=== PATIENT | female | born 1995 | race Caucasian/White ===

== ENCOUNTER 2017-08-18 10:56 | Emergency (ER) | payer OTHER ==
[~2017-08-18] VITALS: Ht 149.9 cm; Wt 63.5 kg
== END 2017-08-18 11:29 | disposition home or self-care (01) ==
LOC: ED 10:56
DX: S61.411A Laceration without foreign body of right hand, initial encounter (principal); W01.198A Fall on same level from slipping, tripping and stumbling with subsequent striking against other object, initial encounter

== ENCOUNTER 2018-11-05 17:45 | Emergency (ER) | payer OTHER ==
[~2018-11-05] VITALS: Ht 149.9 cm; Wt 63.5 kg
--- OUTSIDE RECORDS SUMMARY | ~2018-11-05 | XMS | Encounter Summary ---
Demographics + + + | Address | [address] | | | [place] [address] | + + + | Home Phone | | + + + | Preferred Language | Unknown | + + + | Marital Status | Single | + + + | Islam Affiliation | NON | + + + | Race | White | + + + | Ethnic Group | Not or | + + + Author + + + | Author | [facility] | + + + | Organization | [facility] | + + + | Address | Unknown | + + + | Phone | Unavailable | + + + Support + + + + + | Name | Relationship | Address | Phone | + + + + + | Dante Duenas | GISSELLE | [address] | | | | | [place] [address] | | + + + + + | Helena Barakatjoseph | ECON | [address] | | | | | [place] [address] | | + + + + + Care Team Providers + +------+ + | Care Equipment Processor Name | Role | Phone | + +------+ + | Larry Lorenzo | PCP | | + +------+ + Reason for Visit + + + | Reason | Comments | + + + | | | + + + Encounter Details +--------+ + + + + | Date | Type | Department | Care Team | Description | +--------+ + + + + | 09/12/ | | [facility] | Jeannie Argueta, | | | 2017 | | [facility] | [address] | | | | | [address] , [address] | [address] | | | | | [place], [place] | [place], [place] | | | | | [address] | [address] | | | | | [phone] | [phone] | | | | | | | | +--------+ + + + + Social History + +-------+ +--------+------+ | Tobacco Use | Types | Packs/Day | Years | Date | | | | | Used | | + +-------+ +--------+------+ | Never Smoker | | | | | + +-------+ +--------+------+ + +---+---+---+ | Smokeless Tobacco: | | | | | Never Used | | | | + +---+---+---+ + + +---------+ + | Alcohol Use | Drinks/Week | oz/Week | Comments | + + +---------+ + | No | 0 Standard drinks | 0.0 | not while | | | or equivalent | | | + + +---------+ + + + + | Sex Assigned at | Date Recorded | | | | + + + | Not on file | | + + + + + + + | Job Start Date | Occupation | Industry | + + + + | Not on file | Not on file | Not on file | + + + + + + + + | Travel History | Travel Start | Travel End | + + + + + + | No recent travel history available. | + + documented as of this encounter Last Filed Vital Signs + + + + + | Vital Sign | Reading | Time Taken | Comments | + + + + + | Blood Pressure | 100/62 | 09/12/2016 10:25 AM | | | | | PDT | | + + + + + | Pulse | - | - | | + + + + + | Temperature | - | - | | + + + + + | Respiratory Rate | - | - | | + + + + + | Oxygen Saturation | - | - | | + + + + + | Inhaled Oxygen | - | - | | | Concentration | | | | + + + + + | Weight | 68.9 kg (152 lb) | 09/12/2016 10:25 AM | | | | | PDT | | + + + + + | Height | - | - | | + + + + + | Body Mass Index | 29.93 | 04/23/2016 2:08 PM | | | | | PDT | | + + + + + documented in this encounter Patient Instructions Patient Instructions Hellen Littlejohn MA - 09/12/2016 10:30 AM PDTPrenatal Visit - Week 32 Please read chapters 9 and 27 in your book. Planning for the of your baby is important. Getting ready at home for your baby will assure that when you get home from the hospital, everything is ready for you and your baby to make the transition to your new life together. Some things to consider: ? Pediatric care ? Tdap ? Flu shots ? Vaccinations ? A place to sleep ? A place to change diapers ? A support system for you ? Nutrition Family Planning Did you talk to your mate about contraception? If not, do so soon. We would like you to h ave a solid plan in place even before your baby gets here. Why?.....because it s good for your baby, it s good for you, and it s good for your relationship with your mate. Also , we want you to be able to decide when you get , again. We now classify control methods into Tier 1 and Tier 2. Tier 2 methods are the ones that a lot of people make mistakes with ..they re good if used perfectly; but not kate van is capable of that ALL the time (condoms get left in drawer - with the diaphragms); pi lls are forgotten or lost; and rings and patches require changing). Plus, many of the dual hormone methods (containing BOTH an estrogen and a progestin) may not be the best choice for mothers. The Tier 1 methods are the three I s : ? Injectables ? Implants ? IUDs Are you leery of hormones ? Many women decline or delay good contraception because th ey don t want hormones. Some of them delay/decline right up to another . When the risks of the hormones used in modern contraceptives are weighed against the risks of pre gnancy, there is no comparison ..the potential risks of are much higher. And all of these methods are safe to use when you are . Let s talk about this at your next visit. Maternal Age Not that 35 years is all that old .however, recent studies indicate that the unborn ba bivinod of older mothers may be at a higher risk of stillbirth as delivery approaches. T his risk increases as the mother s age increases, and is independent of other risk factors a mother may have (like diabetes or high blood pressure). We re not sure why this is it probably has something to do with the placenta; possi bacilio with the aging of blood vessels, or some of the other phenomena associated with the agin g process. In any event, there is no clear explanation. Also, there is no clear standard o f care regarding how best to manage older mothers as the day of delivery approaches. Our practice has reached a consensus on what we recommend: ? Count to Ten. Keep a mental note of your baby s movements throughout the day. If you re concerned about less movement, eat or drink something and lie down on your left side in a quiet place. Start counting your baby s movements. If it takes more than 2 hours to c ount 10 distinct movements, call us. ? For women between the ages of 35-39, we advise testing in the 39th week of your , and induction of your labor if you go more than one week beyond your due ulices e. ? For women over the age of 40, we suggest getting an ultrasound between weeks 34 and 36, b eginning weekly testing in the 36th week of , and induction of labor in the last week of your (39-40 weeks). ? We can talk about this at your next visit. testing involves assessment of your baby s heart rate (20-45 minutes on the fet al heart rate monitor) and a brief ultrasound to measure the fluid around the baby (a good g auge of the health of the placenta). Weeks 30 to 32 of Your : Care Instructions Your Care Instructions You have made it to the final months of your . By now, your baby is really startin g to look like a baby, with hair and plump skin. As you enter the final weeks of , the reality of having a baby may start to set in . This is the time to settle on a name, get your household in order, set up a safe nursery, and find quality early childhood if needed. Doing these things in advance will allow you to focus on caring for and enjoying your new baby. You may also want to have a tour of your hospital 's labor and delivery unit to get a better idea of what to expect while you are in the [facility]. During these last months, it is very important to take good care of yourself and pay attent ion to what your body needs. If your doctor says it is okay for you to work, don't push your self too hard. Use the tips provided in this care sheet to ease heartburn and care for varic ose veins. If you haven't already had the Tdap shot during this , talk to your doctor about g etting it. It will help protect your against pertussis infection. Follow-up care is a mclaughlin part of your treatment and safety. Be sure to make and go to all ap pointments, and call your doctor if you are having problems. It's also a good idea to know y our test results and keep a list of the medicines you take. How can you care for yourself at home? Pay attention to your baby's movements You should feel your baby move several times every day. Your baby now turns less, and kicks and jabs more. Your baby sleeps 20 to 45 minutes at a time and is more active at certain times of day. If your doctor wants you to count your baby's kicks: Empty your bladder, and lie on your side or relax in a comfortable chair. Write down your start time. Pay attention only to your baby's movements. Count any movement except hiccups. After you have counted 10 movements, write down your stop time. Write down how many minutes it took for your baby to move 10 times. If an hour goes by and you have not recorded 10 movements, have something to eat or drin k and then count for another hour. If you do not record 10 movements in either hour, call yo doctor. Ease heartburn Eat small, frequent meals. Do not eat chocolate, peppermint, or very spicy foods. Avoid drinks with caffeine, such as coffee, tea, and sodas. Avoid bending over or lying down after meals. Talk a short walk after you eat. If heartburn is a problem at night, do not eat for 2 hours before bedtime. Take antacids like Mylanta, Maalox, Rolaids, or Tums. Do not take antacids that have sod ium bicarbonate. Care for varicose veins Varicose veins are blood vessels that stretch out with the extra blood during . Your legs may ache or throb. Most varicose veins will go away after the . Avoid standing for long periods of time. Sit with your legs crossed at the ankles, not t he knees. Sit with your feet propped up. Avoid tight clothing or stockings. Wear support hose. Exercise regularly. Try walking for at least 30 minutes a day. Where can you learn more? To learn more about "Weeks 30 to 32 of Your : Care Instructions", log into your My Chart account at [email or web address]. You can enter X471 in the "Health Library" [facility] box. Not on [employer]? Review the MyChart section of your After Visit Summary for directions on timbo aquino to sign up. Current as of: November 20, 2015 Content Version: [id number] [email or web address]. Care instructions adapted under license by [facility] [employer]. If you have questions about a medical condition or this instr uction, always ask your healthcare professional. [email or web address] disclaims any nino anty or liability for your use of this information. documented in this encounter Progress Notes Jeannie Argueta CNM - 09/12/2016 10:30 AM PDTFeeling well, no concerns. Discussed Tdap recommendations, recommended family members also get vaccine if not current. She is undecided about vaccine and will think about it She may travel to [place] by plane in a couple weeks, grandfather is ill. She isn't sure that she will go. Discussed ambulation and stretching every 1-2 hours to avoid DVT risk. S/S DVT reviewed F/u 2 wks Kathleen Saleem MA - 09/12/2016 10:30 AM PDTPt would like to discuss traveling on a plane. Pt declined the Tdap. No other questions or concerns. Hellen Littlejohn MA documented in this encounter Plan of Treatment Not on filedocumented as of this encounter Procedures + +--------+ + + + | Procedure Name | Priori | Date/Time | Associated Diagnosis | Comments | | | ty | | | | + +--------+ + + + | UA, DIP 4 | Routin | 09/12/2016 | 30 weeks gestation | Results for this | | | e | 10:16 AM | of | procedure are in the | | | | PDT | | results section. | + +--------+ + + + documented in this encounter Results UA, DIP 4 (09/12/2016 10:16 AM PDT) + + + + + + | Component | Value | Ref Range | Performed | Pathologist | | | | | At | Signature | + + + + + + | GLUCOSE | Negative | Negative | [facility] | | | [facility]INE) | | [facility] | | + + + + + + | PROTEIN, | Negative | Negative, Trace | [facility] | | | URINE | | | [facility] | | + + + + + + | NITRITES | Negative | Negative | [facility] | | | | | | [facility] | | + + + + + + | LEUKOCYTE | Positive (A) | Negative | [facility] | | | ESTERASE | | | [facility] | | | [facility] | | + + + + + + + + | Specimen | + + | Urine | + + + + + + + | Performing | Address | City/State/Zipcode | Phone Number | | Organization | | | | + + + + + | [facility] | [address], | [place] [address] | | | [facility] | [address] | | | + + + + + documented in this encounter Visit Diagnoses + + | Diagnosis | + + | screening for streptococcus B - Primary screening for | | Streptococcus B | + + | 30 weeks gestation of state, incidental | + + documented in this encounter
--- OUTSIDE RECORDS SUMMARY | ~2018-11-05 | XMS | Encounter Summary ---
Demographics + + + | Address | [address] | | | [place] [address] | + + + | Home Phone | | + + + | Preferred Language | Unknown | + + + | Marital Status | Single | + + + | Protestant Affiliation | NON | + + + | Race | White | + + + | Ethnic Group | Not or | + + + Author + + + | Author | [facility] | + + + | Organization | [facility] | + + + | Address | Unknown | + + + | Phone | Unavailable | + + + Support + + + + + | Name | Relationship | Address | Phone | + + + + + | Dante Duenas | GISSELLE | [address] | | | | | [place] [address] | | + + + + + | Helena Barakatjoseph | ECON | [address] | | | | | [place] [address] | | + + + + + Care Team Providers + +------+ + | Care Electromechanical Assembly Technician Name | Role | Phone | + +------+ + | Larry Lorenzo | PCP | | + +------+ + Reason for Visit + + + | Reason | Comments | + + + | Appointment | | + + + Encounter Details +--------+ + + + + | Date | Type | Department | Care Team | Description | +--------+ + + + + | 06/18/ | Telephone | [facility] | Jeannie Argueta, | Appointment | | 2015 | | [facility] [address] | CN[address] | | | | | [address] , [address] | [address] | | | | | [place], [place] | [place] | | | | | [address] | [address] | | | | | [phone] | [phone] | | | | | | | [...] + + documented as of this encounter Plan of Treatment Not on filedocumented as of this encounter Visit Diagnoses Not on filedocumented in this encounter"
--- OUTSIDE RECORDS SUMMARY | ~2018-11-05 | XMS | Encounter Summary ---
Demographics + + + | Address | [address] | | | [place] [address] | + + + | Home Phone | | + + + | Preferred Language | Unknown | + + + | Marital Status | Single | + + + | Adventist Affiliation | NON | + + + | Race | White | + + + | Ethnic Group | Not or | + + + Author + + + | Author | [facility] | + + + | Organization | [facility] | + + + | Address | Unknown | + + + | Phone | Unavailable | + + + Support + + + + + | Name | Relationship | Address | Phone | + + + + + | Dante Duenas | GISSELLE | [address] | | | | | [place] [address] | | + + + + + | Helena Hawleywil | ECON | [address] | | | | | [place] [address] | | + + + + + Care Team Providers + +------+ + | Care Asbestos Shingle Inspector Name | Role | Phone | + +------+ + | Larry Lorenzo | PCP | | + +------+ + Reason for Visit +--------+ + | Reason | Comments | +--------+ + | Fever | | +--------+ + Encounter Details +--------+ + + + + | Date | Type | Department | Care Team | Description | +--------+ + + + + | 12/11/ | Telephone | [facility] | Jeannie Argueta, | Fever | | 2017 | | [facility] [place] [address] | [address] | | | | | [address] , [address] | [address] | | | | | [place], [place] | [place], [place] | | | | | [address] | [address] | | | | | [phone] | [phone] | | | | | | | [...] Comments | + + +---------+ + | Yes | 0 Standard drinks | 0.0 | occ | | | or equivalent | | [...]
--- OUTSIDE RECORDS SUMMARY | ~2018-11-05 | XMS | Encounter Summary ---
Demographics + + + | Address | [address] | | | [place] [address] | + + + | Home Phone | | + + + | Preferred Language | Unknown | + + + | Marital Status | Single | + + + | Worship Affiliation | NON | + + + | Race | White | + + + | Ethnic Group | Not or | + + + Author + + + | Author | [facility] | + + + | Organization | [facility] | + + + | Address | Unknown | + + + | Phone | Unavailable | + + + Support + + + + + | Name | Relationship | Address | Phone | + + + + + | Dante Duenas | GISSELLE | [address] | | | | | [place] [address] | | + + + + + | Helena Hawleywil | ECON | [address]K | | | | | [place] [address] | | + + + + + Care Team Providers + +------+ + | Care Enterprise Application Developer Name | Role | Phone | + +------+ + | Larry Lorenzo | PCP | | + +------+ + Reason for Visit + + + | Reason | Comments | + + + | Intrauterine Device | Check up | + + + Encounter Details +--------+---------+ + + + | Date | Type | Department | Care Team | Description | +--------+---------+ + + + | 03/13/ | Office | [facility] | Harpreet Sanabria MD | Leukorrhea (Primary | | 2017 | Visit | [facility] [address] | Dx); Dysuria; IUD | | | | [address] | [address], [place] | check up; Pelvic | | | | [place], [place] | [address] | pain | | | | [address] | [phone] | | | | | [phone] | | | +--------+---------+ + + + Social History + +-------+ [...] + + + | Blood Pressure | 98/68 | 03/13/2017 8:24 AM | | | | | PDT | | + + + + + | Pulse | 74 | 03/13/2017 8:24 AM | | | | | PDT | | + + + + + | Temperature | 36.9 C (98.4 F) | 03/13/2017 8:24 AM | | | | | PDT | | + + + + + | Respiratory Rate | - | - | | + + + + + | Oxygen Saturation | 97% | 03/13/2017 8:24 AM | | | | | PDT | | + + + + + | Inhaled Oxygen | - | - | | | Concentration | | | | + + + + + | Weight | 68.5 kg (151 lb) | 03/13/2017 8:24 AM | | | | | PDT | | + + + + + | Height | - | - | | + + + + + | Body Mass Index | 29.74 | 11/25/2016 5:07 AM | | | | | PDT | | + + + + + documented in this encounter Patient Instructions Patient Instructions Harpreet Sanabria MD - 03/13/2017 8:30 AM PDTYour exam today was normal. There were no signs of a vaginal infection. I suspect that her body is just adjusting to the IUD and this should improve over time. If your pelvic cramping persists beyond next week, please call our office and an ultrasound will be ordered for you. If you developed another fever or any change in her vaginal discharge, please call.Catalina hutchison signed by Harpreet Sanabria MD at 03/13/2017 9:00 AM PDT documented in this encounter Progress Notes Harpreet Sanabria MD - 03/13/2017 8:30 AM PDTI was present for the entire exam & agree with A kalyn Gilliam's assessment and plan. Harpreet Sanabria MD acobyDottie [email or web address] - 03/13/2017 8:30 AM PDT Jennifer Reilly is a 21 y.o. female here today. Chief Complaint Patient presents with Intrauterine Device Check up S:Jennifer Reilly is a 21 y.o. female with ParaGard IUD inserted on 02/21/17, w ithout complications. After insertion had pelvic cramping x 3 days and resolved. Pelvic cram ping returned 1 week ago. Patient states that the cramping is on and off, not constant. She is not currently having any pelvic cramping. Has not tried any over the counter medications to help with the cramping. Has not tried to feel IUD strings. She has also noticed cloudy ur ine, vaginal discharge with odor and vulvar pruritis. The pruritis is intermittent and does not last all day. She uses dove sensitive skin soap to wash vulva. She has stopped shaving v ulva to help with irritation. LMP- 02/27/17, heavier this time used more tampons than normal, 8 tampons a day. Menses laste d x 4-5 days. Did not need to change tampons every hour. Current Medications: No current outpatient prescriptions on file. No current facility-administered medications for this visit. Allergies/Adverse Drug Reactions: No Known Allergies Review of Systems Constitutional: Negative for chills, fever and malaise/fatigue. Gastrointestinal: Negative for blood in stool, constipation, diarrhea, melena, nausea and v omiting. Genitourinary: Negative for dysuria, flank pain, frequency, hematuria and urgency. Gynecological: Negative for dyspareunia, genital sores. O: Vital Signs: BP 98/68 | Pulse 74 | Temp (Src) 36.9 C (98.4 F) (Tympanic) | Wt 68.5 kg (151 lb) | SpO 2 97% | LMP 02/27/2017 | ? No | BMI 29.74 kg/(m^2) General: Pelvic exam: Vulva: Erythema noted over labia majora and mons pubis without edema. No visib le genital sores, lesions or scaling. Cervix: No cervical motion tenderness, no cervical le sions or polyps visible. 3 cm IUD strings visible in os. Vaginal discharge: Creamy and odorl ess. Uterus: normal size, shape, consistency, no mass or tenderness. Adnexa: normal in size without mass. Slight tenderness over left adnexa. No tenderness over right adnexa. Urine dipstick negative for all components except leukocytes and blood. Wet mount SILVER slide: Negative yeast Wet mount Saline slide: Negative wbc, Negative clue cells, Negative budding yeast, Negati ve trichomonads. Normal epithelial cells visible. A: Jennifer Reilly is a 21 y.o. Female with pelvic cramping after IUD insertion. Normal exam without s/s of infection or IUD complication. P: Discussed with patient no signs of a vaginal infection or urinary infection. WBC noted in u rine possibly from vaginal discharge, will send urine for micro. Reviewed with patient intermittent pelvic cramping can be normal after IUD insertion. Advis ed to try Aleve 500 mg BID or Ibuprofen 200 mg TID for pelvic cramping. Advised if pelvic cramping worsens return to clinic for evaluation and possibly US for IUD placement check. Also advised if vaginal discharge changes, develops fever or worsening symp toms return to clinic. See Orders. Dottie Gilliam, Student nurse practitioner Edwardo Chowdhury MA - 03/13/2017 8:30 AM PDTPt here for IUD check. Paragard IUD was inserted on 02/21/17. She is having some intense cramping in her lower left a bdomen, accompanied by some lower back pain. She is also having some weird smelling urine. S he thought it may have been caused from not drinking enough water, but she has increased her water intake and the smell hasn't changed. Edwardo Carranza CMA documented in this e ncounter Plan of Treatment Not on filedocumented as of this encounter Procedures + +--------+ + + + | Procedure Name | Priori | Date/Time | Associated Diagnosis | Comments | | | ty | | | | + +--------+ + + + | UA DIPSTICK 10 DIP | Routin | 03/13/2017 | Dysuria | Results for this | | (MANUAL), POC | e | 8:39 AM | | procedure are in the | | | | PDT | | results section. | + +--------+ + + + documented in this encounter Results UA DIPSTICK 10 DIP (MANUAL), POC (03/13/2017 8:39 AM PDT) + + + + + + | Component | Value | Ref Range | Performed | Pathologist | | | | | At | Signature | + + + + + + | COLOR (UA | Light yellow | | [facility] | | | DIP), POC | | | [facility] | | | | [facility] | | + + + + + + | APPEARANCE | Cloudy | | [facility] | | | (UA DIP), | | | [facility] | | | POC | | | [facility] | | | [facility] | | + + + + + + | LEUKOCYTES | 3+ | Negative | [facility] | | | (UA DIP), | | | [facility] | | | POC | | | [facility] | | | [facility] | | + + + + + + | NITRITES | Negative | Negative | [facility] | | | (UA DIP), | | | [facility] | | | POC | | | [facility] | | | | [facility] | | + + + + + + | UROBILINOGE | 0.2 | 0.2 LUZ | [facility] | | | N (UA DIP), | | UNITS | [facility] | | | POC | | | [facility] | | | [facility] | | + + + + + + | PROTEIN (UA | Negative | Negative to | [facility] | | | DIP), POC | | Trace | [facility] | | | | | [facility] | | | | | [facility] | | + + + + + + | PH (UA | 5.5 | 5 - 8 | [facility] | | | DIP), POC | | | [facility] | | | | | | [facility] | | | | [facility] | | + + + + + + | BLOOD (UA | Trace-lysed | Negative | [facility] | | | DIP), POC | | | [facility] | | | | | [facility] | | + + + + + + | SPECIFIC | 1.005 | 1.005 - 1.03 | [facility] | | | GRAVITY (UA | | | [facility] | | | DIP), POC | | | [facility] | | | | [facility] | | + + + + + + | KETONES (UA | Negative | Negative | [facility] | | | DIP), POC | | | [facility] | | | | | | [facility] | | | | | [facility] | | + + + + + + | BILIRUBIN | Negative | Negative | [facility] | | | (UA DIP), | | | [facility] | | | POC | | | [facility] | | | | | [facility] | | + + + + + + | GLUCOSE (UA | Negative | Negative to | [facility] | | | DIP), POC | | Trace mg/dL | [facility] | | | | | [facility] | | | | | [facility] | | + + + + + + + + | Specimen | + + | Urine | + + + + + + + | Performing | Address | City/State/Zipcode | Phone Number | | Organization | | | | + + + + + | [facility] | [address], | [place] [address] | | | [facility] | [address] | | | + + + + + URINE, MICROSCOPIC EXAM (03/13/2017 8:30 AM PDT) + + + + + + | Component | Value | Ref Range | Performed | Pathologist | | | | | At | Signature | + + + + + + | RED CELLS | 0-3 | Neg, 0-3 | [facility] | | | | | | A [facility] | | | | | | [facility] | | + + + + + + | WHITE CELLS | Packed (A) | Neg, 0-2, 3-5 | [facility] | | | | | | A [facility] | | | | | | CENTER | | + + + + + + | BACTERIA | 4+ (A) | Negative, Trace | [facility] | | | | | /hpf | A [facility] | | | | | | CENTER | | + + + + + + | SQUAMOUS | Few | None /hpf /hpf | [facility] | | | EPITHELIAL | | | A [facility]ICAL | | | | | | CENTER | | + + + + + + + + | Specimen | + + | Urine | + + + + + + + | Performing | Address | City/State/Zipcode | Phone Number | | Organization | | | | + + + + + | [facility] | [place] | [place] [address] | [phone] | | [facility] | Street | | | + + + + + documented in this encounter Visit Diagnoses + + | Diagnosis | + + | Leukorrhea - Primary Leukorrhea, not specified as infective | + + | Dysuria | + + | IUD check up Surveillance of previously prescribed intrauterine contraceptive device | + + | Pelvic pain Unspecified symptom associated with female genital organs | + + documented in this encounter"
--- OUTSIDE RECORDS SUMMARY | ~2018-11-05 | XMS | Encounter Summary ---
Demographics + + + | Address | [address] | | | [place] [address] | + + + | Home Phone | | + + + | Preferred Language | Unknown | + + + | Marital Status | Single | + + + | Yazdanism Affiliation | NON | + + + [...] | | | | | [place] [address] | | + + + + + | [place] Hawleywil | ECON | [address] | | | | | [place] [address] | | + + + + + Care Team Providers + +------+ + | Care Marketing Project Lead Name | Role | Phone | + +------+ + | Larry Lorenzo | PCP | | + +------+ + Reason for Visit + + + | Reason | Comments | + + + | Breathing problem | | + + + Encounter Details +--------+ + + + + | Date | Type | Department | Care Team | Description | +--------+ + + + + | 05/20/ | Telephone | [facility] | Jeannie Argueta, | Breathing problem | | 2015 | | [facility] [address] | [facility] [address] | | | | | [address] | | | | | [place], [place] | [place], [place] | | | | | [address] | [address] | | | | | [phone] | [phone] | | | | | | | [...]
--- OUTSIDE RECORDS SUMMARY | ~2018-11-05 | XMS | Clinical Summary ---
Demographics + + + | Address | [address] | | | [place], [place] [address] | + + + | Home Phone | | + + + | Preferred Language | Unknown | + + + | Marital Status | Single | + + + | Gnosticism Affiliation | NON | + + + | Race | White | + + + | Ethnic Group | Not or | + + + Author + + + | Author | [facility] | + + + | Organization | [facility] | + + + | Address | Unknown | + + + | Phone | Unavailable | + + + Support + + + + + | Name | Relationship | Address | Phone | + + + + + | Dante Duenas | ECON | [address] | | | | | [place] [address] | | + + + + + | [place] Garrett Melba | ECON | [place] | | | | | [place] [address] | | + + + + + Care Team Providers + +------+ + | Care Histology Manager Name | Role | Phone | + +------+ + | Larry Lorenzo | PP | | + +------+ + Source Comments KELLY is fully live on both [facility] and [facility] InPatient.[facility] Allergies No Known Allergies Medications + + + +---------+------+------+-------+ | Medication | Sig | Dispensed | Refills | Star | End | Statu | | | | | | t | Date | s | | | | | | Date | | | + + + +---------+------+------+-------+ | | Take 1 tablet by | 3 | 3 | 08/22 | | Activ | | levonorgestrel-ethin | mouth once daily. | Package | | 07/12 | | e | | yl estradiol 0.1-20 | | | | 19 | | | | mg-mcg oral tablet | | | | | | | + + + +---------+------+------+-------+ Active Problems + + + | Problem | Noted Date | + + + | Family history of breast cancer in sister | 11/22/2016 | + + + + + | Overview: Diagnosed at 40, no genetic testing yet. | | Half sister, same mother. | + + + + + | Increased thirst | 10/08/2016 | + + + + + | Overview: 10/08/16: Pt reported at last visit she feels very | | thirsty. Often wakes up at night to drink water and is drinking | | over a gallon a day. Urine osmolality and CMP done which are | | negative. Pt instructed to try ice to satisfy thirst and to not | | drink more than 1 gallon per day. mp | + + + + + | Strep throat | 06/12/2016 | + + + + + | Overview: 06/12/16: Strep throat treated with Ampicillin 10 | | days. (concomittent UTI), then received IM Penicillin in office. | | AB06/18/16: Pt seen by Dr Caicedo at ENT today. He feels her | | condition is a more severe case of laryngitis. He will treat her | | with Azithromycin and f/u in a week or so. If not improved, will | | consider a Prednisone taper. mp | + + + + + | Normal first confirmed, antepartum | 04/23/2016 | + + + + + | Overview: Formatting of this note might be different from the | | original.FOB: Dating Criteria: [ ] LMP or U/S @ [ ] Weeks | | :[X] Labs: drawn 04/23/16[X] Rh: Lab Results | | Component Value Date ABO A 04/23/2016 RH Positive 04/23/2016 [ | | ] Antibody screen:[X] GC: 05/31/16[ ] HgbA1C: NA No results found | | for: A1C[X] Pap: Last pap 02/2016 ASCUS. Done at [facility] | | [facility].[X] Urine Cx: 05/31/16[ ] Birthing | | classesFIRST[X] Genetic Screening: [X] CF-negative [X] | | SIS-negative [ ] NIPT [ ] AFP 1st SIS drawn 05/10; 2nd drawn | | [id number][ ] Ultrasound 18-20 weeks:[ ] Follow up U/S: | | Indication:[ ] Gender: [X] 1hr gtt at 24-28wks: abnormal 1 HOUR | | GLUCOSE - 1GT 60 - 140 mg/dL 151 (H) [X] 3hr gtt: NORMAL1 HOUR | | GLUCOSE-3GT 60 - 180 mg/dL 148 2 HOUR GLUCOSE-3GT 60 - 153 mg/dL | | 135 3 HOUR GLUCOSE-3GT 60 - 140 mg/dL 145 (H) [X] CBC:WBC COUNT | | 3.5 - 10.8 K/cu mm 9.3 RED CELL COUNT 4.00 - 5.20 M/cu mm 4.24 | | HEMOGLOBIN 12.0 - 16.0 g/dL 12.0 HEMATOCRIT 36.0 - 46.0 % 35.2 | | (L) MCV 80.0 - 96.0 fL 83.1 MCH 28.0 - 34.7 pg 28.4 MCHC 33.0 - | | 35.5 g/dL 34.2 RDW 11.5 - 15.0 % 13.5 PLATELET COUNT 150 - 400 | | K/cu mm 314 MPV 9.7 - 12.3 fL 7.5 (L) [ ] Repeat | | surgical booking?THIRD[ ] Follow-up U/S: Growth or KALEY | | Indication:[X] Flu Shot (Feb-May): declined[X] Tdap (27-36 wks): | | declined [N/A] Rhogam (28 wks)[x ] GBS at 35wks: Positive[ ] MOD: | | [x ] :[x ] ppBCM:POP | |[ ] Ultrasound 18-20 weeks: | |[ ] Follow up U/S: Indication: | |[ ] Gender: | |[X] 1hr gtt at 24-28wks: abnormal | |1 HOUR GLUCOSE - 1GT 60 - 140 mg/dL 151 (H) | | | |[X] 3hr gtt: NORMAL | |1 HOUR GLUCOSE-3GT 60 - 180 mg/dL 148 | | | |2 HOUR GLUCOSE-3GT 60 - 153 mg/dL 135 | | | |3 HOUR GLUCOSE-3GT 60 - 140 mg/dL 145 (H) | | | |[X] CBC: | |WBC COUNT 3.5 - 10.8 K/cu mm 9.3 | |RED CELL COUNT 4.00 - 5.20 M/cu mm 4.24 | |HEMOGLOBIN 12.0 - 16.0 g/dL 12.0 | |HEMATOCRIT 36.0 - 46.0 % 35.2 (L) | |MCV 80.0 - 96.0 fL 83.1 | |MCH 28.0 - 34.7 pg 28.4 | |MCHC 33.0 - 35.5 g/dL 34.2 | |RDW 11.5 - 15.0 % 13.5 | |PLATELET COUNT 150 - 400 K/cu mm 314 | |MPV 9.7 - 12.3 fL 7.5 (L) | | | |[ ] Repeat surgical booking? | | | |THIRD | |[ ] Follow-up U/S: Growth or KALEY Indication: | |[X] Flu Shot (Feb-May): declined | |[X] Tdap (27-36 wks): declined | |[N/A] Rhogam (28 wks) | |[x ] GBS at 35wks: Positive | |[ ] MOD: | | | | | |[x ] : | |[x ] ppBCM:POP | + + +--------+ + | Asthma | 04/23/2016 | +--------+ + + + | Overview: 04/23/16: pt states this is exercise induced. She | | uses an inhaler as needed. sjk | + + Encounters +--------+--------+ + + + | Date | Type | Specialty | Care Team | Description | +--------+--------+ + + + | 09/10/ | Refill | | Elizabeth Mayfield, | Refill Request | | 2019 | | | MD | | +--------+--------+ + + + from Last 3 Months Immunizations + + + + | Name | Administration Dates | Next Due | + + + + | Intrauterine copper | 02/21/2017 | | | contraceptive | | | + + + + | Penicillin G | 06/12/2016 | | | Benzathine | | | + + + + Family History + + +------+ + | Medical History | Relation | Name | Comments | + + +------+ + | Breast Cancer | Maternal | | | | | Aunt | | | + + +------+ + | Diabetes | Maternal | | three cousins | | | Cousin | | | + + +------+ + | Diabetes | Maternal | | | | | Grandfath | | | | | er | | | + + +------+ + | Bleeding disorder | Maternal | | excessive clotting | | | Grandmoth | | | | | er | | | + + +------+ + | Diabetes | Maternal | | | | | Uncle | | | + + +------+ + | Diabetes | Maternal | | | | | Uncle | | | + + +------+ + | Seizure Disorder | Mother | | as child | + + +------+ + | Breast Cancer | Sister | | Half sister, same mother. Dx at 40. | + + +------+ + + +------+--------+ + | Relation | Name | Status | Comments | + +------+--------+ + | Maternal Aunt | | | | + +------+--------+ + | Maternal Cousin | | | | + +------+--------+ + | Maternal Grandfather | | | | + +------+--------+ + | Maternal Grandmother | | | | + +------+--------+ + | Maternal Uncle | | | | + +------+--------+ + | Maternal Uncle | | | | + +------+--------+ + | Mother | | | | + +------+--------+ + | Sister | | | | + +------+--------+ + Social History + +-------+ +--------+------+ | [...] recent travel history available. | + + Last Filed Vital Signs + + + + + | Vital Sign | Reading | Time Taken | Comments | + + + + + | Blood Pressure | 108/74 | 06/30/2017 10:53 AM | | | | | PST | | + + + + + | Pulse | 74 | 03/13/2017 8:24 AM | | | | | PDT | | + + + + + | Temperature | 36.9 C (98.4 F) | 03/13/2017 8:24 AM | | | | | PDT | | + + + + + | Respiratory Rate | 16 | 12/11/2016 8:51 PM | | | | | PDT | | + + + + + | Oxygen Saturation | 97% | 03/13/2017 8:24 AM | | | | | PDT | | + + + + + | Inhaled Oxygen | - | - | | | Concentration | | | | + + + + + | Weight | 64.9 kg (143 lb) | 06/30/2017 10:53 AM | | | | | PST | | + + + + + | Height | 151.8 cm (4' 11.75") | 11/25/2016 5:07 AM | | | | | PDT | | + + + + + | Body Mass Index | 28.16 | 11/25/2016 5:07 AM | | | | | PDT | | + + + + + Plan of Treatment + + + + + | Health Maintenance | Due Date | Last Done | Comments | + + + + + | Preconception/contra | | 06/30/2017, 03/13/2017, | | | ception counseling | 9 | 02/21/2017, Additional history | | | (one mclaughlin question) | | exists | | + + + + + | Influenza (Flu) | | | | | vaccination (Season | 9 | | | | Ended) | | | | + + + + + | Cervical cancer | | 02/21/2017, 02/21/2017 | | | screening (pap | 0 | | | | smear) | | | | + + + + + Results Not on filefrom Last 3 Months Insurance + +--------+ +--------+ + +--------+ | Payer | Benefi | Subscriber | Effect | Phone | Address | Type | | | t Plan | ID | toni | | | | | | / | | Dates | | | | | | Group | | | | | | + +--------+ +--------+ + +--------+ | [employer]ICA[employer] | [employer]VER [employer] | xxxxxxxx | | | | Medica | | | [place] | | 017-Pr | | | id | | | [place] | | esent | | | | + +--------+ +--------+ + +--------+ | [employer] | BCBS | xxxxxxxxxxx | 07/24/19 | [phone] | [address] | PPO | | | [place] | x | 16-Pre | 0 | [address] | | | | [place] | | sent | | [place] | | | | | | | | [address] | | + +--------+ +--------+ + +--------+ | [employer] MEDICAID | [employer] | xxxxxxxx | | | | Medica | | | [place] | | 016-Pr | | | id | | | [place] | | esent | | | | + +--------+ +--------+ + +--------+ + +--------+ +--------+ + + | Guarantor Name | Accoun | Relation to | Date | Phone | Billing Address | | | t Type | Patient | of | | | | | | | | | | + +--------+ +--------+ + + | Jennifer Reilly | Person | Self | [birth year] | [address] | | [place] | al/Fam | | 1994 | [phone] | [place] [address] | | | radha | | | 8 (Home) | | + +--------+ +--------+ + + | Jennifer Reilly | Person | Self | [birth year] | | [address] | | [place] | al/Fam | | 1994 | [phone] | [place] [address] | | | radha | | | 8 (Home) | | + +--------+ +--------+ + + Advance Directives + + + + + | Code Status | Date | Date | Comments | | | Activated | Inactivated | | + + + + + | Full Code | 11/27/2016 | 11/28/2016 | | | | 5:47 AM | 5:07 PM | | + + + + + + + + +---+ | | | | | + + + +---+ | Full Code | 11/25/2016 | 11/27/2016 | | | | 5:05 AM | 5:47 AM | | + + + +---+ + + + +---+ | | | | | + + + +---+ | Full Code | 11/25/2016 | 11/25/2016 | | | | 3:46 AM | 5:05 AM | | + + + +---+ + + + +---+ | | | | | + + + +---+ | Full Code | 11/10/2016 | 11/11/2016 | | | | 8:22 PM | 3:23 AM | | + + + +---+ + + + +---+ | | | | | + + + +---+ | Full Code | 10/11/2016 | 10/12/2016 | | | | 4:25 PM | 1:53 AM | | + + + +---+
--- OUTSIDE RECORDS SUMMARY | ~2018-11-05 | XMS | Encounter Summary ---
Demographics + + + | Address | [address] | | | [place] [address] | + + + | Home Phone | | + + + | Preferred Language | Unknown | + + + | Marital Status | Single | + + + | Mormonism Affiliation | NON | + + + | Race | White | + + + | Ethnic Group | Not or | + + + Author + + + | Author | [facility] | + + + | Organization | [facility] | + + + | Address | Unknown | + + + | Phone | Unavailable | + + + Support + + + + + | Name | Relationship | Address | Phone | + + + + + | Dante Duenas | GISSELLE | [address] | | | | | [place] [address] | | + + + + + | Hel[place] Reilly | ECON | [address] | | | | | [place] [address] | | + + + + + Care Team Providers + +------+ + | Care Sheep Boner Name | Role | Phone | + +------+ + | Larry Lorenzo | PCP | | + +------+ + Encounter Details +--------+------+ + + + | Date | Type | Department | Care Team | Description | +--------+------+ + + + | 10/08/ | Lab | Laboratory at | | 34 weeks gestation | | 2016 | | [facility] | | of | | | [facility] [address] | | | | | | [address] | | | | | | [place] | | | | | | [address] | | | | | | [phone] | | | +--------+------+ + + + Social History + +-------+ [...] | + +--------+ + + + | REECE PURVIS/ | Urgent | 10/08/2016 | 34 weeks gestation | Results for this | | REFLEX | | 3:09 PM | of | procedure are in the | | | | PDT | | results section. | + +--------+ + + + documented in this encounter Results REECE PURVIS (10/08/2016 3:09 PM PDT) + + + + + + | Component | Value | Ref Range | Performed | Pathologist | | | | | At | Signature | + + + + + + | COLOR(UR) | Yellow | Colorless, | [facility] | | | | | Straw, Yellow | [facility] | | + + + + + + | APPEARANCE | Clear | Clear | [facility] | | | | | | [facility] | | + + + + + + | PH (URINE) | 6.5 | 5.0 - 8.5 | [facility] | | | | | [...] + + + + + | KETONES | Negative | Negative | [facility] | | | | | | [facility] | | + + + + + + | SPECIFIC | <=1.005 | 1.005 - 1.030 | [facility] | | | GRAVITY | | | [facility] | | | [...] + + + + + | BLOOD | Negative | Negative | [facility] | [...] + + + + | LEUKOCYTE | Negative | Negative | [facility] | | | ESTERASE | | | [facility] | | | | | [facility] | | | [facility] | | + + + + + + | UROBILINOGE | Negative | Negative mg/dL | [facility] | | | [facility] | | | [facility] | | | [facility] | [facility] | | + + + + + + | SOURCE | Clean Catch | | [facility] | | | (URINALYSIS | | | [facility] | | | ) | | | [facility] | | | [...] [facility] | [address], | [place] [address] | | | [facility] | [address] | | | + + + + + documented in this encounter Visit Diagnoses + + | Diagnosis | + + | 34 weeks gestation of state, incidental | + + documented in this encounter"
--- OUTSIDE RECORDS SUMMARY | ~2018-11-05 | XMS | Encounter Summary ---
Demographics + + + | Address | [address] | | | [place] [address] | + + + | Home Phone | | + + + | Preferred Language | Unknown | + + + | Marital Status | Single | + + + | Mu-Ism Affiliation | NON | + + + | Race | White | + + + | Ethnic Group | Not or | + + + Author + + + | Author | [facility] | + + + | Organization | [facility] | + + + | Address | Unknown | + + + | Phone | Unavailable | + + + Support + + + + + | Name | Relationship | Address | Phone | + + + + + | Dante Duenas | GISSELLE | [address] | | | | | [place] [address] | | + + + + + | Helena Barakatjoseph | ECON | [address] | | | | | [place] [address] | | + + + + + Care Team Providers + +------+ + | Care Safety And Security Officer Name | Role | Phone | + +------+ + | Larry Lorenzo | PCP | | + +------+ + Reason for Visit + + + | Reason | Comments | + + + | care | | + + + Encounter Details +--------+ + + + + | Date | Type | Department | Care Team | Description | +--------+ + + + + | 10/31/ | | [facility] | Jeannie Argueta, | care | | 2017 | | [facility] [address] | [address] | | | | | [address] , [address] | | | | | [place], [place] | [place] | | | | | [address] | [address] | | | | | [phone] | [phone] | | | | | | | [...] + + + | Blood Pressure | 130/86 | 10/31/2016 11:50 AM | | | | | PDT [...] + + + + | Weight | 77.6 kg (171 lb) | 10/31/2016 11:50 AM | | | | | PDT | | + + + + + | Height | - | - | | + + + + + | Body Mass Index | 33.68 | 04/23/2016 2:08 PM | | | | | PDT | | + + + + + documented in this encounter Patient Instructions Patient Instructions Mayte Yap MA - 10/31/2016 11:45 AM PDTContinue to monitor for a ny contractions, fluid leakage, bleeding or decreased movement. If you have bleeding o r decreased movement, are in labor or think your water has broken, please go to [facility] ([facility] and Delivery). Please call if you have any concerns. After hours call [facility] pressions if you think you are in labor to let them know you are coming in. [phone]. Please read chapters 11 and 32 in your book. Week 37 of Your : Care Instructions Your Care Instructions You are near the end of your and you're probably pretty uncomfortable. It may b e harder to walk around. Lying down probably isn't comfortable either. You may have trouble getting to sleep or staying asleep. Most women deliver their babies between 37 and 42 weeks. This is a good time to think about packing a bag for the hospital with items you'll need. Then you'll be ready when labor star ts. Follow-up care is a mclaughlin part of your treatment and safety. Be sure to make and go to all ap pointments, and call your doctor if you are having problems. It's also a good idea to know y our test results and keep a list of the medicines you take. How can you care for yourself at home? Learn about is best for your baby and good for you. Breast milk has antibodies to help your baby fight infections. Mothers who breastfeed often lose weight faster, because making milk goodson calories. Learning the best ways to hold your baby will make easier. Let your partner bathe and diaper the baby to keep your partner from feeling left out. S nuggle together when you breastfeed. You may want to learn how to use a breast pump and store your milk. If you choose to bottle feed, make the feeding feel like so you can johnson w ith your baby. Always hold your baby and the bottle. Do not prop bottles or let your baby fa ll asleep with a bottle. Learn about crying It is common for babies to cry for 1 to 3 hours a day. Some cry more, some cry less. Babies don't cry to make you upset or because you are a bad parent. Crying is how your baby communicates. Your baby may be hungry; have gas; need a diaper c hange; or feel cold, warm, tired, lonely, or tense. Sometimes babies cry for unknown reasons . If you respond to your baby's needs, he or she will learn to trust you. Try to stay calm when your baby cries. Your baby may get more upset if he or she senses that you are upset. Know how to care for your Your baby's umbilical cord stump will drop off on its own, usually between 1 and 2 weeks . To care for your baby's umbilical cord area: Clean the area at the bottom of the cord 2 or 3 times a day. Pay special attention to the area where the cord attaches to the skin. Keep the diaper folded below the cord. Use a damp washcloth or cotton ball to sponge bathe your baby until the stump has come o ff. Your baby's first dark stool is called meconium. After the meconium is passed, your baby will develop his or her own bowel pattern. Some babies, especially breastfed babies, have several bowel movements a day. Others hav e one or two a day, or one every 2 to 3 days. Breastfed babies often have loose, yellow stools. Formula-fed babies have more formed st ools. If your baby's stools look like little pellets, he or she is constipated. After 2 days o f constipation, call your baby's doctor. If your baby will be circumcised, you can care for him at home. Gently rinse his penis with warm water after every diaper change. Do not try to remove t he film that forms on the penis. This film will go away on its own. Pat dry. Put petroleum ointment, such as Vaseline, on the area of the diaper that will touch your baby's penis. This will keep the diaper from sticking to your baby. Ask the doctor about giving your baby acetaminophen (Tylenol) for pain. Where can you learn more? To learn more about "Week 37 of Your : Care Instructions", log into your [employer] a ccount at [email or web address]. You can enter N257 in the "[employer] Library" search box . Not on Sport[employer]ets? Review the [employer] section of your After Visit Summary for directions on timbo aquino to sign up. Current as of: November 20, 2015 Content Version: 11.2 6493-8106 [employer]. Care instructions adapted under license by [facility] [employer]. If you have questions about a medical condition or this instr uction, always ask your healthcare professional. [employer] disclaims any nino anty or liability for your use of this information. documented in this encounter Progress Notes Jeannie Argueta CNM - 10/31/2016 11:45 AM PDTS: Feeling well. Good movement. She p assed her mucus plug last week. No regular uc, vb or lof O: See flow sheet A/P Reviewed + GBS and tx in labor F/u 1 wk Fausto Mistry MA - 10/31/2016 11:45 AM [place] is having random contractions.-GelacioCMAElectronical ly signed by Mayte Yap MA at 10/31/2016 12:11 PM PDTdocumented in this encounter Plan of Treatment Not on filedocumented as of this encounter Visit Diagnoses + + | Diagnosis | + + | 37 weeks gestation of - Primary state, incidental | + + documented in this encounter
--- OUTSIDE RECORDS SUMMARY | ~2018-11-05 | XMS | Encounter Summary ---
Demographics + + + | Address | [address] | | | [place] [address] | + + + | Home Phone | | + + + | Preferred Language | Unknown | + + + | Marital Status | Single | + + + | Mandaen Affiliation | NON | + + + | Race | White | + + + | Ethnic Group | Not or | + + + Author + + + | Author | [facility] | + + + | Organization | [facility] | + + + | Address | Unknown | + + + | Phone | Unavailable | + + + Support + + + + + | Name | Relationship | Address | Phone | + + + + + | Dante Duenas | GISSELLE | [address] | | | | | [place] [address] | | + + + + + | Helena Reilly | ECON | [address] | | | | | [place] [address] | | + + + + + Care Team Providers + +------+ + | Care Vp Talent Management Name | Role | Phone | + +------+ + | Larry Lorenzo | PCP | | + +------+ + Reason for Visit + + + | Reason | Comments | + + + | Lab Results | | + + + Encounter Details +--------+ + + + + | Date | Type | Department | Care Team | Description | +--------+ + + + + | 09/30/ | Telephone | [place] | Jeannie Argueta, | Lab Results | | 2016 | | [facility] [place] [address] | [address] | | | | | [address] , [address] | [address] | | | | | [place], [place] | [place], [place] | | | | | [address] | [address] | | | | | [phone] | [phone] | | | | | | | [...]
--- OUTSIDE RECORDS SUMMARY | ~2018-11-05 | XMS | Encounter Summary ---
Demographics + + + | Address | [address] | | | [place] [address] | + + + | Home Phone | | + + + | Preferred Language | Unknown | + + + | Marital Status | Single | + + + | Religion Affiliation | NON | + + + | Race | White | + + + | Ethnic Group | Not or | + + + Author + + + | Author | [facility] | + + + | Organization | [facility] | + + + | Address | Unknown | + + + | Phone | Unavailable | + + + Support + + + + + | Name | Relationship | Address | Phone | + + + + + | Dante Duenas | ECON | [address] | | | | | [place] [address] | | + + + + + | Helena Reilly | ECON | [address] | | | | | [place] [address] | | + + + + + Care Team Providers + +------+ + | Care Bar Attendant Name | Role | Phone | + +------+ + PCP | Unavailable | + +------+ + Encounter Details +--------+ + + + + | Date | Type | Department | Care Team | Description | +--------+ + + + + | 12/31/ | Results | [facility] | Kush Poole | | | 2011 | Only | Department | [place] [address] | | | | | | [place] | | | | | | [address] | | | | | | [phone] | | | | | | | | +--------+ + + + + Social History + +-------+ +--------+------+ | Tobacco Use | Types | Packs/Day | Years | Date | | | | | Used | | + +-------+ +--------+------+ | Never Assessed | | | | | + +-------+ +--------+------+ + + + | Sex Assigned at [...] | + +--------+ + + + | MARIELA PURVISICK ONLY | Routin | 01/01/2012 | | Results for this | | | e | 10:16 AM | | procedure are in the | | | | PDT | | results section. | + +--------+ + + + | HCG QUAL, URINE | Routin | 01/01/2012 | | Results for this | | | e | 10:16 AM | | procedure are in the | | | | PDT | | results section. | + +--------+ + + + | CBC W/DIFF, REFLEX | Routin | 01/01/2012 | | Results for this | | | e | 9:45 AM | | procedure are in the | | | | PDT | | results section. | + +--------+ + + + | COMPLETE METABOLIC | Routin | 01/01/2012 | | Results for this | | SET | e | 9:45 AM | | procedure are in the | | (NA,K,CL,CO2,BUN,CRE | | PDT | | results section. | | AT,GLUC,CA,AST,ALT,B | | | | | | BALAJI TOTAL,ALK | | | | | | PHOS,ALB,PROT TOTAL) | | | | | + +--------+ + + + documented in this encounter Results REECE PURVIS ONLY (01/01/2012 10:16 AM PDT) + + + + + + | Component | Value | Ref Range | Performed | Pathologist | | | | | At | Signature | + + + + + + | COLOR(UR) | Colorless | YELLOW | [facility] | | | | | | A MEDICAL | | | | | | CENTER | | + + + + + + | APPEARANCE | Clear | CLEAR | [facility] | | | | | | A MEDICAL | | | | | | CENTER | | + + + + + + | SPECIFIC | 1.004 | 1.005 - 1.030 | [facility] | | | GRAVITY | | | A MEDICAL | | | | | | CENTER | | + + + + + + | PH(UR) | 6.5 | 5.0 - 8.0 | [facility] | | | | | | A MEDICAL | | | | | | CENTER | | + + + + + + | PROTEIN, UA | NEG | NEGATIVE | [facility] | | | | | | A [facility]ICAL | | | | | | CENTER | | + + + + + + | GLUCOSE, UA | NEG | NEGATIVE | [facility] | | | | | | A [facility]ICAL | | | | | | CENTER | | + + + + + + | KETONES, UA | NEG | NEGATIVE | [facility] | | | | | | A MEDICAL | | | | | | CENTER | | + + + + + + | BILIRUBIN | NEG | NEGATIVE | [facility] | | | | | | A [facility] | | | | | | CENTER | | + + + + + + | BLOOD | NEG | NEGATIVE | [facility] | | | | | | A [facility]ICAL | | | | | | CENTER | | + + + + + + | NITRITES | POS | NEGATIVE | [facility] | | | | | | A [facility] | | | | | | CENTER | | + + + + + + | LEUKOCYTE | POS | NEGATIVE | [facility] | | | ESTERASE | | | A MEDICAL | | | | | | CENTER | | + + + + + + | UROBILINOGE | NEG | NEGATIVE MG/DL | [facility] | | | N | | | A MEDICAL | | | | | | CENTER | | + + + + + + | WHITE CELLS | 5-10 | 0 - 2 HPF | [facility] | | | | | | A MEDICAL | | | | | | CENTER | | + + + + + + | RED CELLS | NEG | 0 - 3 HPF | [facility] | | | | | | A [facility]ICAL | | | | | | CENTER | | + + + + + + | EPITHELIAL | FEW | RARE-MOD LPF | [facility] | | | CELLS | | | A MEDICAL | | | | | | CENTER | | + + + + + + | BACTERIA | 4+ | NEG HPF | [facility] | | | | | | A MEDICAL | | | | | | CENTER | | + + + + + + | OTHER | NEG | | [facility] | | | | | | A MEDICAL | | | | | | CENTER | | + + + + + + | SOURCE | CLEAN CATCH | | [facility] | | | | | | A MEDICAL | | | | | | CENTER | | + + + + + + + + | Specimen | + + | | + + + + + + + | Performing | Address | City/State/Zipcode | Phone Number | | Organization | | | | + + + + + | [facility] | And | [place] [address] | [phone] | | [facility] | Streets | | | + + + + + | [facility] | And | [place] [address] | | | [facility] | Streets | | | + + + + + HCG QUAL, URINE (01/01/2012 10:16 AM PDT) + + + + + + | Component | Value | Ref Range | Performed | Pathologist | | | | | At | Signature | + + + + + + | HCG QUAL | NEGATIVE | NEGATIVE | [facility] | | | URINE | | | A MEDICAL | | | | | | CENTER | | + + + + + + + + | Specimen | + + | | + + + + + + + | Performing | Address | City/State/Zipcode | Phone Number | | Organization | | | | + + + + + | [facility] | [address] [place] | [place] [address] | [phone] | | [facility] | [address] | | | + + + + + | [facility] | And | [place] [address] | | | [facility] | Streets | | | + + + + + TIFFANY TYLER (01/01/2012 9:45 AM PDT) + + + + + + | Component | Value | Ref Range | Performed | Pathologist | | | | | At | Signature | + + + + + + | WHITE BLOOD | 9.1 | 4.5 - 13.5 X10 | [facility] | | | CELL COUNT | | 3/ul | A MEDICAL | | | | | | CENTER | | + + + + + + | HEMOGLOBIN | 13.6 | 11.7 - 15.3 | [facility] | | | | | g/dL | A MEDICAL | | | | | | CENTER | | + + + + + + | RED BLOOD | 4.82 | 4.1 - 5.1 X10 | [facility] | | | CELL COUNT | | 6/uL | A MEDICAL | | | | | | CENTER | | + + + + + + | HEMATOCRIT | 40.4 | 34.0 - 44.0 % | [facility] | | | | | | A MEDICAL | | | | | | CENTER | | + + + + + + | MCV | 83.8 | 82 - 100 fl | [facility] | | | | | | A MEDICAL | | | | | | CENTER | | + + + + + + | MCH | 28.2 | 28.0 - 32.0 pg | [facility] | | | | | | A MEDICAL | | | | | | CENTER | | + + + + + + | MCHC | 33.7 | 32 - 36 g/dL | [facility] | | | | | | A MEDICAL | | | | | | CENTER | | + + + + + + | RDW | 12.5 | 12 - 15 fL | [facility] | | | | | | A MEDICAL | | | | | | CENTER | | + + + + + + | PLATELET | 302 | 150 - 450 X10 3 | [facility] | | | COUNT | | | A MEDICAL | | | | | | CENTER | | + + + + + + | MPV | 6.7 (L) | 9.0 - 12.0 fL | [facility] | | | | | | A MEDICAL | | | | | | CENTER | | + + + + + + | NEUTROPHIL | 76.1 | 40 - 80 % | [facility] | | | % | | | A MEDICAL | | | | | | CENTER | | + + + + + + | LYMPHOCYTE | 16.4 (L) | 20 - 50 % | [facility] | | | % | | | A MEDICAL | | | | | | CENTER | | + + + + + + | EOS % | 1.2 | 0 - 5 % | [facility] | | | | | | A MEDICAL | | | | | | CENTER | | + + + + + + | BASO % | 0.7 | 0 - 1 % | [facility] | | | | | | A MEDICAL | | | | | | CENTER | | + + + + + + | MONOCYTE % | 5.6 | 2 - 10 % | [facility] | | | | | | A MEDICAL | | | | | | CENTER | | + + + + + + | BANDS % | [place] | 0 - 7 % | [facility] | | | | | | A MEDICAL | | | | | | CENTER | | + + + + + + + + | Specimen | + + | | + + + + + + + | Performing | Address | City/State/Zipcode | Phone Number | | Organization | | | | + + + + + | [facility] | And | [place] [address] | [phone] | | [facility] | Stre[address] | | | + + + + + | [facility] | And | [place] [address] | | | [facility] | Streets | | | + + + + + COMPLETE METABOLIC SET (NA,K,CL,CO2,BUN,CREAT,GLUC,CA,AST,ALT,BILI TOTAL,ALK PHOS,ALB,PROT TOTAL) (01/01/2012 9:45 AM PDT) + +-------+ + + + | Component | Value | Ref Range | Performed | Pathologist | | | | | At | Signature | + +-------+ + + + | SODIUM, | 141 | 138 - 145 MEQ/L | [facility] | | | PLASMA | | | A MEDICAL | | | (LAB) | | | CENTER | | + +-------+ + + + | POTASSIUM, | 3.9 | 3.4 - 4.7 MEQ/L | [facility] | | | PLASMA | | | A MEDICAL | | | (LAB) | | | CENTER | | + +-------+ + + + | CO2 | 27 | 23 - 30 MEQ/L | [facility] | | | | | | A MEDICAL | | | | | | CENTER | | + +-------+ + + + | CHLORIDE, | 107 | 97 - 107 MEQ/L | [facility] | | | PLASMA | | | A MEDICAL | | | (LAB) | | | CENTER | | + +-------+ + + + | ANION GAP | 10.9 | 8 - 16 MEQ/L | [facility] | | | | | | A MEDICAL | | | | | | CENTER | | + +-------+ + + + | GLUCOSE, | 98 | 70 - 105 MG/DL | [facility] | | | PLASMA | | | A MEDICAL | | | (LAB) | | | CENTER | | + +-------+ + + + | BUN, PLASMA | 5 | 5 - 18 MG/DL | [facility] | | | (LAB) | | | A MEDICAL | | | | | | CENTER | | + +-------+ + + + | CREATININE | 0.54 | 0.5 - 1.0 MG/DL | [facility] | | | PLASMA | | | A MEDICAL | | | (LAB) | | | CENTER | | + +-------+ + + + | BUN/CREATIN | 9 | 6 - 20 RATIO | [facility] | | | INE RATIO | | | A MEDICAL | | | | | | CENTER | | + +-------+ + + + | CALCIUM, | 9.0 | 9.0 - 11.5 | [facility] | | | PLASMA | | MG/DL | A MEDICAL | | | (LAB) | | | CENTER | | + +-------+ + + + | AST(SGOT) | 48 | 7 - 58 U/L | [facility] | | | | | | A MEDICAL | | | | | | CENTER | | + +-------+ + + + | ALT (SGPT) | 29 | 7 - 51 U/L | [facility] | | | | | | A MEDICAL | | | | | | CENTER | | + +-------+ + + + | ALK PHOS | 97 | 60 - 350 U/L | [facility] | | | | | | A MEDICAL | | | | | | CENTER | | + +-------+ + + + | TOTAL | 7.8 | 6.7 - 8.5 G/DL | [facility] | | | PROTEIN, | | | A MEDICAL | | | PLASMA | | | CENTER | | | (LAB) | | | | | + +-------+ + + + | ALBUMIN, | 4.0 | 3.5 - 5.0 G/DL | [facility] | | | PLASMA | | | A MEDICAL | | | (LAB) | | | CENTER | | + +-------+ + + + | BILIRUBIN | 0.7 | 0.2 - 1.6 MG/DL | [facility] | | | TOTAL | | | A MEDICAL | | | | | | CENTER | | + +-------+ + + + | LIPASE | 27 | 5 - 57 U/L | [facility] | | | (LAB) | | | A MEDICAL | | | | | | CENTER | | + +-------+ + + + | ESTIMATED | TOWN [place]AL | | [facility] | | | GFR | | | A MEDICAL | | | | | | CENTER | | + +-------+ + + + | FASTING? | UNK | HR | [facility] | | | | | | A MEDICAL | | | | | | CENTER | | + +-------+ + + + + + | Specimen | + + | | + + + + + + + | Performing | Address | City/State/Zipcode | Phone Number | | Organization | | | | + + + + + | [facility] | [address] [place] | [place] [address] | [phone] | | [facility] | [address] | | | + + + + + | [facility] | [address] [place] | [place] [address] | | | [facility]ICAL [facility]ENTER | Streets | | | + + + + + documented in this encounter Visit Diagnoses Not on filedocumented in this encounter"
--- OUTSIDE RECORDS SUMMARY | ~2018-11-05 | XMS | Encounter Summary ---
Demographics + + + | Address | [address] | | | [place] [address] | + + + | Home Phone | | + + + | Preferred Language | Unknown | + + + | Marital Status | Single | + + + | Temple Affiliation | NON | + + + | Race | White | + + + | Ethnic Group | Not or | + + + Author + + + | Author | [facility] | + + + | Organization | [facility] | + + + | Address | Unknown | + + + | Phone | Unavailable | + + + Support + + + + + | Name | Relationship | Address | Phone | + + + + + | Dante Duenas | GISSELLE | [address] | | | | | [place] [address] | | + + + + + | Helena Barakatjoseph | ECON | [address] | | | | | [place] [address] | | + + + + + Care Team Providers + +------+ + | Care Mechanical Commissioning Engineer Name | Role | Phone | + +------+ + | Larry Lorenzo | PCP | | + +------+ + Reason for Visit + + + | Reason | Comments | + + + | Insertion of IUD | | + + + Encounter Details +--------+---------+ + + + | Date | Type | Department | Care Team | Description | +--------+---------+ + + + | 01/08/ | Office | [facility] | Jeannie Argueta, | | | 2016 | Visit | [facility] [address] | [address] | examination or test, | | | | [address] , [address] | | | | | [place], [place] | [place], [place] | unconfirmed (Primary | | | | [id number] | [id number] | Dx) | | | | [phone] | [phone] | | | | | | | | +--------+---------+ + + + [...] + + + | Blood Pressure | 112/74 | 01/08/2017 11:04 AM | | | | | PDT [...] + + + + | Weight | 67.1 kg (148 lb) | 01/08/2017 11:04 AM | | | | | PDT | | + + + + + | Height | - | - | | + + + + + | Body Mass Index | 29.15 | 11/25/2016 5:07 AM | | | | | PDT | | + + + + + documented in this encounter Progress Notes Jeannie Argueta CNM - 01/08/2017 11:15 AM PDT S: Jennifer Reilly is a 21 y.o. female here today for IUD insertion. She states that she had intercourse 1 1/2 weeks ago and used a condom but it came off and semen did enter va ginally. She is not . She has had a few cramps like she might start a period so on. Chief Complaint Patient presents with Insertion of IUD Current Medications: Current Outpatient Prescriptions Medication Sig docusate sodium 100 mg oral capsule Take 1 capsule by mouth two times daily. ibuprofen 800 mg oral tablet Take 1 tablet by mouth every eight hours as needed for mod erate pain. vitamins, with calcium, iron-folic acid 27 mg iron- 1 mg oral tablet Take 1 ta blet by mouth once daily. No current facility-administered medications for this visit. Allergies/Adverse Drug Reactions: No Known Allergies O: Gen: Happy Psych: Normal mood and affect Vital Signs: BP 112/74 | Wt 67.1 kg (148 lb) | ? Unknown | BMI 29.15 kg/(m^2) A: Contraception management P: We discussed IUD insert and it has been more than 5 days to be able to use the paraguard for emergency contraception. Since she is not , there is a high chance that sh e could have ovulated. We discussed risk of insertion today which could include disruption o f causing miscarriage or abnormalities with developing fetus with IUD. Due to this , plan was made to not place IUD today and have her return in 2 1/2 -3 weeks for insertion. We discussed abstinence until then or use of condom although recommended a different size/br and that may fit better. See Orders. Mayte Mistry M A - 01/08/2017 11:15 AM Agu[place] has had some cramping the past day and a half. She was sexual ly active about 2 weeks ago and did not use protection.-RENETTA Brizuela documented in this encounter Plan of Treatment Not on filedocumented as of this encounter Procedures + +--------+ + + + | Procedure Name | Priori | Date/Time | Associated Diagnosis | Comments | | | ty | | | | + +--------+ + + + | HCG URINE (MANUAL), | Routin | 01/08/2017 | | Results for this | | POC | e | | examination or test, | procedure are in the | | | | | | results section. | | | | | unconfirmed | | + +--------+ + + + documented in this encounter Results HCG URINE (MANUAL), POC (01/08/2017) + + + + + + | Component | Value | Ref Range | Performed | Pathologist | | | | | At | Signature | + + + + + + | HCG URINE, | Negative | Negative | [facility] | | | POC | | | OF CARE | | | | | | TESTING | | + + + + + + | QC: ENTER | Pass | | [facility] | | | "PASS" OR | | | OF CARE | | | "FAIL", | | | TESTING | | | URINE HCG | | | | | + + + + + + + + | Specimen | + + | | + + + +---------+ + + | Performing | Address | City/State/Zipcode | Phone Number | | Organization | | | | + +---------+ + + | [facility] | | | | | TESTING | | | | + +---------+ + + documented in this encounter Visit Diagnoses + + | Diagnosis | + + | examination or test, unconfirmed - Primary | + + documented in this encounter
--- OUTSIDE RECORDS SUMMARY | ~2018-11-05 | XMS | Encounter Summary ---
Demographics + + + | Address | [address] | | | [place] [address] | + + + | Home Phone | | + + + | Preferred Language | Unknown | + + + | Marital Status | Single | + + + | Latter-Day Affiliation | NON | + + + | Race | White | + + + | Ethnic Group | Not or | + + + Author + + + | Author | [facility] | + + + | Organization | [facility] | + + + | Address | Unknown | + + + | Phone | Unavailable | + + + Support + + + + + | Name | Relationship | Address | Phone | + + + + + | Dante Duenas | GISSELLE | [address] | | | | | [place] [address] | | + + + + + | Helena Barakatjoseph | ECON | [address] | | | | | [place] [address] | | + + + + + Care Team Providers + +------+ + | Care Fluoroscope Operator Name | Role | Phone | + +------+ + | Larry Lorenzo | PCP | | + +------+ + Reason for Visit + + + | Reason | Comments | + + + | Onset Of | Pt. states that she has been feeling intermittent cramping for | | Contractions | entire , but this past week she states she has been | | | feeling intermittent cramping every day. She denies vag bleeding | | | or LOF, and states she has felt baby move today. She denies | | | recent intercourse, will collect fFN and do SVE per Avni Argueta's | | | order. | + + + Encounter Details +--------+ + + + + | Date | Type | Department | Care Team | Description | +--------+ + + + + | 10/08/ | Hospital | Maternity Services | Jeannie Argueta, | | | 2016 | Encounter | at [facility] | CNM [address] | | | | | [address] | [address] | | | | | [place], [place] | [place], [place] | | | | | [address] | [address] | | | | | [phone] | [phone] | | | | | | | [...] + + + | Blood Pressure | 127/71 | 10/08/2016 5:00 PM | | | | | PDT | | + + + + + | Pulse | 80 | 10/08/2016 5:00 PM | | | | | PDT | | + + + + + | Temperature | 36.8 C (98.3 F) | 10/08/2016 5:00 PM | | | | | PDT | | + + + + + | Respiratory Rate | 16 | 10/08/2016 5:00 PM | | | | | PDT | | + + + + + | Oxygen Saturation | 97% | 10/08/2016 5:00 PM | | | | | PDT | | + + + + + | Inhaled Oxygen | - | - | | | Concentration | | | | + + + + + | Weight | - | - | | + + + + + | Height | - | - | | + + + + + | Body Mass Index | - | - | | + + + + + documented in this encounter Discharge Instructions Instructions Maria Isabel Harrington RN - 10/08/2016Return to [facility] or call your O B provider: If your bag of water breaks -- this may feel like a gush of fluid or intermittent or contin uous leaking from the vagina. For any vaginal bleeding - a small amount of bloody mucous-like show is normal in early lab or or after an exam. When contractions are regular, uncomfortable and 5 minutes or less apart for approximately one hour. Notify your OB provider of Decreased movement of your baby. You should feel about 10 movements in a 10 hour period. Persistent headache Blurred or spotted vision, double vision or problem focusing. Sudden increase in weight or swelling of hands and face. Elevated temperature above 100.5 degrees F, oral temperature. documented in this encounter Progress Notes Jeannie Argueta CNM - 10/08/2016 5:21 PM PDT Labor and Delivery Triage Assessment /Plan Patient Information Estimated Date of Delivery: 11/17/16 Gestational Age: 34w2d No current facility-administered medications for this encounter. Current Outpatient Prescriptions Medication Sig vitamins, with calcium, iron-folic acid 27 mg iron- 1 mg oral tablet Take 1 ta blet by mouth once daily. Allergies: Review of patient's allergies indicates no known allergies. Suspected SROM: No (10/08/161516) Contractions: Yes (10/08/161516) Onset Date: 10/01/16 (10/08/161516) Vaginal Bleeding: not present (10/08/161516) Vaginal Discharge: yes (10/08/161516) Color: white (10/08/161516) Consistency: mucousy (10/08/161516) Odor: absent (10/08/161516) Amount: scant (10/08/161516) Movement: active (10/08/161516) Pain: Yes (10/08/161516) Pain Location: Pt. states not currently feeling painful, but when she does have cramping sh e rates pain as 3/10 (10/08/161516) Maternal Trauma: No (10/08/161516) Dilation (cm): 0 (10/11/161919) Effacement (%): 0 (10/11/161919) Membranes: Intact (10/11/161638) HPI: @ 34 2/7 weeks gestation who presented for evaluation after c/o contractions that come and go up to several per hour over the last 2 weeks. Denied vb or lof. O: Gen: NAD Abd: Gravid, soft, not tender FHT: 150bpm, moderate variability, + accels, - decels [place]: Q 2-7 SVE: 0/0%/high per RN exam, no change on repeat exam FFN: Negative Lab Results Component Value Date URINECOLOR Yellow 10/08/2016 URAPPEARANCE Clear 10/08/2016 URINELE Negative 10/08/2016 URINENITRITE Negative 10/08/2016 URINEUROBILI Negative 10/08/2016 URINEPROTEIN Negative 10/08/2016 URINEPH 6.5 10/08/2016 URINEBLOOD Negative 10/08/2016 URSPECGRAV <=1.005 10/08/2016 URINEKETONES Negative 10/08/2016 URINEBILI Negative 10/08/2016 URINEGLUCOSE Negative 10/08/2016 Assessment R/O PTL FHR Cat 1 Plan Pt was PO hydrated. FFN negative. Cervix remained closed. Pt discharged home with PTL preca utions and when to return for evaluation. F/U in clinic as planned in 2 weeks. Jeannie Argueta CNM documented in this encounter Plan of Treatment Not on filedocumented as of this encounter Procedures + +--------+ + + + | Procedure Name | Priori | Date/Time | Associated Diagnosis | Comments | | | ty | | | | + +--------+ + + + | FIBRONECTIN | Routin | 10/08/2016 | | Results for this | | | e | 3:30 PM | | procedure are in the | | | | PDT | | results section. | + +--------+ + + + documented in this encounter Results FIBRONECTIN (10/08/2016 3:30 PM PDT) + + + + + + | Component | Value | Ref Range | Performed | Pathologist | | | | | At | Signature | + + + + + + | | Negative | Negative | [facility] | | | FIBRONECTIN | | | A MEDICAL | | | | | | CENTER | | + + + + + + + + | Specimen | + + | Swab | + + + + + | Narrative | Performed At | + + + | Reference Values: Negative: No Delivery in <7 - 14 | [facility] | | Days(Predictive Values:99.5%-99.2%) Positive: Delivery Time in <7 - [facility] | | 14 Days(Predictive Values:12.7%-16.7%) | | + + + + + + + + | Performing | Address | City/State/Zipcode | Phone Number | | Organization | | | | + + + + + | [facility] | | [place] [address] | [phone] | | [facility] | [facility] | | | + + + + + documented in this encounter Visit Diagnoses Not on filedocumented in this encounter"
--- OUTSIDE RECORDS SUMMARY | ~2018-11-05 | XMS | Encounter Summary ---
Demographics + + + | Address | [address] | | | [place] [address] | + + + | Home Phone | | + + + | Preferred Language | Unknown | + + + | Marital Status | Single | + + + | Jew Affiliation | NON | + + + | Race | White | + + + | Ethnic Group | Not or | + + + Author + + + | Author | [facility] | + + + | Organization | [facility] | + + + | Address | Unknown | + + + | Phone | Unavailable | + + + Support + + + + + | Name | Relationship | Address | Phone | + + + + + | Dante Duenas | GISSELLE | [address] | | | | | [place] [address] | | + + + + + | Helena Hawleywil | ECON | [address] | | | | | [place] [address] | | + + + + + Care Team Providers + +------+ + | Care Pipe Caulker Name | Role | Phone | + +------+ + | Larry Lorenzo | PCP | | + +------+ + Reason for Visit + + + | Reason | Comments | + + + | Intrauterine Device | | + + + Encounter Details +--------+ + + + + | Date | Type | Department | Care Team | Description | +--------+ + + + + | 03/11/ | Telephone | [facility] | Jeannie Argueta, | Intrauterine Device | | 2016 | | [facility] | CNM [address] | | | | [address] , [address] | [address] | | | | | [place], [place] | [place], [place] | | | | | [address] | [address] | | | | | [phone] | [phone] | | | | | | | [...]
--- OUTSIDE RECORDS SUMMARY | ~2018-11-05 | XMS | Encounter Summary ---
Demographics + + + | Address | [address] | | | [place] [address] | + + + | Home Phone | | + + + | Preferred Language | Unknown | + + + | Marital Status | Single | + + + | Quaker Affiliation | NON | + + + | Race | White | + + + | Ethnic Group | Not or | + + + Author + + + | Author | [facility] | + + + | Organization | [facility] | + + + | Address | Unknown | + + + | Phone | Unavailable | + + + Support + + + + + | Name | Relationship | Address | Phone | + + + + + | Dante Duenas | GISSELLE | [address] | | | | | [place] [address] | | + + + + + | Helena Hawleywil | ECON | [address] | | | | | [place] [address] | | + + + + + Care Team Providers + +------+ + | Care Multimedia Journalist Name | Role | Phone | + +------+ + | Larry Lorenzo | PCP | | + +------+ + Reason for Visit + + + | Reason | Comments | + + + | Nausea and vomiting | Diarrhea since 08/12/16 evening and then N/V since last night. | + + + Encounter Details +--------+ + + + + | Date | Type | Department | Care Team | Description | +--------+ + + + + | 08/15/ | Hospital | Maternity Services | Jeannie Argueta, | | | 2017 | Encounter | at [facility] | CNM [address] | | | | | [address] | [address] | | | | | [place], [place] | [place] | | | | | [address] | [address] | | | | | [phone] | [phone] | | | | | | | | | | | | Katarina Soria, | | | | | | MDS [address] [facility] | | | | | | [facility] | | | | | | [place], [place] | | | | | | [address] | | | | | | [phone] | | | | | | | [...] + + + | Blood Pressure | 117/63 | 08/15/2016 11:25 AM | | | | | PST | | + + + + + | Pulse | 80 | 08/15/2016 11:25 AM | | | | | PST | | + + + + + | Temperature | 36.8 C (98.2 F) | 08/15/2016 11:25 AM | | | | | PST | | + + + + + | Respiratory Rate | 18 | 08/15/2016 11:25 AM | | | | | PST | | + + + + + | Oxygen Saturation | 99% | 08/15/2016 11:25 AM | | | | | PST [...] + documented in this encounter Discharge Instructions AttachmentsThe following attachments cannot be sent through Care Everywhere.NAUSEA AND VOMI TING (CYPRIOT)documented in this encounter Progress Notes Benny Thompson RN - 08/15/2016 3:14 PM [id number]: FHR reactive, SVE closed, FFN negative; latonya murphy complained diarrhea noted/reported on 08/13/16 has continued; now complained of N/V; latonya murphy able to take sips/chips/jello while here and no N/V. UA results negative for ketones. Patient stable for discharge. Katarina Lynn MD,S - 08/15/2016 2:30 PM PSTOB Triage S/Notified by RNs about pt sent by triage nurses for diarrhea. When here for evaluation an d NST, noted to have several contractions O/ BP 117/63 | Pulse 80 | Temp (Src) 36.8 C (98.2 F) (Oral) | RR 18 | SpO2 99% FHT - 140, moderate sanya, rare mild variable decels [place] - irregular cxn patter SVE - closed FFN negative A/P/ Feels better with IVF, so ok for d/c Reactive NST for GA Not in labor D/c home RTC as scheduled. Katarina Soria MD,S documented in this encounter Plan of Treatment Not on filedocumented as of this encounter Procedures + +--------+ + + + | Procedure Name | Priori | Date/Time | Associated Diagnosis | Comments | | | ty | | | | + +--------+ + + + | FIBRONECTIN | Routin | 08/15/2016 | | Results for this | | | e | 1:30 PM | | procedure are in the | | | | PST | | results section. | + +--------+ + + + | REECE PURVIS ONLY | Routin | 08/15/2016 | | Results for this | | | e | 11:20 AM | | procedure are in the | | | | PST | | results section. | + +--------+ + + + documented in this encounter Results FIBRONECTIN (08/15/2016 1:30 PM PST) + + + + + + | [...] | Specimen | + + | Swab - Vagina | + + + + + | Narrative | Performed At | + + + | Reference Values: Negative: No Delivery in <7 - 14 | [facility] | | Days(Predictive Values:99.5%-99.2%) Positive: Delivery Time in <7 - | MEDICAL [facility]ENTER | | 14 Days(Predictive Values:12.7%-16.7%) | | + + + + + + + + | Performing | Address | City/State/Zipcode | Phone Number | | Organization | | | | + + + + + | [facility] | And | [place] [address] | [phone] | | [facility]ENTER | Streets | | | + + + + + REECE PURVIS ONLY (08/15/2016 11:20 AM PST) + + + + + + | Component | Value | Ref Range | Performed | Pathologist | | | | | At | Signature | + + + + + + | COLOR(UR) | Yellow | Colorless, | [facility] | | | | | Straw, Yellow | A MEDICAL | | | | | | CENTER | | + + + + + + | APPEARANCE | Clear | Clear | [facility] | | | | | | A MEDICAL | | | | | | CENTER | | + + + + + + | PH (URINE) | 6.0 | 5.0 - 8.5 | [facility] | | | | | | A MEDICAL | | | | | | CENTER | | + + + + + + | PROTEIN, | Negative | Negative, Trace | [facility] | | | URINE | | | A MEDICAL | | | | | | CENTER | | + + + + + + | GLUCOSE | Negative | Negative | [facility] | | | (URINE) | | | A MEDICAL | | | | | | CENTER | | + + + + + + | KETONES | Negative | Negative | [facility] | | | | | | A MEDICAL | | | | | | CENTER | | + + + + + + | BILIRUBIN | Negative | Negative | [facility] | | | | | | A MEDICAL | | | | | | CENTER | | + + + + + + | BLOOD | Negative | Negative | [facility] | | | | | | A MEDICAL | | | | | | CENTER | | + + + + + + | NITRITES | Negative | Negative | [facility] | | | | | | A MEDICAL | | | | | | CENTER | | + + + + + + | LEUKOCYTE | Negative | Negative | [facility] | | | ESTERASE | | | A MEDICAL | | | | | | CENTER | | + + + + + + | UROBILINOGE | Negative | Negative, 1.0 | [facility] | | | N | | mg/dL | A MEDICAL | | | | | | CENTER | | + + + + + + | SOURCE | Not Specified | | [facility] | | | (URINALYSIS | | | A MEDICAL | | | ) | | | CENTER | | + + + + + + | SPECIFIC | 1.007 | 1.005 - 1.030 | [facility] | [...] | [facility] | And | [place] [address] | [phone] | | [facility] | [facility] | | | + + + + + documented in this encounter Visit Diagnoses Not on filedocumented in this encounter"
--- OUTSIDE RECORDS SUMMARY | ~2018-11-05 | XMS | Encounter Summary ---
Demographics + + + | Address | [address] | | | [place] [address] | + + + | Home Phone | | + + + | Preferred Language | Unknown | + + + | Marital Status | Single | + + + | Evangelical Affiliation | NON | + + + | Race | White | + + + | Ethnic Group | Not or | + + + Author + + + | Author | [facility] | + + + | Organization | [facility] | + + + | Address | Unknown | + + + | Phone | Unavailable | + + + Support + + + + + | Name | Relationship | Address | Phone | + + + + + | Dante Duenas | GISSELLE | [address] | | | | | [place] [address] | | + + + + + | Helena Barakatjoseph | ECON | [address] | | | | | [place] [address] | | + + + + + Care Team Providers + +------+ + | Care Butadiene Converter Helper Name | Role | Phone | + [...] | +--------+ + + + + | 11/07/ | | [place] | Jeannie Argueta, | care | | 2017 | | [facility] [address] | CNM [address] | | | | [address] , [address] | [address] | | | | | [place], [place] | [place] | | | | | [address] | [address] | | | | | [phone] | [phone] | | | | | | | [...] + + + | Blood Pressure | 124/76 | 11/07/2016 11:26 AM | | | | | PDT [...] + + + + | Weight | 77.1 kg (170 lb) | 11/07/2016 11:26 AM | | | | | PDT | | + + + + + | Height | - | - | | + + + + + | Body Mass Index | 33.48 | 04/23/2016 2:08 PM | | | | | PDT | | + + + + + documented in this encounter Patient Instructions Patient Instructions Mayte Yap MA - 11/07/2016 11:30 AM PDTPrenatal Visit - Week 38 Please read chapter 12 in your book. Continue to monitor for any contractions, fluid leakage, bleeding or decreased moveme nt. If you have bleeding or decreased movement, are in labor or think your water has broken, please go to [facility] (Labor and Delivery). Please call if you have any concerns. After hours call [facility] if you think you are in labor to let them know you are c obinnaing in. [phone]. Normal human lasts about 40 weeks (from the beginning of the last menstrual perio d), give or take about 10 days. Babies born before this 20-day period can show signs of mackenzie ng too early. Babies born after this period may show signs of being too late. If you're reading this, you probably don't need to worry about going into labor too soon. However, about 5% of mothers will go beyond their due date by a week or more. There is reason to be concerned about being overdue as you approach 10 days beyond your exp ected due date. The placenta is the body's one disposable organ .use once and throw it aw ay (or plant a tree on top of it!). The placenta was not designed to last 75 years like our other organs. It begins to age rapidly after about 40 weeks. It fills up with mineral dep osits and scar tissue pieces of it may actually and cease functioning. Obviously, your baby depends on a healthy placenta for nutrition, oxygen, and the eliminati on of some waste products. In a sense, it functions as your baby's lungs. An unhealthy reagan centa can deprive your baby of what it needs to thrive. If you go over your due date by one week, we will offer to induce your labor. If you elect not to be induced, we will want you to come in for testing every 3 or 4 days while we wait for labor. If you don't go into labor prior to the end of the 41st week, we will stro ngly advise induction of labor. Make sure you re ready for coming home after the baby is born ? Practice installing your car seat in the car! ? Make a list of things people can do to help you when they ask. Put it on the fridge - i t s good to give them specific jobs grocery shopping, cooking meals, walking the dog, doing a load of your laundry. Almost anything is fair game and people love to have an assig marisol task. ? Make a list of foods you like, brands, sizes be specific so shoppers can get the righ t thing. ? Have you gone to get a breast pump? call if you need a prescription and we can fax it to a medical supplier. ? If you already have a child, their life is going to change dramatically. Make a list of activities your child likes to do, favorite toys and foods to help any family or friends who may be pitching in. ? Take a look at a couple of websites that can be helpful in figuring out which emotional u ps and downs are normal after your baby arrives: o [employer].babyScrewpulpuesconnection.com o www..net ? Have a supply of maxi pads, Tucks witch debora pads for hemorrhoids or healing stitc hes, buy some over the counter stool softener to have on hand for constipation, buy some tri ast pads in case you have leaking. ? Make sure you have plenty of soft pillows, or a special support pillow. Our Services As we said in an earlier message, we want you to breastfeed your baby ..and we're here to help you succeed. We have Consultants available in labor and delivery to help. Just Call to make an appointment. Week 38 of Your : Care Instructions Your Care Instructions Believe it or not, your baby is almost here. You may have ideas about your baby's personali ty because of how much he or she moves. Or you may have noticed how he or she responds to so unds, warmth, cold, and light. You may even know what kind of music your baby likes. By now, you have a better idea of what to expect during delivery. You may have talked about your preferences with your doctor. But even if you want a vaginal , it is a good idea to learn about births. means that your baby is born through a cut (incision) in your lower belly. It is sometimes the best choice for the health of the ba by and the mother. This care sheet can help you understand births. It also gives you information abou t what to expect after your baby is born. And it helps you understand more about depression. Follow-up care is a mclaughlin part of your treatment and safety. Be sure to make and go to all ap pointments, and call your doctor if you are having problems. It's also a good idea to know y our test results and keep a list of the medicines you take. How can you care for yourself at home? Learn about Most C-sections are unplanned. They are done because of problems that occur during labor . These problems might include: Labor that slows or stops. High blood pressure or other problems for the mother. Signs of distress in the baby. These signs may include a very fast or slow heart rate. Although most mothers and babies do well after , it is major surgery. It has mo re risks than a vaginal delivery. In some cases, a planned may be safer than a vaginal delivery. This may be the case if: The mother has a health problem, such as a heart condition. The baby isn't in a head-down position for delivery. This is called a breech position. The uterus has scars from past surgeries. This could increase the chance of a tear in th e uterus. There is a problem with the placenta. The mother has an infection, such as genital herpes, that could be spread to the baby. The mother is having twins or more. The baby weighs 9 to 10 pounds or more. Because of the risks of , planned C-sections generally should be done only for medical reasons. And a planned should be done at 39 weeks or later unless there is a medical reason to do it sooner. Know what to expect after delivery, and plan for the first few weeks at home You, your baby, and your partner or middle school football coach will get identification bands. Only people wit h matching bands can merchandise pickup/receiving associate the baby from the nursery. You will learn how to feed, diaper, and bathe your baby. And you will learn how to care for the umbilical cord stump. If your baby will be circumcised, you will also learn how to c are for that. Ask people to wait to visit you until you are at home. And ask them to wash their hands before they touch your baby. Make sure you have another adult in your home for at least 2 or 3 days after the . During the first 2 weeks, limit when friends and family can visit. Do not allow visitors who have colds or infections. Make sure all visitors are up to ulices e with their vaccinations. Never let anyone smoke around your baby. Try to nap when the baby naps. Be aware of depression "Baby blues" are common for the first 1 to 2 weeks after . You may cry or feel sad or irritable for no reason. For some women, these feelings last longer and are more intense. This is called postpart um depression. If your symptoms last for more than a few weeks or you feel very depressed, ask your doc tor for help. depression can be treated. Support groups and counseling can help. Sometimes medicine can also help. Where can you learn more? To learn more about "Week 38 of Your : Care Instructions", log into your Intelen a ccount at http://www.[facility]/Splick.it. You can enter B044 in the "[employer] Group Library" search box . Not on RiskIQhart? Review the RiskIQhart section of your After Visit Summary for directions on ho w to sign up. Current as of: November 20, 2015 Content Version: 11.2 3490-5894 threadsy. Care instructions adapted under license by [facility]. If you have questions about a medical condition or this instr uction, always ask your healthcare professional. threadsy disclaims any nino anty or liability for your use of this information. documented in this encounter Progress Notes Jeannie Argueta CNM - 11/07/2016 11:30 AM PDTS: Feeling well. Good movement. Irreg ular uc. No vb or lof O: See flow sheet A/P: F/u 1 week. S/s labor and when to come to LD reviewed. Mayte Mistry MA - 11/07/2016 11:30 AM PDTShjoseph is hav ing continued contractions. She denies leaking or bleeding.RENETTA Teixeira documented in this encounter Plan of Treatment Not on filedocumented as of this encounter Visit Diagnoses + + | Diagnosis | + + | , unspecified gestational age - Primary | + + documented in this encounter
--- OUTSIDE RECORDS SUMMARY | ~2018-11-05 | XMS | Encounter Summary ---
Demographics + + + | Address | [address] | | | [place] [address] | + + + | Home Phone | | + + + | Preferred Language | Unknown | + + + | Marital Status | Single | + + + | Yazidism Affiliation | NON | + + + | Race | White | + + + | Ethnic Group | Not or | + + + Author + + + | Author | [facility] | + + + | Organization | [facility] | + + + | Address | Unknown | + + + | Phone | Unavailable | + + + Support + + + + + | Name | Relationship | Address | Phone | + + + + + | Dante Duenas | GISSELLE | [address] | | | | | [place] [address] | | + + + + + | Helena Barakatjoseph | ECON | [address] | | | | | [place] [address] | | + + + + + Care Team Providers + +------+ + | Care Musician Instrumental Name | Role | Phone | + +------+ + | Larry Lorenzo | PCP | | + +------+ + Reason for Visit + + + | Reason | Comments | + + + | Insertion of IUD | | + + + Consultation (Routine) +--------+--------+ + + + + | Status | Reason | Specialty | Diagnoses / | Referred By | Referred To | | | | | Procedures | Contact | Contact | +--------+--------+ + + + + | Closed | | Obstetrics & | Diagnoses | Takagi, | [facility] Medical Doctor | | | | Gynecology | Puerperal | KATHIE Juarez | [address] | | | | | psychosis | [address] | | | | | | Encounter | Street | [address] | | | | for | [place], [place] | [place], [place] | | | | | screening | [address] | [address] | | | | | for | Phone: | Phone: | | | | | malignant | [phone] | [phone] | | | | | neoplasm of | Fax: | Fax: | | | | | vagina | [phone] | [phone] | | | | | Encounter | | | | | | | for | | | | | | | insertion of | | | | | | | | | | | | | | intrauterine | | | | | | | | | | | | | | contraceptiv | | | | | | | e device | | | +--------+--------+ + + + + Encounter Details +--------+---------+ + + + | Date | Type | Department | Care Team | Description | +--------+---------+ + + + | 02/21/ | Office | [facility] | Jeannie Argueta, | Encounter for IUD | | 2017 | Visit | [facility] | CNM [address] | insertion (Primary | | | | [address] | Dx); Possible | | | | [place], [place] | [place], [place] | ; Pap | | | | [phone] | [phone] | smear, low-risk; | | | | [phone] | [phone] | Screening for STD | | | | | | (sexually | | | | | | transmitted | | | | | | disease); | | | | | | depression; Anxiety | +--------+---------+ + + + Social History [...] + + + | Blood Pressure | 128/76 | 02/21/2017 8:10 AM | | | | | PDT | | + + + + + | Pulse | 112 | 02/21/2017 8:10 AM | | | | | PDT | | + + + + + | Temperature | 38 C (100.4 F) | 02/21/2017 8:10 AM | | | | | PDT | | + + + + + | Respiratory Rate | - | - | | + + + + + | Oxygen Saturation | 99% | 02/21/2017 8:10 AM | | | | | PDT | | + + + + + | Inhaled Oxygen | - | - | | | Concentration | | | | + + + + + | Weight | 68 kg (150 lb) | 02/21/2017 8:10 AM | | | | | PDT | | + + + + + | Height | - | - | | + + + + + | Body Mass Index | 29.54 | 11/25/2016 5:07 AM | | | | | PDT | | + + + + + documented in this encounter Patient Instructions Patient Instructions Jeannie Argueta CNM - 02/21/2017 9:01 AM PDTIt was nice to see you today. We discussed treatment options for depression and anxiety. I have prescribed you zoloft. Ta ke 1 tablet daily. As we discussed it can take 4-6 weeks for this medication to be fully eff ective. Most people notice a difference/improvement in 2 weeks. It is very important that if you develop any worsening symptoms such as thoughts of self harm, you be seen right away casey as going to the ER. You can also call [facility] crisis line anytime at I recommend you start counseling. Please call to make an appointment with the provider in [place]. I will plan to follow up with you in 2 weeks. Please call me sooner if you have any worseni ng symptoms. You had an IUD placed today. You may have irregular bleeding until your next visit. If y ou are using the IUD for control, please use back up contraception (condoms or abstine nce) for two weeks.The risks of the IUD include infection, perforation, and expulsion. If yo u have a fever, a foul discharge or severe pain, please call the clinic to be seen. Otherwis e, please follow-up in one month for an IUD check. You have symptoms of a viral illness today. Be sure to drink plenty of fluids, get rest. Yo u can take ibuprofen 600mg every 6 hours for fever. If you develop worsening symptoms such a s nausea, vomiting, worsening fever, trouble breathing or any other concerns, please be seen urgently such as going to your local clinic or to the ER. Intrauterine Device (IUD) Insertion: Care Instructions Your Care Instructions The intrauterine device (IUD) is a very effective method of control. It is a small, p lastic, T-shaped device that contains copper or hormones. The doctor inserts the IUD into yo ur uterus. A plastic string tied to the end of the IUD hangs down through the cervix into th e vagina. There are two types of IUDs. The copper IUD is effective for up to 10 years. The hormonal I UD is effective for either 3 years or 5 years, depending on which IUD is used. The hormonal IUD also reduces menstrual bleeding and cramping. Both types of IUD damage or kill the man's sperm. This means that the woman's egg does not join with the sperm. IUDs also change the l ining of the uterus so that the egg does not lodge there. The IUD is most likely to work well for women who have been before. Some women who have never been have more trouble keeping the IUD in the uterus. They also may hav e more pain and cramping after insertion. Follow-up care is a mclaughlin part of your treatment and safety. Be sure to make and go to all ap pointments, and call your doctor if you are having problems. It's also a good idea to know y our test results and keep a list of the medicines you take. How can you care for yourself at home? You may experience some mild cramping and light bleeding (spotting) for 1 or 2 days. Use a hot water bottle or a heating pad set on low on your belly for pain. Take an blfp-jpt-zrrlywv pain medicine, such as acetaminophen (Tylenol), ibuprofen (Advi l, Motrin), and naproxen (Aleve) if needed. Read and follow all instructions on the label. Do not take two or more pain medicines at the same time unless the doctor told you to. M any pain medicines have acetaminophen, which is Tylenol. Too much acetaminophen (Tylenol) ca n be harmful. Check the string of your IUD after every period. To do this, insert a finger into your v agina and feel for the cervix, which is at the top of the vagina and feels harder than the r est of your vagina. You should be able to feel the thin, plastic string coming out of the op ening of your cervix. If you cannot feel the string, use another form of control and m praful an appointment with your doctor to have the string checked. If the IUD comes out, save it and call your doctor. Be sure to use another form of control while the IUD is out. Use latex condoms to protect against sexually transmitted infections (STIs), such as ricardo orrhea and chlamydia. An IUD does not protect you from STIs. Having one sex partner (who andrade s not have STIs and does not have sex with anyone else) is a good way to avoid STIs. When should you call for help? Call 911 anytime you think you may need emergency care. For example, call if: You passed out (lost consciousness). You have sudden, severe pain in your belly or pelvis. Call your doctor now or seek immediate medical care if: You have new belly or pelvic pain. You have severe vaginal bleeding. This means that you are soaking through your usual pad s or tampons each hour for 2 or more hours. You are dizzy or lightheaded, or you feel like you may faint. You have a fever and pelvic pain or vaginal discharge. You have pelvic pain that is getting worse. Watch closely for changes in your health, and be sure to contact your doctor if: You cannot feel the string, or the IUD comes out. You feel sick to your stomach, or you vomit. You think you may be . Where can you learn more? To learn more about "Intrauterine Device (IUD) Insertion: Care Instructions", log into your luma-id account at [email or web address]. You can enter U681 in the "[employer] Library" search box. Not on luma-id? Review the luma-id section of your After Visit Summary for directions on ho w to sign up. Current as of: November 20, 2015 Content Version: .[id number] [employer]. Care instructions adapted under license by [facility] [employer]. If you have questions about a medical condition or this instr uction, always ask your healthcare professional. [employer] disclaims any nino anty or liability for your use of this information. Depression After Childbirth: Care Instructions Your Care Instructions Many women get the "baby blues" during the first few days after childbirth. You may lose sl eep, feel irritable, and cry easily. You may feel happy one minute and sad the next. Hormone changes are one cause of these emotional changes. Also, the demands of a new baby, along wi th visits from relatives or other family needs, add to a mother's stress. The "baby blues" o ften peak around the fourth day. Then they ease up in less than 2 weeks. If your moodiness or anxiety lasts for more than 2 weeks, or if you feel like life is not w orth living, you may have depression. This is different for each mother. Some mot hers with serious depression may worry intensely about their 's well-being. Others may feel distant from their child. Some mothers might even feel that they might harm their baby . A mother may have signs of paranoia, wondering if someone is watching her. Depression is not a sign of weakness. It is a medical condition that requires treatment. Me dicine and counseling often work well to reduce depression. Talk to your doctor about taking antidepressant medicine while . Follow-up care is a mclaughlin part of your treatment and safety. Be sure to make and go to all ap pointments, and call your doctor if you are having problems. It's also a good idea to know y our test results and keep a list of the medicines you take. How do you know if you are depressed? With all the changes in your life, you may not know if you are depressed. sometim es causes changes in how you feel that are similar to the symptoms of depression. Symptoms of depression include: Feeling sad or hopeless and losing interest in daily activities. These are the most comm on symptoms of depression. Sleeping too much or not enough. Feeling tired. You may feel as if you have no energy. Eating too much or too little. Writing or talking about , such as writing suicide notes or talking about guns, kni ves, or pills. Keep the numbers for these national suicide hotlines: 8-539-681-TALK (-2 85-8795) and 6-173-WPHDYEV ( ). If you or someone you know talks about suicide or feeling hopeless, get help right away. How can you care for yourself at home? Be safe with medicines. Take your medicines exactly as prescribed. Call your doctor if y ou think you are having a problem with your medicine. Eat a healthy diet so that you can keep up your energy. Get regular daily exercise, such as walks, to help improve your mood. Get as much sunlight as possible. Keep your shades and curtains open. Get outside as muc h as you can. Avoid using alcohol or other substances to feel better. Get as much rest and sleep as possible. Avoid doing too much. Being too tired can increa se depression. Play stimulating music throughout your day and soothing music at night. Schedule outings and visits with friends and family. Ask them to call you regularly, so that you do not feel alone. Ask for help with preparing food and other daily tasks. Family and friends are often hap py to help a mother with a . Be honest with yourself and those who care about you. Tell them about your struggle. Join a support group of new mothers. No one can better understand the challenges of tomer ng for a than other new mothers. If you feel like life is not worth living or are feeling hopeless, get help right away. Keep the numbers for these national suicide hotlines: 0-890-948-TALK ( ) and 4- 858-SUICIDE ( ). When should you call for help? Call 911 anytime you think you may need emergency care. For example, call if: You feel you cannot stop from hurting yourself, your baby, or someone else. Call your doctor now or seek immediate medical care if: You are having trouble caring for yourself or your baby. You hear voices. Watch closely for changes in your health, and be sure to contact your doctor if: You have problems with your depression medicine. You do not get better as expected. Where can you learn more? To learn more about "Depression After Childbirth: Care Instructions", log into your luma-id account at [email or web address]. You can enter [id number] in the "[employer] Library" search b ox. Not on luma-id? Review the luma-id section of your After Visit Summary for directions on ho w to sign up. Current as of: January 16, 2016 Content Version: 11.2 [id number] [employer]. Care instructions adapted under license by [facility] [employer]. If you have questions about a medical condition or this instr uction, always ask your healthcare professional. [employer] disclaims any nino anty or liability for your use of this information. Recovering From Depression: Care Instructions Your Care Instructions Taking good care of yourself is important as you recover from depression. In time, your sym ptoms will fade as your treatment takes hold. Do not give up. Instead, focus your energy on getting better. Your mood will improve. It just takes some time. Focus on things that can help you feel bet ter, such as being with friends and family, eating well, and getting enough rest. But take t hings slowly. Do not do too much too soon. You will begin to feel better gradually. Follow-up care is a mclaughlin part of your treatment and safety. Be sure to make and go to all ap pointments, and call your doctor if you are having problems. It's also a good idea to know y our test results and keep a list of the medicines you take. How can you care for yourself at home? Be realistic If you have a large task to do, break it up into smaller steps you can handle, and just do what you can. You may want to put off important decisions until your depression has lifted. If you hav e plans that will have a major impact on your life, such as marriage, divorce, or a job martin ge, try to wait a bit. Talk it over with friends and loved ones who can help you look at the overall picture first. Reaching out to people for help is important. Do not isolate yourself. Let your family a nd friends help you. Find someone you can trust and confide in, and talk to that person. Be patient, and be kind to yourself. Remember that depression is not your fault and is n ot something you can overcome with willpower alone. Treatment is necessary for depression, j ust like for any other illness. Feeling better takes time, and your mood will improve little by little. Stay active Stay busy and get outside. Take a walk, or try some other light exercise. Talk with your doctor about an exercise program. Exercise can help with mild depression. Go to a movie or concert. Take part in a rastafari activity or other social gathering. Go t o a ball game. Ask a friend to have dinner with you. Take care of yourself Eat a balanced diet with plenty of fresh fruits and vegetables, whole grains, and lean p rotein. If you have lost your appetite, eat small snacks rather than large meals. Avoid drinking alcohol or using illegal drugs. Do not take medicines that have not been prescribed for you. They may interfere with medicines you may be taking for depression, or t hey may make your depression worse. Take your medicines exactly as they are prescribed. You may start to feel better within 1 to 3 weeks of taking antidepressant medicine. But it can take as many as 6 to 8 weeks to s ee more improvement. If you have questions or concerns about your medicines, or if you do no t notice any improvement by 3 weeks, talk to your doctor. If you have any side effects from your medicine, tell your doctor. Antidepressants can m praful you feel tired, dizzy, or nervous. Some people have dry mouth, constipation, headaches, sexual problems, or diarrhea. Many of these side effects are mild and will go away on their own after you have been taking the medicine for a few weeks. Some may last longer. Talk to y our doctor if side effects are bothering you too much. You might be able to try a different medicine. Get enough sleep. If you have problems sleeping: Go to bed at the same time every night, and get up at the same time every morning. Keep your bedroom dark and quiet. Do not exercise after 5:00 p.m. Avoid drinks with caffeine after 5:00 p.m. Avoid sleeping pills unless they are prescribed by the doctor treating your depression. Sleeping pills may make you groggy during the day, and they may interact with other medicine you are taking. If you have any other illnesses, such as diabetes, heart disease, or high blood pressure , make sure to continue with your treatment. Tell your doctor about all of the medicines you take, including those with or without a prescription. Keep the numbers for these national suicide hotlines: 7-485-266-TALK ( ) an d 3-879-HIYZVBB ( ). If you or someone you know talks about suicide or feeling hopeless, get help right away. When should you call for help? Call 911 anytime you think you may need emergency care. For example, call if: You feel like hurting yourself or someone else. Someone you know has depression and is about to attempt or is attempting suicide. Call your doctor now or seek immediate medical care if: You hear voices. Someone you know has depression and: Starts to give away his or her possessions. Uses illegal drugs or drinks alcohol heavily. Talks or writes about , including writing suicide notes or talking about guns, kniv es, or pills. Starts to spend a lot of time alone. Acts very aggressively or suddenly appears calm. Watch closely for changes in your health, and be sure to contact your doctor if: You do not get better as expected. Where can you learn more? To learn more about "Recovering From Depression: Care Instructions", log into your luma-id account at [email or web address]. You can enter [id number] in the "[employer] Library" search aileen x. Not on luma-id? Review the luma-id section of your After Visit Summary for directions on timbo aquino to sign up. Current as of: January 16, 2016 Content Version: 11.2 [id number] [employer]. Care instructions adapted under license by [facility]. If you have questions about a medical condition or this instr uction, always ask your healthcare professional. [employer] disclaims any nino anty or liability for your use of this information. Depression Treatment: Care Instructions Your Care Instructions Depression is a condition that affects the way you feel, think, and act. It causes symptoms such as low energy, loss of interest in daily activities, and sadness or grouchiness that g oes on for a long time. Depression is very common and affects men and women of all ages. Depression is a medical illness caused by changes in the natural chemicals in your brain. I t is not a character flaw, and it does not mean that you are a bad or weak person. It does n ot mean that you are going crazy. It is important to know that depression can be treated. Medicines, counseling, and self-car e can all help. Many people do not get help because they are embarrassed or think that they will get over the depression on their own. But some people do not get better without treatme nt. Follow-up care is a mclaughlin part of your treatment and safety. Be sure to make and go to all ap pointments, and call your doctor if you are having problems. It's also a good idea to know y our test results and keep a list of the medicines you take. How can you care for yourself at home? Learn about antidepressant medicines Antidepressant medicines can improve or end the symptoms of depression. You may need to amilcar e the medicine for at least 6 months, and often longer. Keep taking your medicine even if yo u feel better. If you stop taking it too soon, your symptoms may come back or get worse. You may start to feel better within 1 to 3 weeks of taking antidepressant medicine. But it can take as many as 6 to 8 weeks to see more improvement. Talk to your doctor if you have pr oblems with your medicine or if you do not notice any improvement after 3 weeks. Antidepressants can make you feel tired, dizzy, or nervous. Some people have dry mouth, con stipation, headaches, sexual problems, an upset stomach, or diarrhea. Many of these side eff ects are mild and go away on their own after you take the medicine for a few weeks. Some may last longer. Talk to your doctor if side effects bother you too much. You might be able to try a different medicine. If you are or , talk to your doctor about wh at medicines you can take. Learn about counseling In many cases, counseling can work as well as medicines to treat mild to moderate depressio n. Counseling is done by licensed mental health providers, such as psychologists, social wor kers, and some types of nurses. It can be done in one-on-one sessions or in a group setting. Many people find group sessions helpful. Cognitive-behavioral therapy is a type of counseling. In this treatment therapy, you learn how to see and change unhelpful thinking styles that may be adding to your depression. Couns eling and medicines often work well when used together. To manage depression Be physically active. Getting 30 minutes of exercise each day is good for your body and your mind. Begin slowly if it is hard for you to get started. If you already exercise, keep it up. Plan something pleasant for yourself every day. Include activities that you have enjoyed in the past. Get enough sleep. Talk to your doctor if you have problems sleeping. Eat a balanced diet. If you do not feel hungry, eat small snacks rather than large meals . Do not drink alcohol, use illegal drugs, or take medicines that your doctor has not pres cribed for you. They may interfere with your treatment. Spend time with family and friends. It may help to speak openly about your depression wi th people you trust. Take your medicines exactly as prescribed. Call your doctor if you think you are having a problem with your medicine. Do not make major life decisions while you are depressed. Depression may change the way you think. You will be able to make better decisions after you feel better. Think positively. Challenge negative thoughts with statements such as "I am hopeful"; "T hings will get better"; and "I can ask for the help I need." Write down these statements and read them often, even if you don't believe them yet. Be patient with yourself. It took time for your depression to develop, and it will take time for your symptoms to improve. Do not take on too much or be too hard on yourself. Learn all you can about depression from written and online materials. Check out behavioral health classes to learn more about dealing with depression. Keep the numbers for these national suicide hotlines: 2-321-565-TALK ( ) an d 0-905-IONBTSL ( ). If you or someone you know talks about suicide or feeling hopeless, get help right away. When should you call for help? Call 911 anytime you think you may need emergency care. For example, call if: You feel you cannot stop from hurting yourself or someone else. Call your doctor now or seek immediate medical care if: You hear voices. You feel much more depressed. Watch closely for changes in your health, and be sure to contact your doctor if: You are having problems with your depression medicine. You are not getting better as expected. Where can you learn more? To learn more about "Depression Treatment: Care Instructions", log into your luma-id accoun t at [email or web address]. You can enter G693 in the "[employer] Library" search box. Not on luma-id? Review the luma-id section of your After Visit Summary for directions on timbo w to sign up. Current as of: January 16, 2016 Content Version: 11.2 [id number] [employer]. Care instructions adapted under license by [facility]. If you have questions about a medical condition or this instr uction, always ask your healthcare professional. [employer] disclaims any nino anty or liability for your use of this information. documented in this encounter Progress Notes Jeannie Argueta CNM - 02/21/2017 8:15 AM PDT S: Jennifer Reilly is a 21 y.o. female here today who presents for IUD insertion. She and her are sick today. They both have fevers and she has nasal congestion and a ho rse voice. She thinks the horse voice is from a concert she went to. She thinks they got a v irus from her daughter that goes to daycare. She has no n/v or diarrhea. She has taken tylen ol for fever and body aches. She reports no uterine concerns, no abnormal discharge. She wou ld like a paraguard IUD today. She is currently using condoms for control. Patient's l ast menstrual period was 01/27/2017 (approximate). She reports feeling depression since child . She also has feelings of anxiety and feel s like she has OCD because she feels stressed if the house isn't clean and objects aren't pu t away. She has noticed that she cries easily, is more irritable. She has no trouble getting up and going to work and caring for her baby. She has denies thoughts of self harm or harmi ng others but states she has felt that maybe things would be better without her but does not feel like hurting herself or suicide. She enjoys the baby and loves taking care of her. She feels her partner is not as helpful as he could be such as she doesn't clean or cook, he al so doesn't get up at night to feed baby. She is not . She has a family history where both her mom and sister have depression. She is worried because they both became very flat affect when on medication. She has talked about starting counseling and she thinks earl ruiz is a new counselor in [place] that she was going to call. She does not know many people in her town and her family live out of state. Her only support is her boyfriend and his mom. Lluvia ruiz has talked to her boyfriend about getting back into horse back riding which she loved abou t 1 day a week. 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 Chief Complaint Patient presents with Insertion of IUD Current Medications: Current Outpatient Prescriptions Medication Sig copper 380 square mm intrauterine intrauterine device 1 each by intrauterine route once for 1 dose. sertraline (ZOLOFT) 25 mg oral tablet Take 1 tablet by mouth once daily. No current facility-administered medications for this visit. Allergies/Adverse Drug Reactions: No Known Allergies O: Physical Exam Constitutional: She appears well-developed and well-nourished. Genitourinary: Vagina normal and uterus normal. Genitourinary Comments: Pap smear obtained Abdominal: There is no tenderness. Psychiatric: She has a normal mood and affect. Her behavior is normal. Judgment and thought content normal. Well dressed and groomed, good eye contact and open conversation. Good insight into current symptoms and ways to help improve. Laughs and smiles appropriately. No suicidal or homicida l ideation. Vital Signs: BP 128/76 | Pulse 112 | Temp 38 C (100.4 F) | Wt 68 kg (150 lb) | SpO2 99% | LMP 2016 | ? No | BMI 29.54 kg/(m^2) IUD INSERTION PROCEDURE Jennifer Reilly is a 21 y.o. female T1 P0 SAB0 TAB0 L0 Mult0 Ect0 presents for Paragard IUD insertion. Indication for IUD insertion is contraception. Patient's last men strual period was 01/27/2017 (approximate).. The patient is currently using Condoms for con traception. She is in a monogamous sexual relationship. Urine test today was negative. A complete discussion of the risks and benefits of IUD use and the details of the insertion procedure was held with the patient. All questions were answered. A consent form was signed. At 0815 (time), prior to the beginning of the procedure, the team paused to verify the dot ent s identity, the procedure to be performed (in accordance with the consent,) and the co rrect side/site. The patient was positioned appropriately. All relevant images and results w ere properly labeled and displayed. We addressed antibiotic prophylaxis and fluids for irrig ation as applicable to this patient. Any safety precautions were addressed. Preprocedure medications: Patient was not premedicated. IUD Lot # [id number] The patient was placed in low lithotomy. A bimanual exam was performed and the uterus note d to be Anteverted. A speculum was placed and the cervix swabbed with Betadine. A Tenaculu m was placed on the posterior cervical lip. No cervical dilation was needed. The uterus was sounded to 8.5 cms. The Paragard IUD was placed to the uterine fundus without difficulty. The strings were cut to 3 cms. The Tenaculum was removed and hemostasis was ensured. The speculum was removed. The patient tolerated the procedure well. TVUS done after insertion c onfirming proper high uterine placement of IUD. PLAN: The patient was asked to contact [facility] for any fever/chills/severe pelvic or abdominal pain or heavy bleeding. She was instructed in how to palpate her IUD strings. We discussed management options for depression/anxiety and she has chosen to start low doze zoloft and counseling. Instructed on use. Precautions given for worsening symptoms and when to be seen urgently. CFL crisis line given. Plan to follow up in 2 weeks. FOLLOW-UP: She was asked to follow up 2 weeks for depression and anxiety. Will need IUD check in 1-2 m o. Edwardo Chowdhury MA - 02/21/2017 8:15 AM MARINATona would like to get the Paragard IUD today. She states she had a 102 degree temp this morning. She feels achy and cold today. Edwardo Carranza CMA documented in this e ncounter Plan of Treatment Not on filedocumented as of this encounter Procedures + +--------+ + + + | Procedure Name | Priori | Date/Time | Associated Diagnosis | Comments | | | ty | | | | + +--------+ + + + | UT INSERT | Routin | 02/21/2017 | Encounter for IUD | | | INTRAUTERINE DEVICE | e | 9:06 AM | insertion | | | | | PDT | | | + +--------+ + + + | PAP ONLY | Routin | 02/21/2017 | Pap smear, | Results for this | | | e | 9:05 AM | low-risk | procedure are in the | | | | PDT | | results section. | + +--------+ + + + | CHLAM/GC APTIMA, | Routin | 02/21/2017 | Screening for STD | Results for this | | RNA, TMA | e | 9:05 AM | (sexually | procedure are in the | | | | PDT | transmitted disease) | results section. | + +--------+ + + + | HCG URINE (MANUAL), | Routin | 02/21/2017 | Possible | Results for this | | POC | e | 8:30 AM | | procedure are in the | | | | PDT | | results section. | + +--------+ + + + documented in this encounter Results CHLAM/GC APTIMA, RNA, TMA (02/21/2017 9:05 AM PDT) + + + + + + | Component | Value | Ref Range | Performed | Pathologist | | | | | At | Signature | + + + + + + | CHLAMYDIA | NOT DETECTED | NOT DETECTED | [facility] | | | [facility] | | | [facility] | | | | | | - [place] | | + + + + + + | GONOCOCCUS | NOT DETECTED | NOT DETECTED | [facility] | | | [facility] | | | [facility] | | | | | | - [place] | | + + + + + + | COMMENTS | SEE NOTEComment: This | | [facility] | | | | test was performed using | | DIAGNOSTICS | | | | the APTIMA COMBO2 | | - [place] | | | | Assay([employer] | | | | | | The analytical | | | | | | performance | | | | | | characteristics of this | | | | | | assay, when used to test | | | | | | SurePath specimens | | | | | | havebeen determined by | | | | | | [facility]. | | | | + + + + + + + + | Specimen | + + | Swab - Vagina | + + + + + + + | Performing | Address | City/State/Zipcode | Phone Number | | Organization | | | | + + + + + | [facility] | [address] | [place] [address] | | | - [place] | [address] | | | + + + + + PAP ONLY (02/21/2017 9:05 AM PDT) + + + + + + | Component | Value | Ref Range | Performed | Pathologist | | | | | At | Signature | + + + + + + | SOURCE | SEE NOTEComment: | | [facility] | | | | Information not provided | | [facility] | | | | | | - [place] | | + + + + + + | CLINICAL | SEE NOTEComment: Normal | | [facility] | | | INFORMATION | exam | | [facility] | | | | | | - [place] | | + + + + + + | LMP | SEE NOTEComment: 01/27/17 | | [facility] | | | | | | [facility] | | | | | | - [place] | | + + + + + + | PREVIOUS | SEE NOTEComment: UNKNOWN | | [facility] | | | PAP | | | [facility] | | | | | | - [place] | | + + + + + + | PREVIOUS | SEE NOTEComment: N/A | | [facility] | | | BIOPSY | | | [facility] | | | | | | - [place] | | + + + + + + | ADEQUACY | SEE NOTEComment: | | [facility] | | | | Satisfactory for | | DIAGNOSTICS | | | | evaluation.Endocervical/ | | - [place] | | | | transformation zone | | | | | | componentpresent. | | | | + + + + + + | INTERPRETAT | SEE NOTEComment: | | [facility] | | | ION-RESULT | Negative for | | DIAGNOSTICS | | | | intraepithelial lesion | | - [place] | | | | or malignancy. | | | | + + + + + + | COMMENT | SEE NOTEComment: This | | [facility] | | | | Pap test has been | | DIAGNOSTICS | | | | evaluated with | | - [place] | | | | computerassisted | | | | | | technology. | | | | + + + + + + | CYTOTECHNOL | SEE NOTEComment: [facility], | | [facility] | | | OGIST | CT(ASCP) | | [facility]NO[facility] | | | | | | - [place] | | + + + + + + + + | Specimen | + + | Tissue | + + + + + + + | Performing | Address | City/State/Zipcode | Phone Number | | Organization | | | | + + + + + | [facility] | [address] | [place] [address] | | | - [place] | [address] | | | + + + + + HCG URINE (MANUAL), POC (02/21/2017 8:30 AM PDT) + + + + + + | Component | Value | Ref Range | Performed | Pathologist | | | | | At | Signature | + + + + + + | HCG URINE, | Negative | Negative | [facility] | | | [facility] | | [facility] | | | | | | [facility] | | | | | | [facility] | | + + + + + + | QC: ENTER | PASS | | [facility] | | | "PASS" OR | | | [facility] | | | "FAIL", | | | [facility] | | | URINE HCG | | | CENTER | | + + + + + + + + | Specimen | + + | | + + + + + + + | Performing | Address | City/State/Zipcode | Phone Number | | Organization | | | | + + + + + | [facility] | [address] [place] [address], | [place] [address] | | | [facility] | [address] | | | + + + + + documented in this encounter Visit Diagnoses + + | Diagnosis | + + | Encounter for IUD insertion - Primary Encounter for insertion of intrauterine | | contraceptive device | + + | Possible examination or test, unconfirmed | + + | Pap smear, low-risk Screening for malignant neoplasm of the cervix | + + | Screening for STD (sexually transmitted disease) Screening examination for venereal | | disease | + + | depression Mental disorders of mother, complicating , childbirth, | | or the puerperium, unspecified as to episode of care | + + | Anxiety Anxiety state, unspecified | + + documented in this encounter Administered Medications + +--------+ + +------+-------+ | Medication Order | MAR | Action | Dose | Rate | Site | | | Action | Date | | | | + +--------+ + +------+-------+ | Intrauterine copper | Given | 02/21/2017 | 1 Device | | Other | | contraceptive Intrauterine | | 09:11 | | | | | | | PDT | | | | + +--------+ + +------+-------+ +---+---+ | | | +---+---+ documented in this encounter
--- OUTSIDE RECORDS SUMMARY | ~2018-11-05 | XMS | Encounter Summary ---
Demographics + + + | Address | [address] | | | [place] [address] | + + + | Home Phone | | + + + | Preferred Language | Unknown | + + + | Marital Status | Single | + + + | Latter Day Affiliation | NON | + + + | Race | White | + + + | Ethnic Group | Not or | + + + Author + + + | Author | [facility] | + + + | Organization | [facility] | + + + | Address | Unknown | + + + | Phone | Unavailable | + + + Support + + + + + | Name | Relationship | Address | Phone | + + + + + | Dante Duenas | ECON | [address] | | | | | [place] [address] | | + + + + + | Helena Reilly | ECON | [address] | | | | | [place] [address] | | + + + + + Care Team Providers + +------+ + | Care Softball Umpire Name | Role | Phone | + +------+ + PCP | Unavailable | + +------+ + Encounter Details +--------+ + + + + | Date | Type | Department | Care Team | Description | +--------+ + + + + | 04/14/ | Results | [facility] | Merrick Bradley, | | | 2012 | Only | Department | [address] | | | | | | [place] | | | | | | [address] | | | | | | [phone] | | | | | | | [...] | + +--------+ + + + | NEEDLE GUIDE [id number] | Routin | 04/14/2013 | | Results for this | | | e | 2:20 PM | | procedure are in the | | | | PDT | | results section. | + +--------+ + + + | SHOULDER INJECTION | Routin | 04/14/2013 | | Results for this | | [id number] | e | 2:20 PM | | procedure are in the | | | | PDT | | results section. | + +--------+ + + + | UPPER EXT JNT WITH | Routin | 04/14/2013 | | Results for this | | CON [id number] | e | 2:08 PM | | procedure are in the | | | | PDT | | results section. | + +--------+ + + + documented in this encounter Results NEEDLE GUIDE [id number] (04/14/2013 2:20 PM PDT) + + | Specimen | + + | | + + + + + | Narrative | Performed At | + + + | EXAM: RIGHT SHOULDER INJECTION HISTORY: Pain COMPARISON: None | [facility] | | FINDINGS: P A R Q was performed and the patient agrees to proceed. | DEPARTMENT OF | | Fluoroscopic examination of the right shoulder was performed and the | RADIOLOGY | | right humeral head was localized. The patient's skin was marked for | | | injection. The skin was cleaned and prepped in the usual manner. | | | Lidocaine was administered. A 22 gauge needle was passed into the | | | joint space with fluoroscopic guidance. Test injection with | | | iodinated contrast demonstrates contrast to flow into the joint | | | space. The patient was given diluted gadolinium. The fluoroscopic | | | time was 1 minute. The patient tolerated the procedure well with | | | no immediate complication. IMPRESSION: Right shoulder injection was | | | completed. | | + + + + + | Procedure Note | + + | Interface, Radiology Results - 01/23/2015 6:24 PM PDT EXAM: RIGHT SHOULDER INJECTION | | HISTORY: Pain | | COMPARISON: None | | FINDINGS: P A R Q was performed and the patient agrees to proceed. | | Fluoroscopic examination of the right shoulder was performed and the | | right humeral head was localized. The patient's skin was marked for | | injection. The skin was cleaned and prepped in the usual manner. | | Lidocaine was administered. A 22 gauge needle was passed into the | | joint space with fluoroscopic guidance. Test injection with | | iodinated contrast demonstrates contrast to flow into the joint | | space. The patient was given diluted gadolinium. | | The fluoroscopic time was 1 minute. The patient tolerated the | | procedure well with no immediate complication. | | IMPRESSION: Right shoulder injection was completed. | + + + +---------+ + + | Performing | Address | City/State/Zipcode | Phone Number | | Organization | | | | + +---------+ + + | [facility] DEPARTMENT OF | | | | | RADIOLOGY | | | | + +---------+ + + SHOULDER INJECTION [id number] (04/14/2013 2:20 PM PDT) + + | Specimen | + + | | + + + + + | Narrative | Performed At | + + + | EXAM: RIGHT SHOULDER INJECTION HISTORY: Pain COMPARISON: None | [facility] | | FINDINGS: P A R Q was performed and the patient agrees to proceed. | DEPARTMENT OF | | Fluoroscopic examination of the right shoulder was performed and the | RADIOLOGY | | right humeral head was localized. The patient's skin was marked for | | | injection. The skin was cleaned and prepped in the usual manner. | | | Lidocaine was administered. A 22 gauge needle was passed into the | | | joint space with fluoroscopic guidance. Test injection with | | | iodinated contrast demonstrates contrast to flow into the joint | | | space. The patient was given diluted gadolinium. The fluoroscopic | | | time was 1 minute. The patient tolerated the procedure well with | | | no immediate complication. IMPRESSION: Right shoulder injection was | | | completed. | | + + + + + | Procedure Note | + + | Interface, Radiology Results - 01/23/2015 6:24 PM PDT EXAM: RIGHT SHOULDER INJECTION | | HISTORY: Pain | | COMPARISON: None | | FINDINGS: P A R Q was performed and the patient agrees to proceed. | | Fluoroscopic examination of the right shoulder was performed and the | | right humeral head was localized. The patient's skin was marked for | | injection. The skin was cleaned and prepped in the usual manner. | | Lidocaine was administered. A 22 gauge needle was passed into the | | joint space with fluoroscopic guidance. Test injection with | | iodinated contrast demonstrates contrast to flow into the joint | | space. The patient was given diluted gadolinium. | | The fluoroscopic time was 1 minute. The patient tolerated the | | procedure well with no immediate complication. | | IMPRESSION: Right shoulder injection was completed. | + + + +---------+ + + | Performing | Address | City/State/Zipcode | Phone Number | | Organization | | | | + +---------+ + + | [facility] DEPARTMENT OF | | | | | RADIOLOGY | | | | + +---------+ + + UPPER EXT JNT WITH CON [id number] (04/14/2013 2:08 PM PDT) + + | Specimen | + + | | + + + + + | Narrative | Performed At | + + + | EXAM: RIGHT SHOULDER MRI WITH CONTRAST INJECTION HISTORY: Pain | [facility] | | COMPARISON: 04/24/2012 FINDINGS: The following sequences were | DEPARTMENT OF | | obtained following the interarticular injection of gadolinium. | RADIOLOGY | | 1. Axial T1 fat sat, proton fat sat. 2. Oblique coronal proton | | | fat sat, T1 fat sat, T1. 3. Oblique sagittal proton fat sat, T1 | | | fat sat, T1-2. Extravasation of contrast into the subscapularis | | | muscle and tendon is noted. The long head of the biceps tendon is | | | normal in appearance and lies in the bicipital groove. No tear of | | | the supraspinatus or infraspinatus tendon is noted. No area of | | | bone bruise or fracture is seen. The acromioclavicular joint is | | | normal in appearance. There are small linear collections of contrast | | | present at the base of the superior and inferior labrum (series 7 | | | image 9) most likely a normal finding. The collection at the base | | | of the superior labrum most likely represents a prominence sublabral | | | foramen. The linear increased signal intensity at the inferior labrum | | | most likely represents cartilage interposition. A labral tear is | | | doubtful. IMPRESSION: No evidence of a rotator cuff tear or labral | | | tear is noted. | | + + + + + | Procedure Note | + + | Interface, Radiology Results - 01/23/2015 6:24 PM PDT EXAM: RIGHT SHOULDER MRI WITH | | CONTRAST INJECTIONHISTORY: PainCOMPARISON: 04/24/2012FINDINGS: The following sequences | | were obtained following theinterarticular injection of gadolinium.1. Axial T1 fat sat, | | proton fat sat.2. Oblique coronal proton fat sat, T1 fat sat, T1.3. Oblique sagittal | | proton fat sat, T1 fat sat, T1-2.Extravasation of contrast into the subscapularis muscle | | and tendon isnoted. The long head of the biceps tendon is normal in appearanceand lies | | in the bicipital groove. No tear of the supraspinatus orinfraspinatus tendon is noted. | | No area of bone bruise or fracture isseen. The acromioclavicular joint is normal in | | appearance.There are small linear collections of contrast present at the base ofthe | | superior and inferior labrum (series 7 image 9) most likely anormal finding. The | | collection at the base of the superior labrummost likely represents a prominence | | sublabral foramen. The linearincreased signal intensity at the inferior labrum most | | likelyrepresents cartilage interposition. A labral tear is doubtful.IMPRESSION: No | | evidence of a rotator cuff tear or labral tearis noted. | |the superior and inferior labrum (series 7 image 9) most likely a | |normal finding. The collection at the base of the superior labrum | |most likely represents a prominence sublabral foramen. The linear | |increased signal intensity at the inferior labrum most likely | |represents cartilage interposition. A labral tear is doubtful. | |IMPRESSION: No evidence of a rotator cuff tear or labral tear | |is noted. | + + + +---------+ + + | Performing | Address | City/State/Zipcode | Phone Number | | Organization | | | | + +---------+ + + | [facility] DEPARTMENT OF | | | | | RADIOLOGY | | | | + +---------+ + + documented in this encounter Visit Diagnoses Not on filedocumented in this encounter"
--- OUTSIDE RECORDS SUMMARY | ~2018-11-05 | XMS | Encounter Summary ---
Demographics + + + | Address | [address] | | | [place] [address] | + + + | Home Phone | | + + + | Preferred Language | Unknown | + + + | Marital Status | Single | + + + | Samaritan Affiliation | NON | + + + | Race | White | + + + | Ethnic Group | Not or | + + + Author + + + | Author | [facility] | + + + | Organization | [facility] | + + + | Address | Unknown | + + + | Phone | Unavailable | + + + Support + + + + + | Name | Relationship | Address | Phone | + + + + + | Dante Duenas | GISSELLE | [address] | | | | | [place] [address] | | + + + + + | Helena Hawleywil | ECON | [place] | | | | | [place] [address] | | + + + + + Care Team Providers + +------+ + | Care Lambskin Trimmer Name | Role | Phone | + +------+ + | Larry Lorenzo | PCP | | + +------+ + Encounter Details +--------+ + + + + | Date | Type | Department | Care Team | Description | +--------+ + + + + | 12/11/ | Telephone | [facility] | Jeannie Argueta, | | | 2015 | | [facility] [address] | CNM [address] | | | | [address] , [address] | [address] | | | | | [place], [place] | [place], [place] | | | | | [address] | [address] | | | | | [phone] | [phone] | | | | | | | [...]
--- OUTSIDE RECORDS SUMMARY | ~2018-11-05 | XMS | Encounter Summary ---
Demographics + + + | Address | [address] | | | [place] [address] | + + + | Home Phone | | + + + | Preferred Language | Unknown | + + + | Marital Status | Single | + + + | Baptism Affiliation | NON | + + + [...] | | | | | [place] [address] | | + + + + + | Helena Reilly | ECON | [place] | | | | | [place] [address] | | + + + + + Care Team Providers + +------+ + | Care International Marketing Coordinator Name | Role | Phone | + +------+ + | Larry Lorenzo | PCP | | + +------+ + Reason for Visit + + + | Reason | Comments | + + + | control | | + + + Encounter Details +--------+--------+ + + + | Date | Type | Department | Care Team | Description | +--------+--------+ + + + | 08/21/ | Refill | [facility] | [facility], | control | | 2018 | | [facility] [address] | [address] | | | [address] | [address] [place], [place] | | | | | [place], [place] | [address] | | | | | [address] | [phone] | | | | | [phone] | | | +--------+--------+ + + + Social History + +-------+ [...]
--- OUTSIDE RECORDS SUMMARY | ~2018-11-05 | XMS | Encounter Summary ---
Demographics + + + | Address | [address] | | | [place] [address] | + + + | Home Phone | | + + + | Preferred Language | Unknown | + + + | Marital Status | Single | + + + | Voodoo Affiliation | NON | + + + | Race | White | + + + | Ethnic Group | Not or | + + + Author + + + | Author | [facility] | + + + | Organization | [facility] | + + + | Address | Unknown | + + + | Phone | Unavailable | + + + Support + + + + + | Name | Relationship | Address | Phone | + + + + + | Dante Duenas | GISSELLE | [address] | | | | | [place] [address] | | + + + + + | Helena Barakatjoseph | ECON | [address] | | | | | [place] [address] | | + + + + + Care Team Providers + +------+ + | Care Paint Mixer Name | Role | Phone | + [...] | +--------+ + + + + | 05/31/ | | [facility] | Jeannie Argueta, | | | 2016 | | [facility] [address] | CNM [address] | | | | | [address] , [address] | [address] | | | | | [place], [place] | [place], [place] | | | | | [address] | [address] | | | | | [phone] | [phone] | | | | | | | [...] + + + | Blood Pressure | 114/70 | 05/31/2016 10:42 AM | | | | | PST | | + + + + + | Pulse | 78 | 05/31/2016 10:42 AM | | | | | PST | | + + + + + | Temperature | 37 C (98.6 F) | 05/31/2016 10:42 AM | | | | | PST | | + + + + + | Respiratory Rate | - | - | | + + + + + | Oxygen Saturation | 98% | 05/31/2016 10:42 AM | | | | | PST | | + + + + + | Inhaled Oxygen | - | - | | | Concentration | | | | + + + + + | Weight | 63 kg (139 lb) | 05/31/2016 10:42 AM | | | | | PST | | + + + + + | Height | - | - | | + + + + + | Body Mass Index | 27.37 | 04/23/2016 2:08 PM | | | | | PDT | | + + + + + documented in this encounter Patient Instructions Patient Instructions Edwardo Peterson MA - 05/31/2016 10:45 AM PST You had a throat swab today to evaluate for strep throat. I will have the rapid result back later today. If you start to develop fever, trouble breathing or other worsening symptoms, please be see urgently. Visit - Week 16 Congratulations, you are now in your second trimester. Usually this means you are feeling a little better. . . a little less fatigued and a little less nauseated. Please read chapter s 5 and 21 in your book. Genetic Screening and Ultrasound Some of you may have already completed some testing for genetic screening. Are yo u doing the Sequential Screening for genetic problems? If so, your second test should be do ne between 16 and 18 weeks gestation. Although, some women elect to skip this. Also, coming up is your mid- ultrasound. If you didn t schedule that at your vi sit today, call the clinic and get that done. We want to do this scan just AFTER the mid-po int of .just after 20 weeks. Doing this scan after 20 weeks means your baby is big enough for us to see more of the baby s anatomy. Although ultrasound cannot see ev erything and thus cannot machine pecan picker all problems, it can provide us with reasonable assurance t hat your baby is growing normally. What is a ultrasound? ultrasound is a test that lets your doctor see an image of your baby. Your doctor natalie rns information about your baby from this picture. You may find out, for example, if you are having a boy or a girl. But the main reason you have this test is to get information about your baby's health. (You may hear your baby called a fetus. This is a common medical term for a baby that's lashay wing in the mother's uterus.) What kind of information can you learn from this test? The findings of an ultrasound fall into two categories, normal and abnormal. Normal The fetus is the right size for its age. The placenta is the expected size and does not cover the cervix. There is enough amniotic fluid in the uterus. No defects can be seen. Abnormal The fetus is small or large for its age. The placenta covers the cervix. There is too much or too little amniotic fluid in the uterus. The fetus may have a defect. What does an abnormal result mean? Abnormal seems to imply that something is wrong with your baby. But what it means is that t he test has shown something the doctor wants to take a closer look at. And that's what happens next. Your doctor will talk to you about what further test or tests you may need. What are some possible results? Some of the things your doctor may see on an abnormal ultrasound include: Echogenic bowel. The bowel looks very bright on the screen. This could mean there is blo od in the bowel. Or it could mean that something is blocking the small bowel. Increased nuchal translucency. The ultrasound measures the thickness at the back of the baby's neck. An increase in thickness is sometimes an early sign of Down syndrome. Increased or decreased amniotic fluid. The doctor will look for a reason for the level o f amniotic fluid and will watch the closely as it progresses. Large ventricles. Ventricles in the brain look larger than they should. Your doctor may take a closer look at the brain. Renal pyelectasis/hydronephrosis. The ultrasound measures an area of the baby's renal pe lvis. If the area is larger than expected, there is a chance of urinary tract or kidney prob lems. Short long bones. The ultrasound measures certain arm and leg bones. A long bone (humeru s or femur) that is shorter than average could be a sign of Down syndrome. What do you do now? Take a deep breath, and let it out. Keep in mind that an abnormal finding on an ultrasound, after it's coupled with more information, may: grout machine operator to be nothing. grout machine operator to be something mild that won't affect the baby. grout machine operator to be something more serious. But if this happens, early diagnosis helps you an d your doctor plan treatment options sooner rather than later. Nutrition Today s Nutritional Jeane is this: Eat enough; but don t over-eat. Are you really eat ing for TWO? Well, yes and no. But one of you is pretty small. Early in , no inc rease in calories is really needed. In the last months of , a woman only needs an additional 300 calories (that s about 2 glasses of milk OR three slices of bread). Howev er, a focus just on calories misses a major point about nutrition ..(unless you re getti ng too many - which can lead to excess weight gain for both you and your baby). Think qual ity, not quantity. Certainly, if you think you re not getting enough calories, call us. Last visit s Nutritional Jeane was this: Keep it simple, eat the equivalent of three heal thy meals and three healthy snacks. What is healthy? Generally, healthy is more easily fou nd on the margins of the supermarket, not in the rows. Healthy is the produce department, d airy cases, and meat department. Healthy is fresh fruits, fresh vegetables, whole grains, u nsweetened dairy products, cheeses, eggs, meats and fish. Think twice if food comes in a aileen x or package, especially if the food was processed or changed in some way (like turning corn into oil-fried corn chips). Read the ingredients did they add fat, sugar, or salt? H ealthy is also whole that means brown rice instead of white rice; whole grain breads an d cereals instead of white bread. How much weight should I gain? This is one of the toughest questions we address duri ng . The common advice to gain 25-35 pounds is at most a broad guideline. E ach woman is special and unique, and many women gain more or less than this and have healthy pregnancies and babies. The more difficult answer is that weight gain is less important th an the quality of your nutrition. But it is likely that you will gain weight. So, using we ight gain as a guide in must take into account some individual variation. We use the Body Mass Index (BMI), a calculation based on your height and weight, to begin this conv ersation. Last 1 Encounter BMI Readings: Date BMI 05/20/2016 26.82 kg/m2 BMI Recommended Weight Gain (lbs) <18.5 28-40 18-24.9 25-35 25-29.9 15-25 30-34.9 11-20 >35 0-9 Where does the weight go? Baby 8 lbs Placenta 2-3 lbs Amniotic Fluid 2-3 lbs Breast Tissue 2-3 lbs Blood Supply 4 lbs Fat stores for delivery & breast feeding 5-9 lbs Uterus increase 2-5 lbs TOTAL 25-35 lbs Again ..keep it simple ..the equivalent of three, healthy meals and three healthy snack s. Fresh, whole foods. Fruits and vegetables. 71g of a high-quality protein every day (eg gs, dairy, meats, fish, chicken, beans/grains). and stay away from empty calories . What are empty calories ? .foods, th at is, junk foods, that provide calories but no other nutrition. The classic examples are c hips, sodas, cakes, cookies, ice cream. With that said, variety is the spice of life, and a good diet can include the occasional treat. Another important nutrient (although it s really not a nutrient, per se) is fiber. Gener ally speaking, most of us don t get enough of it. Fiber is the fibrous part of fruits and vegetables that human beings cannot digest. So, why would we need a food component that we don t digest? ? Fiber helps rid our bodies of the toxins and waste-products produced in the liver. ? Fiber is the bulk of our poop ? Fiber helps rid our bodies of high levels of cholesterol ? Fiber helps us moderate our blood sugars ? Fiber helps nourish the good bacteria that live in our gut Most modern diets do not provide our bodies with enough fiber. In fact, the modern grocery store can actually sabotage our efforts to eat a healthy diet. As consumers we are pushed toward too much fat, too much sugar, too much salt, too much processed food, and not nearly enough fiber. Thus, the modern diet sets us up for weight gain, diabetes, high blood pressu re, and .constipation. Human beings are omnivores ..we can eat a little of everyt marie. Our primitive ancestors ate a diet that included large amounts of fiber. Meats, dair y products, eggs, and fish were luxurious, infrequent additions to what was probably a diet of mostly plants (fruits and vegetables) and thus, a lot more fiber. For some women, compounds the potential for constipation. The muscles in the wal ls of the intestines (which move food along the digestive tract) relax during - slo wing down the movement of food through the body. As the passage of food slows down , the last few feet of bowel (the colon) have more time to pull water out of the fiber that makes it that far and instead of soft poop, the stool becomes hard. If there s not m ore fiber coming down the pike, the hard stool sits in the colon and gets harder and you ve got a problem. Here are suggestions for avoiding constipation: ? Get plenty of fiber ? Drink plenty of water (avoid a lot of fluids that are sweet) ? Get plenty of exercise Unfortunately, all intestines are not created equal. Some women s digestive systems are just slower than others. can compound problems with constipation. If you are one of those women, talk to us. We have more tricks in the bag for dealing with constipation, including: ? Prunes. All that you ve heard is true. Start with prunes. ? Bulk additives, like psyllium, a grain product that holds water ? Senna, a grain product that also helps stimulate the gut (a laxative) ? Docusate, a medicine that helps the stool retain moisture Numerous other laxative products (talk to us before you try any laxative products). Exercise Did we mention exercise? It s something we all need to do ..every day ..even pregnan t women. About 30 minutes of moderate exertion most days of the week. That could be a bris k walk, a workout program designed for women, or the moderate exercise that you v e always done. does change your body in some ways that may impact your exercise regimen: ? Sometimes, if you overdo it, you ll be more fatigued and recover more slowly ? The cartilage and ligaments that pad and hold your joints together soften during pregnanc y. Thus, you might be more susceptible to injury if you start an unfamiliar activity or pus h your body too hard Dehydration can make the uterus contract ..so, keep drinking those fluids during exercise . Weeks 14 to 18 of Your : Care Instructions Your Care Instructions During this time, you may start to "show," so that you look to people around you. You may also notice some changes in your skin, such as itchy spots on your palms or acne on your face. Your baby is now able to pass urine, and your baby's first stool (meconium) is starting to collect in his or her intestines. Hair is also beginning to grow on your baby's head. At your next visit, between weeks 18 and 20, your doctor may do an ultrasound test. The jaylyn t allows your doctor to check for certain problems. Your doctor can also tell the sex of you r baby. This is a good time to think about whether you want to know whether your baby is a b oy or a girl. Talk to your doctor about getting a flu shot to help keep you healthy during your . As your moves along, it is common to worry or feel anxious. Your body is changing a lot. And you are thinking about giving , the health of your baby, and becoming a par ent. You can learn to cope with any anxiety and stress you feel. Follow-up care is a mclaughlin part of your treatment and safety. Be sure to make and go to all ap pointments, and call your doctor if you are having problems. It's also a good idea to know y our test results and keep a list of the medicines you take. How can you care for yourself at home? Reduce stress Ask for help with cooking and housekeeping. Figure out who or what causes your stress. Avoid these people or situations as much as p ossible. Relax every day. Taking 10- to 15-minute breaks can make a big difference. Take a walk, listen to music, or take a warm bath. Learn relaxation techniques at or yoga class. Or buy a relaxation tape. List your fears about having a baby and becoming a parent. Share the list with someone y ou trust. Decide which worries are really small, and try to let them go. Exercise If you did not exercise much before , start slowly. Walking is best. Pace yours elf, and do a little more every day. Brisk walking, easy jogging, low-impact aerobics, water aerobics, and yoga are good sr dagmar. Some sports, such as scuba diving, horseback riding, downhill skiing, gymnastics, and w ater skiing, are not a good idea. Try to do at least 2 hours a week of moderate exercise, such as a fast walk. One way t o do this is to be active 30 minutes a day, at least 5 days a week. It's fine to be active i n blocks of 10 minutes or more throughout your day and week. Wear loose clothing. And wear shoes and a bra that provide good support. Warm up and cool down to start and finish your exercise. If you want to use weights, be sure to use light weights. They reduce stress on your lupis nts. Stay at the best weight for you Experts recommend that you gain about 1 pound a month during the first 3 months of your . Experts recommend that you gain about 1 pound a week during your last 6 months of pregna ncy, for a total weight gain of 25 to 35 pounds. If you are underweight, you will need to gain more weight (about 28 to 40 pounds). If you are overweight, you may not need to gain as much weight (about 15 to 25 pounds). If you are gaining weight too fast, use common sense. Exercise every day, and limit swee ts, fast foods, and fats. Choose lean meats, fruits, and vegetables. If you are having twins or more, your doctor may refer you to a dietitian. Where can you learn more? To learn more about "Weeks 14 to 18 of Your : Care Instructions", log into your My Chart account at [email or web address]. You can enter I453 in the [employer]" s earch box. Not on MyChart? Review the MyChart section of your After Visit Summary for directions on ho w to sign up. [id number] [employer]. Care instructions adapted under license by [facility] [employer]. This care instruction is for use with your licensed healthcar e professional. If you have questions about a medical condition or this instruction, always ask your healthcare professional. [employer] disclaims any warranty or liabili ty for your use of this information. Content Version: [id number]; Current as of: November 20, 2015 documented in this encounter Progress Notes Jeannie Argueta CNM - 05/31/2016 10:45 AM PSTS: Jennifer reports that she noticed some whi te patches on her tonsils. She does have a sore throat. 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 She was treated for URI in the last couple of w eeks. She is feeling much better from this but still has a mild cough. The sore throat and w em patches is a new symptom. No fever, SOB or wheezing. No lesions on hands or feet. O: Gen: NAD ENT: Throat is mildly erythematous and there is 2 small white spots on her right tonsil. Benavides bmandibular lymph nodes bilaterally are inflamed. There are no vesicular lesions. Cardio: RRR, no murmur Lungs: CTA bilaterally Abd: Gravid, soft, not tender A: Pharyngitis S=D P: Rapid strep culture. Instructed to monitor for vesicular lesions. Precautions given on when to call and be evaluated for worsening symptoms. 2nd SIS today Anatomy scan in 4 wks ROBIN in 4w Maico Ram MA - 05/31/2016 10:45 AM PSTPt states she works in childcare and hand, foot and felisha th has been going on. She has a sore throat and white pockets on her tonsils. Temp: 98.6. O2 : 98%. Pulse: 78. Edwardo [place] CMA documented in this e ncounter Plan of Treatment Not on filedocumented as of this encounter Procedures + +--------+ + + + | Procedure Name | Priori | Date/Time | Associated Diagnosis | Comments | | | ty | | | | + +--------+ + + + | CULTURE, STREP A | Routin | 05/31/2016 | Sore throat | Results for this | | | e | 11:33 AM | | procedure are in the | | | | PST | | results section. | + +--------+ + + + | RAPID STREP | Routin | 05/31/2016 | Sore throat | Results for this | | | e | 11:33 AM | | procedure are in the | | | | PST | | results section. | + +--------+ + + + | UA, DIP 4 | Routin | 05/31/2016 | with 15 | Results for this | | | e | 10:33 AM | completed weeks | procedure are in the | | | | PST | gestation | results section. | + +--------+ + + + documented in this encounter Results CULTURE, STREP A (05/31/2016 11:33 AM PST) + + + + + + | Component | Value | Ref Range | Performed | Pathologist | | | | | At | Signature | + + + + + + | CULTURE | 1+ Streptococcus group A | | [facility] | | | RESULT | (A) | | A MEDICAL | | | STREP A | | | CENTER | | + + + + + + + + | Specimen | + + | Swab | + + + + + + + | Performing | Address | City/State/Zipcode | Phone Number | | Organization | | | | + + + + + | [facility] | And | [place] [address] | [phone] | | [facility] | Streets | | | + + + + + RAPID STREP (05/31/2016 11:33 AM PST) + + + + + + | Component | Value | Ref Range | Performed | Pathologist | | | | | At | Signature | + + + + + + | STREP GROUP | Negative | Negative | [facility] | [facility] | | | | | [facility] | | | | [facility] | | + + + + + + + + | Specimen | + + | Swab | + + + + + + + | Performing | Address | City/State/Zipcode | Phone Number | | Organization | | | | + + + + + | [facility] | [address], | [place] [address] | | | [facility] | [address] | | | + + + + + BONI PURVIS 4 (05/31/2016 10:33 AM PST) + + + + + [...] [address], | [place] [address] | | | [facility] | [address] | | | + + + + + documented in this encounter Visit Diagnoses + + | Diagnosis | + + | with 15 completed weeks gestation - Primary | + + | Sore throat Acute pharyngitis | + + documented in this encounter
--- OUTSIDE RECORDS SUMMARY | ~2018-11-05 | XMS | Encounter Summary ---
Demographics + + + | Address | [address] | | | [place] [address] | + + + | Home Phone [...] Author + + + | Author | [facility] | + + + | Organization | [facility] | + + + | Address | Unknown | + + + | Phone | Unavailable | + + + Support + + + + + | Name | Relationship | Address | Phone | + + + + + | Dante Duenas | GISSELLE | [address] | | | | | [place] [address] | | + + + + + | Helena Hawleywil | ECON | [address] | | | | | [place] [address] | | + + + + + Care Team Providers + +------+ + | Care Jelly Maker Name | Role | Phone | + [...] + + | 05/20/ | Telephone | Maui Alger | Jeannie Argueta, | Breathing problem | | 2015 | | [facility] [address] | CNM [address] | | | | | [address] , [address] | | | | | Center, [place] | [place], [place] | | | | | [address] | [address] | | | | | [phone] | [phone] | | | | | | | [...]
--- OUTSIDE RECORDS SUMMARY | ~2018-11-05 | XMS | Encounter Summary ---
Demographics + + + | Address | [address] | | | [place] [address] | + + + | Home Phone [...] Author + + + | Author | [facility] | + + + | Organization | [facility] | + + + | Address | Unknown | + + + | Phone | Unavailable | + + + Support + + + + + | Name | Relationship | Address | Phone | + + + + + | Dante Duenas | GISSELLE | [address] | | | | | [place] [address] | | + + + + + | Helena Hawleywil | ECON | [address] | | | | | [place] [address] | | + + + + + Care Team Providers + +------+ + | Care Africana Studies Professor Name | Role | Phone | + [...] [address] | | | | | [place], [place] | [place], [place] | | | | | [address] | [address] | | | | | [phone] | [phone] | | | | | | | [...]
--- OUTSIDE RECORDS SUMMARY | ~2018-11-05 | XMS | Encounter Summary ---
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 Name | Role | Phone | [...] | +--------+ + + + + | 11/14/ | | [facility] | Jeannie Argueta, | | | 2017 | | [facility] [address] | [address] [address] | | | | [address] | | | | | [place], [place] | [place], [place] | | | | | [address] | [phone] | | | | | [phone] | [phone] | | | | | | | [...] + + + | Blood Pressure | 132/80 | 11/14/2016 12:00 PM | | | | | PDT [...] + + + + | Weight | 78 kg (172 lb) | 11/14/2016 12:00 PM | | | | | PDT | | + + + + + | Height | - | - | | + + + + + | Body Mass Index | 33.87 | 11/10/2016 8:44 PM | | | | | PDT | | + + + + + documented in this encounter Patient Instructions Patient Instructions Sawyer Alex MA - 11/14/2016 11:45 AM PDTPlease read chapter 16 in your book. While you wait Continue to monitor for any contractions, fluid leakage, bleeding or decreased moveme nt. If you have bleeding or decreased movement, are in labor or think your water has broken, please go to [facility] ([facility] Delivery). Please call if you have any concerns. After hours call [facility] if you think you are in labor to let them know you are kenneth ayala in. [phone]. Don t sit by the phone and wait for labor to start, it s like watching a tea kett le and waiting for it to boil! The baby always comes out! ? Get out and keep taking those walks it gets a bit harder to walk far but keep your mu scles moving. ? Food your favorite topic it s always tempting at this point to throw caution to t he wind and start eating all those things you ve been trying to avoid during . B ut try and stick to the healthy stuff, you and your baby will feel better ? Check that bag you ve packed do you want to add some flip flops, a robe, a cozy joão nket, a set of your favorite toiletries. Make sure your partner also has a bag lightwei ght and warmer layers, some snacks for him (you probably won t have much of an appetite), some battery operated tea lights (nice for relaxation in labor), be creative ? Take some naps uninterrupted ones with no baby to wake you up. ? Get your partner to take you out on a date it might be a while before you get a chance to have a nice dinner out, go to a movie, or go to [employer] to browse the book [employer] es. Last minute checks ? Car seat installed? FMLA/Disability papers done? Maxi pads stashed? Music play list prepa red? Breast pump and accessories available (practice putting things together)? . You re ready! Now relax and have a chat with your baby about how great life would be if s/he came out! Week 39 of Your : Care Instructions Your Care Instructions During these final weeks, you may feel anxious to see your new baby. [place] babies often l ook different from what you see in pictures or movies. Right after , their heads may kilg[place] ve a strange shape. Their eyes may be puffy. And their genitals may be swollen. They may als o have very dry skin, or red banks on the eyelids, nose, or neck. Still, most parents think their babies are beautiful. Follow-up care is a mclaughlin part of your treatment and safety. Be sure to make and go to all ap pointments, and call your doctor if you are having problems. It's also a good idea to know y our test results and keep a list of the medicines you take. How can you care for yourself at home? Prepare to breastfeed If you are , continue to eat healthy foods. Avoid alcohol, cigarettes, and drugs. This includes prescription and qvuq-ppn-yrtmjlr me dicines. You can help prevent sore nipples if you feed your baby in the correct position. Nurses will help you learn to do this. Your will need to be fed about every 1 to 3 hours. Choose the right control after your baby is born Women who are can still get . Use control if you don't want to get . Intrauterine devices (IUDs) work for women who want to wait at least 2 years before gett ing again. They are safe to use while you are . Depo-Provera can be used while you are . It is a shot you get every 3 month s. control pills work well. But you need a different kind of pill while you are breas tfeeding. And when you start taking these pills, you need to make sure to use another type o f control until you start your second pack. Diaphragms, cervical caps, tubal implants, and condoms with spermicide work less well af ter . If you have a diaphragm or cervical cap, you will need to have it refitted. Tubal ligation (tying your tubes) and vasectomy are both permanent. These are good optio ns if you are sure you are done having children. Where can you learn more? To learn more about "Week 39 of Your : Care Instructions", log into your [employer] a ccount at [email or web address]. You can enter A811 in the "[employer] Library" search box . Not on [employer]? Review the [employer] section of your After Visit Summary for directions on ho w to sign up. Current as of: November 20, 2015 Content Version: 11.2 3136-0227 Elli. Care instructions adapted under license by [employer]. If you have questions about a medical condition or this instr uction, always ask your healthcare professional. [employer] disclaims any nino anty or liability for your use of this information. documented in this encounter Progress Notes Jeannie Argueta CNM - 11/14/2016 11:45 AM PDTS: She is feeling well. Irregular uc, no vb or lof. Good movement. She would like membrane sweeping if able today. O: See flow sheet A/P: S/S labor and when to go to LD reviewed She has decided on IUD for bc F/u 1 week document ed in this encounter Plan of Treatment Not on filedocumented as of this encounter Visit Diagnoses + + | Diagnosis | + + | , unspecified gestational age - Primary | + + documented in this encounter
--- OUTSIDE RECORDS SUMMARY | ~2018-11-05 | XMS | Encounter Summary ---
Demographics + + + | Address | [address] | | | [place] [address] | + + + | Home Phone | | + + + | Preferred Language | Unknown | + + + | Marital Status | Single | + + + | Methodist Affiliation | NON | + + + | Race | White | + + + | Ethnic Group | Not or | + + + Author + + + | Author | [facility] | + + + | Organization | [facility] | + + + | Address | Unknown | + + + | Phone | Unavailable | + + + Support + + + + + | Name | Relationship | Address | Phone | + + + + + | Dante Duenas | GISSELLE | [address] | | | | | [place] [address] | | + + + + + | Helena Hawleywil | ECON | [address] | | | | | [place] [address] | | + + + + + Care Team Providers + +------+ + | Care Russian Language Professor Name | Role | Phone | [...] + + + + | 12/11/ | Emergency | Emergency | Dante Jerome, | | | 2016 | | Department at [facility] | [facility] | | | | | Hospital [address] [facility] [address] | [address] | [address] | | | | | [place], [place] | [place] [address] | | | | | [address] | [phone] | | | | | [phone] | | | +--------+ + + + [...] + + + | Blood Pressure | 131/84 | 12/11/2016 8:51 PM | | | | | PDT | | + + + + + | Pulse | 103 | 12/11/2016 8:51 PM | | | | | PDT | | + + + + + | Temperature | 37.2 C (99 F) | 12/11/2016 8:51 PM | | | | | PDT | | + + + + + | Respiratory Rate | 16 | 12/11/2016 8:51 PM | | | | | PDT | | + + + + + | Oxygen Saturation | 98% | 12/11/2016 8:51 PM | | | [...] documented in this encounter Discharge Instructions Instructions Dante Jerome MD - 12/11/2016Pump and dump breast milk, change to formula feeding until antibiotics are completed. Call the [facility] office tomorrow morning first thing and arranged appointment for desmond patel. Drink lots of fluids and stay well hydrated. Return to the emergency department immediately for any new or worsened symptoms. Learning About Fever What is a fever? A fever is a high body temperature. It's one way your body fights being sick. A fever shows that the body is responding to infection or other illnesses, both minor and severe. A fever is a symptom, not an illness by itself. A fever can be a sign that you are ill, but most fevers are not caused by a serious problem. You may have a fever with a minor illness, such as a cold. But sometimes a very serious inf ection may cause little or no fever. It is important to look at other symptoms, other condit ions you have, and how you feel in general. In children, notice how they act and see what sy mptoms they complain of. What is a normal body temperature? A normal body temperature is about 98.6F. Some people have a normal temperature that is a little higher or a little lower than this. Your temperature may be a little lower in the morning than it is later in the day. It may g o up during hot weather or when you exercise, wear heavy clothes, or take a hot bath. Your temperature may also be different depending on how you take it. A temperature taken in the mouth (oral) or under the arm may be a little lower than your core temperature (rectal) . What is a fever temperature? A core temperature of 100.4F or above is considered a fever. What can cause a fever? A fever may be caused by: Infections. This is the most common cause of a fever. Examples of infections that can ca use a fever include the flu, a kidney infection, or pneumonia. Some medicines. Severe trauma or injury, such as a heart attack, stroke, heatstroke, or goodson. Other medical conditions, such as arthritis and some cancers. How can you treat a fever at home? Ask your doctor if you can take an avsl-kxx-dqvtnyy pain medicine, such as acetaminophen (Tylenol), ibuprofen (Advil, Motrin), or naproxen (Aleve). Be safe with medicines. Read and follow all instructions on the label. To prevent dehydration, drink plenty of fluids. Choose water and other caffeine-free joey ar liquids until you feel better. If you have kidney, heart, or liver disease and have to li randolph fluids, talk with your doctor before you increase the amount of fluids you drink. Follow-up care is a mclaughlin part of your treatment and safety. Be sure to make and go to all ap pointments, and call your doctor if you are having problems. It's also a good idea to know y our test results and keep a list of the medicines you take. Where can you learn more? To learn more about "Learning About Fever", log into your [employer] account at [email or web address]. You can enter [id number] in the "[facility] Library" search box. Not on [employer]? Review the Engagorhart section of your After Visit Summary for directions on timbo w to sign up. Current as of: November 17, 2015 Content Version: 11.2 6706-2987 [employer], [employer]. Care instructions adapted under license by [facility] & [facility]. If you have questions about a medical condition or this instr uction, always ask your healthcare professional. The [employer] disclaims any nino anty or liability for your use of this information. Nausea and Vomiting: Care Instructions Your Care Instructions When you are nauseated, you may feel weak and sweaty and notice a lot of saliva in your felisha th. Nausea often leads to vomiting. Most of the time you do not need to worry about nausea a nd vomiting, but they can be signs of other illnesses. Two common causes of nausea and vomiting are stomach flu and food poisoning. Nausea and vom iting from viral stomach flu will usually start to improve within 24 hours. Nausea and vomit ing from food poisoning may last from 12 to 48 hours. The doctor has checked you carefully, but problems can develop later. If you notice any pro blems or new symptoms, get medical treatment right away. Follow-up care is a mclaughlin part of your treatment and safety. Be sure to make and go to all ap pointments, and call your doctor if you are having problems. It's also a good idea to know y our test results and keep a list of the medicines you take. How can you care for yourself at home? To prevent dehydration, drink plenty of fluids, enough so that your urine is light yello w or clear like water. Choose water and other caffeine-free clear liquids until you feel bet ter. If you have kidney, heart, or liver disease and have to limit fluids, talk with your do ctor before you increase the amount of fluids you drink. Rest in bed until you feel better. When you are able to eat, try clear soups, mild foods, and liquids until all symptoms ar e gone for 12 to 48 hours. Other good choices include dry toast, crackers, cooked cereal, an d gelatin dessert, such as Jell-O. When should you call for help? Call 911 anytime you think you may need emergency care. For example, call if: You passed out (lost consciousness). Call your doctor now or seek immediate medical care if: You have symptoms of dehydration, such as: Dry eyes and a dry mouth. Passing only a little dark urine. Feeling thirstier than usual. You have new or worsening belly pain. You have a new or higher fever. You vomit blood or what looks like coffee grounds. Watch closely for changes in your health, and be sure to contact your doctor if: You have ongoing nausea and vomiting. Your vomiting is getting worse. Your vomiting lasts longer than 2 days. You are not getting better as expected. Where can you learn more? To learn more about "Nausea and Vomiting: Care Instructions", log into your [employer] account at [email or web address]. You can enter [id number] in the "[facility] Library" search box. Not on [employer]? Review the [employer] section of your After Visit Summary for directions on ho w to sign up. Current as of: November 17, 2015 Content Version: 11.20050477-2907 [employer]. Care instructions adapted under license by [facility] [employer] [place]. If you have questions about a medical condition or this instr uction, always ask your healthcare professional. The [employer] disclaims any nino anty or liability for your use of this information. documented in this encounter Medications at Time of Discharge + + + +---------+ + + | Medication | Sig | Dispensed | Refills | Start | End Date | | | | | | Date | | + + + +---------+ + + | doxycycline | Take 1 capsule by | 14 | 0 | 12/12/19 | | | hyclate 100 mg oral | mouth every twelve | capsule | | 17 | 7 | | capsuleIndications: | hours for 7 days. | | | | | | possible PID | (Pharmacist to | | | | | | | substitute salt form | | | | | | | as needed) | | | | | | | Indications: | | | | | | | possible PID | | | | | + + + +---------+ + + | ondansetron ODT 4 | Dissolve 1 tablet in | 20 | 0 | 12/12/19 | | | mg oral | mouth every eight | tablet | | 17 | 7 | | tablet,disintegratin | hours as needed for | | | | | | g | nausea/vomiting for | | | | | | | up to 10 days. | | | | | + + + +---------+ + + documented as of this encounter Plan of Treatment Not on filedocumented as of this encounter Procedures + +--------+ + + + | Procedure Name | Priori | Date/Time | Associated Diagnosis | Comments | | | ty | | | | + +--------+ + + + | CHLAM/GC APTIMA, | Routin | 12/11/2016 | | Results for this | | RNA, TMA | e | 8:46 PM | | procedure are in the | | | | PDT | | results section. | + +--------+ + + + | CBC W/DIFF, REFLEX | Urgent | 12/11/2016 | | Results for this | | | | 7:32 PM | | procedure are in the | | | | PDT | | results section. | + +--------+ + + + | CBC AND AUTO DIFF | Urgent | 12/11/2016 | | Results for this | | | | 7:32 PM | | procedure are in the | | | | PDT | | results section. | + +--------+ + + + | COMPLETE METABOLIC | Urgent | 12/11/2016 | | Results for this | | SET | | 7:32 PM | | procedure are in the | | (NA,K,CL,CO2,BUN,CRE | | PDT | | results section. | | AT,GLUC,CA,AST,ALT,B | | | | | | [place] TOTAL,ALK | | | | | | PHOS,ALB,PROT TOTAL) | | | | | + +--------+ + + + | REECE PURVIS W/ | Urgent | 12/11/2016 | | Results for this | | REFLEX | | 7:17 PM | | procedure are in the | | | | PDT | | results section. | + +--------+ + + + | URINE, MICROSCOPIC | Urgent | 12/11/2016 | | Results for this | | EXAM | | 7:17 PM | | procedure are in the | | | | PDT | | results section. | + +--------+ + + + documented in this encounter Results CHLAM/GC APTIMA, RNA, TMA (12/11/2016 8:46 PM PDT) + + + + + [...] | - [place] | | | | Assay([employer] | | | | | | [...] + + | [facility] | [address] | [place] [address] | | | - [place] | [address] | | | + + + + + CBC AND AUTO DIFF (12/11/2016 7:32 PM PDT) + + + + + + | Component | Value | Ref Range | Performed | Pathologist | | | | | At | Signature | + + + + + + | WBC COUNT | 7.9 | 3.5 - 10.8 K/cu | [facility] | | | | | mm | A MEDICAL | | | | | | CENTER | | + + + + + + | RED CELL | 3.97 (L) | 4.00 - 5.20 | [facility] | | | COUNT | | M/cu mm | A MEDICAL | | | | | | CENTER | | + + + + + + | HEMOGLOBIN | 10.4 (L) | 12.0 - 16.0 | [facility] | | | | | g/dL | A MEDICAL | | | | | | CENTER | | + + + + + + | HEMATOCRIT | 32.2 (L) | 36.0 - 46.0 % | [facility] | | | | | | A MEDICAL | | | | | | CENTER | | + + + + + + | MCV | 81.0 | 80.0 - 96.0 fL | [facility] | | | | | | A MEDICAL | | | | | | CENTER | | + + + + + + | MCH | 26.3 (L) | 28.0 - 34.7 pg | [facility] | | | | | | A MEDICAL | | | | | | CENTER | | + + + + + + | MCHC | 32.4 (L) | 33.0 - 35.5 | [facility] | | | | | g/dL | A MEDICAL | | | | | | CENTER | | + + + + + + | RDW | 15.1 (H) | 11.5 - 15.0 % | [facility] | | | | | | A MEDICAL | | | | | | CENTER | | + + + + + + | PLATELET | 400 | 150 - 400 K/cu | [facility] | | | COUNT | | mm | A MEDICAL | | | | | | CENTER | | + + + + + + | MPV | 7.3 (L) | 7.5 - 11.2 fL | [facility] | | | | | | A MEDICAL | | | | | | CENTER | | + + + + + + | NEUTROPHIL | 66.3 | 50.0 - 70.0 % | [facility] | | | % | | | A MEDICAL | | | | | | CENTER | | + + + + + + | LYMPHOCYTE | 23.8 | 18.0 - 42.0 % | [facility] | | | % | | | A MEDICAL | | | | | | CENTER | | + + + + + + | MONOCYTE % | 5.1 | 3.5 - 9.0 % | [facility] | | | | | | A MEDICAL | | | | | | CENTER | | + + + + + + | EOS % | 4.4 (H) | 1.0 - 3.0 % | [facility] | | | | | | A MEDICAL | | | | | | CENTER | | + + + + + + | BASO % | 0.4 | 0.0 - 2.0 % | [facility] | | | | | | A MEDICAL | | | | | | CENTER | | + + + + + + | NEUTROPHIL | 5.30 | 1.80 - 7.70 | [facility] | | | # | | K/cu mm | A MEDICAL | | | | | | CENTER | | + + + + + + | LYMPHOCYTE | 1.90 | 1.00 - 4.80 | [facility] | | | # | | K/cu mm | A MEDICAL | | | | | | CENTER | | + + + + + + | MONOCYTE # | 0.40 | 0.10 - 0.90 | [facility] | | | | | K/cu mm | A MEDICAL | | | | | | CENTER | | + + + + + + | EOS # | 0.40 | 0.00 - 0.50 | [facility] | | | | | K/cu mm | A MEDICAL | | | | | | CENTER | | + + + + + + | BASO # | 0.00 | 0.00 - 0.10 | [facility] | | | | | K/cu mm | A MEDICAL | | | | | | CENTER | | + + + + + + + + | Specimen | + + | Blood | + + + + + + + | Performing | Address | City/State/Zipcode | Phone Number | | Organization | | | | + + + + + | [facility] | And | [place] [address] | [phone] | | MEDICAL CENTER | Stre[address] | | | + + + + + COMPLETE METABOLIC SET (NA,K,CL,CO2,BUN,CREAT,GLUC,CA,AST,ALT,BILI TOTAL,ALK PHOS,ALB,PROT TOTAL) (12/11/2016 7:32 PM PDT) + + + + + + | Component | Value | Ref Range | Performed | Pathologist | | | | | At | Signature | + + + + + + | GLUCOSE, | 100 | 70 - 105 mg/dL | [facility] | | | PLASMA | | | A MEDICAL | | | (LAB) | | | CENTER | | + + + + + + | BUN, PLASMA | 7 | 6 - 26 mg/dL | [facility] | | | (LAB) | | | A MEDICAL | | | | | | CENTER | | + + + + + + | CREATININE, | 0.5 (L) | 0.6 - 1.1 mg/dL | [facility] | | | PLASMA | | | A MEDICAL | | | | | | CENTER | | + + + + + + | SODIUM, | 138 | 137 - 146 | [facility] | | | PLASMA | | mmol/L | A MEDICAL | | | (LAB) | | | CENTER | | + + + + + + | POTASSIUM, | 3.9 | 3.4 - 5.3 | [facility] | | | PLASMA | | mmol/L | A MEDICAL | | | (LAB) | | | CENTER | | + + + + + + | CHLORIDE, | 99 | 96 - 106 mmol/L | [facility] | | | PLASMA | | | A MEDICAL | | | (LAB) | | | CENTER | | + + + + + + | TOTAL CO2, | 25 | 18 - 30 mmol/L | [facility] | | | PLASMA | | | A MEDICAL | | | (LAB) | | | CENTER | | + + + + + + | CALCIUM, | 8.7 | 8.5 - 10.8 | [facility] | | | PLASMA | | mg/dL | A MEDICAL | | | (LAB) | | | CENTER | | + + + + + + | BILIRUBIN | <0.2 (L) | 0.2 - 1.2 mg/dL | [facility] | | | TOTAL | | | A MEDICAL | | | | | | CENTER | | + + + + + + | TOTAL | 7.2 | 5.8 - 8.5 g/dL | [facility] | | | PROTEIN, | | | A MEDICAL | | | PLASMA | | | CENTER | | | (LAB) | | | | | + + + + + + | ALBUMIN, | 3.7 | 3.5 - 5.0 g/dL | [facility] | | | PLASMA | | | A MEDICAL | | | (LAB) | | | CENTER | | + + + + + + | ALK PHOS | 139 | 32 - 180 U/L | [facility] | | | | | | A MEDICAL | | | | | | CENTER | | + + + + + + | AST(SGOT) | 17 | 10 - 41 U/L | [facility] | | | | | | A MEDICAL | | | | | | CENTER | | + + + + + + | ALT (SGPT) | 23 | 7 - 51 U/L | [facility] | | | | | | A MEDICAL | | | | | | CENTER | | + + + + + + | EGFR | >60 | >60 mL/min | [facility] | | | - | | | A MEDICAL | | | [facility] | | | CENTER | | + + + + + + | EGFR NON | >60 | >60 mL/min | [facility] | | | -JENNY | | | A MEDICAL | | | RICAN | | | CENTER | | + + + + + + | ANION GAP | 14 | 12 - 20 mmol/L | [facility] | | | | | | A MEDICAL | | | | | | CENTER | | + + + + + + | BUN/CREATIN | 14 | 6 - 20 | [facility] | | | INE RATIO | | | A MEDICAL | | | | | | CENTER | | + + + + + + + + | Specimen | + + | Blood | + + + + + | Narrative | Performed At | + + + | GFR is estimated using the MDRD equation recommended by the | [facility] | | National Kidney Disease Education Program. Estimated GFR | [facility] | | Interpretive Information: <60 mL/min/1.73 sq | | | m Chronic Kidney Disease <15 mL/min/1.73 | | | sq m Kidney Failure Estimated GFR greater | | | that 60 mL/min/1.73 sq m is of limited clinical value. The MDRD | | | equation is not valid in the following situations: - Patients under | | | 18 years of age - Severe malnutrition or obesity - Vegetarian diet | | | - Rapidly changing kidney function | | + + + + + + + + | Performing | Address | City/State/Zipcode | Phone Number | | Organization | | | | + + + + + | [facility] | And | [place] [address] | [phone] | | MEDICAL CENTER | Stre[address] | | | + + + + + URINE, MICROSCOPIC EXAM (12/11/2016 7:17 PM PDT) + + + + + + | Component | Value | Ref Range | Performed | Pathologist | | | | | At | Signature | + + + + + + | RED CELLS | Neg | Neg, 0-3 | [facility] | | | | | | A MEDICAL | | | | | | CENTER | | + + + + + + | WHITE CELLS | Neg | Neg, 0-2, 3-5 | [facility] | | | | | | A MEDICAL | | | | | | CENTER | | + + + + + + | BACTERIA | Negative | Negative, Trace | [facility] [...] + + + + + + | AMORPHOUS | Few (A) | None /hpf | [facility] | | | [facility] | | | A MEDICAL | | [...] | [facility] | And | [place] [address] | [phone] | | MEDICAL CENTER | Streets | | | + + + + + UA, REECE W/ REFLEX (12/11/2016 7:17 PM PDT) + + + + + + | Component | Value | Ref Range | Performed | Pathologist | | | | | At | Signature | + + + + + + | COLOR(UR) | Yellow | Colorless, | [facility] | | | | | Straw, Yellow, | A MEDICAL | | | | | Light Yellow, | CENTER | | | | | Dark Yellow, | | | | | | Light Red | | | + + + + + + | APPEARANCE | Clear | Clear | [facility] | | | | | | A MEDICAL | | | | | | CENTER | | + + + + + + | PH (URINE) | 6.5 | 5.0 - 8.5 | [facility] | [...] + + + + | SPECIFIC | <1.005 (L) | 1.005 - 1.030 | [facility] | [...] + + + + | BLOOD | Trace (A) | Negative | [facility] | | | [...] + + + | SOURCE | Clean catch | | [facility] | | | (URINALYSIS [...] | + + + + + | [facility] | And | [place] [address] | [phone] | | [facility] | Streets | | | + + + + + documented in this encounter Visit Diagnoses + + | Diagnosis | + + | Acute febrile illness - Primary Fever, unspecified | + + | Vaginal discharge Leukorrhea, not specified as infective | + + | Nausea Nausea alone | + + documented in this encounter Administered Medications + +--------+ +--------+------+---------+ | Medication Order | MAR | Action | Dose | Rate | Site | | | Action | Date | | | | + +--------+ +--------+------+---------+ | cefTRIAXone (ROCEPHIN) | Given | 12/12/19 | 250 mg | | Right | | injection 250 mg 250 mg, | | 17 8:27 | | | Deltoid | | intramuscular, ONCE, 1 dose, Wed | | PM PDT | | | | | 12/11/16 at 2045 | | | | | | + +--------+ +--------+------+---------+ +---+---+ | | | +---+---+ + +-------+ +--------+---+---+ | doxycycline hyclate | Given | 12/12/19 | 100 mg | | | | (VIBRA-TABS) tablet 100 mg 100 | | 17 8:28 | | | | | mg, oral, ONCE, 1 dose, Wed | | PM PDT | | | | | 12/11/16 at 2014 | | | | | | + +-------+ +--------+---+---+ +---+---+ | | | +---+---+ + +-------+ +------+---+---+ | lidocaine PF (XYLOCAINE MPF) | Given | 12/12/19 | 1 mg | | | | injection 1 dose, Starting Fri | | 17 8:34 | | | | | 12/11/16 at 2024, Until Wed | | PM PDT | | | | | 12/11/16 at 2033 | | | | | | + +-------+ +------+---+---+ + +---+ | | | + +---+ | lidocaine PF (XYLOCAINE MPF) | | | injection infiltration, ONCE, 1 | | | dose, Fri12/11/16 at 2115 | | + +---+ | | | + +---+ + +-------+ +------+---+---+ | ondansetron ODT (ZOFRAN ODT) | Given | 12/12/19 | 4 mg | | | | tablet 4 mg 4 mg, oral, ONCE, 1 | | 17 7:15 | | | | | dose, Fri12/11/16 at 1945 | | PM PDT | | | | + +-------+ +------+---+---+ +---+---+ | | | +---+---+ documented in this encounter
--- OUTSIDE RECORDS SUMMARY | ~2018-11-05 | XMS | Encounter Summary ---
Demographics + + + | Address | [address] | | | [place] [address] | + + + | Home Phone [...] Author + + + | Author | [facility] | + + + | Organization | [facility] | + + + | Address | Unknown | + + + | Phone | Unavailable | + + + Support + + + + + | Name | Relationship | Address | Phone | + + + + + | Dante Duenas | ECON | [address] | | | | | [place] [address] | | + + + + + | Helena Reilly | ECON | [address] | | | | | [place] [address] | | + + + + + Care Team Providers + +------+ + | Care Transaction Manager Name | Role | Phone | + +------+ + PCP | Unavailable | + +------+ + Encounter Details +--------+ + + + + | Date | Type | Department | Care Team | Description | +--------+ + + + + | 05/05/ | Results | [facility] | Miguel Angel Garay | | | 2013 | Only | Department | G, DO [address] | | | | | [address] [place] | | | | | | [address] | | | | | | [phone] | | | | | | | [...] | + +--------+ + + + | CT HEAD AND SPINE | Routin | 10/25/2013 | | Results for this | | CERVICAL WO CONTRAST | e | 3:00 PM | | procedure are in the | | | | PDT | | results section. | + +--------+ + + + documented in this encounter Results CT/HEAD AND C-SPINE WITHOUT (10/25/2013 3:00 PM PDT) + + | Specimen | + + | | + + + + + | Narrative | Performed At | + + + | EXAM: CT HEAD AND CERVICAL SPINE WITHOUT CONTRAST CLINICAL HISTORY: | [facility] | | Fall off horse 1 week ago COMPARISON: None available TECHNIQUE: | DEPARTMENT OF | | Multiple contiguous axial 1.25 mm images were obtained through the | RADIOLOGY | | brain and cervical spine without the administration of IV | | | contrast. Coronal and sagittal multiplanar reformations through the | | | brain and cervical spine were obtained. FINDINGS: BRAIN: There | | | is no pneumocephalus, skull fracture, significant scalp hematoma, | | | acute intraparenchymal hemorrhage or extraaxial fluid | | | collection/hematoma. The ventricles and cortical sulci are normal. | | | No mass, edema, midline shift, regional sulcal effacement or acute | | | infarct is present. The included paranasal sinuses and mastoid air | | | cells are aerated. CERVICAL SPINE: Prominent nasopharyngeal | | | lymphoid tissue is present, a normal finding in a patient of this | | | age. There is reversal of the normal cervical lordosis with | | | preservation of the vertebral body heights and disc space | | | heights. No prevertebral soft tissue thickening or acute fracture | | | is visualized. The C1-C2, craniocervical and cervicothoracic | | | relationships are normal. Bilateral cervical lymph nodes are | | | present. No pneumothorax is visualized within the lung apices. | | | IMPRESSION: 1. No acute intracranial hemorrhage, acute infarct, | | | pneumocephalus or calvarial fracture. 2. Normal alignment without | | | evidence of acute fracture. | | + + + + + | Procedure Note | + + | Interface, Radiology Results - 03/16/2015 11:02 AM PDT EXAM: CT HEAD AND CERVICAL | | SPINE WITHOUT CONTRASTCLINICAL HISTORY: Fall off horse 1 week agoCOMPARISON: None | | availableTECHNIQUE: Multiple contiguous axial 1.25 mm images were obtainedthrough the | | brain and cervical spine without the administration of IVcontrast. Coronal and sagittal | | multiplanar reformations through thebrain and cervical spine were | | obtained.FINDINGS:BRAIN: There is no pneumocephalus, skull fracture, significant | | scalphematoma, acute intraparenchymal hemorrhage or extraaxial fluidcollection/hematoma. | | The ventricles and cortical sulci are normal.No mass, edema, midline shift, regional | | sulcal effacement or acuteinfarct is present. The included paranasal sinuses and | | mastoid aircells are aerated.CERVICAL SPINE: Prominent nasopharyngeal lymphoid tissue | | is present,a normal finding in a patient of this age. There is reversal of thenormal | | cervical lordosis with preservation of the vertebral bodyheights and disc space heights. | | No prevertebral soft tissuethickening or acute fracture is visualized. The | | C1-C2,craniocervical and cervicothoracic relationships are normal.Bilateral cervical | | lymph nodes are present. No pneumothorax isvisualized within the lung | | apices.IMPRESSION:1. No acute intracranial hemorrhage, acute infarct, pneumocephalusor | | calvarial fracture.2. Normal alignment without evidence of acute fracture. | |heights and disc space heights. No prevertebral soft tissue | |thickening or acute fracture is visualized. The C1-C2, | |craniocervical and cervicothoracic relationships are normal. | |Bilateral cervical lymph nodes are present. No pneumothorax is | |visualized within the lung apices. | |IMPRESSION: | |1. No acute intracranial hemorrhage, acute infarct, pneumocephalus | |or calvarial fracture. | |2. Normal alignment without evidence of acute fracture. | + + + +---------+ + + [...]
--- OUTSIDE RECORDS SUMMARY | ~2018-11-05 | XMS | Encounter Summary ---
Demographics + + + | Address | [address] | | | [place] [address] | + + + | Home Phone | | + + + | Preferred Language | Unknown | + + + | Marital Status | Single | + + + | Sikhism Affiliation | NON | + + + [...] | | | | | [place] [address] | | + + + + + | Helena Reilly | ECON | [address] | | | | | [place] [address] | | + + + + + Care Team Providers + +------+ + | Care Director Decision Support Name | Role | Phone | + +------+ + | Larry Lorenzo | PCP | | + +------+ + Encounter Details +--------+------+ + + + | Date | Type | Department | Care Team | Description | +--------+------+ + + + | 10/24/ | Lab | Laboratory at | | | | 2016 | | [facility] | | | | | | Center [address] | | | | [address] [place], | | | | | | [place] [address] | | | +--------+------+ + + + [...]
--- OUTSIDE RECORDS SUMMARY | ~2018-11-05 | XMS | Encounter Summary ---
Demographics + + + | Address | [address] | | | [place] [address] | + + + | Home Phone | | + + + | Preferred Language | Unknown | + + + | Marital Status | Single | + + + | Pentecostal Affiliation | NON | + + + | Race | White | + + + | Ethnic Group | Not or | + + + Author + + + | Author | [facility] | + + + | Organization | [facility] | + + + | Address | Unknown | + + + | Phone | Unavailable | + + + Support + + + + + | Name | Relationship | Address | Phone | + + + + + | Dante Duenas | GISSELLE | [address] | | | | | [place] [address] | | + + + + + | Helena Reilly | ECON | [place] | | | | | [place] [address] | | + + + + + Care Team Providers + +------+ + | Care Acetaldehyde Converter Operator Name | Role | Phone | + +------+ + | Larry Lorenzo | PCP | | + +------+ + Reason for Visit AUTH/CERT +--------+--------+ + + + + | Status | Reason | Specialty | Diagnoses / | Referred By | Referred To | | | | | Procedures | Contact | Contact | +--------+--------+ + + + + | | | | | | | +--------+--------+ + + + + Encounter Details +--------+ + + + + | Date | Type | Department | Care Team | Description | +--------+ + + + + | 11/26/ | Anesthesia | Maternity Services | Stewart Samson, | | | 2017 | Event | at [facility] | [address] | | | | | [address] | [place], [place] | | | | | [place], [place] | [address] | | | | | [address] | [phone] | | | | | [phone] | | | +--------+ + + + + Anesthesia Record + + + + + | Procedure Name | Responsible | Anesthesia Start | Anesthesia Stop Time | | | Anesthesiologist | Time | | + + + + + | LABOR EPIDURAL | Stewart Samson MD | 11/26/16 1150 | 11/26/16 1231 | + + + + + +----+---+ +---------+ | Da | T | Event | Comment | | te | i | | | | | m | | | | | e | | | +----+---+ +---------+ | 06 | 1 | An Start | | | /0 | 1 | | | | 6/ | 5 | | | | 20 | 0 | | | | 17 | | | | +----+---+ +---------+ | | 1 | Epidural | | | | 1 | Start | | | | 5 | | | | | 5 | | | +----+---+ +---------+ | | 1 | Anesthesia | | | | 2 | End | | | | 3 | | | | | 1 | | | +----+---+ +---------+ | 06 | 0 | Baby | | | /0 | 4 | Delivered | | | 7/ | 2 | | | | 20 | 7 | | | | 17 | | | | +----+---+ +---------+ +------+ | Meds | +------+ + +---------+ | Name | Total | + +---------+ | lidocaine inj 1.5% | 4 mL | + +---------+ | fentaNYL inj | 100 mcg | + +---------+ | bupivacaine 0.125%-fentaNYL 3 | 1.73 mL | | mcg/mL EPIDURAL infusion | | + +---------+ + + | No agents on file. | + + + + | No blood administrations on file. | + + +--------+ + + + | Type | Details | Placement | Removal | +--------+ + + + | Periph | 11/25/16; 0540; Yovanny GARCIA; Left; | 11/25/16 0540 by | 11/27/16 0910 by | | eraspencer | Medial; Forearm; 18 g; None; | Yovanny Gonzáles RN | Fernanda Enriquez RN | | IV | Positive; 11/27/16; 0910; Site | | | | | problems, Infiltrated | | | +--------+ + + + | Periph | 11/26/16; 1200; Left; Wrist; 18 | 11/26/16 1200 by | 11/28/16 0730 by | | eral | g; Positive; 11/28/16; 0730; Per | Fernanda Enriquez RN | Mara Ortiz RN | | IV | order | | | +--------+ + + + | Epidur | 11/26/16; 1215; DO Juan; | 11/26/16 1215 by | 11/27/16814 by | | al | Lumbar; 11/27/16; 814; Per | Stewart Samson MD | Fernanda Enriquez RN | | | protocol (no longer needed) | | | +--------+ + + + documented in this encounter Social History + +-------+ +--------+------+ | Tobacco [...] | + +--------+ + + + | ANE EPIDURAL | Routin | 11/26/2016 | | | | | e | 3:05 PM | | | | | | PDT | | | + +--------+ + + + +---+--------+ | | | | | Proced | | | ure | | | Note - | | | | | | Mitche | | | ll, | | | Stewart | | | L, MD | | | - | | | 11/26/ | | | 2017 | | | 3:05 | | | PM PDT | | | | | | PROCED | | | URE | | | NAMEEp | | | idural | | | or | | | Caudal | | | Inform | | | ationE | | | pidura | | | l . | | | for | | | labor | | | analge | | | nils | | | Locati | | | on | | | perfor | | | med: | | | Floor/ | | | Unit/I | | | CU | | | The | | | patien | | | t was | | | identi | | | fied, | | | the | | | site | | | marked | | | ,, | | | full | | | PARQ | | | done | | | Adult | | | or | | | Pediat | | | diann: | | | AdultP | | | rocedu | | | rePati | | | ent | | | positi | | | on: | | | Sittin | | | g, | | | Epidur | | | al | | | approa | | | ch: | | | Midlin | | | e, | | | Monito | | | rs: | | | NIBP | | | and | | | SpO2, | | | Steril | | | e prep | | | | | | (Chlor | | | aPrep) | | | drape | | | and | | | techni | | | que | | | Needle | | | Tuohy | | | with | | | a 17g | | | | | | Needle | | | | | | insert | | | ion | | | depth | | | 6 cm | | | Cathet | | | er | | | depth | | | 11 cm | | | Depth | | | at | | | loss | | | of | | | resist | | | ance 6 | | | cm | | | on the | | | 3rd | | | attemp | | | t | | | Parast | | | hesia: | | | No. | | | Negati | | | ve for | | | | | | blood. | | | | | | Verteb | | | ral | | | Inters | | | pace: | | | L3-4 | | | | | | CSF: | | | Aspira | | | tion | | | negati | | | ve for | | | CSF, | | | HEBER: | | | saline | | | | | | Assess | | | mentte | | | st | | | dose | | | given, | | | | | | Negati | | | ve | | | test | | | dose | | | reacti | | | onSee | | | MAR | | | for | | | Drug | | | and | | | Dose | | | | | | Compli | | | cation | | | s: | | | None, | | | Narrat | | | iveAtt | | | ending | | | | | | physic | | | ally | | | presen | | | t | | | MITCHE | | | LL, | | | STEWART | | | L | +---+--------+ documented in this encounter Visit Diagnoses Not on filedocumented in this encounter Administered Medications + +---------+ +---------+---------+------+ | Medication Order | MAR | Action | Dose | Rate | Site | | | Action | Date | | | | + +---------+ +---------+---------+------+ | bupivacaine 0.125%-fentaNYL 3 | New Bag | 11/27/19 | 8 mL/hr | 8 mL/hr | | | mcg/mL EPIDURAL infusion 8 | | 17 12:18 | | | | | mL/hr, epidural, CONTINUOUS, | | PM PDT | | | | | Starting Fri11/26/16 at 1215, | | | | | | | Until Fri11/27/16 at 0547 | | | | | | + +---------+ +---------+---------+------+ +---+---+ | | | +---+---+ + +-------+ +---------+---+---+ | fentaNYL (SUBLIMAZE) injection | Given | 11/27/19 | 100 mcg | | | | INTRAPROCEDURE PRN, Starting Fri | | 12:16 | | | | | 11/26/16 at 1216, Until Fri11/26/16 | | PM PDT | | | | | at 1507 | | | | | | + +-------+ +---------+---+---+ +---+---+ | | | +---+---+ + +-------+ +------+---+---+ | Lidocaine HCl (Local Anesth.) | Given | 11/27/19 | 4 mL | | | | 15 mg/mL (1.5 %) paul Sparks, | | 17 12:11 | | | | | Intra Procedure | | PM PDT | | | | + +-------+ +------+---+---+ +---+---+ | | | +---+---+ documented in this encounter"
--- OUTSIDE RECORDS SUMMARY | ~2018-11-05 | XMS | Encounter Summary ---
Demographics + + + | Address | [address] | | | [place] [address] | + + + | Home Phone | | + + + | Preferred Language | Unknown | + + + | Marital Status | Single | + + + | Jainism Affiliation | NON | + + + [...] | | | | | [place] [address] | | + + + + + | Helena Hawleywil | ECON | [place] | | | | | [place] [address] | | + + + + + Care Team Providers + +------+ + | Care Slab Miller Operator Name | Role | Phone | + +------+ + | Larry Lorenzo | PCP | | + +------+ + Reason for Visit + + + | Reason | Comments | + + + | Abdominal Cramping | | + + + Encounter Details +--------+ + + + + | Date | Type | Department | Care Team | Description | +--------+ + + + + | 08/13/ | Telephone | [facility] | Jeannie Argueta, | Abdominal Cramping | | 2016 | | [facility] | [address] | | | | | [address] , [address] | | | | | [place], [place] | [place], [place] | | | | | [address] | [address] | | | | | [phone] | [phone] | | | | | | | [...]
--- OUTSIDE RECORDS SUMMARY | ~2018-11-05 | XMS | Encounter Summary ---
Demographics + + + | Address | [address] | | | [place] [address] | + + + | Home Phone | | + + + | Preferred Language | Unknown | + + + | Marital Status | Single | + + + | Episcopal Affiliation | NON | + + + | Race | White | + + + | Ethnic Group | Not or | + + + Author + + + | Author | [facility] | + + + | Organization | [facility] | + + + | Address | Unknown | + + + | Phone | Unavailable | + + + Support + + + + + | Name | Relationship | Address | Phone | + + + + + | Dante Duenas | GISSELLE | [address] | | | | | [place] [address] | | + + + + + | Helena Barakatjoseph | ECON | [place] | | | | | [place] [address] | | + + + + + Care Team Providers + +------+ + | Care Candy Cooker Helper Name | Role | Phone | [...] & | Diagnoses | Takagi, | [facility] | | | | Gynecology | Puerperal | KATHIE Juarez | [address] | | | | | psychosis | [address] | | | | | | Encounter | Street | [address] | | | | | for | [place], [place] | [place], [place] | | | | | screening | [address] | [address] | | | | | for | Phone: | Phone: | | | | | malignant | [phone] | [phone] | | | | | neoplasm of | Fax: | Fax: | | | | | vagina | [phone] | [phone] | | | | | Encounter | [...] + + | 02/21/ | Office | [facility] | Jeannie Argueta, | Encounter for IUD | | 2017 | Visit | [facility] | [address] | insertion (Primary | | | | [address] | [address] | Dx); Possible | | | | [place], [place] | [place], [place] | ; Pap | | | | [address] | [address] | smear, low-risk; | | | | [phone] | [phone] | Screening for STD | | | [...] to the ER. You can also call [facility] crisis line anytime at I [...] on your belly for pain. Take an ummd-nlh-aeglcuo pain medicine, such as acetaminophen (Tylenol), ibuprofen [...] (IUD) Insertion: Care Instructions", log into your [employer] account at [email or web address]. You can enter U681 in the "[employer] Library" search box. Not on [employer]? Review the [employer] section of your After Visit Summary for directions on ho w to sign up. Current as of: November 20, 2015 Content Version: .20056436-0068 [employer]. Care instructions adapted under license by [facility] [employer]. If you have questions about a medical condition or this instr uction, always ask your healthcare professional. [employer] disclaims any nino anty or liability for [...] the numbers for these national suicide hotlines: 3-257-655-TALK (-2 69-4162) and 2-370-HRNLRPB ( ). If you or someone you [...] the numbers for these national suicide hotlines: 0-650-832-TALK ( ) and 1- 671-SUICIDE ( ). When should you call for [...] After Childbirth: Care Instructions", log into your [employer] account at [email or web address]. You can enter [id number] in the "[employer] Library" search b ox. Not on [employer]? Review the [employer] section of your After Visit Summary for directions on ho w to sign up. Current as of: January 16, 2016 Content Version: 11.2 3928-2665 [employer]. Care instructions adapted under license by [facility] [employer]. If you have questions about a medical condition or this instr uction, always ask your healthcare professional. [employer] disclaims any nino anty or liability for [...] movie or concert. Take part in a nondenominational activity or other social gathering. Go t [...] the numbers for these national suicide hotlines: 5-675-845-TALK ( ) an d 9-385-UWUQLXS ( ). If you or someone you [...] From Depression: Care Instructions", log into your [employer] account at [email or web address]/[employer]. You can enter N529 in the "[employer] Library" search aileen x. Not on [employer]? Review the [employer] section of your After Visit Summary for directions on timbo aquino to sign up. Current as of: January 16, 2016 Content Version: 11.2 8242-3828 [employer]. Care instructions adapted under license by [facility]. If you have questions about a medical condition or this instr uction, always ask your healthcare professional. [employer] disclaims any nino anty or liability for [...] the numbers for these national suicide hotlines: 9-808-234-TALK ( ) an d 9-169-OLGASEX ( ). If you or someone you [...] "Depression Treatment: Care Instructions", log into your Proc[employer]Safe accoun t at [email or web address]. You can enter G693 in the "[employer] Library" search box. Not on [employer]? Review the [employer] section of your After Visit Summary for directions on timbo w to sign up. Current as of: January 16, 2016 Content Version: 11.2 7683-4356 [employer]. Care instructions adapted under license by [facility] [employer]. If you have questions about a medical condition or this instr uction, always ask your healthcare professional. [employer] disclaims any nino anty or liability for [...] about starting counseling and she thinks earl ruzi is a new counselor in [place] that she was going to call. She does not know many people in her town and her family live out of state. Her only support is her boyfriend and his mom. Lluvia ruiz has talked to her boyfriend about getting back into horse back riding which she loved abou t 1 day a week. 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 Chief Complaint Patient presents with Insertion of [...] Patient was not premedicated. IUD Lot # [id number] The patient was placed in low lithotomy. [...] PLAN: The patient was asked to contact [facility] for any fever/chills/severe pelvic or abdominal pain [...] | + +--------+ + + + | MO INSERT | Routin | 02/21/2017 | Encounter [...] | - [place] | | | | Assay([employer] | | | | | | [...] + + | [facility] | [address] | [place] [address] | | | - [place] | [address] [...] [facility] | [address] | [place] [address] | | | - [place] | [address] | | | + + [...] + | [facility] | [address] [place] [address], | [place] [address] | | | [facility] | [address] | | | + [...]
--- OUTSIDE RECORDS SUMMARY | ~2018-11-05 | XMS | Encounter Summary ---
Demographics + + + | Address | [address] | | | [place] [address] | + + + | Home Phone [...] + + | Author | [facility] | + + + | Organization | [facility] | + + + | Address | Unknown | + + + | Phone | Unavailable | + + + Support + + + + + | Name | Relationship | Address | Phone | + + + + + | Dante Duenas | GISSELLE | [address] | | | | | [place] [address] | | + + + + + | Helena Hawleywil | ECON | [place] | | | | | [place] [address] | | + + + + + Care Team Providers + +------+ + | Care Therapy Technician Name | Role | Phone | + +------+ + | Larry Lorenzo | PCP | | + +------+ + Reason for Visit +--------+ + | Reason | Comments | +--------+ + | Other | post depression | +--------+ + Encounter Details +--------+ + + + + | Date | Type | Department | Care Team | Description | +--------+ + + + + | 01/31/ | Telephone | [email or web address] | Jeannie Argueta, | Other (post | | 2017 | | [facility] [address] | [address] | depression) | | | | [address] , [address] | [address] | | | | | [place], [place] | [place], [place] | | | | | [address] | [address] | | | | | [phone] | | | | | | | [...]
--- OUTSIDE RECORDS SUMMARY | ~2018-11-05 | XMS | Encounter Summary ---
Demographics + + + | Address | [address] | | | [place] [address] | + + + | Home Phone [...] | | | | | [place] [address] | | + + + + + | Helena Hawleywil | ECON | [place] | | | | | [place] [address] | | + + + + + Care Team Providers + +------+ + | Care Stranding Machine Operator Helper Name | Role | Phone | [...] | 03/13/ | Office | [facility] | Harpreet Sanabria MD | Leukorrhea (Primary | | 2017 | Visit | [facility] [address] | [address] | Dx); Dysuria; IUD | | | | [address] , [address] | [address] [place], [place] | check up; Pelvic | | | | [place], [place] | [address] | pain | | | | [address] | [phone] | | | | | [phone] | | | +--------+---------+ + + + [...] vaginal discharge, please call.Catalina hutchison signed by Haprreet Sanabria MD at 03/13/2017 9:00 AM PDT [...] [address], | [place] [address] | | | [facility] | [address] | | | + [...] + + + | [place] | [place] | [place] [address] | [phone] | | [facility] | Street | | | + + [...]
--- OUTSIDE RECORDS SUMMARY | ~2018-11-05 | XMS | Encounter Summary ---
Demographics + + + | Address | [address] | | | [place] [address] | + + + | Home Phone | | + + + | Preferred Language | Unknown | + + + | Marital Status | Single | + + + | Synagogue Affiliation | NON | + + + | Race | White | + + + | Ethnic Group | Not or | + + + Author + + + | Author | [facility] | + + + | Organization | [facility] | + + + | Address | Unknown | + + + | Phone | Unavailable | + + + Support + + + + + | Name | Relationship | Address | Phone | + + + + + | Dante Duenas | GISSELLE | [address] | | | | | [place] [address] | | + + + + + | Helena Barakatjoseph | ECON | [place] | | | | | [place] [address] | | + + + + + Care Team Providers + +------+ + | Care Electric Razor Assembler Name | Role | Phone | + +------+ + | Larry Lorenzo | PCP | | + +------+ + Reason for Visit + + + | Reason | Comments | + + + | Continuous | | | Contractions | | + + + Encounter Details +--------+ + + + + | Date | Type | Department | Care Team | Description | +--------+ + + + + | 10/11/ | Telephone | [facility] | Jeannie Argueta, | Continuous | | 2016 | | [facility] [address] | CN[address] | Contractions | | | | [address] , [address] | [address] | | | | | [place], [place] | [place], [place] | | | | | [address] | [address] | | | | | [phone] | [phone] | | | | | | | [...]
--- OUTSIDE RECORDS SUMMARY | ~2018-11-05 | XMS | Encounter Summary ---
Demographics + + + | Address | [address] | | | [place] [address] | + + + | Home Phone | | + + + | Preferred Language | Unknown | + + + | Marital Status | Single | + + + | Spiritism Affiliation | NON | + + + | Race | White | + + + | Ethnic Group | Not or | + + + Author + + + | Author | [facility] | + + + | Organization | [facility] | + + + | Address | Unknown | + + + | Phone | Unavailable | + + + Support + + + + + | Name | Relationship | Address | Phone | + + + + + | Dante Duenas | GISSELLE | [address] | | | | | [place] [address] | | + + + + + | Helena Hawleywil | ECON | UNK | | | | | [place] [address] | | + + + + + Care Team Providers + +------+ + | Care Manager Animal Name | Role | Phone | + +------+ + | Larry Lorenzo | PCP | | + +------+ + Reason for Visit + + + | Reason | Comments | + + + | ED Visit Follow-up | | + + + Encounter Details +--------+ + + + + | Date | Type | Department | Care Team | Description | +--------+ + + + + | 12/12/ | Telephone | Roney Choudhary | Grisel, | ED Visit Follow-up | | 2016 | | [facility] [place] [address] | [address] | | | | | [address] , | | | | | | [place], [place] | [place], [place] | | | | | [address] | [address] | | | | | [phone] | [phone] | | | | | | | [...]
--- OUTSIDE RECORDS SUMMARY | ~2018-11-05 | XMS | Encounter Summary ---
Demographics + + + | Address | [address] | | | [place] [address] | + + + | Home Phone | | + + + | Preferred Language | Unknown | + + + | Marital Status | Single | + + + | Orthodox Affiliation | NON | + + + | Race | White | + + + | Ethnic Group | Not or | + + + Author + + + | Author | [facility] | + + + | Organization | [facility] | + + + | Address | Unknown | + + + | Phone | Unavailable | + + + Support + + + + + | Name | Relationship | Address | Phone | + + + + + | Dante Duenas | GISSELLE | [address] | | | | | [place] [address] | | + + + + + | Helena Hawleywil | ECON | [place]K | | | | | [place] [address] | | + + + + + Care Team Providers + +------+ + | Care Rn Surgical Name | Role | Phone | + +------+ + | Larry Lorenzo | PCP | | + +------+ + Reason for Visit + + + | Reason | Comments | + + + | Abdominal pain | as of last night pt reports dull achey bellypain that is now | | | radiating, sharp and intermittent; had diarrhea x2, nauseau, no | | | vomiting, | + + + Encounter Details +--------+ + + + + | Date | Type | Department | Care Team | Description | +--------+ + + + + | 08/13/ | Hospital | Maternity Services | Jeannie Argueta, | | | 2016 | Encounter | at [facility] | CNM [address] | | | | | [address] | [address] | | | | | [place], [place] | [place], [place] | | | | | [address] | [address] | | | | | [phone] | [phone] | | | | | | | [...] + + + | Blood Pressure | 108/63 | 08/13/2016 10:50 AM | | | | | PST | | + + + + + | Pulse | 74 | 08/13/2016 10:50 AM | | | | | PST | | + + + + + | Temperature | 36.8 C (98.3 F) | 08/13/2016 10:50 AM | | | | | PST | | + + + + + | Respiratory Rate | 16 | 08/13/2016 10:50 AM | | | | | PST | | + + + + + | Oxygen Saturation | 97% | 08/13/2016 10:50 AM | | | | | PST [...] documented in this encounter Discharge Instructions Instructions Viki Lantigua RN - 08/13/2016 Labor: Care Instructions Your Care Instructions labor is the start of labor between 20 and 36 weeks of . A full-term pregn chance lasts 37 to 42 weeks. In labor, the uterus contracts to open the cervix. This is the fi rst stage of childbirth. labor can be caused by a problem with the baby, the mother, or both. Often the cause is not known. In some cases, doctors use medicines to try to delay labor until 34 or more weeks of pregna ncy. By this time, a baby has grown enough so that problems are not likely. In some cases such as with a serious infection it is healthier for the baby to be born early. Your treat ment will depend on how far along you are in your and on your health and your baby 's health. Follow-up care is a mclaughlin part of your treatment and safety. Be sure to make and go to all ap pointments, and call your doctor if you are having problems. It's also a good idea to know y our test results and keep a list of the medicines you take. How can you care for yourself at home? If your doctor prescribed medicines, take them exactly as directed. Call your doctor if you think you are having a problem with your medicine. Rest until your doctor advises you about activity. He or she will tell you if you should stay in bed most of the time. You may need to arrange for children counselor if you have young chil dren. Do not have sexual intercourse unless your doctor says it is safe. Use pads, not tampons, if you have vaginal bleeding. Make sure to drink plenty of fluids. Dehydration can lead to contractions. If you have k idney, heart, or liver disease and have to limit fluids, talk with your doctor before you in crease the amount of fluids you drink. Do not smoke or allow others to smoke around you. If you need help quitting, talk to you r doctor about stop-smoking programs and medicines. These can increase your chances of quitt ing for good. When should you call for help? Call 911 anytime you think you may need emergency care. For example, call if: You passed out (lost consciousness). You have severe vaginal bleeding. You have severe pain in your belly or pelvis. You have had fluid gushing or leaking from your vagina and you know or think the umbilic al cord is bulging into your vagina. If this happens, immediately get down on your knees so your rear end (buttocks) is higher than your head. This will decrease the pressure on the co rd until help arrives. Call your doctor now or seek immediate medical care if: You have signs of preeclampsia, such as: Sudden swelling of your face, hands, or feet. New vision problems (such as dimness or blurring). A severe headache. You have any vaginal bleeding. You have belly pain or cramping. You have a fever. You have had regular contractions (with or without pain) for an hour. This means that yo u have 8 or more within 1 hour or 4 or more in 20 minutes after you change your position and drink fluids. You have a sudden release of fluid from the vagina. You have low back pain or pelvic pressure that does not go away. You notice that your baby has stopped moving or is moving much less than normal. Watch closely for changes in your health, and be sure to contact your doctor if you have an y problems. Where can you learn more? To learn more about " Labor: Care Instructions", log into your [employer] account at [email or web address]. You can enter Q400 in the "[employer]" search box. Not on [employer]? Review the [employer]ure section of your After Visit Summary for directions on ho w to sign up. Current as of: November 20, 2015 Content Version: 11.1 4576-6113 [employer]. Care instructions adapted under license by [facility] [employer]. If you have questions about a medical condition or this instr uction, always ask your healthcare professional. [employer] disclaims any nino anty or liability for your use of this information. documented in this encounter Progress Notes Jeannie Argueta CNM - 08/13/2016 3:13 PM PST Labor and Delivery Triage Assessment /Plan Patient Information Estimated Date of Delivery: 11/17/16 Gestational Age: 26w2d No current facility-administered medications for this encounter. Current Outpatient Prescriptions Medication Sig vitamins, with calcium, iron-folic acid 27 mg iron- 1 mg oral tablet Take 1 ta blet by mouth once daily. Allergies: Review of patient's allergies indicates not on file. Suspected SROM: No (08/15/16 120) Contractions: Yes (08/15/16 120) Onset Date: 08/12/16 (08/15/161206) Vaginal Bleeding: not present (08/15/16 120) Vaginal Discharge: no (08/15/16 120) Movement: active (08/15/16 120) Pain: Yes (08/15/161206) Pain Location: abdomen (08/15/161206) Numeric Pain Score: 3 (08/15/16 120) Maternal Trauma: No (08/15/16 120) Dilation (cm): 0 (08/15/16 133) Effacement (%): 0 (08/15/161336) Membranes: Intact (08/15/16 120) HPI: @ 26 2/7 weeks gestation who present with c/o sharp abdominal pain, upper and low er c/w cramping. No nausea or vomiting. No vb or lof. PE Exam: Gen: NAD Abd: Gravid, soft, not tender [place]: Irritability with contractions 30-40 seconds every 2-3 minutes initially then rare af ter IVF FHT: 130bpm, moderate variability, 10x10 accels, no decels SVE: Closed per RN exam FFN Negative IV 1 liter given Assessment R/O PTL FHR Cat 1 for gestation Plan Pt was discharged home with strict precautions after IVF resolved irritability and with neg ative FFN. She was instructed on when to return for s/s PTC, antepartum dc instructions give nEdgardo Argueta CNM Viki Arceo RN - 08/13/2016 2:19 PM PSTPatient states she has not had anymore sharp pain since arri ving at . Patient states her contractions/cramping feels less frequent and less intense. S he could feel tightening with a little cramping earlier today. EYBerryMara RN - 08/13/2016 10:53 AM PST Patient c/o upper epigastric pain and lower abdominal pain that is an underlying low level p ain, dull constant pain and then there is an intermittent sharp pain that is 6-7/10 on the p ain scale. It is sharper lower but is felt to a lesser degree upper. This started last night . Patient slept off and on last night the pain stayed dull all night and then the sharp pain returned when she got up this am. documented in this encounter Plan of Treatment Not on filedocumented as of this encounter Procedures + +--------+ + + + | Procedure Name | Priori | Date/Time | Associated Diagnosis | Comments | | | ty | | | | + +--------+ + + + | FIBRONECTIN | Routin | 08/13/2016 | | Results for this | | | e | 12:10 PM | | procedure are in the | | | | PST | | results section. | + +--------+ + + + | REECE PURVIS W/ | Routin | 08/13/2016 | | Results for this | | REFLEX | e | 11:30 AM | | procedure are in the | | | | PST | | results section. | + +--------+ + + + documented in this encounter Results FIBRONECTIN (08/13/2016 12:10 PM PST) + + + + + [...] Values:99.5%-99.2%) Positive: Delivery Time in <7 - [facility] | | 14 Days(Predictive Values:12.7%-16.7%) | | + + + + + + + + | Performing | Address | City/State/Zipcode | Phone Number | | Organization | | | | + + + + + | [facility] | [address] | [place] [address] | [phone] | | [facility]ICAL [facility]ENTER | Streets | | | + + + + + REECE PURVIS W/ TIFFANY (08/13/2016 11:30 AM PST) + + + + + [...] + + + | PH (URINE) | 7.0 | 5.0 - 8.5 | [facility] | [...] | SPECIFIC | 1.005 | 1.005 - 1.030 | [facility] | [...] + + + | [facility] | [address] [place] | [place] [address] | [phone] | | [facility] | [facility] | | | + + + + + documented in this encounter Visit Diagnoses Not on filedocumented in this encounter
--- OUTSIDE RECORDS SUMMARY | ~2018-11-05 | XMS | Encounter Summary ---
Demographics + + + | Address | [address] | | | [place] [address] | + + + | Home Phone | | + + + | Preferred Language | Unknown | + + + | Marital Status | Single | + + + | Judaism Affiliation | NON | + + + [...] | | | | | [place] [address] | | + + + + + | [place] Hawleywil | ECON | [place] | | | | | [place] [address] | | + + + + + Care Team Providers + +------+ + | Care Screw Down Name | Role | Phone | + +------+ + | Larry Lorenzo | PCP | | + +------+ + Encounter Details +--------+------+ + + + | Date | Type | Department | Care Team | Description | +--------+------+ + + + | 09/02/ | Lab | Laboratory at | | Pharyngitis, | | 2017 | | [facility] | | unspecified etiology | | | | Center [address] | | (Primary Dx); | | | | [address] [place], | | Normal first | | | | [place] [address] | | confirmed, | | | | | | antepartum; | | | | | | Abnormal glucose | | | | | | tolerance test in | | | | | | | +--------+------+ + + + [...] | + +--------+ + + + | 3HR GLU SILVESTRE TEST-3HR | Routin | 09/02/2016 | Normal first | Results for this | | | e | 11:45 AM | confirmed, | procedure are in the | | | | PDT | antepartum | results section. | | | | | Abnormal glucose | | | | | | tolerance test in | | | | | | | | + +--------+ + + + | 3HR GLU SILVESTRE TEST-2HR | Routin | 09/02/2016 | Normal first | Results for this | | | e | 10:49 AM | confirmed, | procedure are in the | | | | PDT | antepartum | results section. | | | | | Abnormal glucose | | | | | | tolerance test in | | | | | | | | + +--------+ + + + | CULTURE, STREP A | Routin | 09/02/2016 | Pharyngitis, | Results for this | | | e | 10:22 AM | unspecified etiology | procedure are in the | | | | PDT | | results section. | + +--------+ + + + | RAPID STREP | Routin | 09/02/2016 | Pharyngitis, | Results for this | | | e | 10:22 AM | unspecified etiology | procedure are in the | | | | PDT | | results section. | + +--------+ + + + | 3HR GLU SILVESTRE TEST-1HR | Routin | 09/02/2016 | Normal first | Results for this | | | e | 9:45 AM | confirmed, | procedure are in the | | | | PDT | antepartum | results section. | | | | | Abnormal glucose | | | | | | tolerance test in | | | | | | | | + +--------+ + + + | 3HR GLU SILVESTRE | Routin | 09/02/2016 | Normal first | Results for this | | TEST-FASTING | e | 8:20 AM | confirmed, | procedure are in the | | | | PDT | antepartum | results section. | | | | | Abnormal glucose | | | | | | tolerance test in | | | | | | | | + +--------+ + + + | GLUCOSE TOLERANCE | Routin | 09/02/2016 | Normal first | Results for this | | TEST, 3 HOUR | e | 8:20 AM | confirmed, | procedure are in the | | | | PDT | antepartum | results section. | | | | | Abnormal glucose | | | | | | tolerance test in | | | | | | | | + +--------+ + + + documented in this encounter Results 3HR GLU SILVESTRE TEST-3HR (09/02/2016 11:45 AM PDT) + +---------+ + + + | Component | Value | Ref Range | Performed | Pathologist | | | | | At | Signature | + +---------+ + + + | 3 HOUR | 145 (H) | 60 - 140 mg/dL | [facility] | | | GLUCOSE-3GT | | | A MEDICAL | | | | | | CENTER | | + +---------+ + + + + + | Specimen | + + | Blood | + + + + + + + | Performing | Address | City/State/Zipcode | Phone Number | | Organization | | | | + + + + + | [facility] | And | [place] [address] | [phone] | | MEDICAL CENTER | Streets | | | + + + + + 3HR GLU SILVESTRE TEST-2HR (09/02/2016 10:49 AM PDT) + +-------+ + + + | Component | Value | Ref Range | Performed | Pathologist | | | | | At | Signature | + +-------+ + + + | 2 HOUR | 135 | 60 - 153 mg/dL | [facility] | | | GLUCOSE-3GT | | | A MEDICAL | | | | | | CENTER | | + +-------+ + + + + + | Specimen | + + | Blood | + + + + + + + | Performing | Address | City/State/Zipcode | Phone Number | | Organization | | | | + + + + + | [facility] | And | [place] [address] | [phone] | | MEDICAL CENTER | Streets | | | + + + + + CULTURE, STREP A (09/02/2016 10:22 AM PDT) + + + + + + | Component | Value | Ref Range | Performed | Pathologist | | | | | At | Signature | + + + + + + | CULTURE | Negative for Group A | | [facility] | | | RESULT | Beta Streptococci | | A MEDICAL | | | STREP A | | | CENTER | | + + + + + + + + | Specimen | + + | Swab | + + + + + + + | Performing | Address | City/State/Zipcode | Phone Number | | Organization | | | | + + + + + | [facility] | And | [place] [address] | [phone] | | MEDICAL CENTER | Streets | | | + + + + + RAPID STREP (09/02/2016 10:22 AM PDT) + + + + + + | Component | Value | Ref Range | Performed | Pathologist | | | | | At | Signature | + + + + + + | STREP GROUP | Negative | Negative | [facility] | | | A SCREEN | | | A MEDICAL | | [...] | [facility] | And | [place] [address] | [phone] | | MEDICAL CENTER | Streets | | | + + + + + 3HR GLU SILVESTRE TEST-1HR (09/02/2016 9:45 AM PDT) + +-------+ + + + | Component | Value | Ref Range | Performed | Pathologist | | | | | At | Signature | + +-------+ + + + | 1 HOUR | 148 | 60 - 180 mg/dL | [facility] | | | GLUCOSE-3GT | | | A MEDICAL | | | | | | CENTER | | + +-------+ + + + + + | Specimen | + + | Blood | + + + + + + + | Performing | Address | City/State/Zipcode | Phone Number | | Organization | | | | + + + + + | [facility] | And | [place] [address] | [phone] | | MEDICAL CENTER | Streets | | | + + + + + 3HR GLU SILVESTRE TEST-FASTING (09/02/2016 8:20 AM PDT) + +-------+ + + + | Component | Value | Ref Range | Performed | Pathologist | | | | | At | Signature | + +-------+ + + + | FASTING | 82 | 60 - 92 mg/dL | [facility] | | | GLUCOSE-3GT | | | A MEDICAL | | | | | | CENTER | | + +-------+ + + + + + | Specimen | + + | Blood | + + + + + + + | Performing | Address | City/State/Zipcode | Phone Number | | Organization | | | | + + + + + | [facility] | And | [place] [address] | [phone] | | [facility] | Streets | | | + + + + + documented in this encounter Visit Diagnoses + + | Diagnosis | + + | Pharyngitis, unspecified etiology - Primary | + + | Normal first confirmed, antepartum | + + | Abnormal glucose tolerance test in | + + documented in this encounter"
--- OUTSIDE RECORDS SUMMARY | ~2018-11-05 | XMS | Encounter Summary ---
Demographics + + + | Address | [address] | | | [place] [address] | + + + | Home Phone | | + + + | Preferred Language | Unknown | + + + | Marital Status | Single | + + + | Congregational Affiliation | NON | + + + | Race | White | + + + | Ethnic Group | Not or | + + + Author + + + | Author | [facility] | + + + | Organization | [facility] | + + + | Address | Unknown | + + + | Phone | Unavailable | + + + Support + + + + + | Name | Relationship | Address | Phone | + + + + + | Dante Duenas | GISSELLE | [address] | | | | | [place] [address] | | + + + + + | Helena Hawleywil | ECON | [place] | | | | | [place] [address] | | + + + + + Care Team Providers + +------+ + | Care Mechanic Sound Technician Name | Role | Phone | + +------+ + | Larry Lorenzo | PCP | | + +------+ + Reason for Visit +--------+ + | Reason | Comments | +--------+ + | Flu | | +--------+ + Encounter Details +--------+ + + + + | Date | Type | Department | Care Team | Description | +--------+ + + + + | 08/15/ | Telephone | [place] | Jeannie Argueta, | Flu | | 2016 | | [facility] [place] [address] | CNM [address] | | | | [address] , [address] | | | | | [place], [place] | [place], [place] | | | | | [address] | [address] | | | | | [phone] | [phone] | | | | | | | [...]
--- OUTSIDE RECORDS SUMMARY | ~2018-11-05 | XMS | Encounter Summary ---
Demographics + + + | Address | [address] | | | [place] [address] | + + + | Home Phone [...] + + | Author | [facility] | + + + | Organization | [facility] | + + + | Address | Unknown | + + + | Phone | Unavailable | + + + Support + + + + + | Name | Relationship | Address | Phone | + + + + + | Dante Duenas | GISSELLE | [address] | | | | | [place] [address] | | + + + + + | Helena Reilly | ECON | [address] | | | | | [place] [address] | | + + + + + Care Team Providers + +------+ + | Care Manager Export Name | Role | Phone | + +------+ + | Larry Lorenzo | PCP | | + +------+ + Reason for Visit + + + | Reason | Comments | + + + | IUD - Removal of | | | intrauterine device | | + + + Encounter Details +--------+---------+ + + + | Date | Type | Department | Care Team | Description | +--------+---------+ + + + | 06/30/ | Office | [facility] | Elizabeth Mayfield, | IUD check up | | 2018 | Visit | [facility] [address] , | (Primary Dx); Missed | | | | [address] , [address] [place], [place] | period; Encounter | | | | [place], [place] | [address] | for IUD removal | | | | [address] | [phone] | | | | | [phone] | | | +--------+---------+ + + + [...] in this encounter Patient Instructions Patient Instructions Karen Guillaume MA - 06/30/2017 10:58 AM PSTFormatting of this note mi ght be different from the original. IUD Removal: Care Instructions Your Care Instructions The intrauterine device (IUD) is a method of control. It is a small, plastic, T-shape d device that contains copper or hormones. It is placed in your uterus. You may have had you r IUD removed because you want to become . Or maybe it caused pain, bleeding, or an infection. You may have chosen another method of control. If you don't want to get pre gnant, make sure to use another form of control now that your IUD is not in place. Guilherme k to your doctor about other forms of control. Follow-up care is a mclaughlin part of your treatment and safety. Be sure to make and go to all ap pointments, and call your doctor if you are having problems. It's also a good idea to know y our test results and keep a list of the medicines you take. How can you care for yourself at home? IUD removal does not usually cause any pain or problems if the IUD is removed because yo u want to become or because of bleeding. Once the IUD is taken out, you can become . If you want to become , you can start trying to have a baby as soon as you like. If your doctor prescribed antibiotics because of an infection, take them as directed. Do not stop taking them just because you feel better. You need to take the full course of anti biotics. When should you call for help? Call your doctor now or seek immediate medical care if: ? You have pain in your belly or pelvis. ? You have severe vaginal bleeding. This means that you are soaking through your usual p ads or tampons every hour for 2 or more hours. ? You have a fever. ? You have a vaginal discharge that smells bad. ?Watch closely for changes in your health, and be sure to contact your doctor if you have a ny problems. Where can you learn more? To learn more about "IUD Removal: Care Instructions", log into your [employer] account at [email or web address]. You can enter [id number] in the "[employer] Library" search box. Not on [employer]? Review the Mygenit section of your After Visit Summary for directions on timbo aquino to sign up. Current as of: September 05, 2016 Content Version: 11.5 9984-6859 [employer]. Care instructions adapted under license by Counts include 234 beds at the [facility]. If you have questions about a medical condition or this instr uction, always ask your healthcare professional. [employer] disclaims any nino anty or liability for your use of this information. documented in this encounter Progress Notes Elizabeth Mayfield MD - 06/30/2017 11:00 AM PSTFormatting of this note might be different fro tessie the original. 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 female T1 P0 SAB0 TAB0 L0 Mult0 Ect0 who presents for paraguard IUD removal. Had IUD placed 02/21/17 for contraception. Has not liked it. Has heavier and crampier perio ds which she finds very bothersome. Has tried ibuprofen, but not regularly during her perio ds. Reports prior to having the IUD, she didn't have any cramping. Really just wants IUD o ut and wants to have a couple of months off contraception to regulate her cycle. She will t hen likely want OCPs but is undecided. States her is away for work for next 8 weeks , so she will be abstinent for that time. Notes her last normal period was 05/16/17. She didn't have any bleeding in May and en had bleeding yesterday. Had spotting but then passed a palm-sized clot and had severe cr amping with it. This hasn't happened to her before. REFERRING PROVIDER: No Referring Provider P* PRIMARY PROVIDER: LATONYA Merrill Patient's last menstrual period was 05/16/2017. 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 SOCIAL HISTORY: Social History Substance Use Topics Smoking status: Never Smoker Smokeless tobacco: Never Used Alcohol use 0.0 oz/week Comment: occ No current outpatient prescriptions on file. No current facility-administered medications for this visit. ALLERGIES: Review of patient's allergies indicates no known allergies. REVIEW OF SYSTEMS: ROS negative except as above in HPI. PHYSICAL EXAM: BP 108/74 | Wt 64.9 kg (143 lb) | LMP 05/16/2017 | ? No | BMI 28.16 kg/(m^2) GENERAL PHYSICAL EXAM: General: This is a well appearing female in no apparent distress. Skin: Warm, dry and no rashes or lesions. HEENT: Normocephalic. Sclera anicteric. Extraocular muscles intact. Chest: breathing comfortably Abdomen: Soft. Non-tender. No mass. No hepatosplenomegaly. Musculoskeletal: Normal. Extremities: No edema. No inguinal lymphadenopathy. Neurological: Normal gait. A&O x 3 PELVIC EXAM: External Genitalia: Normal contour. No lesions. Urethral Meatus: Normal in appearance. Vagina: Well estrogenized. Well rugated. No lesions. Cervix: No lesions. Small amount of blood coming from os. IUD strings 3 cm long PROCEDURE: Prior to procedure, risks/benefits/alternatives reviewed and all questions answered. Writt en consent obtained. The patient was placed in lithotomy position and the speculum was inserted. The IUD string s were grasped with a umberto forceps and the IUD removed intact without difficulty. The latonya murphy tolerated the procedure well. IN OFFICE LABORATORY FINDINGS: Urine test: negative ASSESSMENT: This is a 22 y.o. female T1 P0 SAB0 TAB0 L0 Mult0 Ect0 who presents t lisa for Paraguard IUD removal. IUD removed today w/o difficulty. PLAN: - Encouraged patient to choose an alternate form of contraception and reviewed options. She will call when she wants to initiate another method Orders Placed This Encounter ID REMOVE IUD [[id number]] HCG URINE (MANUAL), POC Elizabeth Mayfield MD [facility] [place] Karen Titus MA - 06/30/2017 11:00 AM PSTPt here for IUD removal. She c/o pain and heavier, painful periods wi th the IUD. Karen Guillaume MA documented in this enc ounter Plan of Treatment Not on filedocumented as of this encounter Procedures + +--------+ + + + | Procedure Name | Priori | Date/Time | Associated Diagnosis | Comments | | | ty | | | | + +--------+ + + + | ID REMOVE | Routin | 06/30/2017 | Encounter for IUD | | | INTRAUTERINE DEVICE | e | 12:29 PM | removal | | | | | PST | | | + +--------+ + + + | HCG URINE (MANUAL), | Routin | 06/30/2017 | Missed period | Results for this | | POC | e | | | procedure are in the | | | | | | results section. | + +--------+ + + + documented in this encounter Results HCG URINE (MANUAL), POC (06/30/2017) + + + + + + | [...] + + + | QC: ENTER | pass | | [facility] | | | "PASS" [...] [address], | [place] [address] | | | [facility] | [address] | | | + + + + + documented in this encounter Visit Diagnoses + + | Diagnosis | + + | IUD check up - Primary Surveillance of previously prescribed intrauterine | | contraceptive device | + + | Missed period Irregular menstrual cycle | + + | Encounter for IUD removal Encounter for removal of intrauterine contraceptive device | + + documented in this encounter
--- OUTSIDE RECORDS SUMMARY | ~2018-11-05 | XMS | Encounter Summary ---
Demographics + + + | Address | [address] | | | [place] [address] | + + + | Home Phone [...] | | | | | [place] [address] | | + + + + + | Helena Reilly | ECON | [address]K | | | | | [place] [address] | | + + + + + Care Team Providers + +------+ + | Care Special Warfare Combatant Crewman Name | Role | Phone | + +------+ + | No Pcp Per Patient | PCP | Unavailable | + +------+ + Encounter Details +--------+ + + + + | Date | Type | Department | Care Team | Description | +--------+ + + + + | 04/30/ | Abstract | [place] | [place], | | | 2015 | | [facility] [address] | MD [address] | | | | | E , | | | | | | [place], [place] | [place], [place] | | | | | [address] | [address] | | | | | [phone] | [phone] | | | | | | | [...]
--- OUTSIDE RECORDS SUMMARY | ~2018-11-05 | XMS | Encounter Summary ---
Demographics + + + | Address | [address] | | | [place] [address] | + + + | Home Phone [...] + + + | Dante Duenas | GISESLLE | [address] | | | | | [place] [address] | | + + + + + | [place]ena Hawleywil | ECON | [place] | | | | | [place] [address] | | + + + + + Care Team Providers + +------+ + | Care Mortgage Protection Specialist Name | Role | Phone | + [...] + + + + | 05/20/ | | [place] | Samantha Sanjuanita, | Breathing problem | | 2016 | | [facility] [address] | [address] | | | | | [address] , [address] | E | | | | | [place], [place] | [address] [place], [place] | | | | | [address] | [address] | | | | | [phone] | [phone] | | | | | | | [...] + + + | Blood Pressure | 106/60 | 05/20/2016 10:31 AM | | | | | PST [...] + + + + | Weight | 61.8 kg (136 lb 3.2 | 05/20/2016 10:31 AM | | | | oz) | PST | | + + + + + | Height | - | - | | + + + + + | Body Mass Index | 26.82 | 04/23/2016 2:08 PM | | | | | PDT | | + + + + + documented in this encounter Progress Notes Hellen Littlejohn MA - 05/20/2016 10:45 AM PSTPt states she is having SOB and dizziness. Pt sta jaylyn she went to her PA in [place] and was told she had pneumonia, she got prescribed an antib iotic but was told not to take it unless her symptoms got worse. She states she has gotten w orse over the weekend. She states she has had a bad cough, drainage, sore throat and ear ach e. Hellen Littlejohn MA Pulse 77 , O2 98%, temp 97.4 documented in this encounter Plan of Treatment Not on filedocumented as of this encounter Visit Diagnoses + + | Diagnosis | + + | Asthma affecting , antepartum - Primary | + + documented in this encounter"
--- OUTSIDE RECORDS SUMMARY | ~2018-11-05 | XMS | Encounter Summary ---
Demographics + + + | Address | [address] | | | [place] [address] | + + + | Home Phone [...] Author + + + | Author | [facility] | + + + | Organization | [facility] | + + + | Address | Unknown | + + + | Phone | Unavailable | + + + Support + + + + + | Name | Relationship | Address | Phone | + + + + + | Dante Duenas | GISSELLE | [address] | | | | | [place] [address] | | + + + + + | Helena Reilly | ECON | [address] | | | | | [place] [address] | | + + + + + Care Team Providers + +------+ + | Care Director Systems Name | Role | Phone | + +------+ + | Larry Lorenzo | PCP | | + +------+ + Encounter Details +--------+------+ + + + | Date | Type | Department | Care Team | Description | +--------+------+ + + + | 08/01/ | Lab | Laboratory at | | with 24 | | 2016 | | [facility] | | completed weeks | | | | [facility] [address] | | gestation | | | | [address] | | | | | | [place] | | | | | | [address] | | | | | | [phone] | | | +--------+------+ + + + [...] + +--------+ + + + | CULTURE, URINE | Routin | 08/01/2016 | with 24 | Results for this | | | e | 10:35 AM | completed weeks | procedure are in the | | | | PST | gestation | results section. | + +--------+ + + + documented in this encounter Results CULTURE, URINE (08/01/2016 10:35 AM PST) + + + + + + | Component | Value | Ref Range | Performed | Pathologist | | | | | At | Signature | + + + + + + | CULTURE | No Growth | | [facility] | | | RESULT | | | [facility] | | | URINE | | | [facility] | | + + + + + + + + | Specimen | + + | Urine | + + + + + + + | Performing | Address | City/State/Zipcode | Phone Number | | Organization | | | | + + + + + | [facility] | [place] | [place] [address] | [phone] | | [facility] | Streets | | | + + + + + documented in this encounter Visit Diagnoses + + | Diagnosis | + + | with 24 completed weeks gestation | + + documented in this encounter"
--- OUTSIDE RECORDS SUMMARY | ~2018-11-05 | XMS | Encounter Summary ---
Demographics + + + | Address | [address] | | | [place] [address] | + + + | Home Phone | | + + + | Preferred Language | Unknown | + + + | Marital Status | Single | + + + | Baptist Affiliation | NON | + + + | Race | White | + + + | Ethnic Group | Not or | + + + Author + + + | Author | [facility] | + + + | Organization | [facility] | + + + | Address | Unknown | + + + | Phone | Unavailable | + + + Support + + + + + | Name | Relationship | Address | Phone | + + + + + | Dante Duenas | ECON | [address] | | | | | [place] [address] | | + + + + + | Helena Reilly | ECON | [address] | | | | | [place] [address] | | + + + + + Care Team Providers + +------+ + | Care Loop Machine Operator Name | Role | Phone | + +------+ + PCP | Unavailable | + +------+ + Encounter Details +--------+ + + + + | Date | Type | Department | Care Team | Description | +--------+ + + + + | 09/01/ | Results | [facility] | [facility] | | | 2012 | Only | Department | [facility] | | | | | | [facility] | | | | | | [facility] [address] [facility] | | | | | | [place] | | | | | | [address] | | | | | | | [...] | + +--------+ + + + | CHEST AND ABDOMEN | Routin | 09/01/2012 | | Results for this | | WITH | e | 9:21 AM | | procedure are in the | | | | PDT | | results section. | + +--------+ + + + documented in this encounter Results CHEST AND ABDOMEN WITH (09/01/2012 9:21 AM PDT) + + | Specimen | + + | | + + + + + | Narrative | Performed At | + + + | CT chest and abdomen with contrast Comparison: Abdominal ultrasound | [facility] | | dated 01/01/2012 History: Intermittent left upper quadrant/left | DEPARTMENT OF | | chest reducible mass. Technique: Following the uneventful | RADIOLOGY | | administration of oral and intravenous contrast, axial images were | | | acquired through the chest and abdomen. Sagittal and coronal | | | reformatted images are created. Findings: Chest: The visualized | | | thyroid gland is normal. The heart is normal. There is no pleural | | | or pericardial effusion. No pathologically enlarged axillary, | | | mediastinal, or hilar lymph node is present. The lungs are clear | | | bilaterally. No chest wall deformity is present. Abdomen: The | | | gallbladder surgically absent. The common bile duct measures 8 mm | | | in caliber. The liver, spleen, bilateral adrenal glands, pancreas, | | | kidneys, and bowel are normal. The abdominal aorta and IVC are | | | normal in caliber. The appendix is normal. No hernia or abdominal | | | wall mass is present. Osseous structures: No osseous abnormality | | | is identified. Impression: No abdominal/lower thoracic mass, | | | hernia, or deformity. | | + + + + + | Procedure Note | + + | Interface, Radiology Results - 01/23/2015 5:[address] chest and abdomen with | | contrastComparison: Abdominal ultrasound dated 01/01/2012History: Intermittent left | | upper quadrant/left chest reducible mass.Technique: Following the uneventful | | administration of oral andintravenous contrast, axial images were acquired through the | | chestand abdomen. Sagittal and coronal reformatted images are created.Findings:Chest: | | The visualized thyroid gland is normal. The heart is normal.There is no pleural or | | pericardial effusion. No pathologicallyenlarged axillary, mediastinal, or hilar lymph | | node is present. Thelungs are clear bilaterally. No chest wall deformity is | | present.Abdomen: The gallbladder surgically absent. The common bile ductmeasures 8 mm | | in caliber. The liver, spleen, bilateral adrenalglands, pancreas, kidneys, and bowel are | | normal. The abdominal aortaand IVC are normal in caliber. The appendix is normal. No | | hernia orabdominal wall mass is present.Osseous structures: No osseous abnormality is | | identified.Impression: No abdominal/lower thoracic mass, hernia, ordeformity. | |glands, pancreas, kidneys, and bowel are normal. The abdominal aorta | |and IVC are normal in caliber. The appendix is normal. No hernia or | |abdominal wall mass is present. | |Osseous structures: No osseous abnormality is identified. | |Impression: No abdominal/lower thoracic mass, hernia, or | |deformity. | + + + +---------+ + + [...]
--- OUTSIDE RECORDS SUMMARY | ~2018-11-05 | XMS | Encounter Summary ---
Demographics + + + | Address | [address] | | | [place] [address] | + + + | Home Phone [...] Author + + + | Author | [facility] | + + + | Organization | [facility] | + + + | Address | Unknown | + + + | Phone | Unavailable | + + + Support + + + + + | Name | Relationship | Address | Phone | + + + + + | Dante Duenas | ECON | [address] | | | | | [place] [address] | | + + + + + | Helena Reilly | ECON | [address] | | | | | [place] [address] | | + + + + + Care Team Providers + +------+ + | Care Actuarial Director Name | Role | Phone | + +------+ + | Larry Lorenzo | PCP | | + +------+ + Encounter Details +--------+ + + + + | Date | Type | Department | Care Team | Description | +--------+ + + + + | 07/16/ | Outside | Perinatology | Pawel Hernandez, | | | 2017 | Referral | Telemedicine [address] | [address] | | | | Order | , [address] | [address] | | | | | [place] | | | | | [address] | [address] | | | | | [phone] | [phone] | | | | | | | [...] Not on filedocumented as of this encounter Results TELEMEDICINE ULTRASOUND (07/17/2016 8:14 AM PST) + + | Specimen | + + | | + + + + + | Narrative | Performed At | + + + | [facility] Payment plugin | [facility] | | [facility] OBSTETRICAL | RADIOLOGY OB US | | ULTRASOUND REPORT | | | | | | Pat. Name: QUANG REILLY | | | No: [id number] Study Date: 07/17/2016 2:18pm , | | | Age: 10 1995, 21 Pregnancies: 1, Para 0000 | | | LMP: Unknown GA by US: 22w4d GA | | | Selected: 22w3d (Outside Scan) KATHARINE: 11/17/2016 | | | Referring MD: PAWEL HERNANDEZ Delivery Recruiter: James Crow | | | CPT4: [id number] Hist/Ind: 2nd trimester anatomy | | | scan. | | | | | | MEASUREMENTS & AGE GROWTH | | | EVALUATION Measurement GA Range Srce %for GA | | | Ratios ----- ---- ------- | | | BPD 5.7 cm 23w2d (59q7y-51c5c) Hadl BPD | | | 74% FL/BPD 0.72 HC 20.6 cm 22w5d (64y9n-15v8l) Hadl HC 60% | | | FL/AC 0.23 (0.20 - 0.24) AC 17.3 cm 22w2d (26z3a-07c0s) Hadl | | | AC 48% HC/AC 1.19 (1.04 - 1.23) FL 4.1 cm 23w1d | | | (81v0c-01e3f) Hadl FL 69% CI 0.79 (0.70 - 0.86) HL 3.9 | | | cm 23w6d (72w5f-34l5u) Will HL 75% GA for sonogram 22w4d | | | (55p9e-32t9n) Weight Estimate: based on (BPD,HC,AC,FL) | | | Hadlock Weight: 526 gm (449-603) Hadlock | | | | | | : 1lbs, 2oz | | | | | | Normal: 507 gm (339-947) [facility] | | | | | | Wt% 52% for 22w3d Markers for Chromosomal Abnormality: | | | NF 3.7 mm Heart Rate: 150 bpm | | | | | | CLINICAL SUMMARY ANATOMY: | | | Seen | | | Not Seen Abnormal | | | | | | Seen Previous BPD level | | | (X) ( ) ( ) ( ) Lateral | | | Ventricles (X) ( ) ( | | | ) ( ) Choroid | | | plexus (X) ( ) ( | | | ) ( ) Posterior Fossa | | | (X) ( ) ( ) ( ) Nuchal | | | fold/translucency (X) ( ) ( ) ( ) | | | Spine (X) ( | | | ) ( ) ( ) Four chamber | | | heart (X) ( ) ( ) ( ) | | | LVOT (X) ( | | | ) ( ) ( ) | | | RVOT (X) ( | | | ) ( ) ( ) 3 vessel | | | view (X) ( ) ( | | | ) ( ) Aortic Arch | | | (X) ( ) ( ) ( ) Ductal | | | Arch (X) ( ) ( | | | ) ( ) | | | Diaphragm (X) ( ) ( | | | ) ( ) | | | Stomach (X) ( | | | ) ( ) ( ) Cord insertion/abdominal wall (X) | | | ( ) ( ) ( ) Placental cord | | | insertion (X) ( ) ( ) ( ) | | | Kidneys (X) ( | | | ) ( ) ( ) | | | Bladder (X) ( | | | ) ( ) ( ) 3 vessel | | | cord (X) ( ) ( | | | ) ( ) Facial | | | profile (X) ( ) ( | | | ) ( ) | | | Orbits (X) ( | | | ) ( ) ( ) | | | Nose/Lips (X) ( ) ( | | | ) ( ) Nasal | | | Bone (X) ( ) ( | | | ) ( ) Upper Extremities | | | (X) ( ) ( ) ( ) Lower | | | Extremities (X) ( ) ( | | | ) ( ) Radius/ulna | | | (X) ( ) ( ) ( ) | | | Tibia/fibula (X) ( ) ( | | | ) ( ) | | | Hands (X) ( | | | ) ( ) ( ) | | | Feet (X) ( | | | ) ( ) ( ) | | | sex (X) ( ) ( | | | ) ( ) Type of Gestation: De Leon Intrauterine | | | in cephalic presentation. size is appropriate for | | | gestational age by weight. Placental location: Anterior. There | | | is no evidence of placenta previa. The placental cord insertion site | | | is normal. Amniotic fluid volume is normal. Uterus and adnexae: No | | | abnormalities seen. There is heart motion and gross | | | movement. Ultrasound cannot detect all / abnormalities. | | | Impression: 21 year old at 22 3/7 weeks gestation with a | | | history of asthma and low risk integrated screen who presents for | | | anatomy screen: 1. Single living intrauterine in cephalic | | | presentation. 2. Anterior placenta without placenta previa. 3. | | | Growth is appropriate and concordant 4. Targeted anatomy screen does | | | not reveal any major markers for aneuploidy Recommendations: 1. | | | Follow-up as clinically indicated Thank you very much for allowing us | | | to help care for your patient. If you have any questions, please | | | feel free to call our 24 hour phone consult number at any time and | | | ask for the perinatologist guidance and control system engineer. [phone] or [phone] | | | BLOSSOM HUGHES MD <Electronic | | | Signature> 07/17/2016 04:31pm I have personally reviewed the | | | images and, if necessary, edited the report. I agree with the | | | report as now presented. | | + + + + + | Procedure Note | + + | Service Jody, Radiant Res In Interface - 07/17/2016 4:32 PM PST | | [facility] OBSTETRICAL ULTRASOUND | | REPORT Pat. Name: | | QUANG REILLY. No: [id number] Date: 07/17/2016 2:18pmDOB, Age: | | 1995, 21Pregnancies: 1, Para 0000LMP: UnknownGA by US: | | 34t0sBA Selected: 22w3d (Outside Scan)KATHARINE: 11/17/2016Referring MD: DAVID, | | MANDELYNNSonographer: Flaco Crow4: [id number]/Ind: 2nd trimester | | anatomy scan. | | MEASUREMENTS & | | AGE GROWTH EVALUATIONMeasurement GA Range Srce %for | | GA Ratios ----- ---- ------- BPD 5.7 | | cm 23w2d ([id number]) Hadl BPD 74% FL/BPD 0.72HC 20.6 cm 22w5d (79u3d-87d5y) Hadl HC | | 60% FL/AC 0.23 (0.20 - 0.24)AC 17.3 cm 22w2d (11r7z-77r1x) Hadl AC 48% HC/AC 1.19 | | (1.04 - 1.23)FL 4.1 cm 23w1d (87l4p-17r7w) Hadl FL 69% CI 0.79 (0.70 - 0.86)HL | | 3.9 cm 23w6d (33s7b-59z4y) Will SANCHEZ 75%GA for sonogram 22w4d (70l4n-12g8n) Weight | | Estimate:based on (BPD,HC,AC,FL) Hadlock Weight: 526 gm (449-603) Hadlock | | : 1lbs, 2oz | | Normal: 507 gm (339-947) Jose Rafael Wt% 52% for | | 12b1eGdktgjx for Chromosomal Abnormality:NF 3.7 mmFetal Heart Rate: 150 | | bpm CLINICAL | | SUMMARYANATOMY: Seen Not Seen Abnormal | | Seen PreviousBPD level (X) ( ) ( ) | | ( )Lateral Ventricles (X) ( ) ( ) ( )Choroid plexus | | (X) ( ) ( ) ( )Posterior Fossa (X) ( ) ( ) | | ( )Nuchal fold/translucency (X) ( ) ( ) ( )Spine | | (X) ( ) ( ) ( )Four chamber heart (X) ( ) ( ) ( | | )LVOT (X) ( ) ( ) ( )RVOT | | (X) ( ) ( ) ( )3 vessel view (X) ( ) ( ) ( | | )Aortic Arch (X) ( ) ( ) ( )Ductal Arch | | (X) ( ) ( ) ( )Diaphragm (X) ( ) ( ) ( | | )Stomach (X) ( ) ( ) ( )Cord insertion/abdominal wall | | (X) ( ) ( ) ( )Placental cord insertion (X) ( ) ( ) ( | | )Kidneys (X) ( ) ( ) ( )Bladder | | (X) ( ) ( ) ( )3 vessel cord (X) ( ) ( ) ( | | )Facial profile (X) ( ) ( ) ( )Orbits | | (X) ( ) ( ) ( )Nose/Lips (X) ( ) ( ) ( | | )Nasal Bone (X) ( ) ( ) ( )Upper Extremities | | (X) ( ) ( ) ( )Lower Extremities (X) ( ) ( ) ( | | )Radius/ulna (X) ( ) ( ) ( )Tibia/fibula | | (X) ( ) ( ) ( )Hands (X) ( ) ( ) ( )Feet | | (X) ( ) ( ) ( ) sex (X) | | ( ) ( ) ( )Type of Gestation: SingletonIntrauterine in cephalic | | presentation. size is appropriate for gestational age by weight.Placental location: | | Anterior. There is no evidence of placenta previa.The placental cord insertion site is | | normal.Amniotic fluid volume is normal.Uterus and adnexae: No abnormalities seen.There | | is heart motion and gross movement.Ultrasound cannot detect all | | / abnormalities.Impression: 21 year old at 22 3/7 weeks gestation | | with a history of asthma and low risk integrated screen who presents for anatomy screen: | | 1. Single living intrauterine in cephalic presentation.2. Anterior placenta | | without placenta previa. 3. Growth is appropriate and concordant4. Targeted anatomy | | screen does not reveal any major markers for aneuploidyRecommendations:1. Follow-up as | | clinically indicatedThank you very much for allowing us to help care for your patient. | | If you have any questions, please feel free to call our 24 hour phone consult number at | | any time and ask for the perinatologist guidance and control system engineer. [phone] or [phone], | | MD BLOSSOM <Electronic Signature> 07/17/2016 04:31pmI have personally | | reviewed the images and, if necessary, edited the report. I agree with the report as | | now presented. | |Facial profile (X) ( ) ( ) ( ) | |Orbits (X) ( ) ( ) ( ) | |Nose/Lips (X) ( ) ( ) ( ) | |Nasal Bone (X) ( ) ( ) ( ) | |Upper Extremities (X) ( ) ( ) ( ) | |Lower Extremities (X) ( ) ( ) ( ) | |Radius/ulna (X) ( ) ( ) ( ) | |Tibia/fibula (X) ( ) ( ) ( ) | |Hands (X) ( ) ( ) ( ) | |Feet (X) ( ) ( ) ( ) | | sex (X) ( ) ( ) ( ) | |Type of Gestation: De Leon | |Intrauterine in cephalic presentation. | | size is appropriate for gestational age by weight. | |Placental location: Anterior. | |There is no evidence of placenta previa. | |The placental cord insertion site is normal. | |Amniotic fluid volume is normal. | |Uterus and adnexae: No abnormalities seen. | |There is heart motion and gross movement. | |Ultrasound cannot detect all / abnormalities. | |Impression: 21 year old at 22 3/7 weeks gestation with a | |history of asthma and low risk integrated screen who presents for | |anatomy screen: | |1. Single living intrauterine in cephalic presentation. | |2. Anterior placenta without placenta previa. | |3. Growth is appropriate and concordant | |4. Targeted anatomy screen does not reveal any major markers for | |aneuploidy | |Recommendations: | |1. Follow-up as clinically indicated | |Thank you very much for allowing us to help care for your patient. | |If you have any questions, please feel free to call our 24 hour | |phone consult number at any time and ask for the perinatologist on | |call. [phone] or [phone] | |BLOSSOM HUGHES MD | | | |<Electronic Signature> 07/17/2016 04:31pm | | | | | |I have personally reviewed the images and, if necessary, edited the report. I agree with t he report as now presented. | + + + +---------+ + + | Performing | Address | City/State/Zipcode | Phone Number | | Organization | | | | + +---------+ + + | [facility] | | | | | [place] | | | | + +---------+ + + documented in this encounter Visit Diagnoses + + | Diagnosis | + + | screening for chromosomal anomalies by amniocentesis - Primary Screening | | for chromosomal anomalies by amniocentesis | + + documented in this encounter"
--- OUTSIDE RECORDS SUMMARY | ~2018-11-05 | XMS | Encounter Summary ---
Demographics + + + | Address | [address] | | | [place] [address] | + + + | Home Phone [...] Author + + + | Author | [facility] | + + + | Organization | [facility] | + + + | Address | Unknown | + + + | Phone | Unavailable | + + + Support + + + + + | Name | Relationship | Address | Phone | + + + + + | Dante Duenas | ECON | [address] | | | | | [place] [address] | | + + + + + | Helena Reilly | ECON | [address] | | | | | [place] [address] | | + + + + + Care Team Providers + +------+ + | Care Milking System Installer Name | Role | Phone | + +------+ + PCP | Unavailable | + +------+ + Encounter Details +--------+ + + + + | Date | Type | Department | Care Team | Description | +--------+ + + + + | 12/30/ | Results | [facility] | Kush Peña MD | | | 2011 | Only | Department | [facility] | | [facility] [address] | | | | | | THE | | | | | | [place] [address] | | | | | | [phone] | | | | | | | [...] | + +--------+ + + + | H. PYLORI CLOTEST | Routin | 12/31/2011 | | Results for this | | | e | 9:27 AM | | procedure are in the | | | | PDT | | results section. | + +--------+ + + + documented in this encounter Results H. PYLOR[facility] CLOTEST (12/31/2011 9:27 AM PDT) + + + + + + | Component | Value | Ref Range | Performed | Pathologist | | | | | At | Signature | + + + + + + | [facility] | NEGATIVE | NEGATIVE | [facility] | | | INTERPRETAT | | | [facility] | | | ION | | | C[facility] | | + + + + + + | [facility]OTEST 20 | TNP | | [facility] | | | MIN READING | | | A MEDICAL | | | | | | CENTER | | + + + + + + | [facility] 1 | TNP | | [facility] | | | HR READING | | | A MEDICAL | | | | | | CENTER | | + + + + + + | [facility] 3 | TNP | | [facility] | | | HR READING | | | A [facility]ICAL | | | | | | CENTER | | + + + + + + | CLOTEST 24 | YELLOW:NEGATIVE | | [facility] | | | HR READING | | | A MEDICAL | | | | | | CENTER | | + + + + + + + + | Specimen | + + | | + + + + + + + | Performing | Address | City/State/Zipcode | Phone Number | | Organization | | | | + + + + + | [facility] | | | | | LABORATORY | | | | + + + + + | [facility] | | [place] [address] | | | [facility] | Streets | | | + + + + + documented in this encounter Visit Diagnoses Not on filedocumented in this encounter"
--- OUTSIDE RECORDS SUMMARY | ~2018-11-05 | XMS | Encounter Summary ---
Demographics + + + | Address | [address] | | | [place] [address] | + + + | Home Phone | | + + + | Preferred Language | Unknown | + + + | Marital Status | Single | + + + | Restoration Affiliation | NON | + + + [...] | | | | | [place] [address] | | + + + + + | Helena Hawleywil | ECON | [address] | | | | | [place] [address] | | + + + + + Care Team Providers + +------+ + | Care Shoer Name | Role | Phone | + +------+ + | Larry Lorenzo | PCP | | + +------+ + Encounter Details +--------+ + + + + | Date | Type | Department | Care Team | Description | +--------+ + + + + | 03/13/ | Telephone | Obstetrics & | Harpreet Sanabria MD | | | 2017 | | Gynecology at [facility] | [address] [place] | | | | | Hospital [address] [place], [place] | | | | | [place] | [address] | | | | | [place], [place] | [phone] | | | | | [address] | | | | | | [phone] | | | +--------+ + + + [...]
--- OUTSIDE RECORDS SUMMARY | ~2018-11-05 | XMS | Encounter Summary ---
Demographics + + + | Address | [address] | | | [place] [address] | + + + | Home Phone | | + + + | Preferred Language | Unknown | + + + | Marital Status | Single | + + + | Buddhism Affiliation | NON | + + + | Race | White | + + + | Ethnic Group | Not or | + + + Author + + + | Author | [facility] | + + + | Organization | [facility] | + + + | Address | Unknown | + + + | Phone | Unavailable | + + + Support + + + + + | Name | Relationship | Address | Phone | + + + + + | Dante Duenas | GISSELLE | [address] | | | | | [place] [address] | | + + + + + | Helena Hawleywil | ECON | [place] | | | | | [place] [address] | | + + + + + Care Team Providers + +------+ + | Care Psychiatry Teacher Name | Role | Phone | + [...] + + | 03/11/ | Telephone | [facility] | Jeannie Argueta, | Intrauterine Device | | 2016 | | [facility] [address] | [address] | | | | | [address] , [address] | [address] | | | | | [place], [place] | [place], [place] | | | | | [address] | [address] | | | | | [phone] | | | | | | | [...]
--- OUTSIDE RECORDS SUMMARY | ~2018-11-05 | XMS | Encounter Summary ---
Demographics + + + | Address | [address] | | | [place] [address] | + + + | Home Phone | | + + + | Preferred Language | Unknown | + + + | Marital Status | Single | + + + | Caodaism Affiliation | NON | + + + | Race | White | + + + | Ethnic Group | Not or | + + + Author + + + | Author | [facility] | + + + | Organization | [facility] | + + + | Address | Unknown | + + + | Phone | Unavailable | + + + Support + + + + + | Name | Relationship | Address | Phone | + + + + + | Dante Duenas | GISSELLE | [address] | | | | | [place] [address] | | + + + + + | Helena Barakatjoseph | ECON | [address] | | | | | [place] [address] | | + + + + + Care Team Providers + +------+ + | Care Sales Representative Printing Supplies Name | Role | Phone | + [...] | +--------+ + + + + | 11/19/ | | [place] | Jeannie Argueta, | | | 2017 | | [facility] [address] | [facility] [address] | | | | | [address] , [address] | [address] | | | | | [place], [place] | [place], [place] | | | | | [address] | [address] | | | | | [phone] | | | | | | | [...] + + + | Blood Pressure | 116/60 | 11/19/2016 10:24 AM | | | | | PDT [...] Weight | 78 kg (172 lb) | 11/19/2016 10:24 AM | | | | | PDT | | + + + + + | Height | - | - | | + + + + + | Body Mass Index | 33.87 | 11/10/2016 8:44 PM | | | | | PDT | | + + + + + documented in this encounter Patient Instructions Patient Instructions Brinda Patten - 11/19/2016 10:15 AM PDTContinue to monitor for any con tractions, fluid leakage, bleeding or decreased movement. If you have bleeding or decr eased movement, are in labor or think your water has broken, please go to [facility] (Labor and Delivery). Please call if you have any concerns. After hours call First impressi ons if you think you are in labor to let them know you are coming in. [phone]. Week 40 of Your : Care Instructions Your Care Instructions By week 40, you have reached your due date. Your baby could be coming any day. But it's a g ood idea to think ahead to the next few weeks and what might happen. If this is your first time having a baby, try not to worry. If you don't start labor on you r own by 41 or 42 weeks, your doctor may recommend giving you medicines to start labor. This care sheet gives you information about how labor can be started. It also gives you kenya e ideas about breathing exercises you can do if you start to feel anxious or if you are tryi ng to relax. Follow-up care is a mclaughlin part of your treatment and safety. Be sure to make and go to all ap pointments, and call your doctor if you are having problems. It's also a good idea to know y our test results and keep a list of the medicines you take. How can you care for yourself at home? Learn how labor can be started If you and your baby are both healthy and ready, and if your cervix has started to open, your doctor may "break your water" (rupture the amniotic sac). This often starts labor. If your cervix is not quite ready, you may get a medicine called Pitocin through an IV t o start contractions. If your cervix is still very firm, you may have prostaglandin tablets (misoprostol) plac ed in your vagina to soften the cervix. Try guided imagery to help you relax Find a comfortable place to sit or lie down. Close your eyes. Start by just taking a few deep breaths to help you relax. Picture a setting that is calm and peaceful. This could be a beach, a mountain setting, a meadow, or a scene that you choose. Imagine your scene, and try to add some detail. For example, is there a breeze? What andrade s the haresh look like? Is it clear, or are there clouds? It often helps to add a path to your scene. For example, as you enter the meadow, imagin e a path leading you through the meadow to the trees on the other side. As you follow the pa th farther into the meadow you feel more and more relaxed. When you are deep into your scene and are feeling relaxed, take a few minutes to breathe slowly and feel the calm. When you are ready, slowly take yourself out of the scene back to the present. Tell your self that you will feel relaxed and refreshed and will bring that sense of calm with you. Count to 3, and open your eyes. Where can you learn more? To learn more about "Week 40 of Your : Care Instructions", log into your [employer] a ccount at [email or web address]. You can enter T922 in the "[employer]" search box . Not on [employer]? Review the [employer] section of your After Visit Summary for directions on timbo aquino to sign up. Current as of: November 20, 2015 Content Version: 11.2 3844-6940 [employer]. Care instructions adapted under license by [facility]. If you have questions about a medical condition or this instr uction, always ask your healthcare professional. [employer] disclaims any nino anty or liability for your use of this information. documented in this encounter Progress Notes Jeannie Argueta CNM - 11/19/2016 10:15 AM PDTS: She states she had acupressure on Friday and has been walking without development of regular uc. No vb or lof. She would like membra ne sweeping today. She would like induction after 41 weeks. O: See flow sheet Membranes swept A/P She will return on Friday for NST/KALEY secondary to post dates. Plan IOL with Miso on Friday night at 8pm if not delivered. Risk vs benefit of IOL reviewed. rinda Patten - 11/19/2016 10:15 AM PDTPt has no questions or concerns today, pt is having contractions not frequently mrElectronically si gned by Brinda Patten at 11/19/2016 10:59 AM PDTdocumented in this encounter Plan of Treatment Not on filedocumented as of this encounter Visit Diagnoses + + | Diagnosis | + + | 40 weeks gestation of - Primary state, incidental | + + documented in this encounter
--- OUTSIDE RECORDS SUMMARY | ~2018-11-05 | XMS | Encounter Summary ---
Demographics + + + | Address | [address] | | | [place] [address] | + + + | Home Phone [...] | | | | | [place] [address] | | + + + + + | Helena Reilly | ECON | [address] | | | | | [place] [address] | | + + + + + Care Team Providers + +------+ + | Care Sample Puller Name | Role | Phone | + [...] Vincent | | | | | | [facility] | | | | | | [facility] [address] | | | | | | [place] | | | | | | [address] | | | | | | | [...]
--- OUTSIDE RECORDS SUMMARY | ~2018-11-05 | XMS | Encounter Summary ---
Demographics + + + | Address | [address] | | | [place] [address] | + + + | Home Phone | | + + + | Preferred Language | Unknown | + + + | Marital Status | Single | + + + | Jewish Affiliation | NON | + + + [...] | | | | | [place] [address] | | + + + + + | Helena Reilly | ECON | [place] | | | | | [place] [address] | | + + + + + Care Team Providers + +------+ + | Care Airborne Missions Systems Name | Role | Phone | + +------+ + | Larry Lorenzo | PCP | | + +------+ + Encounter Details +--------+------+ + + + | Date | Type | Department | Care Team | Description | +--------+------+ + + + | 10/24/ | Lab | Laboratory at | | | | 2016 | | [facility] | | | | | | Center [address] | | | | [address] [place], | | | | | | [place] [address] | | | +--------+------+ + + + [...]
--- OUTSIDE RECORDS SUMMARY | ~2018-11-05 | XMS | Encounter Summary ---
Demographics + + + | Address | [address] | | | [place] [address] | + + + | Home Phone | | + + + | Preferred Language | Unknown | + + + | Marital Status | Single | + + + | Druze Affiliation | NON | + + + | Race | White | + + + | Ethnic Group | Not or | + + + Author + + + | Author | [facility] | + + + | Organization | [facility] | + + + | Address | Unknown | + + + | Phone | Unavailable | + + + Support + + + + + | Name | Relationship | Address | Phone | + + + + + | Dante Duenas | GISSELLE | [address] | | | | | [place] [address] | | + + + + + | Helena Barakatjoseph | ECON | UNK | | | | | [place] [address] | | + + + + + Care Team Providers + +------+ + | Care Customer Relations Advisor Name | Role | Phone | + [...] | +--------+ + + + + | 09/26/ | | [facility] | Jeannie Argueta, | care | | 2017 | | [facility] | CNM [address] | | | | | [address] , [address] | [address] | | | | | [place], [place] | [place] | | | | | [address] | [address] | | | | | [phone] | [phone] | | | | | | | [...] + + + | Blood Pressure | 110/62 | 09/26/2016 11:26 AM | | | | | [...] + + + + | Weight | 70.8 kg (156 lb) | 09/26/2016 11:26 AM | | | | | PDT | | + + + + + | Height | - | - | | + + + + + | Body Mass Index | 30.72 | 04/23/2016 2:08 PM | | | | | PDT | | + + + + + documented in this encounter Patient Instructions Patient Instructions Mayte Yap MA - 09/26/2016 11:30 AM PDTPrenatal Visit - Week 32 Please [...] .however, recent studies indicate that the unborn geneva wang of older mothers may be at a [...] of the health of the placenta). Weeks 32 to 34 of Your : Care Instructions Your Care Instructions During the last few weeks of your , you may have more aches and pains. It's import ant to rest when you can. Your growing baby is putting more pressure on your bladder. So you may need to urinate more often. Hemorrhoids are also common. These are painful, itchy veins in the rectal area. In the 36th week, most women have a test for group B streptococcus (GBS). GBS is a common b acteria that can live in the vagina and rectum. It can make your baby sick after . If y ou test positive, you will get antibiotics during labor. These will keep your baby from gett ing the bacteria. You may want to talk with your doctor about banking your baby's umbilical cord blood. This is the blood left in the cord after . If you want to save this blood, you must arrange it ahead of time. You can't decide at the last minute. If you haven't already had the Tdap [...] can you care for yourself at home? Ease hemorrhoids Get more liquids, fruits, vegetables, and fiber in your diet. This will help keep your s tools soft. Avoid sitting for too long. Lie on your left side several times a day. Clean yourself with soft, moist toilet paper. Or you can use witch debora pads or persona l hygiene pads. If you are uncomfortable, try ice packs. Or you can sit in a warm sitz bath. Do these fo r 20 minutes at a time, as needed. Use hydrocortisone cream for pain and itching. Two examples are Anusol and Preparation H Hydrocortisone. Ask your doctor about taking an tkyf-cch-ubawcec stool softener. Consider Experts recommend that women breastfeed for 1 year or longer. Breast milk is the perfect food for babies. Breast milk is easier for babies to digest than formula. And it is always available, jus t the right temperature, and free. In general, babies who are breastfed are healthier than formula-fed babies. Breastfed babies are less likely to get ear infections, colds, diarrhea, and pneumonia. Breastfed babies who are fed only breast milk are less likely to get asthma and allergie s. Breastfed babies are less likely to be obese. Breastfed babies are less likely to get diabetes or heart disease. Women who breastfeed have less bleeding after the . Their uteruses also shrink back faster. Some women who breastfeed lose weight faster. Making milk goodson calories. can lower your risk of breast cancer, ovarian cancer, and osteoporosis. Decide about circumcision for boys As you make this decision, it may help to think about your personal, scientologist, and fami ly traditions. You get to decide if you will keep your son's penis natural or if he will be circumcised. If you decide that you would like to have your baby circumcised, talk with your doctor. You can share your concerns about pain. And you can discuss your preferences for anesthesia. Where can you learn more? To learn more about "Weeks 32 to 34 of Your : Care Instructions", log into your My Chart account at [email or web address]. You can enter X711 in the "[email or web address] Library" [facility] box. Not on Press4Kidshart? Review the MyChart section of your After Visit Summary for directions on ho w to sign up. Current as of: November 20, 2015 Content Version: 11.1 6670-3524 [employer] Care instructions adapted under license by [facility] [place]. If you have questions about a medical condition or this instr uction, always ask your healthcare professional. [employer] disclaims any nino anty or liability for your use of this information. documented in this encounter Progress Notes Jeannie Argueta CNM - 09/26/2016 11:30 AM PDTS: She reports being overly thirsty for 2 w eeks now. She normally drinks water during the night but now she is dreaming about it and dr bennetts 2 liters at night and 2-3 liters during the day. She never quit feels satisfied. She's worried that is too much water. She otherwise is doing great with no concerns. O: See flowsheet A/P Polydipsia: Consulted with Dr Sanabria. HgA1c, CMP and urine osmolality ordered to r/o diabete s insipidus. I instructed her to drink no more than 1 gallon of water a day. She could try i ce chips to suck on which may relieve the need for water so that she doesn't overload with i t. Plan to f/u ob in 2 wks but will call her with lab results. documented in this encounter Plan of Treatment Not on filedocumented as of this encounter Procedures + +--------+ + + + | Procedure Name | Priori | Date/Time | Associated Diagnosis | Comments | | | ty | | | | + +--------+ + + + | UA, DIP 4 | Routin | 09/26/2016 | 32 weeks gestation | Results for this | | | e | 11:20 AM | of | procedure are in the | | | | PDT | | results section. | + +--------+ + + + documented in this encounter Results HEMOGLOBIN A1C, BLOOD (09/26/2016 12:05 PM PDT) + +-------+ + + + | Component | Value | Ref Range | Performed | Pathologist | | | | | At | Signature | + +-------+ + + + | HEMOGLOBIN | 5.2 | % | [facility] | | | A1C | | | A MEDICAL | | | | | | CENTER | | + +-------+ + + + | ESTIMATED | 103 | mg/dL | [facility] | | | AVERAGE | | | A MEDICAL | | | GLUCOSE | | | CENTER | | + +-------+ + + + + + | Specimen | + + | Blood | + + + + + | Narrative | Performed At | + + + | Glycohemoglobin Recommended Diabetic Ranges per DCCT & ADA: | [facility] | | Normal Range: | MEDICAL CENTER | | <6% Good | | | Control: <7% | | | Additional action suggested: >8% | | | Non-Diabetic Ranges: 4-6% | | | Floor Inspector's Glycohemoglobin Diabetic Ranges: | | | Normal Range: 4.0-6.0% | | | Good Control: | | | 6.0-8.0% Poor | | | Control: >8.0% | | + + + + + + + + | Performing | Address | City/State/Zipcode | Phone Number | | Organization | | | | + + + + + | [facility] | And | [place] [address] | [phone] | | [facility] | Streets | | | + + + + + COMPLETE METABOLIC SET (NA,K,CL,CO2,BUN,CREAT,GLUC,CA,AST,ALT,BILI TOTAL,ALK PHOS,ALB,PROT TOTAL) (09/26/2016 12:05 PM PDT) + + + + + + | Component | Value | Ref Range | Performed | Pathologist | | | | | At | Signature | + + + + + + | GLUCOSE, | 100 | 70 - 105 mg/dL | [facility] | | | PLASMA [...] + + + + | CREATININE, | 0.4 (L) | 0.6 - 1.1 mg/dL | [...] + + + | TOTAL CO2, | 22 | 18 - 30 mmol/L | [facility] | | | PLASMA | | | A MEDICAL | | | (LAB) | | | CENTER | | + + + + + + | CALCIUM, | 9.2 | 8.5 - 10.8 | [facility] | [...] + + + + | TOTAL | 7.3 | 5.8 - 8.5 g/dL | [facility] | | | PROTEIN, | | | A MEDICAL | | | PLASMA | | | CENTER | | | (LAB) | | | | | + + + + + + | ALBUMIN, | 3.6 | 3.5 - 5.0 g/dL | [facility] | | | PLASMA | | | A MEDICAL | | | (LAB) | | | CENTER | | + + + + + + | ALK PHOS | 146 | 32 - 180 U/L | [facility] | | | | | | A MEDICAL | | | | | | CENTER | | + + + + + + | AST(SGOT) | 14 | 10 - 41 U/L | [facility] | | | | | | A MEDICAL | | | | | | CENTER | | + + + + + + | ALT (SGPT) | 17 | 7 - 51 U/L | [facility] | | | | | | A MEDICAL | | | | | | CENTER | | + + + + + + | EGFR | >60 | >60 mL/min | [facility] | | | - | | | A MEDICAL | | | FRENCH | | | CENTER | | + + + + + + | EGFR NON | >60 | >60 mL/min | [facility] | | | -JENNY | | | A MEDICAL | | | RICAN | | | CENTER | | + + + + + + | ANION GAP | 17 | 12 - 20 mmol/L | [facility] | | | | | | A MEDICAL | | | | | | CENTER | | + + + + + + | BUN/CREATIN | 18 | 6 - 20 | [facility] | | | INE RATIO | | | A MEDICAL | | | | | | CENTER | | + + + + + + | FASTING 8 | NoComment: 4 hrs pc | | [facility] | | | HOURS OR | | | A MEDICAL | | | MORE? | | | CENTER | | + + + + + + + + | Specimen | + + | Blood | + + + + + | Narrative | Performed At | + + + | GFR is estimated using the MDRD equation recommended by the | [facility] | | National Kidney Disease Education Program. Estimated GFR | [facility] | | Interpretive Information: <60 mL/min/1.73 sq [...] + + | [facility] | [address] | [place] [address] | [phone] | | MEDICAL CENTER | Streets | | | + + + + + OSMOLALITY, URINE SPOT (09/26/2016 11:20 AM PDT) + +-------+ + + + | Component | Value | Ref Range | Performed | Pathologist | | | | | At | Signature | + +-------+ + + + | OSMOLALITY | 184 | 19 - ,021 | [facility] | | | URINE | | mOsm/Kg H2O | A MEDICAL | | | | | | CENTER | | + +-------+ + + + + + | Specimen | + + | Urine | + + + + + | Narrative | Performed At | + + + | Reference Ranges: Random | [facility] | | Urine: 50-1200 mOm/kg H20 24 Hr., average fluid intake: | [facility] | | 300-900 mOm/kg H20 After 12 Hr. fluid restriction: >850 mOm/kg | | | H20 | | + + + + + + + + | Performing | Address | City/State/Zipcode | Phone Number | | Organization | | | | + + + + + | [facility] | And | [place] [address] | [phone] | | MEDICAL CENTER | Streets | | | + + + + + UA, DIP 4 (09/26/2016 11:20 AM PDT) + + + + + [...] + | [facility] | [address], | [place] [address] | | | [facility] [place] | [address] | | | + + + + + documented in this encounter Visit Diagnoses + + | Diagnosis | + + | 32 weeks gestation of - Primary state, incidental | + + | Polydipsia | + + documented in this encounter
--- OUTSIDE RECORDS SUMMARY | ~2018-11-05 | XMS | Encounter Summary ---
Demographics + + + | Address | [address] | | | [place] [address] | + + + | Home Phone | | + + + | Preferred Language | Unknown | + + + | Marital Status | Single | + + + | Sabianism Affiliation | NON | + + + [...] | Dante Duenas | GISSELLE | [address] | | | | | [place] [address] | | + + + + + | Helena Hawleywil | ECON | UNK | | | | | [place] [address] | | + + + + + Care Team Providers + +------+ + | Care Mother Tester Name | Role | Phone | + +------+ + | Larry Lorenzo | PCP | | + +------+ + Encounter Details +--------+ + + + + | Date | Type | Department | Care Team | Description | +--------+ + + + + | 07/11/ | Family Coach | [facility] | Pent[place], | Encounter for | | 2017 | | [facility] | MD [address] | screening | | | | [address] , [address] | [address] | of mother (Primary | | | | [place], [place] | [place], [place] | Dx) | | | | [address] | [address] | | | | | [phone] | [phone] | | | | | | | [...] as of this encounter Plan of Treatment + +---------+--------+ + + | Name | Type | Priori | Associated Diagnoses | Date/Time | | | | ty | | | + +---------+--------+ + + | US UTERUS | Imaging | Routin | Encounter for | 07/17/2016 2:18 PM | | 15+ WEEKS | | e | screening | PST | | | | | of mother | | + +---------+--------+ + + + +---------+--------+ + + | Name | Type | Priori | Associated Diagnoses | Order Schedule | | | | ty | | | + +---------+--------+ + + | US UTERUS | Imaging | Routin | Encounter for | Expected: | | 15+ WEEKS | | e | screening | 07/11/2016, Expires: | | | | | of mother | 08/12/2017 | + +---------+--------+ + + documented as of this encounter Visit Diagnoses + + | Diagnosis | + + | Encounter for screening of mother - Primary | + + documented in this encounter"
--- OUTSIDE RECORDS SUMMARY | ~2018-11-05 | XMS | Encounter Summary ---
Demographics + + + | Address | [address] | | | [place] [address] | + + + | Home Phone [...] Author + + + | Author | [facility] | + + + | Organization | [facility] | + + + | Address | Unknown | + + + | Phone | Unavailable | + + + Support + + + + + | Name | Relationship | Address | Phone | + + + + + | Dante Duenas | GISSELLE | [address] | | | | | [place] [address] | | + + + + + | Helena Barakatjoseph | ECON | UNK | | | | | [place] [address] | | + + + + + Care Team Providers + +------+ + | Care Face And Fill Packer Name | Role | Phone | + [...] + + | 10/11/ | Telephone | [facility] | Jeannie Argueta, | Continuous | | 2016 | | [facility] [place] [address] | CNM [address] | Contractions | | | | E , [address] | [address] | | | | | [place], [place] | [place], [place] | | | | | [address] | [address] | | | | | [phone] | [phone] | | | | | | | [...]
--- OUTSIDE RECORDS SUMMARY | ~2018-11-05 | XMS | Encounter Summary ---
Demographics + + + | Address | [address] | | | [place] [address] | + + + | Home Phone [...] Author + + + | Author | [facility] | + + + | Organization | [facility] | + + + | Address | Unknown | + + + | Phone | Unavailable | + + + Support + + + + + | Name | Relationship | Address | Phone | + + + + + | Dante Duenas | GISSELLE | [address] | | | | | [place] [address] | | + + + + + | Helena Barakatjoseph | ECON | UNK | | | | | [place] [address] | | + + + + + Care Team Providers + +------+ + | Care Trust Operations Assistant Name | Role | Phone | + +------+ + | Larry Lorenzo | PCP | | + +------+ + Reason for Visit +--------+ + | Reason | Comments | +--------+ + | Fall | , 17w3d | +--------+ + Encounter Details +--------+ + + + + | Date | Type | Department | Care Team | Description | +--------+ + + + + | 06/12/ | Telephone | [facility] | eJannie Argueta, | Fall (, | | 2015 | | [facility] | CN[address] | 17w3d) | | | | E , [address] | [address] | | | | | [place], [place] | [place], [place] | | | | | [address] | [address] | | | | | [phone] | [phone] | | | | | | | [...]
--- OUTSIDE RECORDS SUMMARY | ~2018-11-05 | XMS | Encounter Summary ---
Demographics + + + | Address | [address] | | | [place] [address] | + + + | Home Phone [...] Author + + + | Author | [facility] | + + + | Organization | [facility] | + + + | Address | Unknown | + + + | Phone | Unavailable | + + + Support + + + + + | Name | Relationship | Address | Phone | + + + + + | Dante Duenas | GISSELLE | [address] | | | | | [place] [address] | | + + + + + | Helena Hawleywil | ECON | UNK | | | | | [place] [address] | | + + + + + Care Team Providers + +------+ + | Care Occupational Psychologist Name | Role | Phone | + +------+ + | Larry Lorenzo | PCP | | + +------+ + Encounter Details +--------+ + + + + | Date | Type | Department | Care Team | Description | +--------+ + + + + | 10/01/ | Telephone | [facility] | Jeannie Argueta, | | | 2016 | | [facility] [address] | [address] | | | | | [address] , [address] | [address] | | | | | [place], [place] | [place], [place] | | | | | [address] | [address] | | | | | [phone] | [phone] | | | | | | | [...]
--- OUTSIDE RECORDS SUMMARY | ~2018-11-05 | XMS | Encounter Summary ---
Demographics + + + | Address | [address] | | | [place] [address] | + + + | Home Phone [...] | | | | | [place] [address] | | + + + + + | Helena Barakatjoseph | ECON | UNK | | | | | [place] [address] | | + + + + + Care Team Providers + +------+ + | Care Electrical Engineer Name | Role | Phone | + +------+ + | Larry Lorenzo | PCP | | + +------+ + Reason for Visit + + + | Reason | Comments | + + + | UTI - Urinary tract | | | infection | | + + + Encounter Details +--------+ + + + + | Date | Type | Department | Care Team | Description | +--------+ + + + + | 06/03/ | Telephone | [facility] | [place], | UTI - Urinary tract | | 2015 | | [facility] [address] | [address] | infection | | | | E , | | | | | | [place], [place] | [place], [place] | | | | | [address] | [address] | | | | | [phone] | [phone] | | | | | | | [...]
--- OUTSIDE RECORDS SUMMARY | ~2018-11-05 | XMS | Encounter Summary ---
Demographics + + + | Address | [address] | | | [place] [address] | + + + | Home Phone | | + + + | Preferred Language | Unknown | + + + | Marital Status | Single | + + + | Mormon Affiliation | NON | + + + | Race | White | + + + | Ethnic Group | Not or | + + + Author + + + | Author | [facility] | + + + | Organization | [facility] | + + + | Address | Unknown | + + + | Phone | Unavailable | + + + Support + + + + + | Name | Relationship | Address | Phone | + + + + + | Dante Duenas | GISSELLE | [address] | | | | | [place] [address] | | + + + + + | Helena Hawleywil | ECON | [place]K | | | | | [place] [address] | | + + + + + Care Team Providers + +------+ + | Care Degreaser Name | Role | Phone | + +------+ + | Larry Lorenzo | PCP | | + +------+ + Encounter Details +--------+ + + + + | Date | Type | Department | Care Team | Description | +--------+ + + + + | 04/30/ | Document-Sc | [facility] | Erickulos, | | | 2016 | anned | [facility] | MD [address] | | | | | E , | | | | | | [place], [place] | [place], [place] | | | | | [address] | [address] | | | | | [phone] | [phone] | | | | | | | [...]
--- OUTSIDE RECORDS SUMMARY | ~2018-11-05 | XMS | Encounter Summary ---
Demographics + + + | Address | [address] | | | [place] [address] | + + + | Home Phone | | + + + | Preferred Language | Unknown | + + + | Marital Status | Single | + + + | Restorationist Affiliation | NON | + + + [...] | | | | | [place] [address] | | + + + + + | Helena Barakatjoseph | ECON | UNK | | | | | [place] [address] | | + + + + + Care Team Providers + +------+ + | Care Threading Machine Tender Name | Role | Phone | + [...] + + + | 11/07/ | | [facility] | Jeannie Argueta, | care | | 2017 | | [facility] | CN[address] | | | | | [address] , [address] | [address] | | | | | [place], [place] | [place] | | | | | [address] | [address] | | | | | [phone] | [phone] | | | | | | | [...] them know you are c obinnaing in. [phone]. Normal human lasts about 40 weeks (from [...] are normal after your baby arrives: o [email or web address] o www..net ? Have a supply of [...] labor and delivery to help. Just Call [phone] to make an appointment. Week 38 of [...] You, your baby, and your partner or academic coach will get identification bands. Only people wit h matching bands can pick up truck driver the baby from the nursery. You will [...] Your : Care Instructions", log into your PeopleAdmin a ccount at [email or web address]. You can enter [id number] in the "[employer] Library" search box . Not on H[employer] Top-Level Domainhart? Review the HOTEL Top-Level Domainhart section of your After Visit Summary for directions on ho w to sign up. Current as of: November 20, 2015 Content Version: 11.2 [id number] [employer]. Care instructions adapted under license by [facility]. If you have questions about a medical condition or this instr uction, always ask your healthcare professional. [employer] disclaims any nino anty or liability for [...]
--- OUTSIDE RECORDS SUMMARY | ~2018-11-05 | XMS | Encounter Summary ---
Demographics + + + | Address | [address] | | | [place] [address] | + + + | Home Phone [...] Author + + + | Author | [facility] | + + + | Organization | [facility] | + + + | Address | Unknown | + + + | Phone | Unavailable | + + + Support + + + + + | Name | Relationship | Address | Phone | + + + + + | Dante Duenas | GISSELLE | [address] | | | | | [place] [address] | | + + + + + | Helena Hawleywil | ECON | [address] | | | | | [place] [address] | | + + + + + Care Team Providers + +------+ + | Care Custom Bow Maker Name | Role | Phone | + +------+ + | Larry Lorenzo | PCP | | + +------+ + Encounter Details +--------+ + + + + | Date | Type | Department | Care Team | Description | +--------+ + + + + | 01/05/ | Procedure - | [facility] | Kush Peña MD | Operative Report | | 2011 | | E The | [facility] | | | | Transcribed | [place] | [facility] [address] | | | | | [address] | [place] [address] [address] | | | | | | [place] [address] | | | | | | [phone] | | | | | | | [...] | + +--------+ + + + | OPERATION RECORD | | 01/06/2012 | | Results for this | | | | 7:29 AM | | procedure are in the | | | | PDT | | results section. | + +--------+ + + + documented in this encounter Results OPERATION RECORD (01/06/2012 7:29 AM PDT) + + | Transcriptions | + + | Kush Peña MD - 01/06/2012 8:24 PM [facility] | | REPORT OF [id number] [place] [address] | | MEIRNICHOLASQUANG VeeMAI OF OPERATION: 01/06/2012SURGEON: Kush | | Ivan PeñaANESTHESIOLOGIST: Fabián Taylor M.D.PRIMARY CARE PROVIDER: [facility] | | P.A.PREOPERATIVE DIAGNOSIS: Symptomatic cholelithiasis with episode of | | acutecholecystitis.POSTOPERATIVE DIAGNOSIS: Symptomatic cholelithiasis with episode of | | acutecholecystitis.PROCEDURE: Laparoscopic cholecystectomy.ANESTHESIA: General | | endotracheal anesthesia, Dr. Taylor.FLUIDS: Crystalloid per Anesthesia record.ESTIMATED | | BLOOD LOSS: Minimal.FINDINGS:1. The gallbladder is moderately inflamed.2. The | | gallbladder is relatively intrahepatic.3. There are several stones within the | | gallbladder, with a large stone in theinfundibulum.4. Critical view was obtained prior | | to clipping of any structures.5. There are moderate adhesions of the gallbladder to the | | duodenum.6. There are no other intra-abdominal findings.INDICATIONS FOR PROCEDURE: | | Patient is a 16-year-old female who recently underwentupper GI endoscopy which was | | normal while working up abdominal pain. She thensubsequently developed significant | | abdominal pain last week which was in the rightupper quadrant, pain with nausea and | | vomiting. Ultrasound revealed multiplegallstones. Thus, given symptomatic | | cholelithiasis, was likely attack of acutecholecystitis. Plans were made for | | laparoscopic cholecystectomy. Options werepresented of no surgery and low-fat diet as | | well as open cholecystectomy, andlaparoscopic cholecystectomy was chosen. Given the | | risks of bleeding, woundinfection, wound healing problems, hernia, trocar or operative | | injury to bowel,bladder, liver, kidney, ureter, stomach, pancreas, duodenum, common bile | | duct, orother intra-abdominal structures, including major vascular structures, | | possiblebleeding that may require blood transfusion, possible need for | | subsequentprocedures or exploratory laparotomy or conversion to open procedure during | | thelaparoscopic cholecystectomy, possible biloma, seroma, hematoma, abscess, cysticduct | | stump leak, retained common bile duct stone, need for ERCP or other procedure,possible | | anesthetic complications, and everything up to and including ,patient and her | | parental guardian wished to proceed. Consent is signed to proceedwith laparoscopic | | cholecystectomy.QUANG [id number] : [id number] | | DATE:DESCRIPTION OF PROCEDURE: After informed written consent was obtained, the | | patienttaken the operating room, laid supine on the operating table, and underwent | | generalendotracheal anesthesia without complication. Next she was prepped with | | ChloraPrepand draped in sterile linen. Time-out was called, all in the room were | | inagreement, the patient was to undergo laparoscopic cholecystectomy and | | indicatedprocedures. We then proceeded by injecting 0.25% Marcaine with epinephrine in | | thesupraumbilical port site. An incision was made in #15 blade scalpel. Dissectionwith | | S retractors was carried out down to the midline fascia. This was picked upwith Daysi | | clamp and stay sutures of 0 Vicryl on either side were used at thesupraumbilical | | epigastric incision to retract the abdomen anteriorly. Curved Mayoscissors were used to | | enter the fat and midline fascia sharply and bluntdissection used to enter the | | peritoneum. A 12-mm trocar was then placed and [id number] was achieved. We then | | turned our attention toward placement ouradditional working ports. These were all | | pre-anesthetized with 0.25% Marcaine withepinephrine and incision blade scalpel used to | | create incision. A 12-mm subxiphoidport was placed. Additionally two 5 mm lateral | | right lateral working ports wereplaced, all these performed under direct laparoscopic | | visualization.We then turned our attention toward dissection of the gallbladder. The | | triangle ofCalot was dissected out using Maryland dissector with retraction of the | | gallbladdercephalad and the infundibulum retracted laterally. The identified cystic | | duct andcystic artery were doubly clipped proximally and singly clipped distally and | | thendivided with Endoscissors. We then dissected the gallbladder free of the liver | | bedusing Bovie electrocautery. Having assured that no additional vessels remained, | | swati placed the gallbladder in an EndoCatch bag and removed it through theumbilical | | port site. The suction double bottom driver was then used to irrigate the rightupper quadrant | | abdomen and evacuated all washed fluid. Following this, attentionwas turned to closure. | | The trocars were removed under direct laparoscopicvisualization while the | | pneumoperitoneum was released. We then closed the midlinefascia using an 0 Vicryl | | suture. Additionally, the incisions were closed using 4-0subcuticular Monocryl suture. | | DermaFlex was applied as dressing. The patient wasawakened, extubated, and taken to | | recovery in stable condition, having suffered noobvious complications. The gallbladder | | was sent as pathologic specimen.JS/MedQDD: 01/06/2012 15:46:22DT: 01/06/2012 | | 20:18:16Job #: [id number]: [facility]Electronically Signed 01/08/12 | | | | 1047 | | | | | | | | | | | | | | Kush Lerner | | BOSTON Peña SHANIA [id number] : [id number] DATE: | |dissection used to enter the peritoneum. A 12-mm trocar was then placed and CO2 | |insufflation was achieved. We then turned our attention toward placement our | |additional working ports. These were all pre-anesthetized with 0.25% Marcaine with | |epinephrine and incision blade scalpel used to create incision. A 12-mm subxiphoid | |port was placed. Additionally two 5 mm lateral right lateral working ports were | |placed, all these performed under direct laparoscopic visualization. | | | |We then turned our attention toward dissection of the gallbladder. The triangle of | |Calot was dissected out using Maryland dissector with retraction of the gallbladder | |cephalad and the infundibulum retracted laterally. The identified cystic duct and | |cystic artery were doubly clipped proximally and singly clipped distally and then | |divided with Endoscissors. We then dissected the gallbladder free of the liver bed | |using Bovie electrocautery. Having assured that no additional vessels remained, we | |then placed the gallbladder in an EndoCatch bag and removed it through the | |umbilical port site. The suction double bottom driver was then used to irrigate the right | |upper quadrant abdomen and evacuated all washed fluid. Following this, attention | |was turned to closure. The trocars were removed under direct laparoscopic | |visualization while the pneumoperitoneum was released. We then closed the midline | |fascia using an 0 Vicryl suture. Additionally, the incisions were closed using 4-0 | |subcuticular Monocryl suture. DermaFlex was applied as dressing. The patient was | |awakened, extubated, and taken to recovery in stable condition, having suffered no | |obvious complications. The gallbladder was sent as pathologic specimen. | | | | | | | | | |CHAVA/Maryann | | | | | | /[id number] | | | | | |cc: Lou Russell | |Electronically Signed 01/08/12 1047 | | | | | | Kush Peña MD | | | | | | | | | | | | | | | | | |ZOËMariuszQUANGPJ MIRELES | |[id number] : [id number] | |[id number] | |ADMIT DATE: | + + documented in this encounter Visit Diagnoses Not on filedocumented in this encounter"
--- OUTSIDE RECORDS SUMMARY | ~2018-11-05 | XMS | Encounter Summary ---
Demographics + + + | Address | [address] | | | [place] [address] | + + + | Home Phone [...] | | | | | [place] [address] | | + + + + + | Helena Hawleywil | ECON | [place] | | | | | [place] [address] | | + + + + + Care Team Providers + +------+ + | Care Oxygen Equipment Technician Name | Role | Phone | + +------+ + | Larry Lorenzo | PCP | | + +------+ + Encounter Details +--------+ + + + + | Date | Type | Department | Care Team | Description | +--------+ + + + + | 09/02/ | Document-Sc | Laboratory at | Larry Lorenzo, | | | 2017 | anned | [facility] | [place] [address] | | | | | Center [address] [place], [place] | | | | | Street [place], | [address] | | | | | [place] [address] | | | +--------+ + + + [...]
--- OUTSIDE RECORDS SUMMARY | ~2018-11-05 | XMS | Encounter Summary ---
Demographics + + + | Address | [address] | | | [place] [address] | + + + | Home Phone | | + + + | Preferred Language | Unknown | + + + | Marital Status | Single | + + + | Catholic Affiliation | NON | + + + | Race | White | + + + | Ethnic Group | Not or | + + + Author + + + | Author | [facility] | + + + | Organization | [facility] | + + + | Address | Unknown | + + + | Phone | Unavailable | + + + Support + + + + + | Name | Relationship | Address | Phone | + + + + + | Dante Duenas | ECON | [address] | | | | | [place] [address] | | + + + + + | Helena Reilly | ECON | [address] | | | | | [place] [address] | | + + + + + Care Team Providers + +------+ + | Care Wharf Builder Name | Role | Phone | + +------+ + PCP | Unavailable | + +------+ + Encounter Details +--------+ + + + + | Date | Type | Department | Care Team | Description | +--------+ + + + + | 03/18/ | Results | [facility] | Merrick Bradley, | | | 2012 | Only | Department | [address] | | | | | | [place] | | | | | | [address] | | | | | | [phone] | | | | | | | [...] | + +--------+ + + + | ORT SHOULDER 2 VIEW | Routin | 03/18/2013 | | Results for this | | [address] | e | 1:24 PM | | procedure are in the | | | | PDT | | results section. | + +--------+ + + + documented in this encounter Results ORT SHOULDER 2 VIEW [id number] (03/18/2013 1:24 PM PDT) + + | Specimen | + + | | + + + + + | Narrative | Performed At | + + + | Exam: Right shoulder, four views, pediatric. | [facility] | | Indication: 17-year-old female with pain. Comparison: April | DEPARTMENT OF | | 2011. Findings: Grashey, internally rotated, outlet and | RADIOLOGY | | axillary films were obtained. There is normal bone mineralization | | | and alignment. There are no arthritic changes, fracture, calcific | | | tendonitis or developing AC joint arthrosis or subluxation. There | | | is a small bone island in the humeral head as before. | | | Impression: Normal radiographs. | | + + + + + | Procedure Note | + + | Interface, Radiology Results - 01/23/2015 6:24 PM PDT Exam: Right shoulder, four | | views, pediatric.Indication: 17-year-old female with pain.Comparison: April 24, | | 2011.Findings: Grashey, internally rotated, outlet and axillary filmswere obtained. | | There is normal bone mineralization and alignment.There are no arthritic changes, | | fracture, calcific tendonitis ordeveloping AC joint arthrosis or subluxation. There is | | a small boneisland in the humeral head as before.Impression: Normal radiographs. | |developing AC joint arthrosis or subluxation. There is a small bone | |island in the humeral head as before. | |Impression: Normal radiographs. | + + + +---------+ + + [...]
--- OUTSIDE RECORDS SUMMARY | ~2018-11-05 | XMS | Encounter Summary ---
Demographics + + + | Address | [address] | | | [place] [address] | + + + | Home Phone [...] + + + | Author | [facility] | + + + | Organization | [facility] | + + + | Address | Unknown | + + + | Phone | Unavailable | + + + Support + + + + + | Name | Relationship | Address | Phone | + + + + + | Dante Duenas | GISSELLE | [address] | | | | | [place] [address] | | + + + + + | Helena Hawleywil | ECON | [place] | | | | | [place] [address] | | + + + + + Care Team Providers + +------+ + | Care Air Defense Artillery Officer Name | Role | Phone | + +------+ + | Laryr Lorenzo | PCP | | + +------+ + Encounter Details +--------+ + + + + | Date | Type | Department | Care Team | Description | +--------+ + + + + | 09/02/ | Document-Sc | Laboratory at | Larry Lorenzo, | | | 2017 | anned | [facility] | [place] [address] | | | | | Center [address] [place], [place] | | | | | Street [place], | [address] | | | | | [place] [address] | | | +--------+ + + + [...]
--- OUTSIDE RECORDS SUMMARY | ~2018-11-05 | XMS | Encounter Summary ---
Demographics + + + | Address | [address] | | | [place] [address] | + + + | Home Phone | | + + + | Preferred Language | Unknown | + + + | Marital Status | Single | + + + | Episcopalian Affiliation | NON | + + + | Race | White | + + + | Ethnic Group | Not or | + + + Author + + + | Author | [facility] | + + + | Organization | [facility] | + + + | Address | Unknown | + + + | Phone | Unavailable | + + + Support + + + + + | Name | Relationship | Address | Phone | + + + + + | Dante Duenas | GISSELLE | [address] | | | | | [place] [address] | | + + + + + | Helena aHwleywil | ECON | [place] | | | | | [place] [address] | | + + + + + Care Team Providers + +------+ + | Care Steel Pan Form Placing Supervisor Name | Role | Phone | + [...] | | 2016 | Encounter | at [facility] | CN[facility] [address] | | | | | [address] [place] | [address] | | | | | [place], [place] | [place], [place] | | | | | [address] | [address] | | | | | [phone] | [phone] | | | | | | | [...] time. You may need to arrange for child development professor if you have young chil dren. Do [...] " Labor: Care Instructions", log into your [employer] account at [email or web address]. You can enter Q400 in the "[employer] [place] Library" search box. Not on [employer]? Review the [employer] section of your After Visit Summary for directions on ho w to sign up. Current as of: November 20, 2015 Content Version: 11.1 3628-4200 [employer]. Care instructions adapted under license by [facility] Narrative [employer] [place]. If you have questions about a medical condition or this instr uction, always ask your healthcare professional. [employer] disclaims any nino anty or liability for [...] Gen: NAD Abd: Gravid, soft, not tender [place]: Irritability with contractions 30-40 seconds every 2-3 [...] Values:99.5%-99.2%) Positive: Delivery Time in <7 - [facility] | | 14 Days(Predictive Values:12.7%-16.7%) | | + + + + + + + + | Performing | Address | City/State/Zipcode | Phone Number | | Organization | | | | + + + + + | [facility] | [address] | [place] [address] | [phone] | | [facility]ICAL [facility]ENTER | Streets | [...] + + + | [facility] | [address] [place] | [place] [address] | [phone] | | [facility] | [facility] | | | + + + + + documented in this encounter Visit Diagnoses Not on filedocumented in this encounter
--- OUTSIDE RECORDS SUMMARY | ~2018-11-05 | XMS | Encounter Summary ---
Demographics + + + | Address | [address] | | | [place] [address] | + + + | Home Phone | | + + + | Preferred Language | Unknown | + + + | Marital Status | Single | + + + | Orthodoxy Affiliation | NON | + + + | Race | White | + + + | Ethnic Group | Not or | + + + Author + + + | Author | [facility] | + + + | Organization | [facility] | + + + | Address | Unknown | + + + | Phone | Unavailable | + + + Support + + + + + | Name | Relationship | Address | Phone | + + + + + | Dante Duenas | GISSELLE | [address] | | | | | [place] [address] | | + + + + + | Helena Reilly | ECON | [place] | | | | | [place] [address] | | + + + + + Care Team Providers + +------+ + | Care Wicker Worker Name | Role | Phone | + +------+ + | Larry Lorenzo | PCP | | + +------+ + Encounter Details +--------+------+ + + + | Date | Type | Department | Care Team | Description | +--------+------+ + + + | 08/29/ | Lab | Laboratory at | | 28 weeks gestation | | 2016 | | [facility] | | of | | | [facility] [address] | | [address] | | | | | | [place] | | | | | | [address] | | | | | | [phone] | | | +--------+------+ + + + [...] + +--------+ + + + | CBC ONLY | Routin | 08/29/2016 | 28 weeks gestation | Results for this | | | e | 11:19 AM | of | procedure are in the | | | | PST | | results section. | + +--------+ + + + | CBC (HEMOGRAM ONLY) | Routin | 08/29/2016 | 28 weeks gestation | Results for this | | | e | 11:19 AM | of | procedure are in the | | | | PST | | results section. | + +--------+ + + + | GLUCOSE TOLERANCE | Routin | 08/29/2016 | 28 weeks gestation | Results for this | | TEST, 1 HOUR | e | 11:19 AM | of | procedure are in the | | | | PST | | results section. | + +--------+ + + + documented in this encounter Results CBC ONLY (08/29/2016 11:19 AM PST) + + + + + + | Component | Value | Ref Range | Performed | Pathologist | | | | | At | Signature | + + + + + + | WBC COUNT | 9.3 | 3.5 - 10.8 K/cu | [facility] | | | | | mm | A MEDICAL | | | | | | CENTER | | + + + + + + | RED CELL | 4.24 | 4.00 - 5.20 | [facility] | | | COUNT | | M/cu mm | A MEDICAL | | | | | | CENTER | | + + + + + + | HEMOGLOBIN | 12.0 | 12.0 - 16.0 | [facility] | | | | | g/dL | A MEDICAL | | | | | | CENTER | | + + + + + + | HEMATOCRIT | 35.2 (L) | 36.0 - 46.0 % | [facility] | | | | | | A MEDICAL | | | | | | CENTER | | + + + + + + | MCV | 83.1 | 80.0 - 96.0 fL | [facility] | | | | | | A MEDICAL | | | | | | CENTER | | + + + + + + | MCH | 28.4 | 28.0 - 34.7 pg | [facility] | | | | | | A MEDICAL | | | | | | CENTER | | + + + + + + | MCHC | 34.2 | 33.0 - 35.5 | [facility] | | | | | g/dL | A MEDICAL | | | | | | CENTER | | + + + + + + | RDW | 13.5 | 11.5 - 15.0 % | [facility] | | | | | | A MEDICAL | | | | | | CENTER | | + + + + + + | PLATELET | 314 | 150 - 400 K/cu | [facility] | | | COUNT | | mm | A MEDICAL | | | | | | CENTER | | + + + + + + | MPV | 7.5 (L) | 9.7 - 12.3 fL | [facility] | | | | | | A MEDICAL | | | | | | CENTER | | + + + + + + + + | Specimen | + + | Blood | + + + + + | Narrative | Performed At | + + + | No reflex rules apply to this test. New adult WBC reference | [facility] | | ranges effective May 08, 2016 | MEDICAL CENTER | + + + + + + + + | Performing | Address | City/State/Zipcode | Phone Number | | Organization | | | | + + + + + | [facility] | And | [place] [address] | [phone] | | MEDICAL CENTER | Streets | | | + + + + + GLUCOSE TOLERANCE TEST, 1 HOUR (08/29/2016 11:19 AM PST) + +---------+ + + + | Component | Value | Ref Range | Performed | Pathologist | | | | | At | Signature | + +---------+ + + + | 1 HOUR | 151 (H) | 60 - 140 mg/dL | [facility] | | | GLUCOSE - | | | A MEDICAL | | | 1GT | | | CENTER | | + +---------+ + + + + + | Specimen | + + | Blood | + + + + + | Narrative | Performed At | + + + | This test is to be used for the diagnosis of gestational diabetes | [facility] | | only. | MEDICAL CENTER | + + + + + + + + | Performing | Address | City/State/Zipcode | Phone Number | | Organization | | | | + + + + + | [facility] | [address] | [place] [address] | [phone] | | [facility] | [facility] | | | + + + + + documented in this encounter Visit Diagnoses + + | Diagnosis | + + | 28 weeks gestation of state, incidental | + + documented in this encounter"
--- OUTSIDE RECORDS SUMMARY | ~2018-11-05 | XMS | Encounter Summary ---
Demographics + + + | Address | [address] | | | [place] [address] | + + + | Home Phone [...] | | | | | [place] [address] | | + + + + + | Helena Hawleywil | ECON | UNK | | | | | [place] [address] | | + + + + + Care Team Providers + +------+ + | Care Birthing Nurse Name | Role | Phone | + +------+ + | Larry Lorenzo | PCP | | + +------+ + Reason for Visit + + + | Reason | Comments | + + + | Vaginal discharge | reports clear discharge on toilet paper after working in yard x3 | | | at 1400 today | + + + Encounter Details +--------+ + + + + | Date | Type | Department | Care Team | Description | +--------+ + + + + | 11/10/ | Hospital | Maternity Services | Jeannie Argueta, | | | 2016 | Encounter | at [facility] | CNM [address] | | | | | [address] | [address] | | | | | [place], [place] | [place], [place] | | | | | [address] | [address] | | | | | [phone] | [phone] | | | | | | | | | | | | Katarina Soria, | | | | | | [facility] [address] [facility] | | | | | | [facility] | | | | | | [place], [place] | | | | | | [address] | | | | | | [phone] | | | | | | | [...] + + + | Blood Pressure | 118/73 | 11/10/2016 9:08 PM | | | | | PDT | | + + + + + | Pulse | 82 | 11/10/2016 9:08 PM | | | | | PDT | | + + + + + | Temperature | 36.7 C (98.1 F) | 11/10/2016 9:08 PM | | | | | PDT | | + + + + + | Respiratory Rate | 18 | 11/10/2016 9:08 PM | | | | | PDT | | + + + + + | Oxygen Saturation | 97% | 11/10/2016 9:08 PM | | | | | PDT | | + + + + + | Inhaled Oxygen | - | - | | | Concentration | | | | + + + + + | Weight | 77.1 kg (170 lb) | 11/10/2016 8:44 PM | | | | | PDT | | + + + + + | Height | 151.8 cm (4' 11.75") | 11/10/2016 8:44 PM | | | | | PDT | | + + + + + | Body Mass Index | 33.48 | 11/10/2016 8:44 PM | | | | | PDT | | + + + + + documented in this encounter Discharge Instructions AttachmentsThe following attachments cannot be sent through Care Everywhere.: WHEN TO CALL (AFTER 20 WEEKS): GENERAL INFO ([place])documented in this encounter Progress Notes Katarina Soria MD,S - 11/10/2016 9:15 PM PDTNST Interpretation: FHT - BL 150, moderate variability, +accels, no decels [place] - q1-4 SVE closed per pt. VSS Impression: Reactive NST, Cat I Katarina Soria MD,S documented in this encounter Plan of Treatment Not on filedocumented as of this encounter Procedures + +--------+ + + + | Procedure Name | Priori | Date/Time | Associated Diagnosis | Comments | | | ty | | | | + +--------+ + + + | AMNISURE | Routin | 11/10/2016 | | Results for this | | | e | 8:23 PM | | procedure are in the | | | | PDT | | results section. | + +--------+ + + + documented in this encounter Results AMNISURE (11/10/2016 8:23 PM PDT) + + + + + + | Component | Value | Ref Range | Performed | Pathologist | | | | | At | Signature | + + + + + + | AMNISURE | No Membranes Rupture | No Membranes | [facility] | | | | | Rupture | [facility] | | | | | | [facility] | | + + + + + + + + | Specimen | + + | Swab - Vagina | + + + + + | Narrative | Performed At | + + + | Amnisure Membranes Rupture Test is for the invitro detection of | [facility] | | human amniotic fluid PAMG-1 protein in vaginal secretions of | [facility] | | women. The test should be used to evaluate patients with clinical | | | signs/symptoms suggestive of [] membranes rupture. This is a | | | qualitivative test. Presence of blood, collected with the swab, can | | | lead to false positive results. | | + + + + + + + + | Performing | Address | City/State/Zipcode | Phone Number | | Organization | | | | + + + + + | [facility] | | [place] [address] | [phone] | | [facility] | [facility] | | | + + + + + documented in this encounter Visit Diagnoses Not on filedocumented in this encounter
--- OUTSIDE RECORDS SUMMARY | ~2018-11-05 | XMS | Encounter Summary ---
Demographics + + + | Address | [address] | | | [place] [address] | + + + | Home Phone | | + + + | Preferred Language | Unknown | + + + | Marital Status | Single | + + + | Nondenominational Affiliation | NON | + + + [...] | | | | | [place] [address] | | + + + + + | Helena Reilly | ECON | [place]K | | | | | [place] [address] | | + + + + + Care Team Providers + +------+ + | Care Bottom Crane Operator Name | Role | Phone | + +------+ + | Larry Lorenzo | PCP | | + +------+ + Reason for Visit + + + | Reason | Comments | + + + | Refill Request | | + + + Encounter Details +--------+--------+ + + + | Date | Type | Department | Care Team | Description | +--------+--------+ + + + | 01/27/ | Refill | [place] | Elizabeth Mayfield, | Refill Request | | 2018 | | [facility] [place] [address] | MD [address] | | | | | [address] [place], [place] | | | | | [place], [place] | [address] | | | | | [address] | [phone] | | | | | [phone] | | | +--------+--------+ + + + [...]
--- OUTSIDE RECORDS SUMMARY | ~2018-11-05 | XMS | Encounter Summary ---
Demographics + + + | Address | [address] | | | [place] [address] | + + + | Home Phone [...] Author + + + | Author | [facility] | + + + | Organization | [facility] | + + + | Address | Unknown | + + + | Phone | Unavailable | + + + Support + + + + + | Name | Relationship | Address | Phone | + + + + + | Dante Duenas | ECON | [address] | | | | | [place] [address] | | + + + + + | Helena Reilly | ECON | [place] | | | | | [place] [address] | | + + + + + Care Team Providers + +------+ + | Care Toby Maker Name | Role | Phone | [...] [place] | | | | | | [place] | | | | | | [address] | | | | | | [phone] | | | | | | | [...] +--------+ + + + | NEEDLE GUIDE [id number] | Routin | 04/14/2013 | | Results for this | | | e | 2:20 PM | | procedure are in the | | | | PDT | | results section. | + +--------+ + + + | SHOULDER INJECTION | Routin | 04/14/2013 | | Results for this | | 85036 | e | 2:20 PM | | procedure are in the | | | | PDT | | results section. | + +--------+ + + + | UPPER EXT JNT WITH | Routin | 04/14/2013 | | Results for this | | CON 18305 | e | 2:08 PM | | procedure are in the | | | | PDT | | results section. | + +--------+ + + + documented in this encounter Results NEEDLE GUIDE 10133 (04/14/2013 2:20 PM PDT) + + | [...] | + +---------+ + + SHOULDER INJECTION [id number] (04/14/2013 2:20 PM PDT) + + | [...] | | + +---------+ + + | [facility] DEPARTMENT OF | | | | | RADIOLOGY | | | | + +---------+ + + UPPER EXT JNT WITH CON [id number] (04/14/2013 2:08 PM PDT) + + | [...]
--- OUTSIDE RECORDS SUMMARY | ~2018-11-05 | XMS | Encounter Summary ---
Demographics + + + | Address | [address] | | | [place] [address] | + + + | Home Phone [...] | | | | | [place] [address] | | + + + + + | Helena Hawleywil | ECON | [place]K | | | | | [place] [address] | | + + + + + Care Team Providers + +------+ + | Care Theoretical Physicist Name | Role | Phone | + +------+ + | Larry Lorenzo | PCP | | + +------+ + Encounter Details +--------+ + + + + | Date | Type | Department | Care Team | Description | +--------+ + + + + | 06/25/ | Orders Only | [facility] | Jeannie Argueta, | Encounter for | | 2017 | | [facility] | CN[facility] [address] | screening | | | | [address] | [address] | of mother (Primary | | | | [place], [place] | [place], [place] | Dx) | | | | [address] | [address] | | | | | [phone] | [phone] | | | | | | | [...]
--- OUTSIDE RECORDS SUMMARY | ~2018-11-05 | XMS | Encounter Summary ---
Demographics + + + | Address | [address] | | | [place] [address] | + + + | Home Phone [...] Author + + + | Author | [facility] | + + + | Organization | [facility] | + + + | Address | Unknown | + + + | Phone | Unavailable | + + + Support + + + + + | Name | Relationship | Address | Phone | + + + + + | Dante Duenas | GISSELLE | [address] | | | | | [place] [address] | | + + + + + | Helena Hawleywil | ECON | [place] | | | | | [place] [address] | | + + + + + Care Team Providers + +------+ + | Care Ceramics Teacher Name | Role | Phone | + +------+ + | Larry Lorenzo | PCP | | + +------+ + Encounter Details +--------+ + + + + | Date | Type | Department | Care Team | Description | +--------+ + + + + | 12/30/ | Procedure - | [facility] [address] | Kush Peña MD | Operative Report | | 2011 | | [address] | [facility] | | | | Transcribed | [place] | [facility]ISTS [address] | | | | | [address] | [place] [address] [address] | | | | | | [place] [address] | | | | | | [phone] | | | | | | | [...] + + | OPERATION RECORD | | 12/31/2011 | | Results for this | | | | 8:32 AM | | procedure are in the | | | | PDT | | results section. | + +--------+ + + + documented in this encounter Results OPERATION RECORD (12/31/2011 8:32 AM PDT) + + | Transcriptions | + + | Kush Peña MD - 12/31/2011 9:59 AM [facility] | | REPORT OF [id number] [place] [address] | | MEIRNICHOLASQUANG VeeMAI OF OPERATION: 12/31/2011SURGEON: Kush | | Ivan PeñaPRIMARY CARE PROVIDER: ANMOL RussellOPERATIVE DIAGNOSES:1. Epigastric | | abdominal pain.2. Nausea and vomiting.3. Possible reflux.4. Possible history of peptic | | ulcer disease in the past.POSTOPERATIVE DIAGNOSES:1. Epigastric abdominal pain.2. Nausea | | and vomiting.3. Possible reflux.4. Possible history of peptic ulcer disease in the | | past.PROCEDURE: EGD.ANESTHESIA: IV sedation.FINDINGS:1. The examined esophagus is | | normal.2. The GE junction is crisp. There is no evidence of Hernandez's esophagus.3. | | There is no evidence of hiatal hernia.4. Retroflexion view within the stomach reveals no | | evidence of hiatal hernia orproximal gastric lesion.5. Evaluation of the remainder of | | the stomach is unremarkable. Cold forcepsbiopsy in the distal gastric antrum is | | obtained for CLOtest.6. First, second, third portion duodenum are without | | abnormality.COMPLICATIONS: None.INDICATIONS FOR PROCEDURE: Patient is a 16-year-old | | female with a history ofapproximately 4 years of intermittent abdominal pain, nausea and | | vomitingapproximately 7-10 times per day on worst occasions. Plans were made upper | | GIendoscopy to evaluate. Patient understands the risks, benefits and alternatives | | toprocedure including the risk of bleeding, perforation, missed lesion, inability | | tocomplete the exam, possible need for subsequent surgery, blood transfusion | | ordiagnostic tests. Knowing these risks, benefits and alternatives patient wishes | | toproceed with upper GI endoscopy and signs consent to this effect.DESCRIPTION OF | | PROCEDURE: With the patient on the endoscopy table in the supineposition, an IV was | | started. The patient's sedation was titrated as per theanesthesia record. The patient | | was placed in the left lateral decubitus positionand the Fujinon gastroscope was | | introduced into the oropharynx and passed into theesophagus without difficulty and | | distally through the esophagus. The mucosa wasexamined circumferentially. The | | gastroesophageal junction was identified. Thescope was passed through this into the | | stomach. The mucosa of the stomach QUANG [id number] : | | [id number] DATE:examined. The pylorus was identified and the scope was | | passed through the pylorusinto the duodenum. The duodenal bulb was examined. The 2nd | | and 3rd portions ofthe duodenum were also examined. The scope was then pulled back into | | the stomach.The endoscope was then retroflexed to examine the lesser curvature, the | | cardia andthe proximal body. After this was accomplished the scope was straightened and | | themucosa was examined again as the scope was completely removed. The patienttolerated | | the procedure well. The procedure was terminated and the patient wasdischarged home to | | the care of the family without having suffered any apparentcomplications.Followup | | arrangements were made. They were informed to call us if there was anyvomiting, fever | | or abdominal pain.RECOMMENDATIONS:1. Wean proton pump inhibitors to once daily then off, | | and evaluate for symptomchanges.2. Follow up in 6 weeks.CHAVA/EarlQDD: 12/31/2011 | | 09:33:54DT: 12/31/2011 09:51:25Job #: [id number]: Villa [place]erson, | | PAElectronically Signed 01/08/12 | | 1047 | | | | | | | | | | | | | | Kush Lerner | | LUISITO PeñaRINJaviQUANG [id number] : [id number] DATE: | |position, an IV was started. The patient's sedation was titrated as per the | |anesthesia record. The patient was placed in the left lateral decubitus position | |and the Fujinon gastroscope was introduced into the oropharynx and passed into the | |esophagus without difficulty and distally through the esophagus. The mucosa was | |examined circumferentially. The gastroesophageal junction was identified. The | |scope was passed through this into the stomach. The mucosa of the stomach was | |QUANG REILLY | |[id number] : 95 | |[id number] | |ADMIT DATE: | | | |examined. The pylorus was identified and the scope was passed through the pylorus | |into the duodenum. The duodenal bulb was examined. The 2nd and 3rd portions of | |the duodenum were also examined. The scope was then pulled back into the stomach. | | | |The endoscope was then retroflexed to examine the lesser curvature, the cardia and | |the proximal body. After this was accomplished the scope was straightened and the | |mucosa was examined again as the scope was completely removed. The patient | |tolerated the procedure well. The procedure was terminated and the patient was | |discharged home to the care of the family without having suffered any apparent | |complications. | | | |Followup arrangements were made. They were informed to call us if there was any | |vomiting, fever or abdominal pain. | | | |RECOMMENDATIONS: | |1. Wean proton pump inhibitors to once daily then off, and evaluate for symptom | |changes. | |2. Follow up in 6 weeks. | | | | | |CHAVA/Maryann | | | | | | /[id number] | | | | | |cc: KATHIE Russell | |Electronically Signed 01/08/12 1047 | [...] | | | | | | | |QUANG REILLY | |[id number] : 95 | |[id number] | |ADMIT DATE: | + + documented in this encounter Visit Diagnoses Not on filedocumented in this encounter"
--- OUTSIDE RECORDS SUMMARY | ~2018-11-05 | XMS | Encounter Summary ---
Demographics + + + | Address | [address] | | | [place] [address] | + + + | Home Phone | | + + + | Preferred Language | Unknown | + + + | Marital Status | Single | + + + | Muslim Affiliation | NON | + + + [...] [address] | | | | | [place] [address] | | + + + + + | Helena Reilly | ECON | UNK | | | | | [place] [address] | | + + + + + Care Team Providers + +------+ + | Care Research Agricultural Engineer Name | Role | Phone | + +------+ + | No Pcp Per Patient | PCP | Unavailable | + +------+ + Encounter Details +--------+------+ + + + | Date | Type | Department | Care Team | Description | +--------+------+ + + + | 04/23/ | Lab | Laboratory at | | Normal first | | 2016 | | [facility] [place] | | confirmed, | | | [facility] [address] | | antepartum | | | | [address] | | | | | | [place], [place] | | | | | | [address] | | | | | | [phone] | | | +--------+------+ + + + [...] + | CBC ONLY | Routin | 04/23/2016 | Normal first | Results for this | | | e | 2:40 PM | confirmed, | procedure are in the | | | | PDT | antepartum | results section. | + +--------+ + + + | LAB OTHER | Routin | 04/23/2016 | Normal first | Results for this | | | e | 2:40 PM | confirmed, | procedure are in the | | | | PDT | antepartum | results section. | + +--------+ + + + | HEPATITIS C AB | Routin | 04/23/2016 | Normal first | Results for this | | SCREEN, REFLEX TO | e | 2:40 PM | confirmed, | procedure are in the | | RNA QUANT | | PDT | antepartum | results section. | + +--------+ + + + | HEPATITIS B SURFACE | Routin | 04/23/2016 | Normal first | Results for this | | ANTIGEN | e | 2:40 PM | confirmed, | procedure are in the | | | | PDT | antepartum | results section. | + +--------+ + + + | CBC (HEMOGRAM ONLY) | Routin | 04/23/2016 | Normal first | Results for this | | | e | 2:40 PM | confirmed, | procedure are in the | | | | PDT | antepartum | results section. | + +--------+ + + + | VARICELLA ZOSTER | Routin | 04/23/2016 | Normal first | Results for this | | IGG, SERUM | e | 2:40 PM | confirmed, | procedure are in the | | | | PDT | antepartum | results section. | + +--------+ + + + | HIV-1,2 AB/HIV-1 P24 | Routin | 04/23/2016 | Normal first | Results for this | | AG SCRN | e | 2:40 PM | confirmed, | procedure are in the | | | | PDT | antepartum | results section. | + +--------+ + + + | RPR SERUM | Routin | 04/23/2016 | Normal first | Results for this | | | e | 2:40 PM | confirmed, | procedure are in the | | | | PDT | antepartum | results section. | + +--------+ + + + | RUBELLA IGG AB, | Routin | 04/23/2016 | Normal first | Results for this | | SERUM | e | 2:40 PM | confirmed, | procedure are in the | | | | PDT | antepartum | results section. | + +--------+ + + + | ANTIBODY SCREEN | Routin | 04/23/2016 | Normal first | Results for this | | | e | 2:40 PM | confirmed, | procedure are in the | | | | PDT | antepartum | results section. | + +--------+ + + + | TYPE AND SCREEN | Routin | 04/23/2016 | Normal first | Results for this | | | e | 2:40 PM | confirmed, | procedure are in the | | | | PDT | antepartum | results section. | + +--------+ + + + | ABO & RH TYPE | Routin | 04/23/2016 | Normal first | Results for this | | | e | 2:40 PM | confirmed, | procedure are in the | | | | PDT | antepartum | results section. | + +--------+ + + + | TSH | Routin | 04/23/2016 | Normal first | Results for this | | | e | 2:40 PM | confirmed, | procedure are in the | | | | PDT | antepartum | results section. | + +--------+ + + + documented in this encounter Results LAB OTHER (04/23/2016 2:40 PM PDT) + + + + + + | Component | Value | Ref Range | Performed | Pathologist | | | | | At | Signature | + + + + + + | MISC REF | toxoplasmosis IGG and | | [facility] | | | TEST NAME | IGM | | A MEDICAL | | | | | | CENTER | | + + + + + + | MISC REF | see scanned report | | [facility] | | | TEST RESULT | | | A MEDICAL | | | | | | CENTER | | + + + + + + | NORMAL | | | [facility] | | | RANGE | | | A MEDICAL | | | | | | CENTER | | + + + + + + | REFERRAL | Test performed | | [facility] | | | LAB NAME | by: | | A [facility] | | | | [facility] | | | | [facility] | | | | | | [id number] | | | | | | Way | | | | | | [address] | | | | | | [place] | | | | | | [address] | | | | + + + + + + + + | Specimen | + + | Blood | + + + + + | Narrative | Performed At | + + + | | | + + + + + + + + | Performing | Address | City/State/Zipcode | Phone Number | | Organization | | | | + + + + + | [facility] | And | [place] [address] | [phone] | | MEDICAL [facility] | Stre[address] | | | + + + + + CBC ONLY (04/23/2016 2:40 PM PDT) + + + + + + | Component | Value | Ref Range | Performed | Pathologist | | | | | At | Signature | + + + + + + | WBC COUNT | 9.8 | 4.4 - 11.0 K/cu | [facility] | | | | | mm | A MEDICAL | | | | | | CENTER | | + + + + + + | RED CELL | 4.69 | 4.00 - 5.20 | [facility] | | | COUNT | | M/cu mm | A MEDICAL | | | | | | CENTER | | + + + + + + | HEMOGLOBIN | 12.9 | 12.0 - 16.0 | [facility] | | | | | g/dL | A MEDICAL | | | | | | CENTER | | + + + + + + | HEMATOCRIT | 38.7 | 36.0 - 46.0 % | [facility] | | | | | | A MEDICAL | | | | | | CENTER | | + + + + + + | MCV | 82.6 | 80.0 - 96.0 fL | [facility] | | | | | | A MEDICAL | | | | | | CENTER | | + + + + + + | MCH | 27.5 (L) | 28.0 - 34.7 pg | [facility] | | | | | | A MEDICAL | | | | | | CENTER | | + + + + + + | MCHC | 33.4 | 33.0 - 35.5 | [facility] | | | | | g/dL | A MEDICAL | | | | | | CENTER | | + + + + + + | RDW | 13.3 | 11.5 - 15.0 % | [facility] | | | | | | A MEDICAL | | | | | | CENTER | | + + + + + + | PLATELET | 323 | 150 - 400 K/cu | [facility] | | | COUNT | | mm | A MEDICAL | | | | | | CENTER | | + + + + + + | MPV | 7.8 (L) | 9.7 - 12.3 fL | [facility] | | | | | | A MEDICAL | | | | | | CENTER | | + + + + + + + + | Specimen | + + | Blood | + + + + + | Narrative | Performed At | + + + | No reflex rules apply to this test. | [facility] | | | [facility] | + + + + + + + + | Performing | Address | City/State/Zipcode | Phone Number | | Organization | | | | + + + + + | [facility] | And | [place] [address] | [phone] | | [facility] | [address] | | | + + + + + ANTIBODY SCREEN (04/23/2016 2:40 PM PDT) + + + + + + | Component | Value | Ref Range | Performed | Pathologist | | | | | At | Signature | + + + + + + | Antibody | Negative | | [facility] | | | Screen | | | BANK | | + + + + + + + + | Specimen | + + | Blood - Blood | + + + + + + + | Performing | Address | City/State/Zipcode | Phone Number | | Organization | | | | + + + + + | [facility] | and | [place] [address] | | | | Streets | | | + + + + + ABO & RH TYPE (04/23/2016 2:40 PM PDT) + + + + + + | Component | Value | Ref Range | Performed | Pathologist | | | | | At | Signature | + + + + + + | ABO Group | A | | [facility] | | | | | | BANK | | + + + + + + | Rh Type | Positive | | [facility] | | | | | | BANK | | + + + + + + + + | Specimen | + + | Blood - Blood | + + + + + + + | Performing | Address | City/State/Zipcode | Phone Number | | Organization | | | | + + + + + | [facility] | and | [place] [address] | | | | Streets | | | + + + + + HEPATITIS C ANTIBODY (04/23/2016 2:40 PM PDT) + + + + + + | Component | Value | Ref Range | Performed | Pathologist | | | | | At | Signature | + + + + + + | HEP C | Non-reactive | Non-reactive | [facility] | | | ANTIBODY | | | A MEDICAL | | | | | | CENTER | | + + + + + + + + | Specimen | + + | Blood | + + + + + | Narrative | Performed At | + + + | Results obtained wih the Elecsys Anti-HCV immunoassay may not be | [facility] | | used interchangeably with the values obtained with [facility] | | manufacturers' assay methods. | | + + + + + + + + | Performing | Address | City/State/Zipcode | Phone Number | | Organization | | | | + + + + + | [facility] | | [place] [address] | [phone] | | [facility] | Streets | | | + + + + + VARICELLA ZOSTER IGG, SERUM (04/23/2016 2:40 PM PDT) + + + + + + | Component | Value | Ref Range | Performed | Pathologist | | | | | At | Signature | + + + + + + | VARICELLA | 1.60Comment: | index | [facility] | | | [facility] IGG | | | [facility] | | | | Index | | - [place] | | | | Explanation of | | | | | | Results | | | | | | --------- | | | | | | | | | | | | < or = | | | | | | 0.90 Negative - | | | | | | No VZV IgG Antibody | | | | | | detected 0.91 - | | | | | | 1.09 Equivocal | | | | | | > or = | | | | | | 1.10 Positive - | | | | | | VZV IgG Antibody | | | | | | detected A | | | | | | positive result | | | | | | indicates that the | | | | | | patient has | | | | | | antibody to VZV but does | | | | | | not | | | | | | differentiate bet | | | | | | ween infection (active | | | | | | or past) and | | | | | | vaccination. The | | | | | | clinical diagnosis must | | | | | | be interpreted in | | | | | | conjunction with | | | | | | the clinical signs and | | | | | | symptoms of the | | | | | | patient. This assay | | | | | | reliably measures | | | | | | immunity due to | | | | | | previous infection but | | | | | | may not always be | | | | | | sensitive enough | | | | | | to detect antibodies | | | | | | induced | | | | | | by vaccination. | | | | | | Thus, a negative result | | | | | | in a | | | | | | vaccinated indivi | | | | | | dual does not | | | | | | necessarily | | | | | | indicate suscepti | | | | | | bility to VZV infection. | | | | | | | | | | + + + + + + + + | Specimen | + + | Blood - Blood | + + + + + | Narrative | Performed At | + + + | Test performed at [facility] | [facility] | | [address] | DIAGNOSTICS - | | [place] | [place] | | [place] | | | [address] Lab | | | Director VASQUEZ IRENE MD | | + + + + + + + + | Performing | Address | City/State/Zipcode | Phone Number | | Organization | | | | + + + + + | [facility] | [address] | [place] [address] | | | - [place] | [address] | | | + + + + + TSH (04/23/2016 2:40 PM PDT) + +-------+ + + + | Component | Value | Ref Range | Performed | Pathologist | | | | | At | Signature | + +-------+ + + + | TSH | 1.15 | 0.34 - 5.60 | [facility] | | | | | uIU/mL | A MEDICAL | | | | | | CENTER | | + +-------+ + + + + + | Specimen | + + | Blood | + + + + + + + | Performing | Address | City/State/Zipcode | Phone Number | | Organization | | | | + + + + + | [facility] | [address] | [place] [address] | [phone] | | MEDICAL CENTER | Streets | | | + + + + + RUBELLA IGG AB, SERUM (04/23/2016 2:40 PM PDT) + +-------+ + + + | Component | Value | Ref Range | Performed | Pathologist | | | | | At | Signature | + +-------+ + + + | RUBELLA IGG | 54 | IU/mL | [facility] | | | AB | | | A MEDICAL | | | | | | CENTER | | + +-------+ + + + + + | Specimen | + + | Blood | + + + + + | Narrative | Performed At | + + + | Interpretation: <10 IU/mL | [facility] | | Non-Reactive/Non-Immune >=10-<15IU/mL EQUIVOCAL | [facility] | | >=15 IU/mL Reactive Immune The following results were | | | obtained with the Elecsys Rubella IgG assay. Results from assays of | | | other manufacturers cannot be used interchangeably. | | + + + + + + + + | Performing | Address | City/State/Zipcode | Phone Number | | Organization | | | | + + + + + | [facility] | And | [place] [address] | [phone] | | MEDICAL CENTER | Stre[address] | | | + + + + + RPR SERUM (04/23/2016 2:40 PM PDT) + + + + + + | Component | Value | Ref Range | Performed | Pathologist | | | | | At | Signature | + + + + + + | RPR | Nonreactive | Nonreactive | [facility] | | | | | [...] | + + + + + | [facility] | [address] | [place] [address] | [phone] | | [facility] | Streets | | | + + + + + HIV-1,2 AB/HIV-1 P24 AG SCRN, SERUM (04/23/2016 2:40 PM PDT) + + + + + + | Component | Value | Ref Range | Performed | Pathologist | | | | | At | Signature | + + + + + + | HIV-1,2 | NON-REACTIVEComment: | NON-REACTIVE | [facility] | | | AB/HIV-1 | HIV-1 antigen and | | DIAGNOSTICS | | | P24 AG | HIV-1/HIV-2 antibodies | | - [place] | | | SCREEN | were notdetected. There | | | | | | is no laboratory | | | | | | evidence of | | | | | | HIVinfection. PLEASE | | | | | | NOTE: This information | | | | | | has been disclosed toyou | | | | | | from records whose | | | | | | confidentiality may | | | | | | beprotected by state | | | | | | law. If your state | | | | | | requires suchprotection, | | | | | | then the state law | | | | | | prohibits you frommaking | | | | | | any further disclosure | | | | | | of the | | | | | | informationwithout the | | | | | | specific written consent | | | | | | of the personto whom it | | | | | | pertains, or as | | | | | | otherwise permitted by | | | | | | law.A general | | | | | | authorization for the | | | | | | release of medical | | | | | | orother information is | | | | | | NOT sufficient for this | | | | | | purpose. For | | | | | | additional information | | | | | | please refer | | | | | | [email or web address] | | | | | | [email or web address] | | | | | | 06(This link is being | | | | | | provided for | | | | | | informational/educationa | | | | | | l purposes only.) The | | | | | | performance of this | | | | | | assay has not been | | | | | | clinicallyvalidated in | | | | | | patients less than 2 | | | | | | years old. | | | | + + + + + + + + | Specimen | + + | Blood - Blood | + + + + + + + | Performing | Address | City/State/Zipcode | Phone Number | | Organization | | | | + + + + + | [facility] | [address] | [place] [address] | | | - [place] | [address] | | | + + + + + HEPATITIS B SURFACE ANTIGEN (04/23/2016 2:40 PM PDT) + + + + + + | Component | Value | Ref Range | Performed | Pathologist | | | | | At | Signature | + + + + + + | HEP B | Non-reactive | Non-reactive | [facility] | | | SURFACE | | | A MEDICAL | | | ANTIGEN | | | CENTER | | + + + + + + + + | Specimen | + + | Blood | + + + + + | Narrative | Performed At | + + + | Results obtained with the Elecsys HBsAg immunoassay may not be | [facility] | | used interchangeably with the values obtained with different [facility] | | manufacturers' assay methods. | | + + + + + + + + | Performing | Address | City/State/Zipcode | Phone Number | | Organization | | | | + + + + + | [facility] | And | [place] [address] | [phone] | | [facility] | [address] | | | + + + + + documented in this encounter Visit Diagnoses + + | Diagnosis | + + | Normal first confirmed, antepartum | + + documented in this encounter"
--- OUTSIDE RECORDS SUMMARY | ~2018-11-05 | XMS | Encounter Summary ---
Demographics + + + | Address | [address] | | | [place] [address] | + + + | Home Phone | | + + + | Preferred Language | Unknown | + + + | Marital Status | Single | + + + | Yazidi Affiliation | NON | + + + | Race | White | + + + | Ethnic Group | Not or | + + + Author + + + | Author | [facility] | + + + | Organization | [facility] | + + + | Address | Unknown | + + + | Phone | Unavailable | + + + Support + + + + + | Name | Relationship | Address | Phone | + + + + + | Dante Duenas | [address] | [address] | | | | | [place] [address] | | + + + + + | Helena Barakatjoseph | ECON | [address] | | | | | [place] [address] | | + + + + + Care Team Providers + +------+ + | Care Varitype Operator Name | Role | Phone | [...] + + | 03/13/ | Telephone | [facility] | Harpreet Sanabria MD | UTI - Urinary tract | | 2017 | | [facility] [address] | [address] | infection | | | | [address] | [address] [place], [place] | | | | | [place], [place] | [address] | | | | | [address] | [phone] | | | | | [phone] | | | +--------+ + + + [...]
--- OUTSIDE RECORDS SUMMARY | ~2018-11-05 | XMS | Encounter Summary ---
Demographics + + + | Address | [address] | | | [place] [address] | + + + | Home Phone | | + + + | Preferred Language | Unknown | + + + | Marital Status | Single | + + + | Mosque Affiliation | NON | + + + | Race | White | + + + | Ethnic Group | Not or | + + + Author + + + | Author | [facility] | + + + | Organization | [facility] | + + + | Address | Unknown | + + + | Phone | Unavailable | + + + Support + + + + + | Name | Relationship | Address | Phone | + + + + + | Dante Duenas | GISSELLE | [address] | | | | | [place] [address] | | + + + + + | Helena Hawleywil | ECON | [address] | | | | | [place] [address] | | + + + + + Care Team Providers + +------+ + | Care Hse Specialist Name | Role | Phone | + +------+ + | Larry Lorenzo | PCP | | + +------+ + Encounter Details +--------+ + + + + | Date | Type | Department | Care Team | Description | +--------+ + + + + | 10/24/ | | [facility] | Jeannie Argueta, | | | 2016 | [facility] | CNM [address] | | | | | [address] , [address] | | | | | [place], [place] | [place], [place] | | | | | [address] | [address] | | | | | [phone] | [phone] | | | | | | | [...] + + + | Blood Pressure | 114/68 | 10/24/2016 1:30 PM | | | | | PDT [...] + + + + | Weight | 75.3 kg (166 lb) | 10/24/2016 1:30 PM | | | | | PDT | | + + + + + | Height | - | - | | + + + + + | Body Mass Index | 32.69 | 04/23/2016 2:08 PM | | | | | PDT | | + + + + + documented in this encounter Patient Instructions Patient Instructions Sawyer Alex MA - 10/24/2016 1:30 PM PDTPrenatal Visit - Week 36 Please read chapters 10 and 13 in your book. What if it s a BOY? Parents can sometimes be confused about whether they should have their baby boy circumcised . It s a very personal decision and may be guided by personal or health reasons. It may be helpful to gather some information about some of the pros and cons of circumcision and th e things to think about when making your decision. The [employer] has some helpful information that you can find by going to: www.[email or web address].org and searching for circumcision . If you decide to have your baby boy circumcised, it can sometimes be done during your hospi daina stay. Check to see if your insurance company will pay for it ..some don t, in which case you will have to pay for the procedure. Dr. Irvin does circumcisions. You will ne ed to make arrangements to have this done with her. Car Seats Automobile accidents are the leading cause of in people ages 1-45. You will need an approved car seat to take your baby home from the hospital. Let us know if you need help ob taining a car seat for your . Arrange to have your car seat in your hospital room on the day of discharge ..we will help tailor the fit to your baby. If you re uncertain about fitting your baby s car seat into your car, we can help you: they will fit your car seat at the hospital before you go home. Weeks 34 to 36 of Your : Care Instructions Your Care Instructions By now, your baby and your belly have grown quite large. It is almost time to give . A full-term can deliver between 37 and 42 weeks. Your baby's lungs are almost ready to breathe air. The bones in your baby's head are now firm enough to protect it, but soft e nough to move down through the canal. You may feel excited, happy, anxious, or scared. You may wonder how you will know if you ar e in labor or what to expect during labor. Try to be flexible in your expectations of the [facility]. Because each is different, there is no way to know exactly what childbirth will b e like for you. This care sheet will help you know what to expect and how to prepare. This m ay make your childbirth easier. If you haven't already had the Tdap shot during this , talk to your doctor about g etting it. It will help protect your against pertussis infection. In the 36th week, most women have a test for group B streptococcus (GBS). GBS is a common b acteria that can live in the vagina and rectum. It can make your baby sick after . If y ou test positive, you will get antibiotics during labor. The medicine will keep your baby fr om getting the bacteria. Follow-up care is a mclaughlin part of your treatment and safety. Be sure to make and go to all ap pointments, and call your doctor if you are having problems. It's also a good idea to know y our test results and keep a list of the medicines you take. How can you care for yourself at home? Learn about pain relief choices Pain is different for every woman. Talk with your doctor about your feelings about pain. You can choose from several types of pain relief. These include medicine or breathing te chniques, as well as comfort measures. You can use more than one option. If you choose to have pain medicine during labor, talk to your doctor about your options . Some medicines lower anxiety and help with some of the pain. Others make your lower body n umb so that you won't feel pain. Be sure to tell your doctor about your pain medicine choice before you start labor or ve ry early in your labor. You may be able to change your mind as labor progresses. Rarely, a woman is put to sleep by medicine given through a mask or an IV. Labor and delivery The first stage of labor has three parts: early, active, and transition. Most women have early labor at home. You can stay busy or rest, eat light snacks, drink clear fluids, and start counting contractions. When talking during a contraction gets hard, you may be moving to active labor. During a ctive labor, you should head for the hospital if you are not there already. You are in active labor when contractions come every 3 to 4 minutes and last about 60 se conds. Your cervix is opening more rapidly. If your water breaks, contractions will come faster and stronger. During transition, your cervix is stretching, and contractions are coming more rapidly. You may want to push, but your cervix might not be ready. Your doctor will tell you when to push. The second stage starts when your cervix is completely opened and you are ready to push. Contractions are very strong to push the baby down the canal. You will feel the urge to push. You may feel like you need to have a bowel movement. You may be coached to push with contractions. These contractions will be very strong, bu t you will not have them as often. You can get a little rest between contractions. You may be emotional and irritable. You may not be aware of what is going on around you. One last push, and your baby is born. The third stage is when a few more contractions push out the placenta. This may take 30 minutes or less. The fourth stage is the welcome recovery. You may feel overwhelmed with emotions and exh austed but alert. This is a good time to start . Where can you learn more? To learn more about "Weeks 34 to 36 of Your : Care Instructions", log into your My Chart account at [email or web address]. You can enter B912 in the "Health Library" [facility] box. Not on [employer]? Review the [employer] section of your After Visit Summary for directions on timbo w to sign up. Current as of: November 20, 2015 Content Version: 11.2 5123-0789 [employer], [employer]. Care instructions adapted under license by [facility]. If you have questions about a medical condition or this instr uction, always ask your healthcare professional. [employer] disclaims any nino anty or liability for your use of this information. documented in this encounter Progress Notes Jeannie Argueta CNM - 10/24/2016 1:30 PM PDTS: She has noticed about 1 uc per hour. She otherwise is doing well and no other concerns. She was evaluated recently for uc in and found to have a closed cervix. O: See flow sheet A/P GBS collected F/U 1 week document ed in this encounter Plan of Treatment Not on filedocumented as of this encounter Procedures + +--------+ + + + | Procedure Name | Priori | Date/Time | Associated Diagnosis | Comments | | | ty | | | | + +--------+ + + + | CULTURE, STREP B | Routin | 10/24/2016 | 36 weeks gestation | Results for this | | | e | 1:27 PM | of | procedure are in the | | | | PDT | | results section. | + +--------+ + + + documented in this encounter Results CULTURE, STREP B (10/24/2016 1:27 PM PDT) + + + + + + | Component | Value | Ref Range | Performed | Pathologist | | | | | At | Signature | + + + + + + | CULTURE | 1+ Streptococcus | | [facility] | | | RESULT | agalactiae, Group B (A) | | [facility] | | | STREP B | | | CENTER | | + + + + + + + + | Specimen | + + | Swab | + + + + + + + | Performing | Address | City/State/Zipcode | Phone Number | | Organization | | | | + + + + + | [facility] | [address] | [place] [address] | [phone] | | [facility] | [facility] | | | + + + + + documented in this encounter Visit Diagnoses + + | Diagnosis | + + | 36 weeks gestation of - Primary state, incidental | + + documented in this encounter
--- OUTSIDE RECORDS SUMMARY | ~2018-11-05 | XMS | Encounter Summary ---
Demographics + + + | Address | [address] | | | [place] [address] | + + + | Home Phone | | + + + | Preferred Language | Unknown | + + + | Marital Status | Single | + + + | Presybeterian Affiliation | NON | + + + [...] | | | | | [place] [address] | | + + + + + | [place] | ECON | [address] | | | | | [place] [address] | | + + + + + Care Team Providers + +------+ + | Care Cash Applications Coordinator Name | Role | Phone | + +------+ + | Larry Lorenzo | PCP | | + +------+ + Reason for Visit + + + | Reason | Comments | + + + | Abnormal Glucose | 1 hour GTT | | Tolerance Test | | + + + Encounter Details +--------+ + + + + | Date | Type | Department | Care Team | Description | +--------+ + + + + | 08/29/ | Telephone | [facility] | Harpreet Sanabria MD | Abnormal Glucose | | 2017 | | [facility] [address] | [address] [place] | Tolerance Test (1 | | | | [address] | [address] [place], [place] | hour GTT) | | | | [place], [place] | [address] | | | | | [address] | [phone] | | | | | [phone] | | | +--------+ + + + [...] + | Diagnosis | + + | Abnormal glucose tolerance test in - Primary | + + | Strep throat Streptococcal sore throat | + + | Normal first confirmed, antepartum | + + | Uncomplicated asthma, unspecified asthma severity | + + documented in this encounter"
--- OUTSIDE RECORDS SUMMARY | ~2018-11-05 | XMS | Encounter Summary ---
Demographics + + + | Address | [address] | | | [place] [address] | + + + | Home Phone | | + + + | Preferred Language | Unknown | + + + | Marital Status | Single | + + + | Alevism Affiliation | NON | + + + [...] | | | | | [place] [address] | | + + + + + | [place] | ECON | [place]K | | | | | [place] [address] | | + + + + + Care Team Providers + +------+ + | Care Engineer System Administrator Name | Role | Phone | + +------+ + | Larry Lorenzo | PCP | | + +------+ + Encounter Details +--------+------+ + + + | Date | Type | Department | Care Team | Description | +--------+------+ + + + | 02/21/ | Lab | Laboratory at | | | | 2016 | | Medical Office | | | | | | Building [address] | | | [address] | | | | | | [place] | | | | | | [address] | | | | | | [phone] | | | +--------+------+ + + + [...]
--- OUTSIDE RECORDS SUMMARY | ~2018-11-05 | XMS | Encounter Summary ---
Demographics + + + | Address | [address] | | | [place] [address] | + + + | Home Phone | | + + + | Preferred Language | Unknown | + + + | Marital Status | Single | + + + | Taoist Affiliation | NON | + + + [...] | | | | | [place] [address] | | + + + + + | [place] | ECON | UNK | | | | | [place] [address] | | + + + + + Care Team Providers + +------+ + | Care Snowmobile Mechanic Name | Role | Phone | + +------+ + | No Pcp Per Patient | PCP | Unavailable | + +------+ + Reason for Visit + + + | Reason | Comments | + + + | Abdominal pain | | + + + Encounter Details +--------+ + + + + | Date | Type | Department | Care Team | Description | +--------+ + + + + | 10/09/ | Emergency | Emergency | Dante Jerome, | | | 2015 - | | Department at [facility] | [facility] | | | | | Hospital [address] [facility] [address] | | | 10/10/ | | [place] [address] | [address] | | | 2015 | | [place], [place] | [place] [address] | | | | | [address] | [phone] | | | | | [phone] | | | +--------+ + + + + Social History + +-------+ +--------+------+ | Tobacco Use | Types | Packs/Day | Years | Date | | | | | Used | | + +-------+ +--------+------+ | Never Smoker | | | | | + +-------+ +--------+------+ + + +---------+ + | Alcohol Use | Drinks/Week | oz/Week | Comments | + + +---------+ + | No | | | | + + +---------+ + [...] + + + | Blood Pressure | 122/68 | 10/11/2015 12:14 AM | | | | | PDT | | + + + + + | Pulse | 108 | 10/11/2015 12:14 AM | | | | | PDT | | + + + + + | Temperature | 37.4 C (99.3 F) | 10/11/2015 12:14 AM | | | | | PDT | | + + + + + | Respiratory Rate | 20 | 10/11/2015 12:14 AM | | | | | PDT | | + + + + + | Oxygen Saturation | 99% | 10/11/2015 12:14 AM | | | | | PDT | | + + + + + | Inhaled Oxygen | - | - | | | Concentration | | | | + + + + + | Weight | 63.5 kg (140 lb) | 10/10/2015 7:42 PM | | | | | PDT | | + + + + + | Height | 152.4 cm (5') | 10/10/2015 7:42 PM | | | | | PDT | | + + + + + | Body Mass Index | 27.34 | 10/10/2015 7:42 PM | | | | | PDT | | + + + + + documented in this encounter Discharge Instructions Instructions Dante Jerome MD - 10/10/2015Formatting of this note might be different f rom the original. Return to the emergency department immediately for any new or worsened symptoms. Indigestion (Dyspepsia or Heartburn): Care Instructions Your Care Instructions Sometimes it can be hard to pinpoint the cause of indigestion (dyspepsia or heartburn). Mos t cases of an upset stomach with bloating, burning, burping, and nausea are minor and go albert y within several hours. Home treatment and ogzb-ljg-ybxgjdh medicine often are able to contr ol symptoms. But if you take medicine to relieve your indigestion without making diet and li festyle changes, your symptoms are likely to return again and again. If you get indigestion often, it may be a sign of a more serious medical problem. Be sure t o follow up with your doctor, who may want to do tests to be sure of the cause of your indig estion. Follow-up care is a mclaughlin part of your treatment and safety. Be sure to make and go to all ap pointments, and call your doctor if you are having problems. It s also a good idea to know your test results and keep a list of the medicines you take. How can you care for yourself at home? Your doctor may recommend glah-xow-jmytwjn medicine. For mild or occasional indigestion, antacids such as Tums, Gaviscon, Mylanta, or Maalox may help. Your doctor also may recommen d slgp-fqu-nvnwdwf acid reducers, such as Pepcid AC, Tagamet HB, Zantac 75, or Prilosec. Kirby d and follow all instructions on the label. If you use these medicines often, talk with your doctor. Change your eating habits. It s best to eat several small meals instead of two or three large meals. After you eat, wait 2 to 3 hours before you lie down. Chocolate, mint, and alcohol can make GERD worse. Spicy foods, foods that have a lot of acid (like tomatoes and oranges), and coffee can m praful GERD symptoms worse in some people. If your symptoms are worse after you eat a certain f ood, you may want to stop eating that food to see if your symptoms get better. Do not smoke or chew tobacco. Smoking can make GERD worse. If you need help quitting, ta lk to your doctor about stop-smoking programs and medicines. These can increase your chances of quitting for good. If you have GERD symptoms at night, raise the head of your bed 6 to 8 inches by putting the frame on blocks or placing a foam wedge under the head of your mattress. (Adding extra p illows does not work.) Do not wear tight clothing around your middle. Lose weight if you need to. Losing just 5 to 10 pounds can help. Do not take anti-inflammatory medicines, such as aspirin, ibuprofen (Advil, Motrin), or naproxen (Aleve). These can irritate the stomach. If you need a pain medicine, try acetamino phen (Tylenol), which does not cause stomach upset. When should you call for help? Call 911 anytime you think you may need emergency care. For example, call if: You passed out (lost consciousness). You vomit blood or what looks like coffee grounds. You pass maroon or very bloody stools. You have chest pain or pressure. This may occur with: Sweating. Shortness of breath. Nausea or vomiting. Pain that spreads from the chest to the neck, jaw, or one or both shoulders or arms. Feeling dizzy or lightheaded. A fast or uneven pulse. After calling 911, chew 1 adult-strength aspirin. Wait for an ambulance. Do not try to driv e yourself. Call your doctor now or seek immediate medical care if: You have severe belly pain. Your stools are black and tarlike or have streaks of blood. You have trouble swallowing. You are losing weight and do not know why. Watch closely for changes in your health, and be sure to contact your doctor if: You do not get better as expected. Where can you learn more? To learn more about "Indigestion (Dyspepsia or Heartburn): Care Instructions", log into you r [employer] account at [email or web address]. You can enter [id number] in the emoteShare y" search box. Not on [employer]? Review the [employer]a section of your After Visit Summary for directions on ho w to sign up. [phone] Wowboard. Care instructions adapted under license by [facility]. This care instruction is for use with your licensed healthcar e professional. If you have questions about a medical condition or this instruction, always ask your healthcare professional. [employer] disclaims any warranty or liabili ty for your use of this information. Content Version: 10.8.392123; Current as of: May 12, 2015 Abdominal Pain: Care Instructions Your Care Instructions Abdominal pain has many possible causes. Some aren't serious and get better on their own in a few days. Others need more testing and treatment. If your pain continues or gets worse, y ou need to be rechecked and may need more tests to find out what is wrong. You may need surg kathy to correct the problem. Don't ignore new symptoms, such as fever, nausea and vomiting, urination problems, pain nataliya t gets worse, and dizziness. These may be signs of a more serious problem. Your doctor may have recommended a follow-up visit in the next 8 to 12 hours. If you are no t getting better, you may need more tests or treatment. The doctor has checked you carefully, but [...] can you care for yourself at home? Rest until you feel better. To prevent dehydration, drink plenty of fluids, enough so that your urine is light yello w or clear like water. Choose water and other caffeine-free clear liquids until you feel bet ter. If you have kidney, heart, or liver disease and have to limit fluids, talk with your do ctor before you increase the amount of fluids you drink. If your stomach is upset, eat mild foods, such as rice, dry toast or crackers, bananas, and applesauce. Try eating several small meals instead of two or three large ones. Wait until 48 hours after all symptoms have gone away before you have spicy foods, alcoh ol, and drinks that contain caffeine. Do not eat foods that are high in fat. Avoid anti-inflammatory medicines such as aspirin, ibuprofen (Advil, Motrin), and naprox en (Aleve). These can cause stomach upset. Talk to your doctor if you take daily aspirin for another health problem. When should you call for help? Call 911 anytime you think you may need emergency care. For example, call if: You passed out (lost consciousness). You pass maroon or very bloody stools. You vomit blood or what looks like coffee grounds. You have new, severe belly pain. Call your doctor now or seek immediate medical care if: Your pain gets worse, especially if it becomes focused in one area of your belly. You have a new or higher fever. Your stools are black and look like tar, or they have streaks of blood. You have unexpected vaginal bleeding. You have symptoms of a urinary tract infection. These may include: Pain when you urinate. Urinating more often than usual. Blood in your urine. You are dizzy or lightheaded, or you feel like you may faint. Watch closely for changes in your health, and be sure to contact your doctor if: You are not getting better after 1 day (24 hours). Where can you learn more? To learn more about "Abdominal Pain: Care Instructions", log into your [employer] account at h [email or web address]. You can enter [id number] in the AutoMoneyBack Library" search box. Not on [employer]? Review the MyChart section of your After Visit Summary for directions on timbo aquino to sign up. [id number] Wowboard. Care instructions adapted under license by [facility]. This care instruction is for use with your licensed healthcar e professional. If you have questions about a medical condition or this instruction, always ask your healthcare professional. Wow[employer] disclaims any warranty or liabili ty for your use of this information. Content Version: 10.8.120632; Current as of: November 11, 2014 documented in this encounter Medications at Time of Discharge + + + +---------+ + + | Medication | Sig | Dispensed | Refills | Start | End Date | | | | | | Date | | + + + +---------+ + + | | Take 1 each by mouth | 1 kit | 0 | 10/11/19 | | | hydrocodone-acetamin | once for 1 dose. | | | 16 | 6 | | ophen 5-325 mg oral | | | | | | | tablet tablet | | | | | | + + + +---------+ + + | ondansetaron 4 mg | Take 1 each by mouth | 1 kit | 0 | 10/11/19 | | | oral tablet tablet | once for 1 dose. | | | 16 | 6 | + + + +---------+ + + | ondansetron ODT 4 | Dissolve 1 tablet in | 20 | 0 | 10/10/19 | | | mg oral | mouth every eight | tablet | | 16 | 6 | | tablet,disintegratin | hours as needed [...] + | COMPLETE METABOLIC | Urgent | 10/10/2015 | | Results for this | | SET | | 9:20 PM | | procedure are in the | | (NA,K,CL,CO2,BUN,CRE | | PDT | | results section. | | AT,GLUC,CA,AST,ALT,B | | | | | | [place] TOTAL,ALK | | | | | | PHOS,ALB,PROT TOTAL) | | | | | + +--------+ + + + | LIPASE, PLASMA | Urgent | 10/10/2015 | | Results for this | | | | 9:20 PM | | procedure are in the | | | | PDT | | results section. | + +--------+ + + + | CBC W/DIFF, REFLEX | Urgent | 10/10/2015 | | Results for this | | | | 8:57 PM | | procedure are in the | | | | PDT | | results section. | + +--------+ + + + | CBC AND AUTO DIFF | Urgent | 10/10/2015 | | Results for this | | | | 8:57 PM | | procedure are in the | | | | PDT | | results section. | + +--------+ + + + | HCG (URINE ONLY) | Urgent | 10/10/2015 | | Results for this | | | | 7:49 PM | | procedure are in the | | | | PDT | | results section. | + +--------+ + + + | REECE PURVIS W/ | Urgent | 10/10/2015 | | Results for this | | REFLEX | | 7:49 PM | | procedure are in the | | | | PDT | | results section. | + +--------+ + + + documented in this encounter Results LIPASE, PLASMA (10/10/2015 9:20 PM PDT) + +-------+ + + + | Component | Value | Ref Range | Performed | Pathologist | | | | | At | Signature | + +-------+ + + + | LIPASE | 20 | 5 - 57 U/L | [facility] [...] + + | [facility] | [address] | [place] [address] | [phone] | | [facility]ICAL [facility]ENTER | Streets | | | + + + + + COMPLETE METABOLIC SET (NA,K,CL,CO2,BUN,CREAT,GLUC,CA,AST,ALT,BILI TOTAL,ALK PHOS,ALB,PROT TOTAL) (10/10/2015 9:20 PM PDT) + +---------+ + + + | Component | Value | Ref Range | Performed | Pathologist | | | | | At | Signature | + +---------+ + + + | GLUCOSE, | 90 | 70 - 105 mg/dL | [facility] | | | PLASMA | | | A MEDICAL | | | (LAB) | | | CENTER | | + +---------+ + + + | BUN, PLASMA | 8 | 6 - 26 mg/dL | [facility] | | | (LAB) | | | A MEDICAL | | | | | | CENTER | | + +---------+ + + + | CREATININE, | 0.6 | 0.6 - 1.1 mg/dL | [facility] | | | PLASMA | | | A MEDICAL | | | | | | CENTER | | + +---------+ + + + | SODIUM, | 136 (L) | 137 - 146 | [facility] | | | PLASMA | | mmol/L | A MEDICAL | | | (LAB) | | | CENTER | | + +---------+ + + + | POTASSIUM, | 3.7 | 3.4 - 5.3 | [facility] | | | PLASMA | | mmol/L | A MEDICAL | | | (LAB) | | | CENTER | | + +---------+ + + + | CHLORIDE, | 98 | 96 - 106 mmol/L | [facility] | | | PLASMA | | | A MEDICAL | | | (LAB) | | | CENTER | | + +---------+ + + + | TOTAL CO2, | 22 | 18 - 30 mmol/L | [facility] | | | PLASMA | | | A MEDICAL | | | (LAB) | | | CENTER | | + +---------+ + + + | CALCIUM, | 8.3 (L) | 8.5 - 10.8 | [facility] | | | PLASMA | | mg/dL | A MEDICAL | | | (LAB) | | | CENTER | | + +---------+ + + + | BILIRUBIN | 0.3 | 0.2 - 1.2 mg/dL | [facility] | | | TOTAL | | | A MEDICAL | | | | | | CENTER | | + +---------+ + + + | TOTAL | 7.4 | 5.8 - 8.5 g/dL | [facility] | | | PROTEIN, | | | A MEDICAL | | | PLASMA | | | CENTER | | | (LAB) | | | | | + +---------+ + + + | ALBUMIN, | 3.9 | 3.5 - 5.0 g/dL | [facility] | | | PLASMA | | | A MEDICAL | | | (LAB) | | | CENTER | | + +---------+ + + + | ALK PHOS | 92 | 32 - 180 U/L | [facility] | | | | | | A MEDICAL | | | | | | CENTER | | + +---------+ + + + | AST(SGOT) | 30 | 10 - 41 U/L | [facility] | | | | | | A MEDICAL | | | | | | CENTER | | + +---------+ + + + | ALT (SGPT) | 27 | 7 - 51 U/L | [facility] | | | | | | A MEDICAL | | | | | | CENTER | | + +---------+ + + + | EGFR | >60 | >60 mL/min | [facility] | | | - | | | A MEDICAL | | | [facility] | | | CENTER | | + +---------+ + + + | EGFR NON | >60 | >60 mL/min | [facility] | | | -[facility] | | | A MEDICAL | | | [facility] | | | CENTER | | + +---------+ + + + | ANION GAP | 16 | 12 - 20 mmol/L | [facility] | | | | | | A MEDICAL | | | | | | CENTER | | + +---------+ + + + | BUN/CREATIN | 13 | 6 - 20 | [facility] | | | [facility] | | | A MEDICAL | | | | | | CENTER | | + +---------+ + + + + + | Specimen | + + | Blood | + + + + + | Narrative | Performed At | + + + | GFR is estimated using the MDRD equation recommended by the | [facility] | | National Kidney Disease Education Program. Estimated GFR | [facility] | | Interpretive Information: <60 mL/min/1.73 sq [...] + + + + | [facility] | And | [place] [address] | [phone] | | [facility] | Streets | | | + + + + + CBC AND AUTO DIFF (10/10/2015 8:57 PM PDT) + + + + + + | Component | Value | Ref Range | Performed | Pathologist | | | | | At | Signature | + + + + + + | WBC COUNT | 9.7 | 4.4 - 11.0 K/cu | [facility] | | | | | mm | A MEDICAL | | | | | | CENTER | | + + + + + + | RED CELL | 5.15 | 4.00 - 5.20 | [facility] | | | COUNT | | M/cu mm | A MEDICAL | | | | | | CENTER | | + + + + + + | HEMOGLOBIN | 14.2 | 12.0 - 16.0 | [facility] | | | | | g/dL | A MEDICAL | | | | | | CENTER | | + + + + + + | HEMATOCRIT | 42.2 | 36.0 - 46.0 % | [facility] | | | | | | A MEDICAL | | | | | | CENTER | | + + + + + + | MCV | 82.0 | 80.0 - 96.0 fL | [facility] [...] + + + + | MCHC | 33.5 | 33.0 - 35.5 | [facility] | | | | | g/dL | A MEDICAL | | | | | | CENTER | | + + + + + + | RDW | 12.8 | 11.5 - 15.0 % | [facility] | | | | | | A MEDICAL | | | | | | CENTER | | + + + + + + | PLATELET | 247 | 150 - 400 K/cu | [facility] | | | COUNT | | mm | A MEDICAL | | | | | | CENTER | | + + + + + + | MPV | 7.9 (L) | 9.7 - 12.3 fL | [facility] | | | | | | A MEDICAL | | | | | | CENTER | | + + + + + + | NEUTROPHIL | 77.9 (H) | 50.0 - 70.0 % | [facility] | | | % | | | A MEDICAL | | | | | | CENTER | | + + + + + + | LYMPHOCYTE | 13.2 (L) | 18.0 - 42.0 % | [facility] | | | % | | | A MEDICAL | | | | | | CENTER | | + + + + + + | MONOCYTE % | 7.4 | 3.5 - 9.0 % | [facility] | | | | | | A MEDICAL | | | | | | CENTER | | + + + + + + | EOS % | 0.6 (L) | 1.0 - 3.0 % | [facility] | | | | | | A MEDICAL | | | | | | CENTER | | + + + + + + | BASO % | 0.9 | 0.0 - 2.0 % | [facility] | | | | | | A MEDICAL | | | | | | CENTER | | + + + + + + | NEUTROPHIL | 7.50 | 1.80 - 7.70 | [facility] | | | # | | K/cu mm | A MEDICAL | | | | | | CENTER | | + + + + + + | LYMPHOCYTE | 1.30 | 1.00 - 4.80 | [facility] | | | # | | K/cu mm | A MEDICAL | | | | | | CENTER | | + + + + + + | MONOCYTE # | 0.70 | 0.10 - 0.90 | [facility] | | | | | K/cu mm | A MEDICAL | | | | | | CENTER | | + + + + + + | EOS # | 0.10 | 0.00 - 0.50 | [facility] | | | | | K/cu mm | A MEDICAL | | | | | | CENTER | | + + + + + + | BASO # | 0.10 | 0.00 - 0.10 | [facility] | [...] | + + + + + | [facility] | And | [place] [address] | [phone] | | MEDICAL CENTER | Streets | | | + + + + + HCG (URINE ONLY) (10/10/2015 7:49 PM PDT) + + + + + + | Component | Value | Ref Range | Performed | Pathologist | | | | | At | Signature | + + + + + + | HCG QUAL | Negative | mIU/mL | [facility] | | | URINE | Comment: | | A MEDICAL | | | | | | CENTER | | | | HCG=<25mIU/mL. | | | | + + + + + + + + | Specimen | + + | Urine | + + + + + + + | Performing | Address | City/State/Zipcode | Phone Number | | Organization | | | | + + + + + | [facility] | And | [place] [address] | [phone] | | MEDICAL CENTER | Streets | | | + + + + + REECE PURVIS (10/10/2015 7:49 PM PDT) + + + + + [...] + + + | PH (URINE) | 5.5 | 5.0 - 8.5 | [facility] | | | | | | A MEDICAL | | | | | | CENTER | | + + + + + + | PROTEIN, | Trace | Negative, Trace | [facility] | | [...] + + + + | KETONES | 4+ (A) | Negative | [facility] | | | | | | A MEDICAL | | | | | | CENTER | | + + + + + + | SPECIFIC | 1.015 | 1.005 - 1.030 | [facility] | [...] | SOURCE | Clean Catch | | [facility] | | | (URINALYSIS [...] | + + + + + | [facility] | And | [place] [address] | [phone] | | MEDICAL CENTER | Streets | | | + + + + + documented in this encounter Visit Diagnoses + + | Diagnosis | + + | Acute epigastric pain - Primary Abdominal pain, epigastric | + + | Acute gastritis without hemorrhage | + + documented in this encounter Administered Medications + +--------+ +-------+------+------+ | Medication Order | MAR | Action | Dose | Rate | Site | | | Action | Date | | | | + +--------+ +-------+------+------+ | Aluminum-Magnesium Hydroxide | Given | 10/10/19 | 30 mL | | | | (MAG-AL) 200-200 mg/5 mL liquid | | 16 9:00 | | | | | 30 mL Normal | | PM PDT | | | | + +--------+ +-------+------+------+ +---+---+ | | | +---+---+ + +---------+ +-------+---+---+ | diphenhydrAMINE (BENADRYL) | New Bag | 10/10/19 | 25 mg | | | | injection 25 mg 25 mg, | | 16 10:08 | | | | | intravenous, ONCE, 1 dose, Tue | | PM PDT | | | | | 10/10/15 at 2230 | | | | | | + +---------+ +-------+---+---+ +---+---+ | | | +---+---+ + +---------+ +--------+---+---+ | fentaNYL citrate (PF) | New Bag | 10/10/19 | 50 mcg | | | | (SUBLIMAZE) injection 50 mcg 50 | | 16 10:34 | | | | | mcg, intravenous, EVERY 1 HOUR | | PM PDT | | | | | NEEDED, 3 doses, Starting Tue | | | | | | | 10/10/15 at 2218, Until Wed | | | | | | | 10/11/15 at 0636, severe pain | | | | | | + +---------+ +--------+---+---+ +---+---+ | | | +---+---+ + +-------+ +---+---+---+ | hydrocodone-acetaminophen | Given | 10/11/19 | | | | | (NORCO) tablet 1 dose, Starting | | 16 12:28 | | | | | 10/11/15 at 0025, Until Wed | | AM PDT | | | | | 10/11/15 at 0028 | | | | | | + +-------+ +---+---+---+ +---+---+ | | | +---+---+ + +-------+ +-------+---+---+ | lidocaine viscous (XYLOCAINE | Given | 10/10/19 | 10 mL | | | | VISCOUS) 2 % mucosal solution 10 | | 16 9:00 | | | | | mL 10 mL, oral, ONCE, 1 dose, | | PM PDT | | | | | 10/10/15 at 2130 | | | | | | + +-------+ +-------+---+---+ +---+---+ | | | +---+---+ + +---------+ +-------+---+---+ | metoclopramide HCl (REGLAN) | New Bag | 10/10/19 | 10 mg | | | | injection 10 mg 10 mg, | | 16 10:08 | | | | | intravenous, ONCE, 1 dose, Tue | | PM PDT | | | | | 10/10/15 at 2230 | | | | | | + +---------+ +-------+---+---+ +---+---+ | | | +---+---+ + +---------+ + +---+---+ | NaCl 0.9 % solution 1,000 mL, | New Bag | 10/10/19 | 1,000 mL | | | | intravenous, ONCE, 1 dose, Tue | | 16 8:59 | | | | | 10/10/15 at 2130 | | PM PDT | | | | + +---------+ + +---+---+ +---+---+ | | | +---+---+ + +---------+ + +---+---+ | NaCl 0.9 % solution 1,000 mL, | New Bag | 10/10/19 | 1,000 mL | | | | intravenous, ONCE, 1 dose, Tue | | 16 10:09 | | | | | 10/10/15 at 2230 | | PM PDT | | | | + +---------+ + +---+---+ +---+---+ | | | +---+---+ + +-------+ +---+---+---+ | ondansetaron (ZOFRAN) tablet 1 | Given | 10/11/19 | | | | | dose, Starting Fri10/11/15 at | | 16 12:27 | | | | | 0025, Until Fri10/11/15 at 0027 | | AM PDT | | | | + +-------+ +---+---+---+ +---+---+ | | | +---+---+ + +---------+ +------+---+---+ | ondansetron (ZOFRAN) injection | New Bag | 10/10/19 | 4 mg | | | | 4 mg 4 mg, intravenous, EVERY 20 | | 16 9:00 | | | | | MINUTES NEEDED, 3 doses, | | PM PDT | | | | | Starting 10/10/15 at 2051, | | | | | | | Until 10/11/15 at 0636, | | | | | | | nausea/vomiting | | | | | | + +---------+ +------+---+---+ +---+---+ | | | +---+---+ documented in this encounter
--- OUTSIDE RECORDS SUMMARY | ~2018-11-05 | XMS | Encounter Summary ---
Demographics + + + | Address | [address] | | | [place] [address] | + + + | Home Phone [...] | | | | | [place] [address] | | + + + + + | Helena Reilly | ECON | UNK | | | | | [place] [address] | | + + + + + Care Team Providers + +------+ + | Care Licensed Practical Nurse Clinic Nurse Name | Role | Phone | [...] + + | 08/21/ | Refill | [place] | [facility] [place], | control | | 2018 | | [facility] [address] | [address] | | | [address] | [address] [place], [place] | | | | | [place], [place] | [address] | | | | | [address] | [phone] | | | | | [phone] | | | +--------+--------+ + + + [...]
--- OUTSIDE RECORDS SUMMARY | ~2018-11-05 | XMS | Encounter Summary ---
Demographics + + + | Address | [address] | | | [place] [address] | + + + | Home Phone [...] Author + + + | Author | [facility] | + + + | Organization | [facility] | + + + | Address | Unknown | + + + | Phone | Unavailable | + + + Support + + + + + | Name | Relationship | Address | Phone | + + + + + | Dante Duenas | GISSELLE | [address] | | | | | [place] [address] | | + + + + + | Helena Barakatjoseph | ECON | UNK | | | | | [place] [address] | | + + + + + Care Team Providers + +------+ + | Care Metallurgical Tester Name | Role | Phone | + +------+ + | Larry Lorenzo | PCP | | + +------+ + Reason for Visit + + + | Reason | Comments | + + + | monitoring | | + + + Encounter Details +--------+ + + + + | Date | Type | Department | Care Team | Description | +--------+ + + + + | 11/22/ | | [place] | Salma Castro, | monitoring | | 2017 | | [facility] | Lorraine, RN [address] | | | | [address] , [address] | The | | | | | [place], [place] | [place], [place] | | | | | [address] | [address] | | | | | [phone] | | | +--------+ + + + [...] + + documented as of this encounter Progress Notes Lorraine Guerin RN - 11/22/2016 10:45 AM PDTNST : 21 y.o. 40w5d reports she is well today. She is experiencing increased pressure but not pain with contractions. Reactiv e NST reviewed by Dr. Recinos. Pt states understanding to call clinic or go to ob with contractions, decreased movement, vaginal bleeding or leaking of fluid or any other co ncerns. She plans to go to the ob department for scheduled induction as recommended 11/25 if she has not yet delivered. Lorraine Castro RN documented in th is encounter Plan of Treatment +------+ +--------+ + + | Name | Type | Priori | Associated Diagnoses | Order Schedule | | | | ty | | | +------+ +--------+ + + | NST | Procedures | Routin | Post-term | 1-2 times per week | | | | e | , 40-42 | for 2 Occurrences | | | | | weeks of gestation | starting 11/22/2016 | | | | | | until 08/22/2017, 1 | | | | | | completed | +------+ +--------+ + + documented as of this encounter Procedures + +--------+ + + + | Procedure Name | Priori | Date/Time | Associated Diagnosis | Comments | | | ty | | | | + +--------+ + + + | NST | Routin | 11/22/2016 | Post-term | Results for this | | | e | | , 40-42 | procedure are in the | | | | | weeks of gestation | results section. | + +--------+ + + + documented in this encounter Results NST (11/22/2016) + + + + + + | Component | Value | Ref Range | Performed | Pathologist | | | | | At | Signature | + + + + + + | PHYSICIAN | Reactive | | | | | INTERP NST | | | | | + + + + + + documented in this encounter Visit Diagnoses + + | Diagnosis | + + | Post-term , 40-42 weeks of gestation - Primary Post term , | | unspecified episode of care | + + documented in this encounter"
--- OUTSIDE RECORDS SUMMARY | ~2018-11-05 | XMS | Encounter Summary ---
Demographics + + + | Address | [address] | | | [place] [address] | + + + | Home Phone [...] + + + | Author | [facility] | + + + | Organization | [facility] | + + + | Address | Unknown | + + + | Phone | Unavailable | + + + Support + + + + + | Name | Relationship | Address | Phone | + + + + + | Dante Duneas | GISSELLE | [address] | | | | | [place] [address] | | + + + + + | Helena Barakatjoseph | ECON | UNK | | | | | [place] [address] | | + + + + + Care Team Providers + +------+ + | Care Health And Fitness Instructor Name | Role | Phone | + +------+ + | Laryr Lorenzo | PCP | | + +------+ + Reason for Visit + + + | Reason | Comments | + + + | Ultrasound | | + + + Encounter Details +--------+ + + + + | Date | Type | Department | Care Team | Description | +--------+ + + + + | 07/18/ | Telephone | [place] | Jeannie Argueta, | Ultrasound | | 2017 | | [facility] | CNM [address] | | | | | E , [address] | [address] THE | | | | | [place], [place] | [place], [place] | | | | | [address] | [address] | | | | | [phone] | [phone] | | | | | | | [...] + | Diagnosis | + + | Strep throat Streptococcal sore throat | + + | Normal first confirmed, antepartum | + + | Uncomplicated asthma, unspecified asthma severity | + + documented in this encounter"
--- OUTSIDE RECORDS SUMMARY | ~2018-11-05 | XMS | Encounter Summary ---
Demographics + + + | Address | [address] | | | [place] [address] | + + + | Home Phone [...] | | | | | [place] [address] | | + + + + + | Helena Reilly | ECON | UNK | | | | | [place] [address] | | + + + + + Care Team Providers + +------+ + | Care Ui Architect Name | Role | Phone | + [...] + + | 09/30/ | Telephone | [place] | Jeannie Argueta, | Lab Results | | 2016 | | [facility] [place] [address] | CNM [address] | | | | | E , [address] | [address] THE | | | | | [place], [place] | [place], [place] | | | | | [address] | [address] | | | | | [phone] | [phone] | | | | | | | [...]
--- OUTSIDE RECORDS SUMMARY | ~2018-11-05 | XMS | Encounter Summary ---
Demographics + + + | Address | [address] | | | [place] [address] | + + + | Home Phone | | + + + | Preferred Language | Unknown | + + + | Marital Status | Single | + + + | Hinduism Affiliation | NON | + + + [...] | | | | | [place] [address] | | + + + + + | Helena Reilly | ECON | UNK | | | | | [place] [address] | | + + + + + Care Team Providers + +------+ + | Care Heavy Equipment Engine Mechanic Name | Role | Phone | + +------+ + | Larry Lorenzo | PCP | | + +------+ + Reason for Visit +--------+ + | Reason | Comments | +--------+ + | Dizzy | | +--------+ + Encounter Details +--------+ + + + + | Date | Type | Department | Care Team | Description | +--------+ + + + + | 07/29/ | Telephone | [place] | Jeannie Argueta, | Dizzy | | 2016 | | [facility] [place] [address] | CNM [address] | | | | | [address] , [address] | [address] THE | | | | | [place], [place] | [place], [place] | | | | | [address] | [address] | | | | | [phone] | [phone] | | | | | | | [...]
--- OUTSIDE RECORDS SUMMARY | ~2018-11-05 | XMS | Encounter Summary ---
Demographics + + + | Address | [address] | | | [place] [address] | + + + | Home Phone | | + + + | Preferred Language | Unknown | + + + | Marital Status | Single | + + + | Mandaeism Affiliation | NON | + + + | Race | White | + + + | Ethnic Group | Not or | + + + Author + + + | Author | [facility] | + + + | Organization | [facility] | + + + | Address | Unknown | + + + | Phone | Unavailable | + + + Support + + + + + | Name | Relationship | Address | Phone | + + + + + | Dante Duenas | GISSELLE | [address] | | | | | [place] [address] | | + + + + + | Helena Reilly | ECON | UNK | | | | | [place] [address] | | + + + + + Care Team Providers + +------+ + | Care Supervisor Channel Process Name | Role | Phone | + +------+ + | Larry Lorenzo | PCP | | + +------+ + Encounter Details +--------+------+ + + + | Date | Type | Department | Care Team | Description | +--------+------+ + + + | 08/29/ | Lab | Laboratory at | | 28 weeks gestation | | 2016 | | [facility] | | of | | | | [facility] [address] | | | | | | E The | | | | | | [place] | | | | | | [address] | | | | | | [phone] | | | +--------+------+ + + + [...] 9.3 | 3.5 - 10.8 K/cu | [facility] | | | | | [...] this test. New adult WBC reference | [facility] | | ranges effective May 08, 2016 | MEDICAL CENTER | + + + + + + + + | Performing | Address | City/State/Zipcode | Phone Number | | Organization | | | | + + + + + | [facility] | And | [place] [address] | [phone] | | MEDICAL CENTER | Streets | [...] (H) | 60 - 140 mg/dL | [facility] | | | GLUCOSE - | [...] for the diagnosis of gestational diabetes | [facility] | | only. | MEDICAL CENTER | + + + + + + + + | Performing | Address | City/State/Zipcode | Phone Number | | Organization | | | | + + + + + | [facility] | [address] | [place] [address] | [phone] | | [facility] | [facility] | | | + + + + + documented in this encounter Visit Diagnoses + + | Diagnosis | + + | 28 weeks gestation of state, incidental | + + documented in this encounter"
--- OUTSIDE RECORDS SUMMARY | ~2018-11-05 | XMS | Encounter Summary ---
Demographics + + + | Address | [address] | | | [place] [address] | + + + | Home Phone | | + + + | Preferred Language | Unknown | + + + | Marital Status | Single | + + + | Yarsanism Affiliation | NON | + + + [...] [address] | | | | | [place] [address] | | + + + + + | Helena Barakatjoseph | ECON | UNK | | | | | [place] [address] | | + + + + + Care Team Providers + +------+ + | Care Venture Capital Analyst Name | Role | Phone | + [...] + + + | 05/31/ | | [place] | Jeannie Argueta, | | | 2016 | | [facility] [address] | CN[address] | | | | | E , [address] | [address] THE | | | | | [place], [place] | [place], [place] | | | | | [address] | [address] | | | | | [phone] | [phone] | | | | | | | [...] cannot see ev erything and thus cannot picking crew supervisor all problems, it can provide us with [...] after it's coupled with more information, may: propeller layout worker to be nothing. propeller layout worker to be something mild that won't affect the baby. propeller layout worker to be something more serious. But if [...] log into your My Chart account at [email or web address]. You can enter I453 in the Hand[employer] Library" s earch box. Not on MyChart? Review the MyChart section of your After Visit Summary for directions on ho w to sign up. [id number] [employer]. Care instructions adapted under license by [facility] [employer]. This care instruction is for use with your licensed healthcar e professional. If you have questions about a medical condition or this instruction, always ask your healthcare professional. [employer] disclaims any warranty or liabili ty for your use of this information. Content Version: 11.0.840295; Current as of: November 20, 2015 documented [...] scan in 4 wks ROBIN in 4w Macio Ram MA - 05/31/2016 10:45 AM PSTPt [...] | 1+ Streptococcus group A | | [facility] | | | RESULT | (A) | [...] | + + + + + | [facility] | And | [place] [address] | [phone] | | [facility] [place] | Streets | | | + + [...] [address], | [place] [address] | | | [facility] | [address] [...] [address], | [place] [address] | | | [facility] | [address] | | | + + + + + documented in this encounter Visit Diagnoses + + | Diagnosis | + + | with 15 completed weeks gestation - Primary | + + | Sore throat Acute pharyngitis | + + documented in this encounter
--- OUTSIDE RECORDS SUMMARY | ~2018-11-05 | XMS | Encounter Summary ---
Demographics + + + | Address | [address] | | | [place] [address] | + + + | Home Phone [...] Author + + + | Author | [facility] | + + + | Organization | [facility] | + + + | Address | Unknown | + + + | Phone | Unavailable | + + + Support + + + + + | Name | Relationship | Address | Phone | + + + + + | Dante Duenas | GISSELLE | [address] | | | | | [place] [address] | | + + + + + | Helena Reilly | ECON | UNK | | | | | [place] [address] | | + + + + + Care Team Providers + +------+ + | Care Orthophotography Technician Name | Role | Phone | [...] [place] | | | | | | [address] | | | | | | [phone] | | | +--------+------+ + + + [...]
--- OUTSIDE RECORDS SUMMARY | ~2018-11-05 | XMS | Encounter Summary ---
Demographics + + + | Address | [address] | | | [place] [address] | + + + | Home Phone [...] | | | | | [place] [address] | | + + + + + | Helena Hawleywil | ECON | UNK | | | | | [place] [address] | | + + + + + Care Team Providers + +------+ + | Care Linoleum Tile Floor Layer Name | Role | Phone | + +------+ + | Lrary Lorenzo | PCP | | + +------+ + Encounter Details +--------+ + + + + | Date | Type | Department | Care Team | Description | +--------+ + + + + | 05/31/ | Document-Sc | Laboratory at | Jeannie Argueta, | | | 2016 | anned | [place] | [address] | | | | | [facility] [address] | [address] | | | | | E The | [place], [place] | | | | | [place], [place] | [address] | | | | | [address] | [phone] | | | | | [phone] | | | +--------+ + + + [...]
--- OUTSIDE RECORDS SUMMARY | ~2018-11-05 | XMS | Encounter Summary ---
Demographics + + + | Address | [address] | | | [place] [address] | + + + | Home Phone [...] + + | Author | [facility] | + + + | Organization | [facility] | + + + | Address | Unknown | + + + | Phone | Unavailable | + + + Support + + + + + | Name | Relationship | Address | Phone | + + + + + | Dante Duenas | GISSELLE | [address] | | | | | [place] [address] | | + + + + + | Helena Reilly | ECON | UNK | | | | | [place] [address] | | + + + + + Care Team Providers + +------+ + | Care Activities Attendant Name | Role | Phone | + +------+ + | Larry Lorenzo | PCP | | + +------+ + Encounter Details +--------+------+ + + + | Date | Type | Department | Care Team | Description | +--------+------+ + + + | 09/26/ | Lab | Laboratory at | | 32 weeks gestation | | 2016 | | [place] | | of ; | | | | [facility] [address] | | [place] | | | | E The | | | | | | [place] | | | | | | [address] | | | | | | [phone] | | | +--------+------+ + + + [...] + | COMPLETE METABOLIC | Routin | 09/26/2016 | 32 weeks gestation | Results for this | | SET | e | 12:05 PM | of | procedure are in the | | (NA,K,CL,CO2,BUN,CRE | | PDT | | results section. | | AT,GLUC,CA,AST,ALT,B | | | | | | [place] TOTAL,ALK | | | | | | PHOS,ALB,PROT TOTAL) | | | | | + +--------+ + + + | HEMOGLOBIN A1C, | Routin | 09/26/2016 | 32 weeks gestation | Results for this | | BLOOD | e | 12:05 PM | of | procedure are in the | | | | PDT | | results section. | + +--------+ + + + | OSMOLALITY, URINE | Routin | 09/26/2016 | [place] | Results for this | | SPOT | e | 11:20 AM | | [...] | HEMOGLOBIN | 5.2 | % | [facility] | | | A1C | | | A MEDICAL | | | | | | CENTER | | + +-------+ + + + | ESTIMATED | 103 | mg/dL | [facility] | | | [place] | | | A MEDICAL | | | GLUCOSE | | | CENTER | | + +-------+ + + + + + | Specimen | + + | Blood | + + + + + | Narrative | Performed At | + + + | Glycohemoglobin Recommended Diabetic Ranges per DCCT & ADA: | [facility] | | Normal Range: | MEDICAL CENTER | | <6% Good | | | Control: <7% | | | Additional action suggested: >8% | | | Non-Diabetic Ranges: 4-6% | | | Unemployment Benefits Claims Taker's Glycohemoglobin Diabetic Ranges: | | | Normal Range: 4.0-6.0% | | | Good Control: | | | 6.0-8.0% Poor | | | Control: >8.0% | | + + + + + + + + | Performing | Address | City/State/Zipcode | Phone Number | | Organization | | | | + + + + + | [facility] | [place] | [place] [address] | [phone] | | [facility] | [facility] | | | + + + + [...] | | A MEDICAL | | | [place] | | | CENTER | | + [...] the MDRD equation recommended by the | [facility] | | National Kidney Disease Education Program. Estimated GFR | [facility] | | Interpretive Information: <60 mL/min/1.73 sq [...] | + + + + + | [facility] | And | [place] [address] | [phone] | | MEDICAL CENTER | Streets | | | + + + + + OSMOLALITY, URINE SPOT (09/26/2016 11:20 AM PDT) + +-------+ + + + | Component | Value | Ref Range | Performed | Pathologist | | | | | At | Signature | + +-------+ + + + | OSMOLALITY | 184 | 19 - 1,021 | [facility] | | | URINE | | mOsm/Kg H2O | A MEDICAL | | | | | | CENTER | | + +-------+ + + + + + | Specimen | + + | Urine | + + + + + | Narrative | Performed At | + + + | Reference Ranges: Random | [facility] | | Urine: 50-1200 mOm/kg H20 24 Hr., average fluid intake: | MEDICAL CENTER | | 300-900 mOm/kg H20 After 12 Hr. fluid restriction: >850 mOm/kg | | | H20 | | + + + + + + + + | Performing | Address | City/State/Zipcode | Phone Number | | Organization | | | | + + + + + | [facility] | [place] | [place] [address] | [phone] | | [facility] | Streets | | | + + + + + documented in this encounter Visit Diagnoses + + | Diagnosis | + + | 32 weeks gestation of state, incidental | + + | [place] | + + documented in this encounter"
--- OUTSIDE RECORDS SUMMARY | ~2018-11-05 | XMS | Encounter Summary ---
Demographics + + + | Address | [address] | | | [place] [address] | + + + | Home Phone | | + + + | Preferred Language | Unknown | + + + | Marital Status | Single | + + + | Shinto Affiliation | NON | + + + [...] | | | | | [place] [address] | | + + + + + | Helena Hawleywil | ECON | UNK | | | | | [place] [address] | | + + + + + Care Team Providers + +------+ + | Care Bankruptcy Manager Name | Role | Phone | [...] [place], [place] | | | | | [place] | [address] | | | | | [place], [place] | [phone] | | | | | [address] | | | | | | [phone] | | | +--------+ + + + [...]
--- OUTSIDE RECORDS SUMMARY | ~2018-11-05 | XMS | Encounter Summary ---
Demographics + + + | Address | [address] | | | [place] [address] | + + + | Home Phone [...] | | | | | [place] [address] | | + + + + + | Hel[place] Hawleywil | ECON | [place]K | | | | | [place] [address] | | + + + + + Care Team Providers + +------+ + | Care Coat Room Attendant Name | Role | Phone | + +------+ + | Larry Lorenzo | PCP | | + +------+ + Encounter Details +--------+ + + + + | Date | Type | Department | Care Team | Description | +--------+ + + + + | 05/20/ | Hospital | Diagnostic Imaging | | | | 2015 | Encounter | at [facility] | | | | | | [address] [place] [address] | | | | | | [place], [place] | | | | | | [address] | | | | | | [phone] | | | +--------+ + + + [...] | + +--------+ + + + | X-RAY CHEST 2 VIEW | Routin | 05/20/2016 | Shortness of | Results for this | | | e | 11:24 AM | breath | procedure are in the | | | | PST | | results section. | + +--------+ + + + documented in this encounter Results X-RAY CHEST 2 VIEW (05/20/2016 11:24 AM PST) + + | Specimen | + + | | + + + + + | Narrative | Performed At | + + + | [address] [place] [address] | [facility] | | [place], [place] [id number] [place] [address] | | [phone] | RADIOLOGY | | Name: QUANG REILLY Phys: FLOR BAHENA | | | : 1995 Sex: F CSN: | | | [id number] MR# [id number] Exam Date: | | | 05/20/2016 EXAM: X-RAY CHEST 2 VIEW CLINICAL HISTORY: | | | 21-year-old female with shortness of breath, cough. COMPARISON: | | | PA and lateral study of January 01, 2012. TECHNIQUE: PA and lateral | | | films were obtained. FINDINGS: Heart size and pulmonary vessels | | | remain normal. Lungs and pleural reflections are clear. There | | | are no signs of pneumonia, increased interstitial densities, | | | adenopathy or pleural effusion. There are right upper quadrant | | | cholecystectomy clips since the prior study. There is a tiny bone | | | island in the right humeral head. IMPRESSION: No evidence of | | | pneumonia. REPORT SIGNED IN OTHER VENDOR SYSTEM 05/20/2016 | | | Reported by: Larry Elizalde MD Electronically signed by: | | | Larry Elizalde MD Transcribed Date/Time: 05/20/2016 13:22 | | | Orchid Hand: FLUENCY | | + + + + + | Procedure Note | + + | Interface, Radiology Results - 05/20/2016 1:26 PM PST [address] | | [address] [place] [address] | | Name: ZOËMariuszQUANG Phys: FLOR BAHENA : 1995 Sex: F | | CSN: [id number] MR# [id number] Exam Date: 05/20/2016 EXAM:X-RAY CHEST 2 | | VIEW CLINICAL HISTORY:21-year-old female with shortness of breath, cough. COMPARISON:PA | | and lateral study of January 01, 2012. TECHNIQUE:PA and lateral films were obtained. | | FINDINGS:Heart size and pulmonary vessels remain normal. Lungs and pleuralreflections | | are clear. There are no signs of pneumonia, increasedinterstitial densities, adenopathy | | or pleural effusion. There areright upper quadrant cholecystectomy clips since the | | prior study.There is a tiny bone island in the right humeral head. IMPRESSION:No | | evidence of pneumonia. REPORT SIGNED IN OTHER VENDOR SYSTEM 05/20/2016 Reported | | by: Larry Elizalde MD Electronically signed by: Larry Elizalde MD Transcribed Date/Time: | | 05/20/2016 13:22Transcriptionist: FLUENCY | |X-RAY CHEST 2 VIEW | | | |CLINICAL HISTORY: | |21-year-old female with shortness of breath, cough. | | | |COMPARISON: | |PA and lateral study of January 01, 2012. | | | |TECHNIQUE: | |PA and lateral films were obtained. | | | |FINDINGS: | |Heart size and pulmonary vessels remain normal. Lungs and pleural | |reflections are clear. There are no signs of pneumonia, increased | |interstitial densities, adenopathy or pleural effusion. There are | |right upper quadrant cholecystectomy clips since the prior study. | |There is a tiny bone island in the right humeral head. | | | |IMPRESSION: | |No evidence of pneumonia. | | | | | | REPORT SIGNED IN OTHER VENDOR SYSTEM 05/20/2016 | |Reported by: Larry Elizalde MD | | | |Electronically signed by: Larry Elizalde MD | | | |Transcribed Date/Time: 05/20/2016 13:22 | |Orchid Hand: FLUENCY | | | | | | | [...] + | Diagnosis | + + | Shortness of breath | + + documented in this encounter"
--- OUTSIDE RECORDS SUMMARY | ~2018-11-05 | XMS | Encounter Summary ---
Demographics + + + | Address | [address] | | | [place] [address] | + + + | Home Phone [...] | | | | | [place] [address] | | + + + + + | Helena Hawleywil | ECON | [place]K | | | | | [place] [address] | | + + + + + Care Team Providers + +------+ + | Care Joint Setter Name | Role | Phone | + [...] Visit Follow-up | | 2016 | | [facility] [place] [address] | MD [address] | | | | | E , | | | | | | [place], [place] | [place], [place] | | | | | [address] | [address] | | | | | [phone] | [phone] | | | | | | | [...]
--- OUTSIDE RECORDS SUMMARY | ~2018-11-05 | XMS | Encounter Summary ---
Demographics + + + | Address | [address] | | | [place] [address] | + + + | Home Phone | | + + + | Preferred Language | Unknown | + + + | Marital Status | Single | + + + | Buddhist Affiliation | NON | + + + [...] | | | | | [place] [address] | | + + + + + | [place] Hawleywil | ECON | [place]K | | | | | [place] [address] | | + + + + + Care Team Providers + +------+ + | Care Shield Runner Name | Role | Phone | + +------+ + | Larry Lorenzo | PCP | | + +------+ + Reason for Visit + + + | Reason | Comments | + + + | Radiology Results | | + + + Encounter Details +--------+ + + + + | Date | Type | Department | Care Team | Description | +--------+ + + + + | 07/19/ | Telephone | [facility] [place] | Harpreet Sanabria MD | Radiology Results | | 2017 | | [facility] [address] | [address] | | | | | [address] , [address] | [address] [place], [place] | | | | | [place], [place] | [address] | | | | | [address] | [phone] | | | | | [phone] | | | +--------+ + + + [...]
--- OUTSIDE RECORDS SUMMARY | ~2018-11-05 | XMS | Encounter Summary ---
Demographics + + + | Address | [address] | | | [place] [address] | + + + | Home Phone [...] Author + + + | Author | [facility] | + + + | Organization | [facility] | + + + | Address | Unknown | + + + | Phone | Unavailable | + + + Support + + + + + | Name | Relationship | Address | Phone | + + + + + | Dante Duenas | GISSELLE | [address] | | | | | [place] [address] | | + + + + + | Helena Hawleywil | ECON | UNK | | | | | [place] [address] | | + + + + + Care Team Providers + +------+ + | Care Hot Walker Name | Role | Phone | + +------+ + | Larry Lorenzo | PCP | | + +------+ + Encounter Details +--------+ + + + + | Date | Type | Department | Care Team | Description | +--------+ + + + + | 11/30/ | Hospital | Post Care | | | | 2016 | Encounter | [facility] at [facility] | | | | | | Hospital [address] | | | | | [place] | | | | | | [place], [place] | | | | | | [address] | | | +--------+ + + + [...] + + + | Blood Pressure | 120/84 | 11/30/2016 11:42 AM | | | | | PDT | | + + + + + | Pulse | 86 | 11/30/2016 11:42 AM | | | | | PDT | | + + + + + | Temperature | 36.8 C (98.2 F) | 11/30/2016 11:42 AM | | | | | PDT | | + + + + + | Respiratory Rate | 16 | 11/30/2016 11:42 AM | | | | | PDT [...] + documented in this encounter Progress Notes Benny Thompson, JOSE - 11/30/2016 2:40 PM PDTPatient here 3 days ; VSS/afebrile; FF /light bleeding. Using Ibuprofen when she remembers. Patient seems cheerful. Mother and SO s eem to take care of infant as a team. States breasts seem heavier. Nipples have signs of cracking; now trying to heal. Using shie ld and gave shells this visit. No complaints for self; plan reviewed for . Stable for discharge. do cumented in this encounter Plan of Treatment Not on filedocumented as of this encounter Visit Diagnoses Not on filedocumented in this encounter"
--- OUTSIDE RECORDS SUMMARY | ~2018-11-05 | XMS | Encounter Summary ---
Demographics + + + | Address | [address] | | | [place] [address] | + + + | Home Phone | | + + + | Preferred Language | Unknown | + + + | Marital Status | Single | + + + | Moravian Affiliation | NON | + + + [...] | | | | | [place] [address] | | + + + + + | Helena Barakatjoseph | ECON | UNK | | | | | [place] [address] | | + + + + + Care Team Providers + +------+ + | Care Trimming Inspector Name | Role | Phone | + +------+ + | Larry Lorenzo | PCP | | + +------+ + Reason for Visit + + + | Reason | Comments | + + + | Appointment Question | | + + + Encounter Details +--------+ + + + + | Date | Type | Department | Care Team | Description | +--------+ + + + + | 03/05/ | Telephone | [place] | Jeannie Argueta, | Appointment Question | | 2016 | | [facility] [address] | CNM [address] | | | | | [address] , [address] | [address] | | | | | [place], [place] | [place], [place] | | | | | [address] | [address] | | | | | [phone] | [phone] | | | | | | | [...]
--- OUTSIDE RECORDS SUMMARY | ~2018-11-05 | XMS | Encounter Summary ---
Demographics + + + | Address | [address] | | | [place] [address] | + + + | Home Phone | | + + + | Preferred Language | Unknown | + + + | Marital Status | Single | + + + | Amish Affiliation | NON | + + + [...] | | | | | [place] [address] | | + + + + + | Hel[place] Barakatjoseph | ECON | UNK | | | | | [place] [address] | | + + + + + Care Team Providers + +------+ + | Care Second Facing Baster Name | Role | Phone | + +------+ + | Larry Lorenzo | PCP | | + +------+ + Reason for Visit + + + | Reason | Comments | + + + | | | + + + Consultation (Routine) +--------+--------+ + + + + | Status | Reason | Specialty | Diagnoses / | Referred By | Referred To | | | | | Procedures | Contact | Contact | +--------+--------+ + + + + | Closed | | Obstetrics & | Diagnoses | [facility] | | | | | Gynecology | Post-term | Supervisor Weaving Mob | [place], | | | | | | [address] | MD Jostin | | | | | Procedures | [address] | [address] | | | | | [place] | [place], | [address] | | | | | [place], | [place] | [place], | | | | | UTERUS,F/U,T | [address] | [place] [address] | | | | | RANSABD MARK ANTHONY | Phone: | Phone: | | | | | | [phone] | [phone] | | | | | | Fax: | Fax: | | | | | | [phone] | [phone] | +--------+--------+ + + + + Encounter Details +--------+ + + + + | Date | Type | Department | Care Team | Description | +--------+ + + + + | 11/22/ | | [place] | Pentopoulos, | | | 2017 | | [facility] [address] | MD Jostin [address] | | | | | [address] , [address] | | | | | [place], [place] | [place], [place] | | | | | [address] | [address] | | | | | [phone] | | | | | | | [...] + + + | Blood Pressure | 128/82 | 11/22/2016 9:43 AM | | | | | PDT [...] + + + + | Weight | 78.5 kg (173 lb) | 11/22/2016 9:43 AM | | | | | PDT | | + + + + + | Height | - | - | | + + + + + | Body Mass Index | 34.07 | 11/10/2016 8:44 PM | | | | | PDT | | + + + + + documented in this encounter Patient Instructions Patient Instructions Caterina Garcia RN - 11/22/2016 10:00 AM PDTContinue to monitor for a ny contractions, fluid leakage, bleeding or decreased movement. If you have bleeding o r decreased movement, are in labor or think your water has broken, please go to [facility] sions (Labor and Delivery). Please call if you have any concerns. After hours call [facility] pressions if you think you are in labor to let them know you are coming in. [phone]. documented in this encounter Progress Notes Caterina Garcia RN - 11/22/2016 10:00 AM PDTAFI today for postdates. documented in this encounter Plan of Treatment Not on filedocumented as of this encounter Procedures + +--------+ + + + | Procedure Name | Priori | Date/Time | Associated Diagnosis | Comments | | | ty | | | | + +--------+ + + + | NV US, | Routin | 11/22/2016 | Post-term | Results for this | | UTERUS,LIMITED, | e | | , 40-42 | procedure are in the | | FETUSES | | | weeks of gestation | results section. | + +--------+ + + + documented in this encounter Results NV US, UTERUS,LIMITED, /> FETUSES (11/22/2016) + + + | Impressions | Performed At | + + + | History: 21 y.o. at 40w5d weeks gestation post term presenting | | | for an KALEY Findings: De Leon in cephalic presentation KALEY: | | | 7.42 cm MVP: 6.1 cm Impression: 21 y.o. at 40w5d weeks | | | gestation: 1. De Leon fetus in cephalic presentation. 2. | | | Normal KALEY. Recommendations: I reviewed the findings of today's | | | ultrasound with Jennifer Reilly. Scheduled for IOL on Friday | | | 11/25. Electronically signed on 11/22/16 9:54 AM by Jostin | | | MD Grisel | | + + + documented in this encounter Visit Diagnoses + + | Diagnosis | + + | Post-term , 40-42 weeks of gestation - Primary Post term , | | unspecified episode of care | + + documented in this encounter"
--- OUTSIDE RECORDS SUMMARY | ~2018-11-05 | XMS | Encounter Summary ---
Demographics + + + | Address | [address] | | | [place] [address] | + + + | Home Phone [...] | | | | | [place] [address] | | + + + + + | Helena Reilly | ECON | UNK | | | | | [place] [address] | | + + + + + Care Team Providers + +------+ + | Care Shaping Machine Tender Name | Role | Phone | + +------+ + | Larry Lorenzo | PCP | | + +------+ + Encounter Details +--------+------+ + + + | Date | Type | Department | Care Team | Description | +--------+------+ + + + | 03/13/ | Lab | Laboratory at | | Dysuria | | 2016 | | Medical Office | | | | | | Building [address] | | | | | | [place], [place] | | | | | | [address] | | | | | | [phone] | | | +--------+------+ + + + [...] + | CULTURE, URINE | Routin | 03/13/2017 | Dysuria | Results for this | | | e | 8:30 AM | | procedure are in the | | | | PDT | | results section. | + +--------+ + + + | URINE, MICROSCOPIC | Routin | 03/13/2017 | Dysuria | Results for this | | EXAM | e | 8:30 AM | | procedure are in the | | | | PDT | | results section. | + +--------+ + + + documented in this encounter Results CULTURE, URINE (03/13/2017 8:30 AM PDT) + + + + + + | Component | Value | Ref Range | Performed | Pathologist | | | | | At | Signature | + + + + + + | CULTURE | >100,000 cfu/mL | | [facility] | | | RESULT | Escherichia coli; | | A MEDICAL | | | URINE | Presumptive (A) | | CENTER | | + + + + + + + + | Specimen | + + | Urine | + + + + +--------+ + | Organism | Antibiotic | Method | Susceptibility | + + +--------+ + | Escherichia coli; | Amikacin | | <=2: Sensitive | | Presumptive | | | | + + +--------+ + | Escherichia coli; | Ampicillin | | <=2: Sensitive | | Presumptive | | | | + + +--------+ + | Escherichia coli; | Ampicillin/Sulbactam | | <=2: Sensitive | | Presumptive | | | | + + +--------+ + | Escherichia coli; | Cefazolin | | <=4: Sensitive | | Presumptive | | | | + + +--------+ + | Escherichia coli; | Cefepime | | <=1: Sensitive | | Presumptive | | | | + + +--------+ + | Escherichia coli; | Cefoxitin | | <=4: Sensitive | | Presumptive | | | | + + +--------+ + | Escherichia coli; | Ceftazidime | | <=1: Sensitive | | Presumptive | | | | + + +--------+ + | Escherichia coli; | Ceftriaxone | | <=1: Sensitive | | Presumptive | | | | + + +--------+ + | Escherichia coli; | Ciprofloxacin | | <=0.25: Sensitive | | Presumptive | | | | + + +--------+ + | Escherichia coli; | Gentamicin | | <=1: Sensitive | | Presumptive | | | | + + +--------+ + | Escherichia coli; | Levofloxacin | | <=0.12: Sensitive | | Presumptive | | | | + + +--------+ + | Escherichia coli; | Meropenem | | <=0.25: Sensitive | | Presumptive | | | | + + +--------+ + | Escherichia coli; | Nitrofurantoin | | <=16: Sensitive | | Presumptive | | | | + + +--------+ + | Escherichia coli; | Piperacillin/Tazobac | | <=4: Sensitive | | Presumptive | levi | | | + + +--------+ + | Escherichia coli; | Tobramycin | | <=1: Sensitive | | Presumptive | | | | + + +--------+ + | Escherichia coli; | Trimethoprim/Sulfa | | <=20: Sensitive | | Presumptive | | | | + + +--------+ + + + + + + | Performing | Address | City/State/Zipcode | Phone Number | | Organization | | | | + + + + + | [facility] | And | [place] [address] | [phone] | | [facility] | Streets | [...] | [facility] | [facility] | [place] [address] | [phone] | | [facility] | Streets | | | + + + + + documented in this encounter Visit Diagnoses + + | Diagnosis | + + | Dysuria | + + documented in this encounter"
--- OUTSIDE RECORDS SUMMARY | ~2018-11-05 | XMS | Encounter Summary ---
Demographics + + + | Address | [address] | | | [place] [address] | + + + | Home Phone | | + + + | Preferred Language | Unknown | + + + | Marital Status | Single | + + + | Uatsdin Affiliation | NON | + + + [...] | + + + + + | Danet Duenas | GISSELLE | [address] | | | | | [place] [address] | | + + + + + | Helena Hawleywil | ECON | [place]K | | | | | [place] [address] | | + + + + + Care Team Providers + +------+ + | Care Epoxy Specialist Name | Role | Phone | [...] [address] | | | | | [place], [place] | [place], [place] | | | | | [address] | [address] | | | | | [phone] | [phone] | | | | | | | [...]
--- OUTSIDE RECORDS SUMMARY | ~2018-11-05 | XMS | Encounter Summary ---
Demographics + + + | Address | [address] | | | [place] [address] | + + + | Home Phone | | + + + | Preferred Language | Unknown | + + + | Marital Status | Single | + + + | Lutheran Affiliation | NON | + + + | Race | White | + + + | Ethnic Group | Not or | + + + Author + + + | Author | [facility] | + + + | Organization | [facility] | + + + | Address | Unknown | + + + | Phone | Unavailable | + + + Support + + + + + | Name | Relationship | Address | Phone | + + + + + | Dante Duenas | GISSELLE | [address] | | | | | [place] [address] | | + + + + + | Helena Reilly | ECON | UNK | | | | | [place] [address] | | + + + + + Care Team Providers + +------+ + | Care World History Teacher Name | Role | Phone | + +------+ + | Larry Lorenzo | PCP | | + +------+ + Reason for Visit + + + | Reason | Comments | + + + | Care Questions | | + + + Encounter Details +--------+ + + + + | Date | Type | Department | Care Team | Description | +--------+ + + + + | 06/18/ | Telephone | [facility] [place] | Jeannie Argueta, | Care Questions | | 2016 | | [facility] [address] | CN[address] | | | | | [address] , [address] | [address] | | | | | [place], [place] | [place] | | | | | [address] | [address] | | | | | [phone] | [phone] | | | | | | | [...]
--- OUTSIDE RECORDS SUMMARY | ~2018-11-05 | XMS | Encounter Summary ---
Demographics + + + | Address | [address] | | | [place] [address] | + + + | Home Phone | | + + + | Preferred Language | Unknown | + + + | Marital Status | Single | + + + | Holiness Affiliation | NON | + + + [...] | | | | | [place] [address] | | + + + + + | Helena Barakatjoseph | ECON | UNK | | | | | [place] [address] | | + + + + + Care Team Providers + +------+ + | Care Telecommunication Equipment Repairer Name | Role | Phone | + [...] + + + + | 10/08/ | | [facility] | Jeannie Argueta, | care | | 2017 | | [facility] [address] | CN[address] | | | | | [address] , [address] | [address] | | | | | [place], [place] | [place] | | | | | [address] | [address] | | | | | [phone] | | | | | | | [...] + + + | Blood Pressure | 120/66 | 10/08/2016 2:44 PM | | | | | PDT [...] + + + + | Weight | 72.6 kg (160 lb) | 10/08/2016 2:44 PM | | | | | PDT | | + + + + + | Height | - | - | | + + + + + | Body Mass Index | 31.51 | 04/23/2016 2:08 PM | | | | | PDT | | + + + + + documented in this encounter Patient Instructions Patient Instructions Mayte Yap MA - 10/08/2016 3:00 PM PDTPrenatal Visit - Week 34 Please read chapter 18 in your book. Group B Strep (GBS) At your next visit we will be obtaining a culture for Group B Strep (GBS). Group B strepto coccus is a bacteria. About 30% of women carry GBS in the vagina and/or rectum. For most a dults and children GBS is not a harmful bacteria. However, if it gets into the blood of a n ewborn it can cause serious illness. We will use two small Qtips to collect a sample from your vagina and rectum. The culture p rocedure takes just a few seconds and should not be uncomfortable. If the culture is positive for GBS we will want to give you antibiotics when you re in la bor to prevent your baby from infection. If you are allergic to Penicillin, let your doctor or domestic housekeeper know. Did you get your Tdap shot? Here s another reminder about the Tdap vaccine. We want the people who will be around yo ur baby to be immunized against diphtheria and pertussis. Remind those people to get their Tdap shot! And while you re at it .if it s Flu Season, have everyone get a flu shot. Family Medical Leave Act (FMLA) / Disability Most employers are required to allow a 12 week leave for caring for a new baby without risk of losing your job or health insurance. This is commonly unpaid unless you have saved up v acation and sick time. Your company can require you to have been working there for 12 month s before you are eligible. Some folks also have short-term disability plans that can help pr ovide a partial income for part of their leave. Both of these plans require paperwork with a part for you to complete and a part for us to complete. Make sure you get these forms to us soon so there is enough time for our staff to complete your paperwork and get it turned it. We ask you to allow a 2 week turn-around kellie e to get this done. Weeks 34 to 36 of Your : [...] be flexible in your expectations of the rt. Because each is different, there is no [...] log into your My Chart account at [email or web address] [email or web address]. You can enter B912 in the "Health Library" [facility] box. Not on RedKixhart? Review the MyChart section of your After Visit Summary for directions on ho w to sign up. Current as of: November 20, 2015 Content Version: 11.1 0433-9461 [employer]. Care instructions adapted under license by [facility] [place]. If you have questions about a medical condition or this instr uction, always ask your healthcare professional. [employer] disclaims any nino anty or liability for your use of this information. documented in this encounter Progress Notes Jeannie Argueta CNM - 10/08/2016 3:00 PM PDTS: She reports low abdominal cramping on/of f for the last 2 weeks. She will have cramping every 2 minutes for an hour or so and then it will go away for a couple of hours. No vb or lof. She has not been sexually active for 24 h ours. She states that she has noticed more pressure with urination. O: See flowsheet A/P PTC: Sent to LD to r/o PTL. Plan for FFN if uc present and SVE. U/A sent from clinic. Elect ronically signed by Jeannie Argueta CNM at 10/08/2016 3:10 PM Mayte Mistry MA - 3:00 PM PDTShe has been having cramping for the past 2 week. She does not notice h er abdomina tightening with this. They are happening daily and she is having multiple in an hour. She denies leaking or bleeding. -RENETTA Brizuela documented in this encounter Plan of Treatment Not on filedocumented as of this encounter Procedures + +--------+ + + + | Procedure Name | Priori | Date/Time | Associated Diagnosis | Comments | | | ty | | | | + +--------+ + + + | BONI PURVIS 4 | Routin | 10/08/2016 | 34 weeks gestation | Results for this | | | e | 2:43 PM | of | procedure are in the | | | | PDT | | results section. | + +--------+ + + + documented in this encounter Results REECE PURVIS W/ TIFFANY (10/08/2016 3:09 PM PDT) + + + [...] + | [facility] | [address] [place] [address], | [place] [address] | | | [facility] | [address] | | | + + + + + UA, DIP 4 (10/08/2016 2:43 PM PDT) + + + + + [...] + + + + + | [facility] | [address] [place] [address], | [place] [address] | | | [facility] | [address] | | | + + + + + documented in this encounter Visit Diagnoses + + | Diagnosis | + + | 34 weeks gestation of - Primary state, incidental | + + documented in this encounter
--- OUTSIDE RECORDS SUMMARY | ~2018-11-05 | XMS | Encounter Summary ---
Demographics + + + | Address | [address] | | | [place] [address] | + + + | Home Phone [...] | | | | | [place] [address] | | + + + + + | Helena Hawleywil | ECON | UNK | | | | | [place] [address] | | + + + + + Care Team Providers + +------+ + | Care Carpenter Railcar Name | Role | Phone | + [...] + + | 07/19/ | Telephone | [facility] | Harpreet Sanabria MD | Radiology Results | | 2017 | | [facility] [address] | [address] | | | | | [address] , [address] | [address] [place], [place] | | | | | [place], [place] | [address] | | | | | [address] | [phone] | | | | | [phone] | | | +--------+ + + + [...]
--- OUTSIDE RECORDS SUMMARY | ~2018-11-05 | XMS | Encounter Summary ---
Demographics + + + | Address | [address] | | | [place] [address] | + + + | Home Phone [...] | | | | | [place] [address] | | + + + + + | Helena Barakatjoseph | ECON | UNK | | | | | [place] [address] | | + + + + + Care Team Providers + +------+ + | Care Fraternity House Cook Name | Role | Phone | + [...] + + + | 09/26/ | | [facility] | Jeannie Argueta, | care | | 2017 | | [facility] [address] | CNM [address] | | | | | [address] , [address] | [address] | | | | | [place], [place] | [place] | | | | | [address] | [address] | | | | | [phone] | [phone] | | | | | | | [...] Hydrocortisone. Ask your doctor about taking an iffw-wrd-pkkjpuq stool softener. Consider Experts recommend that women [...] may help to think about your personal, methodist, and fami ly traditions. You get to [...] into your My Chart account at [email or web address]. You can enter X711 in the "[employer] Library" [facility] box. Not on [employer]-Krennhart? Review the MyChart section of your After Visit Summary for directions on ho w to sign up. Current as of: November 20, 2015 Content Version: 11.1 3591-0125 [employer]. Care instructions adapted under license by [facility] [employer]. If you have questions about a medical condition or this instr uction, always ask your healthcare professional. [employer] disclaims any nino anty or liability for [...] Diabetic Ranges per DCCT & ADA: | [facility] | | Normal Range: | [facility]ENTER | | <6% Good | | | Control: <7% | | | Additional action suggested: >8% | | | Non-Diabetic Ranges: 4-6% | | | Scale Model Maker's Glycohemoglobin Diabetic Ranges: | | | Normal Range: 4.0-6.0% | | | Good Control: | | | 6.0-8.0% Poor | | | Control: >8.0% | | + + + + + + + + | Performing | Address | City/State/Zipcode | Phone Number | | Organization | | | | + + + + + | [facility] | And | [place] [address] | [phone] | | [facility] | Streets | | | [...] | | A MEDICAL | | | [facility] | | | CENTER | | + [...] the MDRD equation recommended by the | [facility] | | National Kidney Disease Education Program. Estimated GFR | [facility] | | Interpretive Information: <60 mL/min/1.73 [...] | [facility] | [address] | [place] [address] | [phone] | | MEDICAL CENTER | Streets | | | + + + + + OSMOLALITY, URINE SPOT (09/26/2016 11:20 AM PDT) + +-------+ + + + | Component | Value | Ref Range | Performed | Pathologist | | | | | At | Signature | + +-------+ + + + | OSMOLALITY | 184 | 19 - ,021 | [facility] | | | URINE | | mOsm/Kg H2O | A MEDICAL | | | | | | CENTER | | + +-------+ + + + + + | Specimen | + + | Urine | + + + + + | Narrative | Performed At | + + + | Reference Ranges: Random | [facility] | | Urine: 50-1200 mOm/kg H20 24 Hr., average fluid intake: | [facility] | | 300-900 mOm/kg H20 After 12 Hr. fluid restriction: >850 mOm/kg | | | H20 | | + + + + + + + + | Performing | Address | City/State/Zipcode | Phone Number | | Organization | | | | + + + + + | [facility] | And | [place] [address] | [phone] | | MEDICAL CENTER | Streets | [address], | [place] [address] | | | [facility] | [address] | | | + + + + + documented in this encounter Visit Diagnoses + + | Diagnosis | + + | 32 weeks gestation of - Primary state, incidental | + + | Polydipsia | + + documented in this encounter
--- OUTSIDE RECORDS SUMMARY | ~2018-11-05 | XMS | Encounter Summary ---
Demographics + + + | Address | [address] | | | [place] [address] | + + + | Home Phone | | + + + | Preferred Language | Unknown | + + + | Marital Status | Single | + + + | Hindu Affiliation | NON | + + + [...] | | | | | [place] [address] | | + + + + + | Helena Barakatjoseph | ECON | UNK | | | | | [place] [address] | | + + + + + Care Team Providers + +------+ + | Care Committee Member Name | Role | Phone | + [...] + + | 01/08/ | Office | [facility] | Jeannie Argueta, | | | 2016 | Visit | [facility] [address] | [address] | examination or test, | | | | [address] , [address] | [address] | | | | | [place], [place] | [place], [place] | unconfirmed (Primary | | | | [address] | [address] | Dx) | | | | [phone] | [phone] | | | | | | | [...]
--- OUTSIDE RECORDS SUMMARY | ~2018-11-05 | XMS | Encounter Summary ---
Demographics + + + | Address | [address] | | | [place] [address] | + + + | Home Phone [...] Author + + + | Author | [facility] | + + + | Organization | [facility] | + + + | Address | Unknown | + + + | Phone | Unavailable | + + + Support + + + + + | Name | Relationship | Address | Phone | + + + + + | Dante Duenas | GISSELLE | [address] | | | | | [place] [address] | | + + + + + | Helena Barakatjoseph | ECON | UNK | | | | | [place] [address] | | + + + + + Care Team Providers + +------+ + | Care Director Television News Name | Role | Phone | + +------+ + | Larry Lorenzo | PCP | | + +------+ + Reason for Visit +--------+ + | Reason | Comments | +--------+ + | X-ray | chest | +--------+ + Encounter Details +--------+ + + + + | Date | Type | Department | Care Team | Description | +--------+ + + + + | 05/20/ | Telephone | [place] | Samantha Sanjuanita, | X-ray (chest ) | | 2015 | | [facility] [address] | Blanca, CRIME PREVENTION WORKER [address] | | | | | [address] , [address] | [address] | | | | | [place], [place] | [address] [place], [place] | | | | | [address] | [address] | | | | | [phone] | [phone] | | | | | | | [...]
--- OUTSIDE RECORDS SUMMARY | ~2018-11-05 | XMS | Encounter Summary ---
Demographics + + + | Address | [address] | | | [place] [address] | + + + | Home Phone [...] | | | | | [place] [address] | | + + + + + | Helena Barakatjoseph | ECON | UNK | | | | | [place] [address] | | + + + + + Care Team Providers + +------+ + | Care Paper Slitter Name | Role | Phone | + [...] + + | 07/18/ | Telephone | [place] | Jeannie Argueta, | Ultrasound | | 2017 | | [facility] [address] | CNM [address] | | | | | [address] , [address] | [address] | | | | | [place], [place] | [place], [place] | | | | | [address] | [address] | | | | | [phone] | | | | | | | [...]
--- OUTSIDE RECORDS SUMMARY | ~2018-11-05 | XMS | Encounter Summary ---
Demographics + + + | Address | [address] | | | [place] [address] | + + + | Home Phone [...] | | | | | [place] [address] | | + + + + + | Helena Hawleywil | ECON | UNK | | | | | [place] [address] | | + + + + + Care Team Providers + +------+ + | Care Sign Wirer Name | Role | Phone | + +------+ + | Larry Lorenzo | PCP | | + +------+ + Encounter Details +--------+ + + + + | Date | Type | Department | Care Team | Description | +--------+ + + + + | 05/10/ | Document-Sc | Laboratory at | [place], | | | 2016 | anned | [facility] | MD Jostin [address] | | | | | [facility] [address] | [address] | | | | | [address] | [place], [place] | | | | | [place], [place] | [address] | | | | | [address] | [phone] | | | | | [phone] | | | +--------+ + + + [...]
--- OUTSIDE RECORDS SUMMARY | ~2018-11-05 | XMS | Encounter Summary ---
Demographics + + + | Address | [address] | | | [place] [address] | + + + | Home Phone [...] Author + + + | Author | [facility] | + + + | Organization | [facility] | + + + | Address | Unknown | + + + | Phone | Unavailable | + + + Support + + + + + | Name | Relationship | Address | Phone | + + + + + | Dante Duenas | GISSELLE | [address] | | | | | [place] [address] | | + + + + + | Helena Reilly | ECON | UNK | | | | | [place] [address] | | + + + + + Care Team Providers + +------+ + | Care Sales Technician Name | Role | Phone | + +------+ + | Larry Lorenzo | PCP | | + +------+ + Encounter Details +--------+------+ + + + | Date | Type | Department | Care Team | Description | +--------+------+ + + + | 05/31/ | Lab | Laboratory at | | Encounter for | | 2015 | | Roney Choudhary | | supervision of | | | | [facility] [address] | | normal first | | | | E The | | in second | | | | [place], [place] | | trimester (Primary | | | | [address] | | Dx); Normal first | | | | [phone] | | confirmed, | | | | | | antepartum | +--------+------+ + + + Social History [...] | + +--------+ + + + | SERUM INTEGRATED | Routin | 05/31/2016 | Normal first | Results for this | | SCREEN #2 | e | 11:37 AM | confirmed, | procedure are in the | | | | PST | antepartum | results section. | + +--------+ + + + | CHLAM/GC APTIMA, | Routin | 05/31/2016 | Normal first | Results for this | | RNA, TMA | e | 11:37 AM | confirmed, | procedure are in the | | | | PST | antepartum | results section. | + +--------+ + + + | CULTURE, URINE | Routin | 05/31/2016 | Normal first | Results for this | | | e | 11:37 AM | confirmed, | procedure are in the | | | | PST | antepartum | results section. | + +--------+ + + + documented in this encounter Results [facility] SCREEN #2 (05/31/2016 11:37 AM PST) + + + + + + | Component | Value | Ref Range | Performed | Pathologist | | | | | At | Signature | + + + + + + | SERUM | Please see scanned | | [facility] | | | INTEGRATED | report for result. | | REFERENCE | | | SCREEN #2 | | | LAB | | + + + + + + + + | Specimen | + + | Blood | + + + + + | Narrative | Performed At | + + + | | [facility] | | Test performed by: | REFERENCE LAB | | [facility] | | | [address] | | | [place] [address] | | + + + + + + + + | Performing | Address | City/State/Zipcode | Phone Number | | Organization | | | | + + + + + | [facility] | | | | + + + + + | [facility] | See below | | | + + + + + CHLAM/GC APTIMA, RNA, TMA (05/31/2016 11:37 AM PST) + + + + + [...] | - [place] | | | | Assay([facility] [employer] | | | | | | [...] DIAGNOSTICS | [address] | [place] [address] | | | - [place] | [address] | | | + + + + + CULTURE, URINE (05/31/2016 11:37 AM PST) + + + + + + | Component | Value | Ref Range | Performed | Pathologist | | | | | At | Signature | + + + + + + | CULTURE | 100,000 cfu/mL | | [facility] | | | RESULT | Escherichia coli; | | A MEDICAL | | | URINE | Presumptive (A) | | CENTER | | + + + + + + + + | Specimen | + + | Urine | + + + + + + + | Organism | Antibiotic | Method | Susceptibility | + + + + + | Escherichia coli; | Amikacin | [facility] | Sensitive | | Presumptive | | | | + + + + + | Escherichia coli; | Ampicillin | [facility] | Sensitive | | Presumptive | | | | + + + + + | Escherichia coli; | Ampicillin/Sulbactam | [facility] | Sensitive | | Presumptive | | | | + + + + + | Escherichia coli; | Cefazolin | [facility] | Sensitive | | Presumptive | | | | + + + + + | Escherichia coli; | Cefepime | [facility] | Sensitive | | Presumptive | | | | + + + + + | Escherichia coli; | Cefoxitin | [facility] | Sensitive | | Presumptive | | | | + + + + + | Escherichia coli; | Ceftazidime | [facility] | Sensitive | | Presumptive | | | | + + + + + | Escherichia coli; | Ceftriaxone | [facility] | Sensitive | | Presumptive | | | | + + + + + | Escherichia coli; | Ciprofloxacin | [facility] | Sensitive | | Presumptive | | | | + + + + + | Escherichia coli; | Gentamicin | [facility] | Sensitive | | Presumptive | | | | + + + + + | Escherichia coli; | Levofloxacin | [facility] | Sensitive | | Presumptive | | | | + + + + + | Escherichia coli; | Meropenem | [facility] | Sensitive | | Presumptive | | | | + + + + + | Escherichia coli; | Nitrofurantoin | [facility] | Sensitive | | Presumptive | | | | + + + + + | Escherichia coli; | Piperacillin/Tazobac | [facility] | Sensitive | | Presumptive | levi | | | + + + + + | Escherichia coli; | Tobramycin | [facility] | Sensitive | | Presumptive | | | | + + + + + | Escherichia coli; | Trimethoprim/Sulfa | [facility] | Sensitive | | Presumptive | | | | + + + + + + + + + + | Performing | Address | City/State/Zipcode | Phone Number | | Organization | | | | + + + + + | [facility] | And | [place] [address] | [phone] | | [facility] | Streets | | | + + + + + documented in this encounter Visit Diagnoses + + | Diagnosis | + + | Encounter for supervision of normal first in second trimester - Primary | | Supervision of normal first | + + | Normal first confirmed, antepartum | + + documented in this encounter"
--- OUTSIDE RECORDS SUMMARY | ~2018-11-05 | XMS | Encounter Summary ---
Demographics + + + | Address | [address] | | | [place] [address] | + + + | Home Phone [...] | | | | | [place] [address] | | + + + + + | Helena Reilly | ECON | UNK | | | | | [place] [address] | | + + + + + Care Team Providers + +------+ + | Care Technology Administrator Name | Role | Phone | [...] + + | 01/27/ | Refill | [place] | Elizabeth Mayfield, | Refill Request | | 2018 | | [facility] [place] [address] | MD [address] , | | | | | [address] , [address] | [address] [place], [place] | | | | | [place], [place] | [address] | | | | | [address] | [phone] | | | | | [phone] | | | +--------+--------+ + + + [...]
--- OUTSIDE RECORDS SUMMARY | ~2018-11-05 | XMS | Encounter Summary ---
Demographics + + + | Address | [address] | | | [place] [address] | + + + | Home Phone [...] Author + + + | Author | [facility] | + + + | Organization | [facility] | + + + | Address | Unknown | + + + | Phone | Unavailable | + + + Support + + + + + | Name | Relationship | Address | Phone | + + + + + | Dante Duenas | GISSELLE | [address] | | | | | [place] [address] | | + + + + + | Helena Reilly | ECON | UNK | | | | | [place] [address] | | + + + + + Care Team Providers + +------+ + | Care Power System Dispatcher Name | Role | Phone | + [...] + + + + | 09/02/ | Telephone | [place] | Harpreet Sanabria MD | Lab Results | | 2017 | | [facility] [place] [address] | [address] | | | | | [address] | [address] [place], [place] | | | | | [place], [place] | [address] | | | | | [address] | [phone] | | | | | [phone] | | | +--------+ + + + [...]
--- OUTSIDE RECORDS SUMMARY | ~2018-11-05 | XMS | Encounter Summary ---
Demographics + + + | Address | [address] | | | [place] [address] | + + + | Home Phone [...] Author + + + | Author | [facility] | + + + | Organization | [facility] | + + + | Address | Unknown | + + + | Phone | Unavailable | + + + Support + + + + + | Name | Relationship | Address | Phone | + + + + + | Dante Duenas | GISSELLE | [address] | | | | | [place] [address] | | + + + + + | Helena Reilly | ECON | UNK | | | | | [place] [address] | | + + + + + Care Team Providers + +------+ + | Care Lockstitch Waistline Joiner Name | Role | Phone | + +------+ + | Larry Lorenzo | PCP | | + +------+ + Reason for Visit + + + | Reason | Comments | + + + | Lab Results | Rapid strep | + + + Encounter Details +--------+ + + + + | Date | Type | Department | Care Team | Description | +--------+ + + + + | 05/31/ | Telephone | [facility] | Jeannie Argueta, | Lab Results (Rapid | | 2015 | | [facility] [address] | CNM [address] | strep) | | | | [address] , [address] | [address] | | | | | [place], [place] | [place], [place] | | | | | [address] | [address] | | | | | [phone] | [phone] | | | | | | | [...]
--- OUTSIDE RECORDS SUMMARY | ~2018-11-05 | XMS | Encounter Summary ---
Demographics + + + | Address | [address] | | | [place] [address] | + + + | Home Phone | | + + + | Preferred Language | Unknown | + + + | Marital Status | Single | + + + | Rastafarian Affiliation | NON | + + + [...] | | | | | [place] [address] | | + + + + + | Helena Hawleywil | ECON | UNK | | | | | [place] [address] | | + + + + + Care Team Providers + +------+ + | Care Entry Engineer Name | Role | Phone | + +------+ + | Larry Lorenzo | PCP | | + +------+ + Encounter Details +--------+ + + + + | Date | Type | Department | Care Team | Description | +--------+ + + + + | 10/24/ | | [place] | Jeannie Argueta, | | | 2016 | | [facility] [address] | CNM [address] | | | | | [address] , [address] | [address] | | | | | [place], [place] | [place], [place] | | | | | [address] | [address] | | | | | [phone] | [phone] | | | | | | | [...] think about when making your decision. The [place] [employer] has some helpful information [...] be flexible in your expectations of the [facility]. Because each is different, there is [...] account at [email or web address]. You can enter B912 in the "Health Library" [facility] box. Not on Generous Deals? Review the Playviewshart section of your After Visit Summary for directions on timbo w to sign up. Current as of: November 20, 2015 Content Version: 11.2 2927-0102 [employer]. Care instructions adapted under license by [facility]. If you have questions about a medical condition or this instr uction, always ask your healthcare professional. [employer] disclaims any nino anty or liability for [...] + + | [facility] | [address] | [place] [address] | [phone] | | [facility] | [facility] | | | + + + + + documented in this encounter Visit Diagnoses + + | Diagnosis | + + | 36 weeks gestation of - Primary state, incidental | + + documented in this encounter
--- OUTSIDE RECORDS SUMMARY | ~2018-11-05 | XMS | Encounter Summary ---
Demographics + + + | Address | [address] | | | [place] [address] | + + + | Home Phone [...] | | | | | [place] [address] | | + + + + + | Helena Hawleywil | ECON | UNK | | | | | [place] [address] | | + + + + + Care Team Providers + +------+ + | Care Corporate Travel Consultant Name | Role | Phone | + [...] | 2015 - | | Department at [facility] | [facility] | | | | | Hospital [address] | [facility] [address] | | | 10/10/ | | [place] | [address] | | | 2015 | | [place], [place] | [place] [address] | | | | | [address] | [phone] | | | | | [phone] | | | +--------+ + + + [...] y within several hours. Home treatment and eeyw-qmc-mcgaybg medicine often are able to contr ol [...] yourself at home? Your doctor may recommend xhbn-xar-hiogxrd medicine. For mild or occasional indigestion, antacids such as Tums, Gaviscon, Mylanta, or Maalox may help. Your doctor also may recommen d cptg-ctg-jgnulua acid reducers, such as Pepcid AC, Tagamet HB, Zantac 75, or Prilosec. [place]sn[place]rock d and follow all instructions on the [...] Heartburn): Care Instructions", log into you r [employer] account at [email or web address]. You can enter W912 in the [employer] y" search box. Not on [employer]? Review the [employer] section of your After Visit Summary for directions on ho w to sign up. [phone] [email or web address]. Care instructions adapted under license by [facility]. This care instruction is for use with your licensed healthcar e professional. If you have questions about a medical condition or this instruction, always ask your healthcare professional. [email or web address] disclaims any warranty or liabili ty for your use of this information. Content Version: 10.8.485098; Current as of: May 12, 2015 Abdominal [...] "Abdominal Pain: Care Instructions", log into your [employer] account at h [email or web address]. You can enter E907 in the [employer] Library" search box. Not on [employer]? Review the MyChart section of your After Visit Summary for directions on timbo aquino to sign up. [phone] [email or web address]. Care instructions adapted under license by [facility]. This care instruction is for use with your licensed healthcar e professional. If you have questions about a medical condition or this instruction, always ask your healthcare professional. [email or web address] disclaims any warranty or liabili ty for your use of this information. Content Version: 10.8.716431; Current as of: November 11, 2014 documented [...] + + | [facility] | [address] | [place] [address] | [phone] | | MEDICAL CENTER | Streets | [...] | | A MEDICAL | | | [place] | | | CENTER | | + +---------+ + + + | EGFR NON | >60 | >60 mL/min | [facility] | | | -JENNY | | | A MEDICAL | | | [place]ICAN | | | CENTER | | + +---------+ + + + | ANION GAP | 16 | 12 - 20 mmol/L | [facility] | | | | | | A MEDICAL | | | | | | CENTER | | + +---------+ + + + | BUN/CREATIN | 13 | 6 - 20 | [facility] | | | INE RATIO | | | A MEDICAL | | | | | | CENTER | | + +---------+ + + + + + | Specimen | + + | Blood | + + + + + | Narrative | Performed At | + + + | GFR is estimated using the MDRD equation recommended by the | [facility] | | National Kidney Disease Education Program. Estimated GFR | [facility] | | Interpretive Information: <60 mL/min/1.73 [...] | + + + + + | [facility] | And | [place] [address] | [phone] | | [facility] | Streets | | | + [...] | + + + + + | [facility] | And | [place] [address] | [phone] | | MEDICAL CENTER | Streets | | | + + + + + HCG (URINE ONLY) (10/10/2015 7:49 PM PDT) + + + + + + | Component | Value | Ref Range | Performed | Pathologist | | | | | At | Signature | + + + + + + | HCG QUAL | Negative | mIU/mL | [facility] | | | URINE | Comment: [...] + + | [facility] | And | [place] [address] | [phone] | | MEDICAL CENTER | Streets | [...] | + + + + + | [facility] | And | [place] [address] | [phone] | | MEDICAL CENTER | Streets | [...]
--- OUTSIDE RECORDS SUMMARY | ~2018-11-05 | XMS | Encounter Summary ---
Demographics + + + | Address | [address] | | | [place] [address] | + + + | Home Phone | | + + + | Preferred Language | Unknown | + + + | Marital Status | Single | + + + | Christian Affiliation | NON | + + + | Race | White | + + + | Ethnic Group | Not or | + + + Author + + + | Author | [facility] | + + + | Organization | [facility] | + + + | Address | Unknown | + + + | Phone | Unavailable | + + + Support + + + + + | Name | Relationship | Address | Phone | + + + + + | Dante Duenas | ECON | [address] | | | | | [place] [address] | | + + + + + | Helena Reilly | ECON | UNK | | | | | [place] [address] | | + + + + + Care Team Providers + +------+ + | Care Wine Sales Representative Name | Role | Phone | + [...] | | | | | [place] [address] | | | | | | [phone] | | | | | | | [...] | + + + + + | [facility] | | [place] [address] | | | [facility] | Streets | | | + + + + + documented in this encounter Visit Diagnoses Not on filedocumented in this encounter"
--- OUTSIDE RECORDS SUMMARY | ~2018-11-05 | XMS | Encounter Summary ---
Demographics + + + | Address | [address] | | | [place] [address] | + + + | Home Phone | | + + + | Preferred Language | Unknown | + + + | Marital Status | Single | + + + | Jain Affiliation | NON | + + + [...] | | | | | [place] [address] | | + + + + + | Helena Hawleywil | ECON | [place]K | | | | | [place] [address] | | + + + + + Care Team Providers + +------+ + | Care Comic Book Writer Name | Role | Phone | + [...] [address] | | | | | [address] | [place] [address] [address] | | | | | | [place] [address] | | | | | | [phone] | | | | | | | [...] Kush Peña MD - 01/06/2012 8:24 PM [facility] | | REPORT OF [id number] [place] [address] | | MEIRNICHOLASQUANG VeeMAI OF OPERATION: 01/06/2012SURGEON: [...] proceedwith laparoscopic | | cholecystectomy.QUANG [id number] : [id number] | | DATE:DESCRIPTION OF PROCEDURE: After informed [...] A 12-mm trocar was then placed and [id number] was achieved. We then | | turned [...] theumbilical | | port site. The suction hr representative was then used to irrigate the rightupper [...] 01/06/2012 15:46:22DT: 01/06/2012 | | 20:18:16Job #: [id number]: [facility]Electronically Signed 01/08/12 | | | | 1047 | | | | | | | | | | | | | | Kush Lerner | | [place] Peña SHANIA [id number] : [birth year][id number] DATE: | |dissection used to enter the [...] the | |umbilical port site. The suction hr representative was then used to irrigate the right [...] |CHAVA/Maryann | | | | | | /[id number] | | | | | |cc: Lou Russell | |Electronically Signed 01/08/12 1047 | | | | | | Kush Peña MD | | | | | | | | | | | | | | | | | |ZOËMariuszQUANGPJ MIRELES | |[id number] : 95 | |[id number] | |ADMIT DATE: | + + documented in this encounter Visit Diagnoses Not on filedocumented in this encounter"
--- OUTSIDE RECORDS SUMMARY | ~2018-11-05 | XMS | Encounter Summary ---
Demographics + + + | Address | [address] | | | [place] [address] | + + + | Home Phone [...] | | | | | [place] [address] | | + + + + + | Helena Reilly | ECON | [place]K | | | | | [place] [address] | | + + + + + Care Team Providers + +------+ + | Care Freight Dispatcher Name | Role | Phone | + +------+ + | Larry Lorenzo | PCP | | + +------+ + Encounter Details +--------+------+ + + + | Date | Type | Department | Care Team | Description | +--------+------+ + + + | 09/26/ | Lab | Laboratory at | | 32 weeks gestation | | 2016 | | [place] | | of ; | | | | [facility] [address] | | [place] | | | | [address] | | | | | | [place] | | | | | | [address] | | | | | | [phone] | | | +--------+------+ + + + [...] | HEMOGLOBIN | 5.2 | % | [facility] | | | A1C | | | A MEDICAL | | | | | | CENTER | | + +-------+ + + + | ESTIMATED | 103 | mg/dL | [facility] | | | [place] | | | A MEDICAL | | | GLUCOSE | | | CENTER | | + +-------+ + + + + + | Specimen | + + | Blood | + + + + + | Narrative | Performed At | + + + | Glycohemoglobin Recommended Diabetic Ranges per DCCT & ADA: | [facility] | | Normal Range: | MEDICAL CENTER | | <6% Good | | | Control: <7% | | | Additional action suggested: >8% | | | Non-Diabetic Ranges: 4-6% | | | Shear Operator Helper's Glycohemoglobin Diabetic Ranges: | | | Normal Range: 4.0-6.0% | | | Good Control: | | | 6.0-8.0% Poor | | | Control: >8.0% | | + + + + + + + + | Performing | Address | City/State/Zipcode | Phone Number | | Organization | | | | + + + + + | [facility] | [place] | [place] [address] | [phone] | | [facility] | [facility] | | | + + + [...] | | A MEDICAL | | | [place] | | | CENTER | | + [...] the MDRD equation recommended by the | [facility] | | National Kidney Disease Education Program. Estimated GFR | [facility] | | Interpretive Information: <60 mL/min/1.73 [...] | + + + + + | [facility] | And | [place] [address] | [phone] | | MEDICAL CENTER | Streets | | | + + + + + OSMOLALITY, URINE SPOT (09/26/2016 11:20 AM PDT) + +-------+ + + + | Component | Value | Ref Range | Performed | Pathologist | | | | | At | Signature | + +-------+ + + + | OSMOLALITY | 184 | 19 - 1,021 | [facility] | | | URINE | [...] | + + + + + | [facility] | [place] | [place] [address] | [phone] | | [facility] | Streets | | | + + + + + documented in this encounter Visit Diagnoses + + | Diagnosis | + + | 32 weeks gestation of state, incidental | + + | [place] | + + documented in this encounter"
--- OUTSIDE RECORDS SUMMARY | ~2018-11-05 | XMS | Encounter Summary ---
Demographics + + + | Address | [address] | | | [place] [address] | + + + | Home Phone [...] Author + + + | Author | [facility] | + + + | Organization | [facility] | + + + | Address | Unknown | + + + | Phone | Unavailable | + + + Support + + + + + | Name | Relationship | Address | Phone | + + + + + | Dante Duenas | GISSELLE | [address] | | | | | [place] [phone] | | + + + + + | Helena Reilly | ECON | [address] | | | | | [place] [address] | | + + + + + Care Team Providers + +------+ + | Care Senior Safety Support Manager Name | Role | Phone | + +------+ + | Larry Lorenzo | PCP | | + +------+ + Reason for Visit + + + | Reason | Comments | + + + | Onset Of | patient reports painful contractions at 2200 on 11/24 | | Contractions | | + + + AUTH/CERT +--------+--------+ + + + + | [...] | +--------+ + + + + | 06/05/ | Hospital | Maternity Services | Katarina Soria | | | 2017 - | Encounter | at [facility] | MD Jeremy,S [address] | | | | | [address] | [address] | | | 11/28/ | | [place], [place] | [place], [place] | | | 2016 | | [address] | [phone] | | | | | [phone] | [phone] | | | | | | | | | | | | Michaelaoponydia, | | | | | | MD Jostin [address] | | | | | | [address] | | | | | | [place], [place] | | | | | | [address] | | | | | | [phone] | | | | | | | | | | | | Jeannie Argueta, | | | | | | CNM [address] | | | | | | [address] [place] | | | | | | [place], [place] | | | | | | [address] | | | | | | [phone] | | | | | | | [...] + + + | Blood Pressure | 118/70 | 11/28/2016 9:14 AM | | | | | PDT | | + + + + + | Pulse | 91 | 11/28/2016 9:14 AM | | | | | PDT | | + + + + + | Temperature | 36.7 C (98.1 F) | 11/28/2016 9:14 AM | | | | | PDT | | + + + + + | Respiratory Rate | 16 | 11/28/2016 9:14 AM | | | | | PDT | | + + + + + | Oxygen Saturation | 97% | 11/28/2016 9:14 AM | | | | | PDT | | + + + + + | Inhaled Oxygen | - | - | | | Concentration | | | | + + + + + | Weight | 78.5 kg (173 lb) | 11/25/2016 5:07 AM | | | | | PDT | | + + + + + | Height | 151.8 cm (4' 11.75") | 11/25/2016 5:07 AM | | | | | PDT | | + + + + + | Body Mass Index | 34.07 | 11/25/2016 5:07 AM | | | | | PDT | | + + + + + documented in this encounter Discharge Summaries Harpreet Sanabria MD - 11/28/2016 8:47 AM PDT INPATIENT OB PHYSICIAN DISCHARGE SUMMARY Attending Physician: Harpreet Sanabria MD Admission Date: 11/25/2016 Discharge Date: 11/28/16 Admission Diagnoses: 1) [id number].41 41 weeks gestation of Procedures During admission: Vaginal, Spontaneous Delivery [250] Hospital Course: Patient was admitted on 11/25/2016 for induction of labor for post dates gestational age. He r labor was induced with Pitocin. She was given penicillin throughout labor for her GBS pos itive status. She went on to have a spontaneous vaginal delivery. Her course was complicated by urinary retention on day 1. On ppd 2, she was discharged home i n stable condition. On this day, she was able to and, void without difficulty, and her pain was minimal. Day of discharge exam: Last Vitals: BP 137/81 | Pulse 74 | Temp (Src) 36.6 C (97.9 F) (Oral) | RR 18 | Ht 1.51 8 m (4' 11.75") | Wt 78.5 kg (173 lb) | SpO2 99% | ? Unknown | BMI 34.07 kg/(m^ 2) 24 Hour Vital Min/Max: Systolic (24hrs), Av , Min:102 , Max:137 Diastolic (24hrs), Av, Min:61, Max:83 Pulse Min: 74 Max: 102 Temp Min: 36.6 C (97.9 F) Max: 36.9 C (98.5 F) Resp Min: 18 Max: 20 SpO2 Min: 97 % Max: 99 % Intake/Output Summary (Last 24 hours) at 11/28/16 0848 Last data filed at 11/27/16 2122 Gross per 24 hour Intake 2200 ml Output 6100 ml Net -3900 ml Gen: NAD Lungs: Breathing easily Breasts: Nontender, no erythema Abd: Soft, nontender, fundus firm & below umbilicus Ext: nontender, no edema Discharge Medication List as of 11/28/2016 8:52 AM START taking these medications Details docusate sodium 100 mg oral capsule Take 1 capsule by mouth two times daily., Disp-30 capsu le, R-0, eRx ibuprofen 800 mg oral tablet Take 1 tablet by mouth every eight hours as needed for moderat e pain., Disp-30 tablet, R-0, eRx CONTINUE these medications which have NOT CHANGED Details vitamins, with calcium, iron-folic acid 27 mg iron- 1 mg oral tablet Take 1 tablet by mouth once daily., Historical Med Future Appointments Provider Department Dept Phone Center 12/25/2016 11:30 AM Jeannie Argueta [facility] [place] [phone] [facility] Schedule the following appointment(s) when you get home Follow up with [facility] On 11/30/2016. Why: As scheduled, for Post Care Clinic at 11:00am Contact information [address] [place] [address] Harpreet Sanabria MD documented in this enco unter Discharge Instructions Instructions Mara Ortiz RN - 11/28/2016Postpartum: Care Instructions Your Care Instructions After childbirth ( period), your body goes through many changes. Some of these ch anges happen over several weeks. In the hours after delivery, your body will begin to recove r from childbirth while it prepares to breastfeed your . You may feel emotional durin g this time. Your hormones can shift your mood without warning for no clear reason. In the first couple of weeks after childbirth, many women have emotions that change from kilgore ppy to sad. You may find it hard to sleep. You may cry a lot. This is called the "baby blues ." These overwhelming emotions often go away within a couple of days or weeks. But it's impo rtant to discuss your feelings with your doctor. It is easy to get too tired and overwhelmed during the first weeks after childbirth. Don't try to do too much. Get rest whenever you can, accept help from others, and eat well and dri nk plenty of fluids. About 4 to 6 weeks after your baby's , you will have a follow-up visit with your docto r. This visit is your time to talk to your doctor about anything you are concerned or curiou s about. Follow-up care is a mclaughlin part of your treatment and safety. Be sure to make and go to all ap pointments, and call your doctor if you are having problems. It's also a good idea to know y our test results and keep a list of the medicines you take. How can you care for yourself at home? Sleep or rest when your baby sleeps. Get help with railroad hand from family or friends, if you can. Do not try to do it a ll yourself. If you have hemorrhoids or swelling or pain around the opening of your vagina, try using cold and heat. You can put ice or a cold pack on the area for 10 to 20 minutes at a time. P ut a thin cloth between the ice and your skin. Also try sitting in a few inches of warm wate r (sitz bath) 3 times a day and after bowel movements. Take pain medicines exactly as directed. If the doctor gave you a prescription medicine for pain, take it as prescribed. If you are not taking a prescription pain medicine, ask your doctor if you can take an o gcu-kdm-jmxibun medicine. Eat more fiber to avoid constipation. Include foods such as whole-grain breads and cerea ls, raw vegetables, raw and dried fruits, and beans. Drink plenty of fluids, enough so that your urine is light yellow or clear like water. I f you have kidney, heart, or liver disease and have to limit fluids, talk with your doctor b efore you increase the amount of fluids you drink. Do not rinse inside your vagina with fluids (douche). If you have stitches, keep the area clean by pouring or spraying warm water over the are a outside your vagina and anus after you use the toilet. Keep a list of questions to bring to your visit. Your questions might be abou t: Changes in your breasts, such as lumps or soreness. When to expect your menstrual period to start again. What form of control is best for you. Weight you have put on during the . Exercise options. What foods and drinks are best for you, especially if you are . Problems you might be having with . When you can have sex. Some women may want to talk about lubricants for the vagina. Any feelings of sadness or restlessness that you are having. When should you call for help? Call 911 anytime you think you may need emergency care. For example, call if: You have thoughts of harming yourself, your baby, or another person. You passed out (lost consciousness). Call your doctor now or seek immediate medical care if: Your vaginal bleeding seems to be getting heavier. You are dizzy or lightheaded, or you feel like you may faint. You have a fever. Watch closely for changes in your health, and be sure to contact your doctor if: You have new or worse vaginal discharge. You feel sad or depressed. You are having problems with your breasts or . Where can you learn more? To learn more about ": Care Instructions", log into your [facility] account at http: [email or web address]. You can enter Z768 in the "Health Library" search box. Not on [facility]? Review the [facility] section of your After Visit Summary for directions on ho w to sign up. Current as of: November 20, 2015 Content Version: 11.2 6496-5744 [employer]. Care instructions adapted under license by [facility] & [facility]. If you have questions about a medical condition or this instr uction, always ask your healthcare professional. [employer] disclaims any nino anty or liability for your use of this information. documented in this encounter Progress Notes Fernanda Enriquez RN - 11/27/2016 5:52 PM PDTVS WNL. FF, bleeding light. Receiving ibupro fen and norco PO prn for pain, reports effective. Ice to perineum, swelling decreasing. Up a d christian. UOP WNL, voiding with difficulty in the am progressing to voiding with the urge ever y two hours followed by bladder scan. Pentopoulos aware of residual urine. new born every 2-3 hours as needed with nipple shield. Yovanny Au RN - 11/27/2016 4:27 AM PDTPatient labored co mfortably with epidural throughout the night and proceeded to complete. Noted to have elevat ed temperatures and amp/gent started. Patient delivered a viable female over an episi otomy which was repaired by MD Sanabria and SCOTT Argueta. Ice applied to perineum post repair. Fund us has remained firm u/2 with mod/light flow. Skin to skin initiated with infant post warmer and MD assessment and initiated. Patient afebrile with stable vital signs. St rait cath at delivery for large amt. Of clear yellow urine. Jeannie Gill CNM - 11/27/2016 3:30 AM PDTS: Pt pu shing well. O: FHT: 170 bpm, minimal to moderate variability, variable decelerations with push. [place]: Q 3 SVE: Complete/+3 Amp and Gen are infusing A: FHR Cat 2 P: I called and consulted with Dr Sanabria regarding considering VE assisted as for the las t 20 minutes, the variability has decreased and despite the tylenol, the FHR hasn't returned to normal range. She recommended continuing to monitor for 20 more minutes. If FHR variabil ity returns to moderate ok to continue to push. If minimal variability, will call her back a nd she will come in to assist with . Dr Irvin is concrete finishing machine operator for Peds and has been notified and will be called for delivery.Camille ctronically signed by Jeannie Argueta CNM at 11/27/2016 3:52 AM Jeannie Gill CNM - 11/27/2016 2:30 AM PDTS: Called to evaluate patient due to tachycardia 160-170's f or the last 20 minutes. Temperature taken orally and was 99.7, 100.6 axillary. This was done as pt has been drinking a large amount of water. O: Last Vitals: BP 101/60 | Pulse 88 | Temp (Src) 37 C (98.6 F) (Oral) | RR 22 | Ht 1.518 m (4' 11.75") | Wt 78.5 kg (173 lb) | SpO2 97% | BMI 34.07 kg/(m^2) 24 Hour Vital Min/Max: Systolic (24hrs), Av , Min:101 , Max:144 Diastolic (24hrs), Av, Min:60, Max:94 Pulse Min: 88 Max: 105 Resp Min: 18 Max: 22 SpO2 Min: 94 % Max: 98 % FHT: 170bpm, moderate variability, no accels, intermittent variable decel with uc [place]: 1-3 SVE: Complete/+3 Pitocin is off A: tachycardia and maternal fever, suspect chorioamnionitis FHR Cat 2 P: Tylenol 650mg given PO. Called and notified Dr Sanabria. Will begin treatment for suspected ch orio with Amp and Gentamycin. ray, Jeannie Ansari CNM - 11/27/2016 1:06 AM PDTIntrapartum Note Subjective Pt having intermittent urge to push. Called by RN to evaluate for onset of tachycardi a. FHT's 160-170bpm, during time in room reduced to 150's. Objective Temp: 37.3 C (99.1 F) (11/26/161999) Pulse: 90 (11/26/161999) Resp: 18 (11/26/161999) BP: 113/70 (11/26/161999) Pain Management : Epidural anesthesia (11/27/16105) Contraction Intensity: strong by palpation (11/27/16105) MVU: 110 (11/26/161999) Frequency of Contractions: regular (11/27/16105) Frequency (min): Q 2-5 (11/27/16105) Baseline FHR: 158 (11/27/16105) Variability: Moderate: 6-25bpm (11/27/16105) Accelerations: > 15 bpm, >15 sec, < 2 min (11/27/16105) Decelerations: Variable-mild (11/27/16105) Reactivity: Category 2 (11/27/16105) SVE: Not done (11/26/161842) Dilation (cm): 9.5 (11/27/16105) Effacement (%): 100 (11/27/16105) Station: 1 (11/27/16105) Consistency: 2-Soft (11/27/16105) Position: 2-Anterior (11/27/16105) Caput noted. Pitocin off but resumed at 1 mu due to development of irregular uc Assessment FHR Cat 2 Plan Anterior lip on right side. Attempted push x1 to reduce and anterior lip remained. FHR has returned to baseline and accelerations present with scalp stimulation. IUPC has not been a r eliable source of measurement. Max MVU's noted 150 mmhg, there has been steady cervical martin ge therefore not replaced. Continue to adjust pitocin as needed to achieve regular uc withou t tachysystole. Plan to repeat SVE in about 1 hour. Jeannie Argueta CNM ray, Jeannie Ansari CNM - 11/26/2016 9:15 PM PDTIntrapartum Note Subjective Resting well. Feels shaky at times and passing gas. Objective Temp: 36.9 C (98.5 F) (11/26/161938) Pulse: 93 (11/26/161829) Resp: 18 (11/26/161829) BP: 134/76 (11/26/161829) Pain Management : Epidural anesthesia (11/26/162114) Contraction Intensity: Brice Units (MVU) (IUPC not tracing well, has been flushed a nd pt reporsitioned) (11/26/162114) Frequency of Contractions: regular (11/26/162114) Frequency (min): Q 2 (11/26/162114) Baseline FHR: 155 (11/26/162114) Variability: Moderate: 6-25bpm (11/26/162114) Accelerations: > 15 bpm, >15 sec, < 2 min (11/26/161842) Decelerations: Variable-mild (11/26/162114) Reactivity: Reactive;Category 2 (11/26/162114) SVE: Not done (11/26/161842) Dilation (cm): 7 (11/26/162114) Effacement (%): 100 (11/26/162114) Station: 1 (11/26/162114) Consistency: 2-Soft (11/26/162114) Position: 2-Anterior (11/26/162114) Pit at 5 mu Assessment FHR Cat 1 Plan Pt repositioned and IUPC appeared to be reading more effectively. Continue pitocin as neede d. PLan repeat exam in about 2 hours or as indicated. Jeannie Argueta CNM eannie Argueta CNM - 11/26/2016 7:42 PM PDTIntrapartum Note Subjective Remains comfortable. Mild nausea. RN report difficulty tracing uc when side lying, requesti ng IUPC Objective Temp: 36.9 C (98.5 F) (11/26/161938) Pulse: 93 (11/26/161829) Resp: 18 (11/26/161829) BP: 134/76 (11/26/161829) Pain Management : Epidural anesthesia (11/26/161939) Contraction Intensity: moderate by palpation (11/26/161939) Frequency of Contractions: regular (11/26/161939) Frequency (min): Q 2-4 (11/26/161939) Baseline FHR: 150 (11/26/161939) Variability: Moderate: 6-25bpm (11/26/161939) Accelerations: > 15 bpm, >15 sec, < 2 min (11/26/161842) Decelerations: None (11/26/161939) Reactivity: Category 1 (11/26/161939) SVE: Not done (11/26/161842) Dilation (cm): 6 (11/26/161939) Effacement (%): 100 (11/26/161939) Station: 1 (11/26/161939) Consistency: 2-Soft (11/26/161939) Position: 2-Anterior (11/26/161939) Pit at 4 mu. IUPC placed with standard procedure, fetus and pt tolerated well. acceleration with s calp stimulation during exam. Assessment FHR Cat 1 IUPC placement Plan Continue to adjust pitocin as needed. Jeannie Argueta CNM eannie Argueta CNM - 11/26/2016 6:44 PM PDTIntrapartum Note Subjective Resting comfortably. Objective Temp: 37 C (98.6 F) (11/26/16 1723) Pulse: 99 (11/26/16 1730) Resp: 18 (11/26/16 1528) BP: 107/61 (11/26/16 1730) Pain Management : Epidural anesthesia (11/26/161842) Contraction Intensity: moderate by palpation (11/26/161842) Frequency of Contractions: regular (11/26/161842) Frequency (min): Q 3-5 (11/26/161842) Baseline FHR: 150 (11/26/161842) Variability: Moderate: 6-25bpm (11/26/161842) Accelerations: > 15 bpm, >15 sec, < 2 min (11/26/161842) Decelerations: None (11/26/161842) Reactivity: Reactive;Category 1 (11/26/161842) SVE: Not done (11/26/161842) Dilation (cm): 5 (11/26/16 1554) Effacement (%): 90 (11/26/16 1554) Station: 1 (11/26/16 1554) Consistency: 2-Soft (11/26/16 1306) Position: 1-Midposition (11/26/16 1306) Pit at 3 mu Assessment FHR Cat 1 Plan Continue pitocin augmentation. Jeannie Argueta CNM Fernanda Burgess RN - 11/26/2016 5:15 PM [id number] Cat 2 strip, recurrent variables. Increase IVF. Say Argueta to bedside, SVE, FHR 180s, 99.4F maternal temp. Frequent maternal position changes. Orders for 1000cc IV fluid bolus. Pitocin off. Continue to monitor FHR strip, 1715 Cat 1-2 strip, revie wed by Say Argueta, pitocin restarted. Electronically signed by Fernanda Enriquez RN at 7 6:07 PM Jeannie Gill CNM - 11/26/2016 4:17 PM PDTIntrapartum Note Subjective Pt remains comfortable. Denies pain, aches or chills. Objective Temp: 37.3 C (99.2 F) (11/26/16 1557) Pulse: 94 (11/26/16 1628) Resp: 18 (11/26/16 1528) BP: 118/74 (11/26/16 1628) Frequency of Contractions: regular (11/26/16 1615) Frequency (min): Q 3 min (11/26/16 1615) Baseline FHR: 180 (11/26/16 1615) Variability: Moderate: 6-25bpm (11/26/16 1615) Accelerations: no (11/26/16 1615) Decelerations: None (11/26/16 1306) Reactivity: Category 2 (11/26/16 1306) Assessment tachycardia Plan Baby very active after and prior to exam and initially felt there was a prolonged accelerat ion but tachycardia did not resolve. Pt was repositioned and fluid bolus initiated without r eturn to normal baseline. I called and consulted with Dr Sanabria. She recommended a full 1 lit er bolus and tylenol PO. She will come in to evaluate if this does not resolve the tachycard ia. Pitocin turned off Jeannie Argueta CNM ray, Jeannie Ansari CNM - 11/26/2016 4:01 PM PDTIntrapartum Note Subjective Continues to be comfortable with epidural in place. Objective Temp: 37.2 C (98.9 F) (11/26/16 1458) Pulse: 92 (11/26/16 1528) Resp: 18 (11/26/16 1528) BP: 120/60 (11/26/16 1528) Frequency of Contractions: irregular (11/26/16 1117) Frequency (min): Q 8min (11/26/16 1306) Baseline FHR: 150 (11/26/16 1306) Variability: Moderate: 6-25bpm (11/26/16 1306) Accelerations: > 15 bpm, >15 sec, < 2 min (11/26/16 1306) Decelerations: early and occasional variable (11/26/16 1600) Reactivity: Reactive;Category 1-2 (11/26/16 1600) Dilation (cm): 5 (11/26/16 1600) Effacement (%): 90 (11/26/16 1600) Station: +1 (11/26/16 1600) Consistency: 2-Soft (11/26/16 1600) Position: Anterior (11/26/16 1600) Pitocin at 4 mu Assessment FHR Cat 1 Plan Continue to increase pitocin per protocol. Will plan to place IUPC with next exam if cervix does not make change. Jeannie Argueta CNM eannie Argueta CNM - 11/26/2016 1:08 PM PDTIntrapartum Note Subjective Received epidural, comfortable now. Objective Temp: 37.1 C (98.7 F) (11/26/16 0745) Pulse: 99 (11/26/16 1222) Resp: 20 (11/26/16 1213) BP: 136/76 (11/26/16 1224) Frequency of Contractions: irregular (11/26/16 1117) Frequency (min): Q 8min (11/26/16 1306) Baseline FHR: 150 (11/26/16 1306) Variability: Moderate: 6-25bpm (11/26/16 1306) Accelerations: > 15 bpm, >15 sec, < 2 min (11/26/16 1306) Decelerations: None (11/26/16 1306) Reactivity: Reactive;Category 1 (11/26/16 1306) Dilation (cm): 5 (11/26/16 1306) Effacement (%): 90 (11/26/16 1306) Station: -1 (11/26/16 1306) Consistency: 2-Soft (11/26/16 1306) Position: 1-Midposition (11/26/16 1306) Assessment FHR Cat 1 Plan Begin pitocin augmentation per protocol. Jeannie Argueta CNM Jeannie Gill CNM - 11/26/2016 11:18 AM PDTIntrapartum Note Subjective She has been up to shower and ambulate. Contractions are reported as painful and she would like to get an epidural. Objective Temp: 37.1 C (98.7 F) (11/26/1645) Pulse: 94 (11/26/16 0745) Resp: 20 (11/26/1645) BP: 128/81 (11/26/1645) Frequency of Contractions: irregular (11/26/161116) Frequency (min): Q 5-7 (11/26/161116) Baseline FHR: 150 (11/26/161116) Variability: Moderate: 6-25bpm (11/26/161116) Accelerations: > 15 bpm, >15 sec, < 2 min (11/26/161116) Decelerations: Variable-mild (11/26/161116) Reactivity: Category 2 (11/26/161116) Dilation (cm): 4.5 (11/26/161116) Effacement (%): 90 (11/26/161116) Station: -1 (11/26/161116) Consistency: 2-Soft (11/26/161116) Position: 1-Midposition (11/26/161116) Non-repetitive mild variable decels noted. Moderate variability and accels present. + scalp stimulation. AROM for thick meconium stained fluid Assessment AROM Augmentation of labor FHR Cat 1-2 Plan Anesthesia called for epidural. Will plan to start pitocin if indicated if AROM does not al low provide progression into regular uc. Jeannie Argueta CNM ray, Jeannie Ansari CNM - 11/26/2016 7:45 AM PDTIntrapartum Note Subjective Feeling painful this morning. She has not slept except for a brief nap and is fatigued. She is considering an epidural but would like to get up and shower and walk first. RN has just completed SVE. She received low dose pitocin overnight but this was stopped due to intermittent periods of tachysystole. She has received 2 doses of PCN. Objective Temp: 36.8 C (98.2 F) (11/26/16312) Pulse: 92 (11/26/16312) Resp: 20 (11/26/16312) BP: 131/84 (11/26/16312) Dilation (cm): 4 (11/26/16 0730) Effacement (%): 90 (11/26/16 0730) Station: -1 (11/26/16 0545) Pitocin off Assessment Latent labor GBS positive FHR Cat 1 Plan She has started to make cervical change. She will get up to shower and go on a walk. Will p pérez to repeat SVE in 1-2 hours. If no change, will discuss restarting pitocin or AROM. Dr Sanabria is back up physician today Jeannie Argueta CNM ent[place], [place] MD - 11/25/2016 6:11 PM PDTIntrapartum Note ID: Jennifer Reilly is a 21 y.o. T0 P0 SAB0 TAB0 L0 Mult0 Ect0 at 41w1d admit zach for contractions. Patient was scheduled for induction this evening. Subjective Still feels contractions, some stronger than others. Objective Temp: 36.6 C (97.9 F) (11/25/16 1600) Pulse: 86 (11/25/16 1600) Resp: 18 (11/25/16 1600) BP: 129/76 (11/25/16 1600) Dilation (cm): 1.5 (11/25/16 0544) Effacement (%): 75 (11/25/16 0544) Station: -1 (11/25/1644) Assessment/Plan Labor -Not in labor - will start low dose Pitocin this evening. status - intermittent monitoring throughout the day which has been reassuring GBS - positive. Will start penicillin when Pitocin is started. Pain control: Considering epidural when in labor. Jostin Recinos MD documented in th is encounter Plan of Treatment Not on filedocumented as of this encounter Procedures + +--------+ + + + | Procedure Name | Priori | Date/Time | Associated Diagnosis | Comments | | | ty | | | | + +--------+ + + + | REPAIR OF PERINEAL | Routin | 11/27/2016 | | Results for this | | LACERATION | e | 8:33 PM | | procedure are in the | | | | PDT | | results section. | + +--------+ + + + | VAGINAL DELIVERY | Routin | 11/27/2016 | | Results for this | | | e | 1:14 PM | | procedure are in the | | | | PDT | | results section. | + +--------+ + + + | SURGICAL PATHOLOGY | Routin | 11/27/2016 | | Results for this | | | e | | | procedure are in the | | | | | | results section. | + +--------+ + + + | CBC W/DIFF, REFLEX | Routin | 11/25/2016 | 41 weeks gestation | Results for this | | | e | 5:40 AM | of | procedure are in the | | | | PDT | | results section. | + +--------+ + + + | CBC AND AUTO DIFF | Routin | 11/25/2016 | 41 weeks gestation | Results for this | | | e | 5:40 AM | of | procedure are in the | | | | PDT | | results section. | + +--------+ + + + | ANTIBODY SCREEN | Routin | 11/25/2016 | 41 weeks gestation | Results for this | | | e | 5:40 AM | of | procedure are in the | | | | PDT | | results section. | + +--------+ + + + | TYPE AND SCREEN | Routin | 11/25/2016 | 41 weeks gestation | Results for this | | | e | 5:40 AM | of | procedure are in the | | | | PDT | | results section. | + +--------+ + + + | ABO & RH TYPE | Routin | 11/25/2016 | 41 weeks gestation | Results for this | | | e | 5:40 AM | of | procedure are in the | | | | PDT | | results section. | + +--------+ + + + | AMNISURE | Routin | 11/25/2016 | | Results for this | | | e | 4:20 AM | | procedure are in the | | | | PDT | | results section. | + +--------+ + + + documented in this encounter Results REPAIR OF PERINEAL LACERATION (11/27/2016 8:33 PM PDT) + + + | Narrative | Performed At | + + + | Harpreet Sanabria MD 11/27/2016 8:33 PM Late entry from 0500 | | | Pre-procedure diagnosis: Possible 3rd degree perineal | | | laceration/ extension of episiotomy Post-procedure diagnosis: Deep | | | 2nd degree perineal laceration/ extension of episiotomy EBL | | | during procedure: minimal I was called to the patient's room this | | | morning to evaluate for a possible 3rd degree perinea | | | laceration. When I arrived, the patient had completed a | | | spontaneous vaginal delivery with a medial episiotomy and | | | uncomplicated delivery of the placenta. A rectal exam was | | | performed demonstrating intact anal mucosa and sphincter. The | | | rectovaginal septum was supported with a suture of 3-0 Vicryl and a | | | second deep suture was placed to support the capsule of the external | | | anal sphincter with 3-0 Vicryl. The remainder of the routine 2nd | | | degree perineal laceration was performed by Jeannie Argueta CNM. | | | Harpreet Sanabria MD | | + + + VAGINAL DELIVERY (11/27/2016 1:14 PM PDT) + + + | Narrative | Performed At | + + + | Jeannie Argueta CNM 11/27/2016 1:14 PM [facility] | | | Delivery Note Patient's Name: Melba | | | Jennifer : 1995 Primary Diagnosis | | | Intrauterine at 41w3d Additional Diagnoses None | | | Procedure Delivery method: Vaginal, Spontaneous Delivery [250] | | | Anesthesia: Epidural [3] Membranes: 11/26/2016 11:09 | | | AM Artificial [2] Meconium [3] Lacerations: Episiotomy | | | [13];Labial [10] Degree: GBS: Positive Antibiotics: | | | PCN Placenta Appearance: Intact Cord: 3 Vessels [3] None [1] | | | EBL: 300 's Name: Melba | | | [place] Delivery Date: 11/27/2016 Delivery Time: 4:27 | | | AM weight: 3.748 kg (8 lb 4.2 oz) APGARS @ 1 | | | minute: 9 [9] APGARS @ 5 minutes: 9 [9] Cord Gases | | | Sent: Yes [1] Labor Summary Jennifer Reilly is a 21 | | | y.o. admitted at 41w0d for latent labor. She was managed | | | expectantly then received Oxytocin [6];AROM [7] for | | | induction/augmentation of labor. Amniotic fluid noted to be thick | | | meconium. She received epidural for pain control. FHTs were Category | | | 1-2 throughout the first stage. She had IUPC placement to assist in | | | monitoring of contractions and adjusting of the pitocin. She had a | | | period of tachycardia in the first stage without maternal | | | fever that resolved with position change, IV fluid bolus and | | | tylenol. She then developed a maternal fever in the second stage of | | | labor causing tachycardia. Ampicillin and Gentamycin given for | | | suspected chorioamnionitis. She progressed along a normal labor | | | curve once in active labor and progressed to complete dilation. | | | Pitocin was turned on and off throughout her labor for variation | | | between inadequate and tachysystole uc. Dr Irvin for pediatrics | | | called to be present at due to tachycardia and thick | | | meconium. She pushed for 1 hour 44 min to deliver a viable infant in | | | JANET position. RML episiotomy was cut due to tachycardia with | | | decelerations and perineum not accommodating delivery of head. After | | | episiotomy, head delivered in 1 push. The head and shoulders | | | delivered easily. Infant with initiation of cry spontaneously but | | | due to the thick meconium, mouth and then nose was bulb suctioned | | | after delivery and the cord was clamped and cut. Infant handed over | | | to Dr Irvin at [facility] Pitocin was infused at 75mU/hr for | | | active management of the third stage. The placenta delivered with | | | cord traction and fundal massage. On inspection, there was a | | | Episiotomy [13];Labial [10] laceration that was repaired with a 3-0 | | | vicryl in the standard fashion. Dr Sanabria was called to evaluate for | | | a possible 3rd degree episiotomy extension. See her note for | | | repair. Right labial laceration repaired with 4-0 | | | vicryl. Excellent hemostasis was achieved. Sponge, instrument, | | | and needle counts were correct. Patient remained stable in the | | | LDRP. Cord Gas Indication: Category II FHR tracing ; | | | Meconium Cord Gas Results: Jeannie Argueta, | | | CNM | | + + + SURGICAL PATHOLOGY (11/27/2016) + + + + + + | Component | Value | Ref Range | Performed | Pathologist | | | | | At | Signature | + + + + + + | SURGICAL | THIS IS AN AMENDED | | [facility] | | | PATHOLOGY | REPORT SOURCE OF | | A MEDICAL | | | | SPECIMEN:A Placenta and | | CENTER | | | | cord Final | | | | | | Pathologic | | | | | | Diagnosis:Placenta and | | | | | | cord, delivery: | | | | | | - 495 GRAM G[address]NADOS | | | | | | PLACENTA WITH THREE | | | | | | VESSEL UMBILICAL | | | | | | CORD - PARTIALLY | | | | | | THINNED PLACENTA; SEE | | | | | | COMMENTS - NO | | | | | | EVIDENCE OF | | | | | | CHORIOAMNIONITIS OR | | | | | | FUNISITIS - | | | | | | MECONIUM STAINING OF | | | | | | MEMBRANES | | | | | | Comments: As | | | | | | described in the gross | | | | | | description, a portion | | | | | | (approximately1/3rd) of | | | | | | the placenta is markedly | | | | | | thinned (<1 | | | | | | cm). Microscopicexami | | | | | | nation of this area | | | | | | shows infarcted areas | | | | | | with increased | | | | | | syncytialknots and | | | | | | numerous | | | | | | calcifications. The | | | | | | findings are not | | | | | | necessarilypathological | | | | | | and may be found in | | | | | | normal healthy | | | | | | placentas. However | | | | | | withinthe appropriate | | | | | | clinical context, they | | | | | | raise the possibility of | | | | | | | | | | | | placentalinsufficiency. | | | | | | Clinical | | | | | | History:Suspected | | | | | | chorioamnionitis. Feb | | | | | | rile in labor, | | | | | | tachycardia. Placenta | | | | | | and cord. Gross | | | | | | Description:Received in | | | | | | formalin in a single | | | | | | container with the | | | | | | patient's | | | | | | identifyinginformation | | | | | | and "6/7 at 4:50," is a | | | | | | placental disk with | | | | | | attached membranesand | | | | | | cord. Grossly the | | | | | | membrane and cord have a | | | | | | yellowish-green | | | | | | tingegrossly consistent | | | | | | with meconium | | | | | | staining. The | | | | | | membranes otherwise | | | | | | appearto be | | | | | | translucent. The cord | | | | | | measures 25 cm in | | | | | | length and is | | | | | | insertedeccentrically | | | | | | approximately 5 cm from | | | | | | the disk margin. The | | | | | | overallplacental disk | | | | | | measures up to 19 cm in | | | | | | diameter with a | | | | | | thickness of up to | | | | | | 3cm. By palpation, | | | | | | approximately 1/3rd of | | | | | | the placental disk is | | | | | | notablythinner than the | | | | | | remainder measuring down | | | | | | to <1 cm in | | | | | | thickness. Theumbilic | | | | | | al cord is removed and | | | | | | reveals that it is a | | | | | | 3-vessel cord with | | | | | | nogrossly obvious knots, | | | | | | strictures, or | | | | | | hematomas. A | | | | | | electroplating sales representative | | | | | | crosssection of the | | | | | | umbilical cord is | | | | | | submitted in cassette | | | | | | A1. A membrane | | | | | | norberto edge of the | | | | | | placental disk is also | | | | | | sampled and placed in | | | | | | cassette A1.The | | | | | | remainder of the | | | | | | membranes is then | | | | | | removed and set | | | | | | aside. Theplacental | | | | | | disk without the cord | | | | | | and membranes weighs 495 | | | | | | | | | | | | grams. Additionalrepr | | | | | | esentative sections of | | | | | | the membranes, including | | | | | | some areas of | | | | | | looselyadherent blood | | | | | | clot are submitted in | | | | | | cassette A2. The | | | | | | maternal surface ofthe | | | | | | placental disk is | | | | | | inspected and shows | | | | | | normal appearing | | | | | | cotyledons | | | | | | andfissures. Other | | | | | | than the thinned area | | | | | | previously mentioned, | | | | | | the maternalsurface is | | | | | | serially sectioned to | | | | | | 2-3 cm sections. No | | | | | | significantintraplacenta | | | | | | l hemorrhage or infarcts | | | | | | are noted. The | | | | | | previously mentionedthin | | | | | | section is confirmed to | | | | | | measure down to 2 mm in | | | | | | | | | | | | thickness. Arepresent | | | | | | ative section of this | | | | | | thinned area are | | | | | | submitted in cassette | | | | | | A3.One more section | | | | | | through the center of | | | | | | the placental disk is | | | | | | submitted incassette | | | | | | A4. HH/rle | | | | | | Microscopic | | | | | | Description:Microscopic | | | | | | examination performed by | | | | | | Rolf Gomez MD. | | | | | | CPT | | | | | | Code(s): 32441 | | | | | | My electronic | | | | | | signature indicates that | | | | | | I have personally | | | | | | reviewed alldiagnostic | | | | | | slides, the gross and/or | | | | | | microscopic portion of | | | | | | thisreport and | | | | | | formulated the final | | | | | | diagnosis. | | | | | | Rendering | | | | | | Diagnostician: Rolf | | | | | | Jason | | | | | | IvanPathologistElectroni | | | | | | charu Signed | | | | | | 11/29/2016 4:49PM | | | | + + + + + + + + | Specimen | + + | Tissue | + + + + + + + | Performing | Address | City/State/Zipcode | Phone Number | | Organization | | | | + + + + + | [facility] | And | [place] [address] | [phone] | | [facility] | [address] | | | + + + + + CBC AND AUTO DIFF (11/25/2016 5:40 AM PDT) + + + + + + | Component | Value | Ref Range | Performed | Pathologist | | | | | At | Signature | + + + + + + | WBC COUNT | 11.7 (H) | 3.5 - 10.8 K/cu | [facility] | | | | | mm | A MEDICAL | | | | | | CENTER | | + + + + + + | RED CELL | 4.35 | 4.00 - 5.20 | [facility] | | | COUNT | | M/cu mm | A MEDICAL | | | | | | CENTER | | + + + + + + | HEMOGLOBIN | 12.1 | 12.0 - 16.0 | [facility] | | | | | g/dL | A MEDICAL | | | | | | CENTER | | + + + + + + | HEMATOCRIT | 35.7 (L) | 36.0 - 46.0 % | [facility] | | | | | | A MEDICAL | | | | | | CENTER | | + + + + + + | MCV | 82.2 | 80.0 - 96.0 fL | [facility] | | | | | | A [facility] | | | | | | CENTER | | + + + + + + | MCH | 27.8 (L) | 28.0 - 34.7 pg | [facility] | | | | | | A [facility] | | | | | | CENTER | | + + + + + + | MCHC | 33.8 | 33.0 - 35.5 | [facility] | | | | | g/dL | A MEDICAL | | | | | | CENTER | | + + + + + + | RDW | 16.0 (H) | 11.5 - 15.0 % | [facility] | | | | | | A [facility] | | | | | | CENTER | | + + + + + + | PLATELET | 292 | 150 - 400 K/cu | [facility] | | | COUNT | | mm | A MEDICAL | | | | | | CENTER | | + + + + + + | MPV | 8.1 | 7.5 - 11.2 fL | [facility] | | | | | | A [facility] | | | | | | CENTER | | + + + + + + | NEUTROPHIL | 78.6 (H) | 50.0 - 70.0 % | [facility] | | | % | | | A [facility] | | | | | | CENTER | | + + + + + + | LYMPHOCYTE | 14.3 (L) | 18.0 - 42.0 % | [facility] | | | % | | | A MEDICAL | | | | | | CENTER | | + + + + + + | MONOCYTE % | 5.8 | 3.5 - 9.0 % | [facility] | | | | | | A [facility] | | | | | | CENTER | | + + + + + + | EOS % | 1.1 | 1.0 - 3.0 % | [facility] | | | | | | A [facility] | | | | | | CENTER | | + + + + + + | BASO % | 0.2 | 0.0 - 2.0 % | [facility] | | | | | | A [facility] | | | | | | CENTER | | + + + + + + | NEUTROPHIL | 9.20 (H) | 1.80 - 7.70 | [facility] | | | # | | K/cu mm | A MEDICAL | | | | | | CENTER | | + + + + + + | LYMPHOCYTE | 1.70 | 1.00 - 4.80 | [facility] | [...] | 0.00 | 0.00 - 0.10 | [facility] | | | | | K/cu mm [...] + + | [facility] | [address] | [place] [address] | [phone] | | MEDICAL [facility] | [address] | | | + + + + + ANTIBODY SCREEN (11/25/2016 5:40 AM PDT) + + + + + [...] + | [facility] | [place] | [place] [address] | | | | [address] | | | + + + + + ABO & RH TYPE (11/25/2016 5:40 AM PDT) + + + + + [...] | [facility] | and | [place] [address] | | | | [place] | | | + + + + + AMNISURE (11/25/2016 4:20 AM PDT) + + + + + [...] fluid PAMG-1 protein in vaginal secretions of [facility] | | women. The test should be [...] | + + + + + | [facility] | And | [place] [address] | [phone] | | [facility] | [address] | | | + + + + + documented in this encounter Visit Diagnoses + + | Diagnosis | + + | 41 weeks gestation of Post term , unspecified episode of care | + + documented in this encounter Administered Medications + +--------+ +--------+------+------+ | Medication Order | MAR | Action | Dose | Rate | Site | | | Action | Date | | | | + +--------+ +--------+------+------+ | acetaminophen (TYLENOL) tablet | Given | 11/28/19 | 650 mg | | | | 650 mg 650 mg, oral, EVERY 4 | | 17 2:29 | | | | | HOURS NEEDED, Starting Tue | | AM PDT | | | | | 11/26/16 at 1636, Until Mona 11/28/16 | | | | | | | at 1707, fever | | | | | | + +--------+ +--------+------+------+ +-------+ +--------+---+---+ | Given | 11/27/19 | 650 mg | | | | | 17 4:39 | | | | | | PM PDT | | | | +-------+ +--------+---+---+ + +---+ | | | + +---+ | acetaminophen (TYLENOL) tablet | | | 1 dose, Starting Fri11/26/16 at | | | 1639, Until Fri11/26/16 at 1639 | | + +---+ | | | + +---+ + +---------+ +-----+-------+---+ | ampicillin IV 2 gram in NS | New Bag | 11/28/19 | 2 g | 100 | | | (MB+) 2 g, intravenous, EVERY | | 17 10:24 | | mL/hr | | | HOURS, First dose on Fri11/27/16 | | AM PDT | | | | | at 0400, Until Discontinued | | | | | | + +---------+ +-----+-------+---+ +---------+ +-----+-------+---+ | New Bag | 11/28/19 | 2 g | 100 | | | | 17 3:10 | | mL/hr | | | | AM PDT | | | | +---------+ +-----+-------+---+ +---+---+ | | | +---+---+ + +-------+ +---+---+---+ | benzocaine-menthol (DERMOPLAST) | Given | 11/28/19 | | | | | 20-0.5 % spray topical, | | 17 8:15 | | | | | NEEDED, Starting 11/27/16 at | | AM PDT | | | | | 0543, Until Mona 11/28/16 at 1707, | | | | | | | perineum pain | | | | | | + +-------+ +---+---+---+ + +---+ | | | + +---+ | calcium carbonate chewable | | | (TUMS) tablet 200-600 mg | | | elemental 200-600 mg elemental | | | (500-1,500 mg total salt), oral, | | | EVERY 4 HOURS NEEDED, Starting | | | 11/27/16 at 0543, Until Mona | | | 11/28/16 at 1707, dyspepsia | | + +---+ | | | + +---+ | carboprost (HEMABATE) injection | | | 250 mcg 250 mcg, intramuscular, | | | NEEDED, 3 doses, Starting Mon | | | 11/25/16 at 0505, Until Mona 11/28/16 | | | at 1707, excessive post | | | vaginal hemorrhage | | + +---+ | | | + +---+ | diphtheria-acellular | | | pertussis-tetanus (aka BOOSTRIX) | | | injection 0.5 mL 0.5 mL, | | | intramuscular, ONE TIME DURING | | | VISIT, 1 dose, Starting Wed | | | 11/27/16 at 0543, Until Mona 11/28/16 | | | at 1707 | | + +---+ | | | + +---+ + +-------+ +--------+---+---+ | docusate sodium (COLACE) | Given | 11/29/19 | 100 mg | | | | capsule 100 mg 100 mg, oral, | | 17 9:17 | | | | | TWICE DAILY, First dose on Fri | | AM PDT | | | | | 11/27/16 at 0900, Until | | | | | | | Discontinued | | | | | | + +-------+ +--------+---+---+ +-------+ +--------+---+---+ | Given | 11/28/19 | 100 mg | | | | | 17 9:15 | | | | | | PM PDT | | | | +-------+ +--------+---+---+ | Given | 11/28/19 | 100 mg | | | | | 17 9:06 | | | | | | AM PDT | | | | +-------+ +--------+---+---+ +---+---+ | | | +---+---+ + +-------+ +---------+---+---+ | fentaNYL citrate (PF) | Given | 11/27/19 | 100 mcg | | | | (SUBLIMAZE) syringe 50-100 mcg | | 17 5:50 | | | | | 50-100 mcg, intravenous, EVERY 1 | | AM PDT | | | | | HOUR NEEDED, Starting Mon | | | | | | | 11/25/16 at 0505, Until Fri11/27/16 | | | | | | | at 0547, moderate pain | | | | | | + +-------+ +---------+---+---+ +-------+ +---------+---+---+ | Given | 11/27/19 | 100 mcg | | | | | 17 3:19 | | | | | | AM PDT | | | | +-------+ +---------+---+---+ +---+---+ | | | +---+---+ + +-------+ + +---+---+ | ferrous sulfate delayed release | Given | 11/28/19 | 65 mg | | | | tablet 65 mg elemental 65 mg | | 17 9:06 | elementa | | | | elemental (325 mg total salt), | | AM PDT | l | | | | oral, DAILY, First dose on Fri | | | | | | | 11/27/16 at 0900, Until | | | | | | | Discontinued | | | | | | + +-------+ + +---+---+ +---+---+ | | | +---+---+ + +---------+ +--------+---------+---+ | gentamicin (GARAMYCIN) IV 290 | New Bag | 11/28/19 | 290 mg | 107.25 | | | mg 290 mg, intravenous, DAILY, | | 17 3:06 | | mL/hr | | | First dose on Fri11/27/16 at 0300, | | AM PDT | | | | | Until Discontinued | | | | | | + +---------+ +--------+---------+---+ +---+---+ | | | +---+---+ + +-------+ + +---+---+ | HYDROcodone-acetaminophen | Given | 11/28/19 | 1 tablet | | | | (NORCO) 5-325 mg tablet 1-2 | | 17 1:02 | | | | | tablet 1-2 tablet, oral, EVERY 6 | | PM PDT | | | | | HOURS NEEDED, Starting Fri | | | | | | | 11/27/16 at 0544, Until Fri11/28/16 | | | | | | | at 1707, severe pain | | | | | | + +-------+ + +---+---+ +---+---+ | | | +---+---+ + +-------+ +--------+---+---+ | ibuprofen (MOTRIN) tablet 800 | Given | 11/29/19 | 800 mg | | | | mg 800 mg, oral, EVERY 8 HOURS | | 17 9:17 | | | | | NEEDED, Starting Fri11/27/16 at | | AM PDT | | | | | 0544, Until Mona 11/28/16 at 1707, | | | | | | | moderate pain | | | | | | + +-------+ +--------+---+---+ +-------+ +--------+---+---+ | Given | 11/29/19 | 800 mg | | | | | 17 12:35 | | | | | | AM PDT | | | | +-------+ +--------+---+---+ | Given | 11/28/19 | 800 mg | | | | | 17 3:05 | | | | | | PM PDT | | | | +-------+ +--------+---+---+ + +---+ | | | + +---+ | lanolin ointment topical, | | | NEEDED, Starting 11/27/16 at | | | 0543, Until Fri11/28/16 at 1707, | | | nipple tenderness | | + +---+ | | | + +---+ | lidocaine PF (XYLOCAINE MPF) | | | injection infiltration, | | | NEEDED, Starting 11/26/16 at | | | 2343, Until Fri11/28/16 at 1707, | | | repair | | + +---+ | | | + +---+ | methylergonovine (METHERGINE) | | | injection 0.2 mg 0.2 mg, | | | intramuscular, EVERY 2 HOURS | | | NEEDED, 2 doses, Starting Mon | | | 11/25/16 at 0505, Until Fri11/28/16 | | | at 1707, excessive post | | | vaginal hemorrhage | | + +---+ | | | + +---+ | misoprostol (CYTOTEC) tablet 25 | | | mcg 25 mcg, vaginal, EVERY 4 | | | HOURS NEEDED, 5 doses, | | | Starting Fri11/25/16 at 0505, | | | Until Fri11/28/16 at 1707, | | | cervical ripening/induction of | | | labor | | + +---+ | | | + +---+ + +-------+ + +---+---+ | Multivits,Ca,Unyndlcy-Vard-JA | Given | 11/28/19 | 1 tablet | | | | (THERA M PLUS) tablet 1 tablet 1 | | 17 9:06 | | | | | tablet, oral, DAILY, First dose | | AM PDT | | | | | on Fri11/27/16 at 0900, Until | | | | | | | Discontinued | | | | | | + +-------+ + +---+---+ +---+---+ | | | +---+---+ + +-------+ +-------+---+---+ | NaCl 0.9 % flush 2-10 mL 2-10 | Given | 11/28/19 | 10 mL | | | | mL, intravenous, TWICE DAILY, | | 17 9:15 | | | | | First dose on Fri11/25/16 at 0900, | | PM PDT | | | | | Until Discontinued | | | | | | + +-------+ +-------+---+---+ +-------+ +-------+---+---+ | Given | 11/28/19 | 10 mL | | | | | 17 9:06 | | | | | | AM PDT | | | | +-------+ +-------+---+---+ | Given | 11/27/19 | 10 mL | | | | | 17 7:40 | | | | | | PM PDT | | | | +-------+ +-------+---+---+ + +---+ | | | + +---+ | NaCl 0.9 % flush 2-10 mL 2-10 | | | mL, intravenous, NEEDED, | | | Starting Fri11/25/16 at 0505, | | | Until Mona 11/28/16 at 1707, line | | | patency per policy | | + +---+ | | | + +---+ + +-------+ +------+---+---+ | ondansetron (ZOFRAN) injection | Given | 11/27/19 | 4 mg | | | | 4 mg 4 mg, intravenous, EVERY 4 | | 17 7:32 | | | | | HOURS NEEDED, Starting Tue | | PM PDT | | | | | 11/26/16 at 1142, Until 11/27/16 | | | | | | | at 0547, N/V | | | | | | + +-------+ +------+---+---+ +---+---+ | | | +---+---+ + + + + + +---+ | oxytocin (PITOCIN) in NS IV | Rate/Dos | 11/28/19 | 75 mL/hr | 75 mL/hr | | | infusion 30 units/500 mL 40 | e Change | 17 4:36 | | | | | mL/hr, intravenous, NEEDED | | AM PDT | | | | | CONTINUOUS, Starting 11/25/16 | | | | | | | at 0505, Until Mona 11/28/16 at | | | | | | | 1707, post vaginal | | | | | | | bleeding | | | | | | + + + + + +---+ +---+---+ | | | +---+---+ + + + + +---------+---+ | oxytocin (PITOCIN) in NS IV | Restarte | 11/28/19 | 1 | 1 mL/hr | | | infusion 30 units/500 mL 0.5-4 | d | 17 3:45 | sonia-un | | | | sonia-units/min (0.5-4 mL/hr), | | AM PDT | its/min | | | | intravenous, CONTINUOUS, Starting | | | | | | | 11/25/16 at 2200, Until Mona | | | | | | | 11/28/16 at 1707 | | | | | | + + + + +---------+---+ + + + +---------+---+ | Rate/Dose Change | 11/28/19 | 2 | 2 mL/hr | | | | 17 1:15 | sonia-un | | | | | AM PDT | its/min | | | + + + +---------+---+ | Restarted | 11/28/19 | 1 | 1 mL/hr | | | | 17 1:00 | sonia-un | | | | | AM PDT | its/min | | | + + + +---------+---+ + +---+ | | | + +---+ | oxytocin (PITOCIN) injection 10 | | | Units 10 Units, intramuscular, | | | NEEDED, 1 dose, Starting Mon | | | 11/25/16 at 0505, Until Mona 11/28/16 | | | at 1707, post vaginal | | | bleeding | | + +---+ | | | + +---+ | oxytocin (PITOCIN) injection 10 | | | Units 10 Units, intramuscular, | | | NEEDED, 1 dose, Starting Wed | | | 11/27/16 at 0543, Until Mona 11/28/16 | | | at 1707, post vaginal | | | bleeding | | + +---+ | | | + +---+ | oxytocin bolus from continuous | | | infusion 15 Units 15 Units, | | | intravenous, BOLUS PRN, 2 doses, | | | Starting Fri11/27/16 at 0543, | | | Until [facility] 11/28/16 at 1707, | | | post- vaginal bleeding | | + +---+ | | | + +---+ + +---------+ + +-------+---+ | penicillin G potassium | New Bag | 11/27/19 | 2.5 | 200 | | | (PFIZERPEN) 2.5 Million Units in | | 17 11:58 | Million | mL/hr | | | dextrose 5 % IV 2.5 Million | | PM PDT | Units | | | | Units, intravenous, EVERY 4 | | | | | | | HOURS, First dose on Fri11/26/16 | | | | | | | at 0400, Until Discontinued | | | | | | + +---------+ + +-------+---+ +---------+ + +---+---+ | New Bag | 11/27/19 | 2.5 | | | | | 17 8:11 | Million | | | | | PM PDT | Units | | | +---------+ + +---+---+ | New Bag | 11/27/19 | 2.5 | | | | | 17 4:36 | Million | | | | | PM PDT | Units | | | +---------+ + +---+---+ +---+---+ | | | +---+---+ + +---------+ + +-------+---+ | penicillin G potassium IV 5 | | 11/26/19 | 5 | 200 | | | million unit in NS (MB+) | | 17 10:31 | Million | mL/hr | | | Million Units, intravenous, ONCE, | | PM PDT | Units | | | | 1 dose, 11/25/16 at 2200 | | | | | | + +---------+ + +-------+---+ + +---+ | | | + +---+ | senna (SENOKOT) tablet 1 tablet | | | 1 tablet, oral, TWICE DAILY | | | NEEDED, Starting Fri11/27/16 at | | | 0543, Until Fri11/28/16 at 1707, | | | constipation | | + +---+ | | | + +---+ | simethicone chew (MYLICON) | | | tablet 80 mg 80 mg, oral, THREE | | | TIMES DAILY NEEDED, Starting | | | Fri11/27/16 at 0543, Until Mona | | | 11/28/16 at 1707, bloating | | + +---+ | | | + +---+ + +---------+ +-------+-------+---+ | sodium chloride 0.9% IV | New Bag | 11/28/19 | 125 | 125 | | | infusion 125 mL/hr, intravenous, | | 17 12:49 | mL/hr | mL/hr | | | CONTINUOUS, Starting Fri11/25/16 | | AM PDT | | | | | at 0515, Until Fri11/28/16 at 1707 | | | | | | + +---------+ +-------+-------+---+ +---------+ +-------+-------+---+ | New Bag | 11/27/19 | 125 | 125 | | | | 17 8:11 | mL/hr | mL/hr | | | | PM PDT | | | | +---------+ +-------+-------+---+ | New Bag | 11/27/19 | 125 | 125 | | | | 17 4:29 | mL/hr | mL/hr | | | | PM PDT | | | | +---------+ +-------+-------+---+ + +---+ | | | + +---+ | sodium chloride 0.9% IV | | | infusion 25-50 mL, intravenous, | | | NEEDED, Starting 11/27/16 at | | | 0543, Until Mona 11/28/16 at 1707, | | | line patency per policy | | + +---+ | | | + +---+ | sodium chloride 0.9% IV | | | infusion 125 mL/hr, intravenous, | | | NEEDED CONTINUOUS, Starting | | | 11/27/16 at 0543, Until [facility] | | | 11/28/16 at 1707, volume | | | resuscitation for post | | | hemorrhage | | + +---+ | | | + +---+ documented in this encounter
--- OUTSIDE RECORDS SUMMARY | ~2018-11-05 | XMS | Encounter Summary ---
Demographics + + + | Address | [address] | | | [place] [address] | + + + | Home Phone [...] Author + + + | Author | [facility] | + + + | Organization | [facility] | + + + | Address | Unknown | + + + | Phone | Unavailable | + + + Support + + + + + | Name | Relationship | Address | Phone | + + + + + | Dante Duenas | GISSELLE | [address] | | | | | [place] [address] | | + + + + + | Helena Barakatjoseph | ECON | UNK | | | | | [place] [address] | | + + + + + Care Team Providers + +------+ + | Care Tile Edger Name | Role | Phone | + [...] + + + | 11/14/ | | [place] | Jeannie Argueta, | | | 2017 | | [facility] | CN[address] | | | | | [address] , [address] | [address] | | | | | [place], [place] | [place], [place] | | | | | [address] | [address] | | | | | [phone] | [phone] | | | | | | | [...] them know you are kenneth ayala in. [phone]. Don t sit by the phone and [...] go to a movie, or go to [employer] to browse the book [employer] es. Last minute checks ? Car seat [...] feel anxious to see your new baby. [place] babies often l ook different from what [...] cigarettes, and drugs. This includes prescription and mocq-uyo-okadpka me dicines. You can help prevent sore [...] Your : Care Instructions", log into your [employer] a ccount at [email or web address]. You can enter [id number] in the "[employer] Library" search box . Not on [employer]? Review the [employer] section of your After Visit Summary for directions on ho w to sign up. Current as of: November 20, 2015 Content Version: 11.2 8377-7269 [employer]. Care instructions adapted under license by [facility] & Science [place]. If you have questions about a medical condition or this instr uction, always ask your healthcare professional. [employer] disclaims any nino anty or liability [...]
--- OUTSIDE RECORDS SUMMARY | ~2018-11-05 | XMS | Encounter Summary ---
Demographics + + + | Address | [address] | | | [place] [address] | + + + | Home Phone | | + + + | Preferred Language | Unknown | + + + | Marital Status | Single | + + + | Zoroastrian Affiliation | NON | + + + [...] | | | | | [place] [address] | | + + + + + | Helena Hawleywil | ECON | UNK | | | | | [place] [address] | | + + + + + Care Team Providers + +------+ + | Care Risk Specialist Name | Role | Phone | [...] + + | 08/13/ | Telephone | [place] | Jeannie Argueta, | Abdominal Cramping | | 2016 | | [facility] [address] | CN[address] | | | | | E , [address] | [address] | | | | | [place], [place] | [place], [place] | | | | | [address] | [address] | | | | | [phone] | | | | | | | [...]
--- OUTSIDE RECORDS SUMMARY | ~2018-11-05 | XMS | Encounter Summary ---
Demographics + + + | Address | [address] | | | [place] [address] | + + + | Home Phone [...] Author + + + | Author | [facility] | + + + | Organization | [facility] | + + + | Address | Unknown | + + + | Phone | Unavailable | + + + Support + + + + + | Name | Relationship | Address | Phone | + + + + + | Dante Duenas | GISSELLE | [address] | | | | | [place] [address] | | + + + + + | Helena Barakatjoseph | ECON | UNK | | | | | [place] [address] | | + + + + + Care Team Providers + +------+ + | Care Risk Professional Name | Role | Phone | + +------+ + | Larry Lorenzo | PCP | | + +------+ + Reason for Visit + + + | Reason | Comments | + + + | Pre-Admission | | + + + Encounter Details +--------+ + + + + | Date | Type | Department | Care Team | Description | +--------+ + + + + | 11/24/ | PreAdmit | [place] | Jeannie Argueta, | Pre-Admission | | 2017 | Orders | [facility] [address] | CNM [address] | | | | | E , [address] | [address] | | | | | [place], [place] | [place] | | | | | [address] | [address] | | | | | [phone] | [phone] | | | | | | | [...] + + | 41 weeks gestation of - Primary Post term , unspecified episode of | | care | + + documented in this encounter"
--- OUTSIDE RECORDS SUMMARY | ~2018-11-05 | XMS | Encounter Summary ---
Demographics + + + | Address | [address] | | | [place] [address] | + + + | Home Phone | | + + + | Preferred Language | Unknown | + + + | Marital Status | Single | + + + | Adventism Affiliation | NON | + + + [...] | | | | | [place] [address] | | + + + + + | Helena Reilly | ECON | UNK | | | | | [place] [address] | | + + + + + Care Team Providers + +------+ + | Care Manufacturing Software Engineer Name | Role | Phone | [...] | 2017 - | Encounter | at [facility] | MD Jeremy,S [address] | | | | | [address] | [address] | | | 11/28/ | | [place], [place] | [place], [place] | | | 2016 | | [address] | [address] | | | | | [phone] | [phone] | | | | | | | | | | | | Michaelaoponydia, | | | | | | MD Jostin [address] | | | | | | [address] | | | | | | [place], [place] | | | | | | [address] | | | | | | [phone] | | | | | | | | | | | | Jeannie Argueta, | | | | | | CNM [address] | | | | | | [address] | | | | | | [place], [place] | | | | | | [address] | | | | | | [phone] | | | | | | | [...] Phone Center 12/25/2016 11:30 AM [facility] [phone] [facility] Schedule the following appointment(s) when you get home Follow up with [facility] On 11/30/2016. Why: As scheduled, for Post Care Clinic at 11:00am Contact information [address] [place] [address] Harpreet Sanabria MD documented in this [...] your baby sleeps. Get help with railroad operator from family or friends, if you can. [...] doctor if you can take an o fdt-ddo-tbqfywi medicine. Eat more fiber to avoid constipation. [...] about ": Care Instructions", log into your [employer] account at http: //[email or web address]/[email or web address]. You can enter Z768 in the "Health Library" search box. Not on [employer]? Review the [employer] section of your After Visit Summary for directions on ho w to sign up. Current as of: November 20, 2015 Content Version: 11.2 9028-3333 [employer]. Care instructions adapted under license by [facility] & [facility]. If you have questions about a medical condition or this instr uction, always ask your healthcare professional. [employer] disclaims any nino anty or liability for [...] to moderate variability, variable decelerations with push. [place]: Q 3 SVE: Complete/+3 Amp and Gen [...] to assist with . Dr Irvin is orthopedic surgeon for Peds and has been notified and [...] no accels, intermittent variable decel with [facility] [place]: 1-3 SVE: Complete/+3 Pitocin is off A: [...] Management : Epidural anesthesia (11/26/162114) Contraction Intensity: [place] Units (MVU) (IUPC not tracing well, has [...] Fernanda Burgess RN - 11/26/2016 5:15 PM [id number] Cat 2 strip, recurrent variables. Increase IVF. [...] | | | to Dr Irvin at [facility]. Pitocin was infused at 75mU/hr for | [...] | THIS IS AN AMENDED | | [facility] | | | PATHOLOGY | REPORT SOURCE [...] A | | | | | | product sales representative | | | | | [...] | | | | | | Code(s): 29264 | | | | | | My [...] | + + + + + | [facility] | And | [place] [address] | [phone] | | MEDICAL CENTER | Streets | [...] (H) | 3.5 - 10.8 K/cu | [facility] | | | | | [...] | 0.00 | 0.00 - 0.10 | [facility] | | | | | K/cu mm [...] + + | [facility] | [address] [place] | [place] [address] | [phone] | | MEDICAL CENTER | Streets | [...] BANK | [place] | [place] [address] | | | | Streets | | [...] BLOOD BANK | and | [place] [address] | | | | Streets | | [...] fluid PAMG-1 protein in vaginal secretions of [facility] | | women. The test should be [...] | + + + + + | [facility] | And | [place] [address] | [phone] | | MEDICAL [place] | Streets | | | + + [...] | | | | | 0543, Until Moan 11/28/16 at 1707, | | | | [...] + +---+ + +-------+ + +---+---+ | Multivits,Ca,Ogfvalqf-Zcjz-EM | Given | 11/28/19 | 1 tablet [...] Fri11/27/16 at 0543, | | | Until [facility] 11/28/16 at 1707, | | | post- [...] | | | 11/27/16 at 0543, Until [facility] | | | 11/28/16 at 1707, volume | | | resuscitation for post | | | hemorrhage | | + +---+ | | | + +---+ documented in this encounter
--- OUTSIDE RECORDS SUMMARY | ~2018-11-05 | XMS | Encounter Summary ---
Demographics + + + | Address | [address] | | | [place] [address] | + + + | Home Phone [...] | | | | | [place] [address] | | + + + + + | Helena Reilly | ECON | UNK | | | | | [place] [address] | | + + + + + Care Team Providers + +------+ + | Care Non Acoustic Operator Name | Role | Phone | [...] | | 2017 | Event | at [facility] | [address] | | | | | [address] | [place], [place] | | | | | [place], [place] | [address] | | | | | [address] | [phone] | | | | | [phone] | | | +--------+ + + + [...]
--- OUTSIDE RECORDS SUMMARY | ~2018-11-05 | XMS | Encounter Summary ---
Demographics + + + | Address | [address] | | | [place] [address] | + + + | Home Phone [...] | | | | | [place] [address] | | + + + + + | Helena Hawleywil | ECON | UNK | | | | | [place] [address] | | + + + + + Care Team Providers + +------+ + | Care Critical Care Transport Nurse Name | Role | Phone | [...] [address] | | | | | [address] | [place] [address] THE | | | | | | [place] [address] | | | | | | [phone] | | | | | | | [...] Kush Peña MD - 12/31/2011 9:59 AM [facility] | | REPORT OF [id number] [place] [address] | | MEIRNICHOLASQUANG VeeMAI OF OPERATION: 12/31/2011SURGEON: Kush | | Ivan PeñaPRIMARY CARE PROVIDER: ANMOL RusslelOPERATIVE DIAGNOSES:1. Epigastric | | abdominal pain.2. Nausea [...] is crisp. There is no evidence of Ehrnandez's esophagus.3. | | There is no evidence [...] the stomach QUANG [id number] : | | [id number] DATE:examined. The pylorus was identified and the [...] 12/31/2011 | | 09:33:54DT: 12/31/2011 09:51:25Job #: [id number]: [place], | | PAElectronically Signed 01/08/12 | | 1047 | | | | | | | | | | | | | | Kush Lerner | | LUISITO PeñaRINJaviQUANG [id number] : [id number] DATE: | |position, an IV was started. [...] the stomach was | |QUANG REILLY | |[id number] : 95 | |[id number] | |ADMIT DATE: | | | |examined. [...] |CHAVA/Maryann | | | | | | /[id number] | | | | | |cc: KATHIE [...] | | | | |QUANG REILLY | |[id number] : 95 | |[id number] | |ADMIT DATE: | + + documented in this encounter Visit Diagnoses Not on filedocumented in this encounter"
--- OUTSIDE RECORDS SUMMARY | ~2018-11-05 | XMS | Encounter Summary ---
Demographics + + + | Address | [address] | | | [place] [address] | + + + | Home Phone [...] Author + + + | Author | [facility] | + + + | Organization | [facility] | + + + | Address | Unknown | + + + | Phone | Unavailable | + + + Support + + + + + | Name | Relationship | Address | Phone | + + + + + | Dante Duenas | GISSELLE | [address] | | | | | [place] [address] | | + + + + + | Helena Reilly | ECON | UNK | | | | | [place] [address] | | + + + + + Care Team Providers + +------+ + | Care Dinkey Engine Operator Name | Role | Phone | [...] + + | 06/18/ | Telephone | [place] | Jeannie Arugeta, | Care Questions | | 2016 | | [facility] [address] | CN[address] | | | | | [address] , [address] | [address] | | | | | [place], [place] | [place] | | | | | [address] | [address] | | | | | [phone] | | | | | | | [...]
--- OUTSIDE RECORDS SUMMARY | ~2018-11-05 | XMS | Encounter Summary ---
Demographics + + + | Address | [address] | | | [place] [address] | + + + | Home Phone [...] | | | | | [place] [address] | | + + + + + | Helena Barakatjoseph | ECON | UNK | | | | | [place] [address] | | + + + + + Care Team Providers + +------+ + | Care Public Works Laborer Name | Role | Phone | + [...] + + + | 10/08/ | | [place] | Jeannie Argueta, | care | | 2017 | | [facility] [address] | CN[address] | | | | | [address] , [address] | [address] | | | | | [place], [place] | [place] | | | | | [address] | [address] | | | | | [phone] | [phone] | | | | | | | [...] this encounter Patient Instructions Patient Instructions Mayte aYp MA - 10/08/2016 3:00 PM PDTPrenatal Visit [...] allergic to Penicillin, let your doctor or water service dispatcher know. Did you get your Tdap shot? [...] log into your My Chart account at [email or web address]. You can enter B912 in the "Health Library" [facility] box. Not on [employer]? Review the MyChart section of your After Visit Summary for directions on ho w to sign up. Current as of: November 20, 2015 Content Version: 11.1 3225-7310 [employer]. Care instructions adapted under license by [facility] & Science [place]. If you have questions about a medical condition or this instr uction, always ask your healthcare professional. [employer] disclaims any nino anty or liability for [...] | [place] | [address] [place] [address], | [place] [address] | | | [facility] | [address] | | | [...] | [place] | [address] [place] [address], | [place] [address] | | | [facility] | [address] | | | + + + + + documented in this encounter Visit Diagnoses + + | Diagnosis | + + | 34 weeks gestation of - Primary state, incidental | + + documented in this encounter
--- OUTSIDE RECORDS SUMMARY | ~2018-11-05 | XMS | Encounter Summary ---
Demographics + + + | Address | [address] | | | [place] [address] | + + + | Home Phone [...] Author + + + | Author | [facility] | + + + | Organization | [facility] | + + + | Address | Unknown | + + + | Phone | Unavailable | + + + Support + + + + + | Name | Relationship | Address | Phone | + + + + + | Dante Duenas | ECON | [address] | | | | | [place] [address] | | + + + + + | Helena Reilly | ECON | UNK | | | | | [place] [address] | | + + + + + Care Team Providers + +------+ + | Care Cash Register Mechanic Name | Role | Phone | + +------+ + PCP | Unavailable | + +------+ + Encounter Details +--------+ + + + + | Date | Type | Department | Care Team | Description | +--------+ + + + + | 12/31/ | Results | NON[facility] | Kush Poole | | | 2011 | Only | Department | [place] [address] | | | | | | [place] | | | | | | [address] | | | | | | [phone] | | | | | | | [...] | [facility] | And | [place] [address] | [phone] | | [facility] | Streets | | | + + + + + | [facility] | And | [place] [address] | | | [facility] | Streets | | | + + + + + HCG QUAL, URINE (01/01/2012 10:16 AM PDT) + + + + + + | Component | Value | Ref Range | Performed | Pathologist | | | | | At | Signature | + + + + + + | HCG QUAL | NEGATIVE | NEGATIVE | [facility] | | | URINE | | | A MEDICAL | | | | | | CENTER | | + + + + + + + + | Specimen | + + | | + + + + + + + | Performing | Address | City/State/Zipcode | Phone Number | | Organization | | | | + + + + + | [facility] | [place] | [place] [address] | [phone] | | [facility] [place] | Streets | | | + + + + + | [facility] | And | [place] [address] | | | [facility] [place] | Streets | | | + + [...] + + + | BANDS % | TANK SYSTEMS MAINTAINER | 0 - 7 % | [facility] [...] | + + + + + | [facility] | And | [place] [address] | [phone] | | [facility] | Streets | | | + + + + + | [facility] | And | [place] [address] | | | [facility] | [...] +-------+ + + + | ESTIMATED | TANK SYSTEMS MAINTAINER | | [facility] | | | GFR [...] | + + + + + | [facility] | [place] | [place] [address] | [phone] | | MEDICAL CENTER | Streets | | | + + + + + | [facility] | [place] | [place] [address] | | | MEDICAL CENTER | Streets | | | + + + + + documented in this encounter Visit Diagnoses Not on filedocumented in this encounter"
--- OUTSIDE RECORDS SUMMARY | ~2018-11-05 | XMS | Encounter Summary ---
Demographics + + + | Address | [address] | | | [place] [address] | + + + | Home Phone | | + + + | Preferred Language | Unknown | + + + | Marital Status | Single | + + + | Anglican Affiliation | NON | + + + [...] | | | | | [place] [address] | | + + + + + | Helena Barakatjoseph | ECON | UNK | | | | | [place] [address] | | + + + + + Care Team Providers + +------+ + | Care Funding Coordinator Name | Role | Phone | [...] | | 2016 | Encounter | at [facility] | CNM [address] | | | | | [address] | [address] | | | | | [place], [place] | [place], [place] | | | | | [address] | [address] | | | | | [phone] | [phone] | | | | | | | [...] 150bpm, moderate variability, + accels, - decels [place]: Q 2-7 SVE: 0/0%/high per RN exam, [...] No Delivery in <7 - 14 | [facility] | | Days(Predictive Values:99.5%-99.2%) Positive: Delivery Time in <7 - [facility] | | 14 Days(Predictive Values:12.7%-16.7%) | | + + + + + + + + | Performing | Address | City/State/Zipcode | Phone Number | | Organization | | | | + + + + + | [facility] | | [place] [address] | [phone] | | [facility] | [facility] | | | + + + + + documented in this encounter Visit Diagnoses Not on filedocumented in this encounter"
--- OUTSIDE RECORDS SUMMARY | ~2018-11-05 | XMS | Encounter Summary ---
Demographics + + + | Address | [address] | | | [place] [address] | + + + | Home Phone [...] | | | | | [place] [address] | | + + + + + | Helena Hawleywil | ECON | [place]K | | | | | [place] [address] | | + + + + + Care Team Providers + +------+ + | Care Bar Steward Name | Role | Phone | + +------+ + | Larry Lorenzo | PCP | | + +------+ + Encounter Details +--------+ + + + + | Date | Type | Department | Care Team | Description | +--------+ + + + + | 06/06/ | Telephone | [facility] | Jeannie Argueta, | | | 2015 | | [facility] | CN[address] | | | | | [address] , [address] | [address] | | | | | [place], [place] | [place], [place] | | | | | [address] | [address] | | | | | [phone] | | | | | | | [...]
--- OUTSIDE RECORDS SUMMARY | ~2018-11-05 | XMS | Encounter Summary ---
Demographics + + + | Address | [address] | | | [place] [address] | + + + | Home Phone [...] | | | | | [place] [address] | | + + + + + | Helena Reilly | ECON | [place]K | | | | | [place] [address] | | + + + + + Care Team Providers + +------+ + | Care Spa Manager/Esthetician Name | Role | Phone | + [...] | trimester (Primary | | | | [address] | | Dx); Normal first | | | | [phone] | | confirmed, | | | | [...] [address] | | | [place] [address] | | + + + + + [...] | - [place] | | | | Assay([employer] | | | | | | [...] DIAGNOSTICS | [address] | [place] [address] | | | - [place] | [address] | | | + + [...] | + + + + + | [facility] | And | [place] [address] | [phone] | | [facility] | Streets | | | [...]
--- OUTSIDE RECORDS SUMMARY | ~2018-11-05 | XMS | Encounter Summary ---
Demographics + + + | Address | [address] | | | [place] [address] | + + + | Home Phone [...] | | | | | [place] [address] | | + + + + + | Helena Reilly | ECON | UNK | | | | | [place] [address] | | + + + + + Care Team Providers + +------+ + | Care Crusher Machine Operator Name | Role | Phone [...] | +--------+ + + + + | 04/23/ | | [place] | Jaime Ricci, | | | 2016 | Initial | [facility] | RN [address] | | | | [address] | [place], [place] | | | | | [place], [place] | [address] | | | | | [address] | | | | | | [phone] | | | +--------+ + + + [...] + + + | Blood Pressure | 100/57 | 04/23/2016 2:08 PM | | | [...] + + + + | Weight | 61.2 kg (135 lb) | 04/23/2016 2:08 PM | | | | | PDT | | + + + + + | Height | 151.8 cm (4' 11.75") | 04/23/2016 2:08 PM | | | | | PDT | | + + + + + | Body Mass Index | 26.59 | 04/23/2016 2:08 PM | | | | | PDT | | + + + + + documented in this encounter Patient Instructions Patient Instructions Jaime Ricci RN - 04/23/2016 1:34 PM PDT Initial Visit Welcome to [facility]! This is the first of several messages that will be a part of your After Visit Summary (AVS) . It s a long one, so take your time. We re so happy you ve chosen us to guide you t hrough your . Please read chapters 3 and 25 in your book. How do I reach my provider? Have you signed up for [employer] ? It s the best way to communicate with us for your non-urgent needs. Head to this address to sign up: [email or web address] You will need the activation code you were given at your first visit, your medical record n umber, and your date of . The activation codes after 45 days. If you need a new one please ask any of our hotel front desk agent staff or give us a call and we can provide over the renuka ne! We ll try hard to answer your messages within 2-3 business days. Our main phone som sue is [phone]. The phone lines operate from 8:00am-5:00pm. If you have an URGENT need, please call the phone line 24 hours/day and identify that this is an URGENT need. Weeks, Not Months By the way, we talk about WEEKS in , not MONTHS. The average lasts abou t 40 weeks (from your last menstrual period ). We label the week once the week is completed .thus, you will be 24 weeks when you finish the 24th week. Here are some milestones and the weeks-gestation when we usually see them: * Week 1- begins with the first day of your last period * Week 2- meeting of sperm and egg * Week 4-5- a missed period; maybe the beginning of some nausea and breast changes * Week 5- able to see a black dot (the gestational sac) on ultrasound * Week 6- able to see a yolk sac in the gestational sac * Week 6-7- able to see some cardiac motion (beating heart) on ultrasound * Week 8-9- able to make out arm and legs buds on the embryo * Week 12- usually can hear the heart beat with a Doppler machine * Week 14-16- nausea and fatigue begin to improve * Week 16-18- the earliest that experienced mothers first feel their baby s movements * Week 18-20- the earliest that first-time mothers first feel their baby s movements * Week 24- the beginning of the 10-week prematurity period * Week 34- still too early to be born, but baby is now rapidly maturing * Week 38- the beginning of term * Week 40- the average gestational age for a human baby at * Week 41- at the beginning of this week, you are one week overdue How should I eat to have a healthy ? One of your most important missions during your is good nutrition. Each of these AVS messages will contain a nutrition fany---simple advice about good nutrition- to make s ure you re doing all you can to provide the building blocks for a healthy baby. Today s fany is about HOW MUCH TO EAT. Keep it simple, eat the equivalent of 3 healthy meals and 2-3 healthy snacks. On average, you only need 300 extra calories PER DAY to build and susta in a health . In the beginning of , you don t really need extra calorie s at all. In fact, it s perfectly normal to lose a little weight (due to the nausea) or m aintain your current weight well into the early second trimester (after 14 weeks). Here are some general hints to get you started: ? increase your intake of foods with fiber and vitamins ? select foods choices that are low in added sugar ? begin to lower your intake of saturated fats by selecting low-fat dairy products and lean proteins (including beans/legumes, fish and seafood) ? take a second look at our Plate; [employer] Blue Print that you received at your Intake Visit Use the table below to help you meet your needs for protein which is ~71 grams pe r day Protein content of foods Dairy 8 grams per servin cup of milk 7 grams per servin oz yogurt, 1 oz hard cheese, cup cottage cheese Meat, poultry, fish, egg, nuts, legumes 7 grams per servin egg, 1 jumbo shrimp, 1 oz c hicken, cup beans, 2 TBS peanut butter, cup tofu, cup canned wild salmon, 23 almond s Grains 2-3 grams per serving (whole grains usually have more protein: 1 slice bread, cup rice or pasta 4 grams per serving: cup quinoa Vegetables 2 grams per serving, such as 1 cup raw spinach or cup cooked broccoli or dyson ots *(Rule of thumb- include something with protein in it at each meal and snack you eat- this will help you meet your daily goal and since protein is also the macronutrient that keeps yo u feeling fullest the longest, it will also help give you more sustained energy throughout t he day.) Calcium Your body s demand for calcium is greater during (and ). This need is especially great during the last 3 months of . The National Academy of Science s recommends that women who are or consume 1,000 mg (milligrams) of c alcium each day. For teens, the recommended intake is even higher: 1,300 mg of calc ium a day. Good sources of calcium include: ? low-fat dairy products, such as milk, yogurt, cheese, and ice cream ? dark green, leafy vegetables, such as broccoli, brooklyn greens, and bok rebecca ? canned sardines and salmon with bones ? tofu, almonds, and corn tortillas ? foods fortified with calcium, such as orange juice, cereals, and breads. [place]-3 Fatty Acids Polyunsaturated fatty acids of the omega-3 and omega-6 groups have important roles in the d evelopment of your baby s brain. These fatty acids are not produced in the body. They ar e only available through what we eat. Two of these fatty acids have critical roles in the d evelopment of the brain and nervous system (arachidonic acid [AA] and docosahexaenoic acid [DHA]). The requirements during have not been established, but likely exceed that of a no n- state. Don t worry so much about the omega-6 fatty acids (you probably get ple nty and too much is not so good). More research is needed but it s quite likely that a ba andrea of omega-3 and omega-6 fatty acids is more important to women than the actual blood levels of either. However, most experts agree that most women likely do not get enough omega-3 fatty acids because the major dietary source, seafood, is restricted to 2 servings a week. And, although DHA is the omega-3 fatty acid that gets most of the press, another omega-3 fatty ac id, EPA, plays an important role, too. For women to obtain adequate omega-3 fatty acids, a variety of sources should be consumed: ? vegetable oils ? 2 low-mercury fish servings a week, and ? supplements (fish oil or algae-based) .get one that includes both DHA and EPA, which th e algae-based supplement does not. What should I do if I am having issues with nausea or vomiting? Can t eat because of nausea and vomiting? Don t worry ..at this point babies are pollo y effective at getting what they need ..they can get their nutrients directly from your bl oodstream. But what about you, if you re not able to eat, or you re throwing everything up? Call us if you re unable to keep down fluids for more than 8 hours .you may need o ur help to get you through this. If you re keeping fluids down, but have no appetite juanis use of nausea here are some things you might try before calling us: * First, eat before you feel hungry. Try to keep something in your stomach at all times. This may help keep your blood sugar from bottoming out. Eat small, frequent meals that in clude some protein. Get a healthy cookie or cracker ([employer] kyle has a denice snap cooki e that s perfect for this), put it next to your bed and eat one or two before you get up i n the morning .then go eat a breakfast that includes some protein. * Drink something before you eat something. Small amounts of these drinks are often helpf ul: carbonated drinks, sports drinks, lemonade, denice kaur, and mint tea. * Eat what you can, when you can. If you re really nauseated, and can only stomach cert ain foods, eat what stays down you can catch up on good nutrition later when you feel b destiney (usually by 14-16 weeks). * Try some denice root ..as a tea, in denice capsules, in denice snap cookies, or as gin lucina candy. Make sure that your denice kaur actually has real denice in it. Here s a recipe for a denice tea that s tasty, easy to make and easy to carry with you in a myVBO s bottle: Buy a denice root at the store. Peel off the brown stuff and use a knife or carrot diana to cut off dime/nickel-sized slices. Throw a small handful of these into a pint of piping-h ot water and let it steep (after 10 minutes you can strain off the denice but there s no n eed to remove the denice if you don t want to). Enrique it with honey, but not too much. Squeeze half a lemon into it start sipping it and take a sip every 15-30 minutes. * Get a Seaband or Bioband ..an elastic bracelet that utilizes acupressure theory from [facility] [employer] . These bracelets have an acupressure button that compresses th e Jose-Oleksandr , or P6 , acupressure spot. * Other hints: -brush your teeth -go outside and breathe fresh air; avoid stuffy rooms -don t take vitamins or supplements on an empty stomach -avoid odors that trigger your nausea * Still nauseated? Try Vitamin B6 and Unisom. Back in 1960s and 70s there was a drug gustavo roved by the Food and Drug Administration for use in for nausea and vomiting. The drug was a mix of B6 and the active ingredient in Unisom (doxylamine). It s safe and lissy te effective. Here s what to do: buy Unisom tablets, not the gel caps. Before bed, take a half a Unisom tablet and 25 mg of Vitamin B6. If this is not working well, add in the mor raquel half a Unisom with 25 mg of Vitamin B6. You ll probably notice that you get quite sl eepy after taking it ..keep at it in three to four days the drowsiness will get be tter, and so will your nausea. * None of this is working? Call us. We have some prescription medicines that may help. I smoke and I want to stop. What should I do? Do you smoke cigarettes? Call us. We want to help you quit. Should I do genetic testing? There are a confusing number of options for genetic testing. Equally confusing can be a pr egnant woman s decision to either do the tests or not. This is a highly individualized is ramona, and no one should or should not do genetic testing- it is your individual decision. If you are having a difficult time reaching a decision, we can have you talk to one of our [facility] Counselors. Some women are at a higher risk of having a baby with a genetic problem. These women may w ant to talk with our Genetic Counselors as soon as they know they are . These women include: ? women who will be over the age of 35 when their baby is born ? women with a previous baby with a genetic problem or defect ? women with a family history of a genetic problem What were all the lab tests done at my Intake Visit? You may be wondering what we did with all that blood we took from your arm. Here s what we were looking at: * Your blood count. Blood consists of three different types of cells and watery fluid (c alled plasma) that contains specialized proteins. Your blood count can give us information about your general health status (from the hematocrit and hemoglobin), the presence of infec tion, and information about your blood s ability to clot. * Tests for specific diseases. We routinely test for evidence of past or present disease s, in particular- rubella (irish measles), varicella (chicken pox), syphilis, HIV, and hepa titis. * Your blood type and Rh status. Your blood type may be A, B, O, or AB. That s import ant to know, in the event that you need a blood transfusion. In rare cases, it may be helpf ul to know your blood type if your develops jaundice. We also check to see if your blood carries the Rh protein. If you do carry it, you are Rh positive . If you do not have it, you are Rh Negative . Rh Negative mothers usually need injections of special ized gamma globulin to prevent the formation of antibodies against a Rh Positive fetus. We also test your blood for other antibodies that can harm your baby or make transfusions diffi cult. We also do some other tests; usually at the first visit. These might include: * A Pap smear, if you need one. * Tests for gonorrhea and Chlamydia, major causes of blindness. * Urine tests, for infection and kidney function. Electronically signed by Jaime Ricci RN at 04/23 1:34 PM PDT documented in this encounter Progress Notes Jaime Ricci RN - 04/23/2016 1:32 PM PDTInitial Nurse Intake Jennifer Reilly is a 21 y.o., , currently at 9w6d weeks by LMP and here to [facility] care. Pt had an early dating ultrasound in [place]. Requesting report. Will update when ultrasound obtained. LMP: Patient's last menstrual period was 02/14/2016. History of REGULAR periods. KATHARINE: Estimated Date of Delivery: 11/20/16 Medical, surgical, family, social and OB history updated with patient. Medications and allergies reviewed. 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 Abuse Screen: No history Social Summary: Lives with boyfriend. No financial concerns. Vitals: Weight: 61.236 kg (135 lb) (04/23/16 1408) BP: 100/57 mmHg (04/23/16 1408) Body mass index is 26.57 kg/(m^2). Education Discussed and information given: General visit schedule including labwork and diagnostic testing How/when to contact the clinic or on-call provider Genetic Screening Nutrition in , PNV, recommended weight gain and exercise Hazards: Smoking, ETOH, Drugs, Overheating, Cats Common early discomforts and relief measures [employer] Insurance Risk Factors Identified Asthma Current concerns 1. Nausea/vomiting. This has decreased from all day to vomiting in the morning. Pt is going to try taking her vitamin at night. 2. Pt has been changing her litter box. Ordered toxoplasmosis screening. Boyfriend will sta rt changing litter box. Plan 1. Labs ordered per protocol, to be completed following intake visit. Added Hep C due to tatoos. 2. New OB appt Next Appointment is on 05/10/16 at 3:00 pm with Jostin Recinos MD.. Ultrasound scheduled at same time. 3. Sent [facility] referral, pt declines Healthy Start referral documented in this encounter Plan of Treatment Not on filedocumented as of this encounter Results CHLAM/GC APTIMA, RNA, TMA (05/31/2016 11:37 AM [...] | the APTIMA COMBO2 | | - [place] | | | | Assay([employer] | | | | | | [...] + + | [facility] | [address] [facility] | [place] [address] | | | - [place] | [address] | | | + + + + + CULTURE, URINE (05/31/2016 11:37 AM PST) + + + + + + | Component | Value | Ref Range | Performed | Pathologist | | | | | At | Signature | + + + + + + | CULTURE | 100,000 cfu/mL | | [facility] | | | RESULT | Escherichia coli; [...] + + + | [facility] | And [address] | [place] [address] | [phone] | | MEDICAL CENTER | [address] | | | + + + + + LAB OTHER (04/23/2016 2:40 PM PDT) + [...] | REFERRAL | Test performed | | [facility] | | | LAB NAME | by: | | A MEDICAL | | | | [facility] | | CENTER | | | | [employer] | | | | | | [id number] | | | | | | Way | | | | | | S | | | | | | [place] | | | | | | [address] | | | | + + + [...] + + | [facility] | And | [place] [address] | [phone] | | MEDICAL CENTER | [address] | | | + + + + + HEPATITIS C ANTIBODY (04/23/2016 2:40 PM PDT) + + + + + + | Component | Value | Ref Range | Performed | Pathologist | | | | | At | Signature | + + + + + + | HEP C | Non-reactive | Non-reactive | [facility] | | | ANTIBODY | | | A MEDICAL | | | | | | CENTER | | + + + + + + + + | Specimen | + + | Blood | + + + + + | Narrative | Performed At | + + + | Results obtained wi the Elecsys Anti-HCV immunoassay may not be | [facility] | | used interchangeably with the values obtained with different | [facility] | | manufacturers' assay methods. | | + + + + + + + + | Performing | Address | City/State/Zipcode | Phone Number | | Organization | | | | + + + + + | [facility] | And | [place] [address] | [phone] | | [facility] [place] | [address] | | | + + [...] | | | Index | | - [place] | | | | Explanation of | [...] + + + | Test performed at [facility] | [facility] | | [address] | [facility][1] - | | [place] | [place] | | [place] | | | [address] Lab | | | Director VASQUEZ IRENE MD | | + + + + + + + + | Performing | Address | City/State/Zipcode | Phone Number | | Organization | | | | + + + + + | [facility] | [address] [facility] | [place] [address] | | | - [place] | [address] | | | + + [...] MEDICAL CENTER | And | [place] [address] | [phone] | | [facility] | Stre[address] | | | + + + + + RUBELLA IGG AB, SERUM (04/23/2016 2:40 PM PDT) + +-------+ + + + | Component | Value | Ref Range | Performed | Pathologist | | | | | At | Signature | + +-------+ + + + | RUBELLA IGG | 54 | IU/mL | [facility] | | | AB | | | A MEDICAL | | | | | | CENTER | | + +-------+ + + + + + | Specimen | + + | Blood | + + + + + | Narrative | Performed At | + + + | Interpretation: <10 IU/mL | [facility] | | Non-Reactive/Non-Immune >=10-<15IU/mL EQUIVOCAL | [facility] | | >=15 IU/mL Reactive Immune The [...] + + | [facility] | And | [place] [address] | [phone] | | MEDICAL CENTER | [address] | | | + + + + + RPR SERUM (04/23/2016 2:40 PM PDT) + + + + + + | Component | Value | Ref Range | Performed | Pathologist | | | | | At | Signature | + + + + + + | RPR | Nonreactive | Nonreactive | [facility] | | | | | | A [...] | [facility] | And | [place] [address] | [phone] | | MEDICAL CENTER | [facility] | | | + + [...] AG | HIV-1/HIV-2 antibodies | | - [place] | | | SCREEN | were notdetected. [...] refer | | | | | | [email or web address] | | | | | | [email or web address] | | | | | | 06(This [...] + + | [facility] | [address] | [place] [address] | | | - [place] | [address] | | | + + + + + HEPATITIS B SURFACE ANTIGEN (04/23/2016 2:40 PM PDT) + + + + + + | Component | Value | Ref Range | Performed | Pathologist | | | | | At | Signature | + + + + + + | HEP B | Non-reactive | Non-reactive | [facility] | | | SURFACE | | | A MEDICAL | | | ANTIGEN | | | CENTER | | + + + + + + + + | Specimen | + + | Blood | + + + + + | Narrative | Performed At | + + + | Results obtained with the Elecsys HBsAg immunoassay may not be | [facility] | | used interchangeably with the values obtained with different | [facility] | | manufacturers' assay methods. | | + + + + + + + + | Performing | Address | City/State/Zipcode | Phone Number | | Organization | | | | + + + + + | [facility] | | [place] [address] | [phone] | | [facility] | [address] | | | + + + + + documented in this encounter Visit Diagnoses + + | Diagnosis | + + | Normal first confirmed, antepartum - Primary | + + documented in this encounter
--- OUTSIDE RECORDS SUMMARY | ~2018-11-05 | XMS | Encounter Summary ---
Demographics + + + | Address | [address] | | | [place] [address] | + + + | Home Phone | | + + + | Preferred Language | Unknown | + + + | Marital Status | Single | + + + | Faith Affiliation | NON | + + + [...] | | | | | [place] [address] | | + + + + + | [place] | ECON | [address] | | | | | [place] [address] | | + + + + + Care Team Providers + +------+ + | Care Mva Operator Name | Role | Phone | + +------+ + | Larry Lorenzo | PCP | | + +------+ + Reason for Visit + + + | Reason | Comments | + + + | Referral To Ent / | | | General | | + + + Encounter Details +--------+ + + + + | Date | Type | Department | Care Team | Description | +--------+ + + + + | 06/28/ | Telephone | [facility] | Jeannie Argueta, | Referral To Ent / | | 2016 | | [facility] [address] | [facility] [address] | General | | | | [address] | [address] | | | | | [place], [place] | [place], [place] | | | | | [address] | [address] | | | | | [phone] | [phone] | | | | | | | [...]
--- OUTSIDE RECORDS SUMMARY | ~2018-11-05 | XMS | Encounter Summary ---
Demographics + + + | Address | [address] | | | [place] [address] | + + + | Home Phone [...] | | | | | [place] [address] | | + + + + + | Helena Hawleywil | ECON | UNK | | | | | [place] [address] | | + + + + + Care Team Providers + +------+ + | Care Combustion Analyst Name | Role | Phone | + +------+ + | Larry Lorenzo | PCP | | + +------+ + Encounter Details +--------+------+ + + + | Date | Type | Department | Care Team | Description | +--------+------+ + + + | 09/02/ | Lab | Laboratory at | | Pharyngitis, | | 2017 | | [facility] | | unspecified etiology | | | | Center [address] | | (Primary Dx); | | | | Street [place], | | Normal first | | | | [place] [address] | | confirmed, | | | | [...] + + + + | [facility] | And | [place] [address] | [phone] | | MEDICAL CENTER | Streets | | | + + + + + 3HR GLU SILVESTRE TEST-2HR (09/02/2016 10:49 AM PDT) + +-------+ + + + | Component | Value | Ref Range | Performed | Pathologist | | | | | At | Signature | + +-------+ + + + | 2 HOUR | 135 | 60 - 153 mg/dL | [facility] | | | GLUCOSE-3GT | [...] + + + + | [facility] | And | [place] [address] | [phone] | | MEDICAL CENTER | Streets | | | + + + + + CULTURE, STREP A (09/02/2016 10:22 AM PDT) + + + + + + | Component | Value | Ref Range | Performed | Pathologist | | | | | At | Signature | + + + + + + | CULTURE | Negative for Group A | | [facility] | | | RESULT | Beta Streptococci [...] | + + + + + | [facility] | And | [place] [address] | [phone] | | MEDICAL CENTER | Streets | [...] | [facility] | And | [place] [address] | [phone] | | MEDICAL CENTER | Streets | [...] + + + + | [facility] | And | [place] [address] | [phone] | | MEDICAL CENTER | Streets | | | + + + + + 3HR GLU SILVESTRE TEST-FASTING (09/02/2016 8:20 AM PDT) + +-------+ + + + | Component | Value | Ref Range | Performed | Pathologist | | | | | At | Signature | + +-------+ + + + | FASTING | 82 | 60 - 92 mg/dL | [facility] | | | GLUCOSE-3GT | [...] | + + + + + | [facility] | And | [place] [address] | [phone] | | [facility] | Streets | | | + + + + + documented in this encounter Visit Diagnoses + + | Diagnosis | + + | Pharyngitis, unspecified etiology - Primary | + + | Normal first confirmed, antepartum | + + | Abnormal glucose tolerance test in | + + documented in this encounter"
--- OUTSIDE RECORDS SUMMARY | ~2018-11-05 | XMS | Encounter Summary ---
Demographics + + + | Address | [address] | | | [place] [address] | + + + | Home Phone [...] | | | | | [place] [address] | | + + + + + | Helena Barakatjoseph | ECON | UNK | | | | | [place] [address] | | + + + + + Care Team Providers + +------+ + | Care Speech And Hearing Director Name | Role | Phone | [...] + + | 06/18/ | Telephone | [facility] | Jeannie Argutea, | Appointment | | 2015 | | [facility] [address] | CNM [address] | | | | | E , [address] | [address] | | | | | [place], [place] | [place] | | | | | [address] | [address] | | | | | [phone] | [phone] | | | | | | | [...]
--- OUTSIDE RECORDS SUMMARY | ~2018-11-05 | XMS | Encounter Summary ---
Demographics + + + | Address | [address] | | | [place] [address] | + + + | Home Phone | | + + + | Preferred Language | Unknown | + + + | Marital Status | Single | + + + | Tenriism Affiliation | NON | + + + [...] | | | | | [place] [address] | | + + + + + | Helena Reilly | ECON | UNK | | | | | [place] [address] | | + + + + + Care Team Providers + +------+ + | Care Stave Block Roller Name | Role | Phone | + +------+ + | Larry Lorenzo | PCP | | + +------+ + Encounter Details +--------+ + + + + | Date | Type | Department | Care Team | Description | +--------+ + + + + | 11/27/ | Hospital | Pathology at | | | | 2016 | Encounter | Medical Office | | | | | | Building [address] | | | | | The | | | | | | [place], [place] | | | | | | [address] | | | | | | [phone] | | | +--------+ + + + [...]
--- OUTSIDE RECORDS SUMMARY | ~2018-11-05 | XMS | Encounter Summary ---
Demographics + + + | Address | [address] | | | [place] [address] | + + + | Home Phone [...] + + + | Author | [facility] | + + + | Organization | [facility] | + + + | Address | Unknown | + + + | Phone | Unavailable | + + + Support + + + + + | Name | Relationship | Address | Phone | + + + + + | Dante Duenas | GISSELLE | [address] | | | | | [place] [address] | | + + + + + | Helena Hawleywil | ECON | UNK | | | | | [place] [address] | | + + + + + Care Team Providers + +------+ + | Care Costume Shop Manager Name | Role | Phone | [...] | | 2016 | | Department at [facility] | [facility] | | | | | Hospital [address] | [facility] [address] | | | | | [address] The | E The | | | | | [place], [place] | [place] [address] | | | | | [address] | [phone] | | | | | [phone] | | | +--------+ + + + [...] your doctor if you can take an suvi-pxm-wkjgzwy pain medicine, such as acetaminophen (Tylenol), ibuprofen [...] about "Learning About Fever", log into your Conformity account at [email or web address]. You can enter G732 in the "IGLOO Software Library" search box. Not on Conformity? Review the The Tap Labhart section of your After Visit Summary for directions on timbo w to sign up. Current as of: November 17, 2015 Content Version: 11.2 7346-2259 Moz, [employer]. Care instructions adapted under license by [facility]. If you have questions about a medical condition or this instr uction, always ask your healthcare professional. iBuyitBetter disclaims any nino anty or liability for [...] and Vomiting: Care Instructions", log into your Conformity account at [email or web address]. You can enter H591 in the "IGLOO Software Library" search box. Not on Conformity? Review the Conformity section of your After Visit Summary for directions on ho w to sign up. Current as of: November 17, 2015 Content Version: 11.20054745-2398 iBuyitBetter. Care instructions adapted under license by [facility] [employer] & [employer]. If you have questions about a medical condition or this instr uction, always ask your healthcare professional. i[employer]itBetter disclaims any nino anty or liability for [...] | - [place] | | | | Assay([employer] | | | | | | [...] DIAGNOSTICS | [address] | [place] [address] | | | - [place] | [address] [...] | + + + + + | [facility] | And | [place] [address] | [phone] | | MEDICAL CENTER | Streets | [...] 100 | 70 - 105 mg/dL | [facility] | | | PLASMA | | | [...] | | A MEDICAL | | | [place] | | | CENTER | | + [...] the MDRD equation recommended by the | [facility] | | National Kidney Disease Education Program. Estimated GFR | [facility] | | Interpretive Information: <60 mL/min/1.73 [...] | + + + + + | [facility] | And | [place] [address] | [phone] | | MEDICAL CENTER | Streets | | | + + + + + URINE, MICROSCOPIC EXAM (12/11/2016 7:17 PM PDT) + + + + + + | Component | Value | Ref Range | Performed | Pathologist | | | | | At | Signature | + + + + + + | RED CELLS | Neg | Neg, 0-3 | [facility] | | [...] | [facility] | And | [place] [address] | [phone] | | MEDICAL CENTER | Streets | [...] | + + + + + | [facility] | And | [place] [address] | [phone] | | [facility] | Streets | | | + [...]
--- OUTSIDE RECORDS SUMMARY | ~2018-11-05 | XMS | Encounter Summary ---
Demographics + + + | Address | [address] | | | [place] [address] | + + + | Home Phone [...] Author + + + | Author | [facility] | + + + | Organization | [facility] | + + + | Address | Unknown | + + + | Phone | Unavailable | + + + Support + + + + + | Name | Relationship | Address | Phone | + + + + + | Dante Duenas | G[place]SELLE | [address] | | | | | [place] [address] | | + + + + + | Helena Reilly | ECON | UNK | | | | | [place] [address] | | + + + + + Care Team Providers + +------+ + | Care Community Health Coordinator Name | Role | Phone | + +------+ + | No Pcp Per Patient | PCP | Unavailable | + +------+ + Encounter Details +--------+ + + + + | Date | Type | Department | Care Team | Description | +--------+ + + + + | 04/23/ | Abstract | [place] | Jeannie Argueta, | | | 2015 | | [facility] [address] | CNM [address] | | | | | [address] | [address] | | | | | [place], [place] | [place], [place] | | | | | [address] | [address] | | | | | [phone] | | | | | | | [...] + documented as of this encounter Progress Jaime Chaves RN - 04/23/2016 12:25 PM PDTChart abstraction completed in preparation f or OB Intake. Used Onit and [email or web address].[employer] to gather patient information for the chart, to be conf irmed with the patient at the time of visit. documented in this encounter Plan of Treatment Not on filedocumented as of this encounter Visit Diagnoses Not on filedocumented in this encounter"
--- OUTSIDE RECORDS SUMMARY | ~2018-11-05 | XMS | Encounter Summary ---
Demographics + + + | Address | [address] | | | [place] [address] | + + + | Home Phone [...] | | | | | [place] [address] | | + + + + + | Hel[place] Hawleywil | ECON | [place]K | | | | | [place] [address] | | + + + + + Care Team Providers + +------+ + | Care Divisional Human Resources Director Name | Role | Phone | + +------+ + | Larry Lorenzo | PCP | | + +------+ + Encounter Details +--------+ + + + + | Date | Type | Department | Care Team | Description | +--------+ + + + + | 05/10/ | Document-Sc | Laboratory at | [place], | | | 2016 | anned | [facility] | MD Jostin [address] | | | | | [facility] [address] | [address] | | | | | E The | [place], [place] | | | | | [place], [place] | [address] | | | | | [address] | [phone] | | | | | [phone] | | | +--------+ + + + [...]
--- OUTSIDE RECORDS SUMMARY | ~2018-11-05 | XMS | Encounter Summary ---
Demographics + + + | Address | [address] | | | [place] [address] | + + + | Home Phone [...] | | | | | [place] [address] | | + + + + + | Helena Barakatjoseph | ECON | [place]K | | | | | [place] [address] | | + + + + + Care Team Providers + +------+ + | Care Timber Grader Name | Role | Phone | + [...] + + | 11/24/ | PreAdmit | [place] | Jeannie Argueta, | Pre-Admission | | 2017 | Orders | [facility] [address] | CNM [address] | | | | | E , [address] | [address] | | | | | [place], [place] | [place] | | | | | [address] | [address] | | | | | [phone] | | | | | | | [...]
--- OUTSIDE RECORDS SUMMARY | ~2018-11-05 | XMS | Encounter Summary ---
Demographics + + + | Address | [address] | | | [place] [address] | + + + | Home Phone [...] | | | | | [place] [address] | | + + + + + | [place] Barakatjoseph | ECON | UNK | | | | | [place] [address] | | + + + + + Care Team Providers + +------+ + | Care Casting Agent Name | Role | Phone | + [...] + + + | 11/22/ | | [place] | Salma Castro, | monitoring | | 2017 | | [facility] [address] | Lorraine, RN [address] | | | | | [address] , [address] | The | | | | | [place], [place] | [place], [place] | | | | | [address] | [address] | | | | | [phone] | | | +--------+ + + + [...]
--- OUTSIDE RECORDS SUMMARY | ~2018-11-05 | XMS | Encounter Summary ---
Demographics + + + | Address | [address] | | | [place] [address] | + + + | Home Phone [...] | | | | | [place] [address] | | + + + + + | [place] Reilly | ECON | [place]K | | | | | [place] [address] | | + + + + + Care Team Providers + +------+ + | Care Stock Order Lister Name | Role | Phone | + +------+ + | No Pcp Per Patient | PCP | Unavailable | + +------+ + Encounter Details +--------+ + + + + | Date | Type | Department | Care Team | Description | +--------+ + + + + | 04/30/ | Abstract | [place] | [place]isel, | | | 2015 | | [facility] [address] | MD [address]ostin [address] | | | | | E , | | | | | | [place], [place] | [place], [place] | | | | | [address] | [address] | | | | | [phone] | [phone] | | | | | | | [...]
--- OUTSIDE RECORDS SUMMARY | ~2018-11-05 | XMS | Encounter Summary ---
Demographics + + + | Address | [address] | | | [place] [address] | + + + | Home Phone | | + + + | Preferred Language | Unknown | + + + | Marital Status | Single | + + + | Denominational Affiliation | NON | + + + [...] + + + + + | Dante uDenas | [place]LE | [address] | | | | | [place] [address] | | + + + + + | [place] Barakatjoseph | ECON | UNK | | | | | [place] [address] | | + + + + + Care Team Providers + +------+ + | Care Coordinator Mining Products Name | Role | Phone | + [...] + + | 06/03/ | Telephone | [facility] | [place], | UTI - Urinary tract | | 2015 | | [facility] [place] [address] | MD [address] | infection | | | | E , | | | | | | [place], [place] | [place], [place] | | | | | [address] | [address] | | | | | [phone] | | | | | | | [...]
--- OUTSIDE RECORDS SUMMARY | ~2018-11-05 | XMS | Encounter Summary ---
Demographics + + + | Address | [address] | | | [place] [address] | + + + | Home Phone [...] | | | | | [place] [address] | | + + + + + | [place] Hawleywil | ECON | [place]K | | | | | [place] [address] | | + + + + + Care Team Providers + +------+ + | Care Aeronautical Engineering Technologist Name | Role | Phone | + +------+ + | Larry Lorenzo | PCP | | + +------+ + Encounter Details +--------+ + + + + | Date | Type | Department | Care Team | Description | +--------+ + + + + | 05/31/ | Document-Sc | Laboratory at | Jeannie Argueta, | | | 2016 | anned | [facility] | [address] | | | | | [facility] [address] | [address] | | | | | E The | [place], [place] | | | | | [place], [place] | [address] | | | | | [address] | [phone] | | | | | [phone] | | | +--------+ + + + [...]
--- OUTSIDE RECORDS SUMMARY | ~2018-11-05 | XMS | Encounter Summary ---
Demographics + + + | Address | [address] | | | [place] [address] | + + + | Home Phone [...] | | | | | [place] [address] | | + + + + + | [place] Hawleywil | ECON | [place]K | | | | | [place] [address] | | + + + + + Care Team Providers + +------+ + | Care Insurance Marketing Specialist Name | Role | Phone | [...] + + | 08/15/ | Telephone | [place] | Jeannie Argueta, | Flu | | 2016 | | [facility] [place] [address] | CNM [address] | | | | | [address] , [address] | [address] | | | | | [place], [place] | [place], [place] | | | | | [address] | [address] | | | | | [phone] | | | | | | | [...]
--- OUTSIDE RECORDS SUMMARY | ~2018-11-05 | XMS | Encounter Summary ---
Demographics + + + | Address | [address] | | | [place] [address] | + + + | Home Phone | | + + + | Preferred Language | Unknown | + + + | Marital Status | Single | + + + | Sikh Affiliation | NON | + + + [...] | | | | | [place] [address] | | + + + + + | [place] Hawleywil | ECON | [place]K | | | | | [place] [address] | | + + + + + Care Team Providers + +------+ + | Care Registered Radiation Therapist Name | Role | Phone | + +------+ + | Larry Lorenzo | PCP | | + +------+ + Encounter Details +--------+ + + + + | Date | Type | Department | Care Team | Description | +--------+ + + + + | 06/06/ | Telephone | [facility] | Jeannie Argueta, | | | 2015 | | [facility] [address] | CNM [address] | | | | | [address] , [address] | [address] | | | | | [place], [place] | [place], [place] | | | | | [address] | [address] | | | | | [phone] | | | | | | | [...]
--- OUTSIDE RECORDS SUMMARY | ~2018-11-05 | XMS | Encounter Summary ---
Demographics + + + | Address | [address] | | | [place] [address] | + + + | Home Phone [...] | | | | | [place] [address] | | + + + + + | Helena Reilly | ECON | [place]K | | | | | [place] [address] | | + + + + + Care Team Providers + +------+ + | Care Brilliandeer Lopper Name | Role | Phone | + [...] + + | 07/29/ | Telephone | [place] | Jeannie Argueta, | Dizzy | | 2016 | | [facility] [place] [address] | CNM [address] | | | | | [address] , [address] | [address] | | | | | [place], [place] | [place], [place] | | | | | [address] | [address] | | | | | [phone] | | | | | | | [...]
--- OUTSIDE RECORDS SUMMARY | ~2018-11-05 | XMS | Encounter Summary ---
Demographics + + + | Address | [address] | | | [place] [address] | + + + | Home Phone | | + + + | Preferred Language | Unknown | + + + | Marital Status | Single | + + + | Rastafari Affiliation | NON | + + + [...] | | | | | [place] [address] | | + + + + + | [place]ena Reilly | ECON | [place]K | | | | | [place] [address] | | + + + + + Care Team Providers + +------+ + | Care Bottom Sander Name | Role | Phone | + +------+ + | No Pcp Per Patient | PCP | Unavailable | + +------+ + Encounter Details +--------+ + + + + | Date | Type | Department | Care Team | Description | +--------+ + + + + | 04/23/ | Abstract | [place] | Jeannie Argueta, | | | 2015 | | [facility] [address] | CNM [address] | | | | | [address] | [address] | | | | | [place], [place] | [place], [place] | | | | | [address] | [address] | | | | | [phone] | [phone] | | | | | | | [...] in preparation f or OB Intake. Used MegaHoot and [employer] to gather patient information for the chart, to be conf irmed with the patient at the time of visit. documented in this encounter Plan of Treatment Not on filedocumented as of this encounter Visit Diagnoses Not on filedocumented in this encounter"
--- OUTSIDE RECORDS SUMMARY | ~2018-11-05 | XMS | Encounter Summary ---
Demographics + + + | Address | [address] | | | [place] [address] | + + + | Home Phone | | + + + | Preferred Language | Unknown | + + + | Marital Status | Single | + + + | Advent Affiliation | NON | + + + | Race | White | + + + | Ethnic Group | Not or | + + + Author + + + | Author | [facility] | + + + | Organization | [facility] | + + + | Address | Unknown | + + + | Phone | Unavailable | + + + Support + + + + + | Name | Relationship | Address | Phone | + + + + + | Dante Duenas | GISSELLE | [address] | | | | | [place] [address] | | + + + + + | Helena Barakatjoseph | ECON | [address] | | | | | [place] [address] | | + + + + + Care Team Providers + +------+ + | Care Principal Software Architect Name | Role | Phone | [...] + + + + | 08/29/ | | [facility] | Harpreet Sanabria MD | | | 2017 | | [facility] [address] | [address] | | | | | [address] | [address], [place] | | | | | [place], [place] | [address] | | | | | [address] | [phone] | | | | | [phone] | | | +--------+ + + + [...] + | Blood Pressure | 110/62 | 08/29/2016 10:21 AM | | | | | PST [...] Weight | 68 kg (150 lb) | 08/29/2016 10:21 AM | | | | | PST | | + + + + + | Height | - | - | | + + + + + | Body Mass Index | 29.54 | 04/23/2016 2:08 PM | | | | | PDT | | + + + + + documented in this encounter Patient Instructions Patient Instructions Sawyer Alex MA - 08/29/2016 10:45 AM PSTPrenatal Visit - Week 28 Rh Negative If you re Rh Negative, you should have received an injection of Rh antibodies (RhoGAM) to day. If you did not get that injection and you know that you re Rh Negative, call us now. Preeclampsia By now, we hope you ve benefited from the care you ve been getting. Although you re getting closer, we re still keeping watch on you and your baby. One of the last things we re doing is watching you for signs of Preeclampsia (stella). It s the main reason we ve been taking your blood pressure and dipping your urine. Preeclampsia is a disorder of associated with high blood pressure and abnormal ch anges in your kidney, liver and blood vessels. With preeclampsia, we re pretty sure that the placenta is the source of the problem. Most women who get preeclampsia will get only a mild form of it. However, some women get a severe form of it. In rare cases, pre-eclampsia leads to eclampsia. Eclampsia is the most severe consequence of this disorder, resulting in seizure and problems with your liver, kid neys, and blood clotting. If you are diagnosed with preeclampsia, we will recommend having your baby a few weeks befo re your due date. Most of the time, we can induce your labor successfully, if that is the c ase. Swelling in Swelling. Most women will note some swelling to some degree in some part of their body at some point in their . Word on the street (and on the internet chat boards ) is that swelling is preeclampsia. Maybe; probably not. Swelling in is usually normal. Swelling, or as we say, edema, is the movement of water from your blood stream into other parts of the body ..mostly, the skin. Swelling o f the limbs (ankle, feet, hands) is the most common. If you re coming in for all your visits, we ll be able to tell you if your swe lling is normal (it probably is) or not. Nutrition This visit s nutritional fany is this- it s not too late to make improvements in your nutritional habits. And certainly not too late for such a change to benefit both you and t he baby. Your baby is growing rapidly now. For most women, additional calories are needed. How many calories does a woman need during ? ..it depends on the woman. Women of small or average size need around 300 additional calories (above an average non- diet). Your Baby s Movements Your perception of your baby s movement ( movement ) is a good indicator that y our baby is doing OK. When you feel your baby s movement, it s a pretty good indication that the placenta is working well and your baby is getting all that it needs to grow and th rive. The lack of movement is a less reliable indicator of poor health. Most of the time kenia cleaning mother does not feel her baby movement everything is still OK. As your cont inues your baby s sleep cycles last a little longer. How much movement is enough? Good question ..hard to answer. One method that was actually studied is Count to Ten . Start counting your baby s movements in the morni ng when you get up. When you reach ten movements you may stop counting for the day (many wo men feel ten movements before lunch). If you get to dinner time and have not counted ten mo vements, eat something and lie down on your left side in a quiet place ..you should feel 3 movements in 30 minutes. If not, give it another 30 minutes. If you don t feel 3 moveme nts in that 30 minutes, call us. Remember, the lack of movement is NOT a good indication of a problem. Chances are go od that your baby is fine. But, call us, and we ll make sure. Protecting your baby - the Tdap shot Not so long ago (and still today in many countries), many babies never made it to their fir st or second birthdays because of diphtheria and pertussis (Whooping cough). And although kenia ruiz rarely hear about it today, because of the success of childhood immunizations, these disea ses are still with us. Our country s experts at the [employer] and the [employer] are concerned about the surprising number of babies that still suffer from these di seases. Your providers here at [facility] [place] support the effort to immunize mothers and fathers (and any other family members that will spend time close to your baby) against diphtheria and pertussis. The new vaccine, the Tdap, also gives you your tetanus booster in the same injection. If you haven t had yours yet, we can give it to you at your next appointment. Weeks 26 to 30 of Your : Care Instructions Your Care Instructions You are now in your last trimester of . Your baby is growing rapidly. And you'll p robably feel your baby moving around more often. Your doctor may ask you to count your baby' s kicks. Your back may ache as your body gets used to your baby's size and length. If you haven't already had the Tdap shot during this , talk to your doctor about g etting it. It will help protect your against pertussis infection. During this time, it's important to take care of yourself and pay attention to what your aileen dy needs. If you feel sexual, explore ways to be close with your partner that match your com fort and desire. Use the tips provided in this care sheet to find ways to be sexual in your own way. Follow-up care is a mclaughlin part of your treatment and safety. Be sure to make and go to all ap pointments, and call your doctor if you are having problems. It's also a good idea to know y our test results and keep a list of the medicines you take. How can you care for yourself at home? Take it easy at work Take frequent breaks. If possible, stop working when you are tired, and rest during your lunch hour. Take bathroom breaks every 2 hours. Change positions often. If you sit for long periods, stand up and walk around. When you stand for a long time, keep one foot on a low stool with your knee bent. After standing a lot, sit with your feet up. Avoid fumes, chemicals, and tobacco smoke. Be sexual in your own way Having sex during is okay, unless your doctor tells you not to. You may be very interested in sex, or you may have no interest at all. Your growing belly can make it hard to find a good position during intercourse. Experime nt and explore. You may get cramps in your uterus when your partner touches your breasts. A back rub may relieve the backache or cramps that sometimes follow orgasm. Learn about labor Watch for signs of labor. You may be going into labor if: You have menstrual-like cramps, with or without nausea. You have about 4 or more contractions in 20 minutes, or about 8 or more within 1 hour, e trisha after you have had a glass of water and are resting. You have a low, dull backache that does not go away when you change your position. You have pain or pressure in your pelvis that comes and goes in a pattern. You have intestinal cramping or flu-like symptoms, with or without diarrhea. You notice an increase or change in your vaginal discharge. Discharge may be heavy, mucu s-like, watery, or streaked with blood. Your water breaks. If you think you have labor: Drink 2 or 3 glasses of water or juice. Not drinking enough fluids can cause contraction s. Stop what you are doing, and empty your bladder. Then lie down on your left side for at least 1 hour. While lying on your side, find your breast bone. Put your fingers in the soft spot just below it. Move your fingers down toward your belly button to find the top of your uterus. Ch lennie to see if it is tight. Contractions can be weak or strong. Record your contractions for an hour. Time a contrac tion from the start of one contraction to the start of the next one. Single or several strong contractions without a pattern are called [place] contrac tions. They are practice contractions but not the start of labor. They often stop if you fabián nge what you are doing. Call your doctor if you have regular contractions. Where can you learn more? To learn more about "Weeks 26 to 30 of Your : Care Instructions", log into your My Chart account at [email or web address]. You can enter S999 in the "Health Library" [facility] box. Not on [employer]? Review the MyChart section of your After Visit Summary for directions on ho w to sign up. Current as of: November 20, 2015 Content Version: 11.1 [id number] [employer]. Care instructions adapted under license by [facility] [employer] [place]. If you have questions about a medical condition or this instr uction, always ask your healthcare professional. [employer] disclaims any nino anty or liability for your use of this information. documented in this encounter Progress Notes Harpreet Sanabria MD - 08/29/2016 10:45 AM PSTShe states she has some cramping a week or so ag o, she got monitored at [facility]. Since then it has subsided. Patient denies contractions, leaking bleeding. Electronically signed by MD hermila Garcia 08/29/2016 11:27 AM Hellen Oliveira MA - 08/29/2016 10:45 AM PSTNo questions or concerns today. Pt declined Tdap. Hellen Littlejohn MA Electronically signed by Hellen Littlejohn MA at 017 11:27 AM PSTdocumented in this encounter Plan of Treatment Not on filedocumented as of this encounter Procedures + +--------+ + + + | Procedure Name | Priori | Date/Time | Associated Diagnosis | Comments | | | ty | | | | + +--------+ + + + | UA, DIP 4 | Routin | 08/29/2016 | 28 weeks gestation | Results for this | | | e | 10:11 AM | of | procedure are in the | | | | PST | | results section. | + +--------+ + + + documented in this encounter Results GLUCOSE TOLERANCE TEST, 1 HOUR (08/29/2016 11:19 AM PST) + +---------+ + + + | Component | Value | Ref Range | Performed | Pathologist | | | | | At | Signature | + +---------+ + + + | 1 HOUR | 151 (H) | 60 - 140 mg/dL | [facility] | | | GLUCOSE - | | | A MEDICAL | | | 1GT | | | CENTER | | + +---------+ + + + + + | Specimen | + + | Blood | + + + + + | Narrative | Performed At | + + + | This test is to be used for the diagnosis of gestational diabetes | [facility] | | only. | MEDICAL CENTER | + + + + + + + + | Performing | Address | City/State/Zipcode | Phone Number | | Organization | | | | + + + + + | [facility] | And | [place] [address] | [phone] | | [facility] | Streets | | | + + + + + BONI PURVIS 4 (08/29/2016 10:11 AM PST) + + + + + [...] + | [facility] | [address] [place] [address], | [place] [address] | | | [facility] | [address] | | | + + + + + documented in this encounter Visit Diagnoses + + | Diagnosis | + + | 28 weeks gestation of - Primary state, incidental | + + documented in this encounter
--- OUTSIDE RECORDS SUMMARY | ~2018-11-05 | XMS | Encounter Summary ---
Demographics + + + | Address | [address] | | | [place] [address] | + + + | Home Phone [...] | | | | | [place] [address] | | + + + + + | Helena Barakatjoseph | ECON | [address] | | | | | [place] [address] | | + + + + + Care Team Providers + +------+ + | Care Desk Manager Name | Role | Phone | [...] + + | 03/05/ | Telephone | [facility] | Jeannie Argueta, | Appointment Question | | 2016 | | [facility] [address] | [facility] [address] | | | | | [address] | | | | | [place], [place] | [place], [place] | | | | | [address] | [address] | | | | | [phone] | [phone] | | | | | | | [...]
--- OUTSIDE RECORDS SUMMARY | ~2018-11-05 | XMS | Encounter Summary ---
Demographics + + + | Address | [address] | | | [place] [address] | + + + | Home Phone [...] | | | | | [place] [address] | | + + + + + | Helena Barakatjoseph | ECON | UNK | | | | | [place] [address] | | + + + + + Care Team Providers + +------+ + | Care Correction Officer Reformatory Name | Role | Phone | + [...] | +--------+ + + + + | 12/25/ | | [facility] | Jeannie Argueta, | | | 2017 | | [facility] [address] | CNM [address] | | | | | [address] , [address] | | | | | [place], [place] | [place] | | | | | [address] | [address] | | | | | [phone] | [phone] | | | | | | | [...] + + + | Blood Pressure | 124/84 | 12/25/2016 11:20 AM | | | | | PDT [...] + + + + | Weight | 66.2 kg (146 lb) | 12/25/2016 11:20 AM | | | | | PDT | | + + + + + | Height | - | - | | + + + + + | Body Mass Index | 28.75 | 11/25/2016 5:07 AM | | | | | PDT | | + + + + + documented in this encounter Patient Instructions Patient Instructions Jeannie Argueta CNM - 12/25/2016 11:52 AM PDT Congratulations again ! It was great to see you again and I'm glad you and your baby are doing well. It is ok to slowly start working into an exercise routine. This may cause your bleeding to slightly incr ease. Ease into an exercise routine slowly. Continue to take your vitamin while tri astfeeding. You have chosen to have a paraguard IUD inserted for control. Please use a condom if you are sexually active before then. Plan to return in 2 weeks for IUD insertion and pap smear. After : Exercises Your Care Instructions Here are some examples of exercises that can help after . Start each exercise slow ly. Ease off the exercise if you start to have pain. Your doctor or physical therapist will tell you when you can start these exercises and shannon h ones will work best for you. How to do the exercises Ilsa reno 1. Lie on your back, and place two fingers just inside your hip bones so you can feel your lower belly muscles. 2. Take a deep breath in. 3. As you breathe out, pull your belly button in toward your spine, as if you are trying to zip up a tight pair of jeans. You should feel your lower belly muscles pull slightly away f rom your fingers as the muscles tighten. 4. Hold for about 6 seconds, but do not hold your breath. 5. Repeat 8 to 12 times. 6. Repeat several times a day, and try to hold your lower belly muscles in for longer as yo u get stronger. 7. Practice doing this exercise while you are standing, such as when you are standing in li ne, or sitting. Heel slides 1. Lie on the floor with your knees bent, and place two fingers just inside your hip bones so you can feel your lower belly muscles. Your feet should be flat on the floor. 2. Pull your belly button in toward your spine. You should feel your lower belly muscles pu ll slightly away from your fingers as the muscles tighten. 3. Keep holding your belly button in as you slowly slide one foot along the floor until you r leg is out straight. 4. Slowly slide the leg back to your starting position while making sure that you keep hold ing your belly button in. 5. Do not arch or move your back as you are doing this. Do not hold your breath. 6. Relax and repeat with your other leg. 7. Repeat 8 to 12 times. Lsvn-qa-shaoe stretch 1. Lie on your back with one knee bent and the other leg straight. 2. Clasp your hands together under your bent knee and bring the knee to your chest. Keep yo ur lower back pressed to the floor. 3. If it hurts your back to keep your opposite leg straight as you stretch, bend that knee too, and keep that foot flat on the floor. 4. Hold for at least 15 to 30 seconds. 5. Relax and lower the knee to the starting position. 6. Repeat with the other leg. 7. Repeat 2 to 4 times with each leg. Neck rotation 1. Sit in a firm chair, or stand up straight. 2. Keeping your chin level, turn your head to the right, and hold for 15 to 30 seconds. 3. Turn your head to the left and hold for 15 to 30 seconds. 4. Repeat 2 to 4 times to each side. Shoulder rolls 1. Sit comfortably with your feet shoulder-width apart. You can also do this exercise while standing. 2. Roll your shoulders up, then back, and then down in a smooth, circular motion. 3. Repeat 2 to 4 times. Midback stretch Note: If you have knee pain, do not do this exercise. 1. Kneel on the floor, and sit back on your ankles. 2. Lean forward, place your hands on the floor, and stretch your arms out in front of you. Rest your head between your arms. 3. Gently push your chest toward the floor, reaching as far in front of you as possible. 4. Hold for 15 to 30 seconds. 5. Repeat 2 to 4 times. Back stretches 1. Get down on your hands and knees on the floor. 2. Relax your head and allow it to droop. Round your back up toward the ceiling until you f eel a nice stretch in your upper, middle, and lower back. Hold this stretch for as long as i t feels comfortable, or about 15 to 30 seconds. 3. Return to the starting position with a flat back while you are on your hands and knees. 4. Let your back sway by pressing your stomach toward the floor. Lift your buttocks toward the ceiling. 5. Hold this position for 15 to 30 seconds. 6. Repeat 2 to 4 times. Hamstring stretch (lying down) 1. Lie flat on your back with your legs straight. If you feel discomfort in your back, plac e a small towel roll under your lower back. 2. Holding the back of your leg, lift your leg straight up and toward your body until you f eel a stretch at the back of your thigh. 3. Hold the stretch for at least 30 seconds. 4. Repeat 2 to 4 times. 5. Switch legs and repeat steps 1 through 4. Calf stretch 1. Stand facing a wall with your hands on the wall at about eye level. Put your leg about a step behind your other leg. 2. Keeping your back leg straight and your back heel on the floor, bend your front knee and gently bring your hip and chest toward the wall until you feel a stretch in the calf of you r back leg. 3. Hold the stretch for 15 to 30 seconds. 4. Repeat 2 to 4 times. 5. Repeat steps 1 through 4, but this time keep your back knee bent. 6. Switch legs and repeat steps 1 through 5. Follow-up care is a mclaughlin part of your treatment and safety. Be sure to make and go to all ap pointments, and call your doctor if you are having problems. It's also a good idea to know y our test results and keep a list of the medicines you take. Where can you learn more? To learn more about "After : Exercises", log into your [employer] account at [email or web address]/[email or web address]. You can enter X152 in the "Health Library" search box. Not on [employer]? Review the SwingTime[employer] section of your After Visit Summary for directions on timbo aquino to sign up. Current as of: November 20, 2015 Content Version: 11.2 7644-1844 [employer]. Care instructions adapted under license by [facility] & [facility]. If you have questions about a medical condition or this instr uction, always ask your healthcare professional. [employer] disclaims any nino anty or liability for your use of this information. Stress in Parents of Infants: Care Instructions Your Care Instructions Meeting the increased demands of being a new parent can be a big challenge. It is easy to g et overtired and overwhelmed during the first weeks. What used to be a simple chore, such as buying groceries, is not so simple now. Plus, you have new chores, including feeding and ch anging your new baby. At the end of the day, you may be so tired that you feel like crying. Instead of looking forward to the next day, you may be dreading tomorrow. Like many new pare nts, you are burned out from the stress of having a new baby. Stress affects each of us differently, and the most effective ways to relieve it are differ ent for each person. You can try different methods to find out which ones work best for you. As the weeks go by, you will begin to develop a rhythm with your baby. Tasks that now seem to take forever will become easier. Many women get the "baby blues" during the first few days after childbirth. If you are a ne w mother and the "baby blues" last more than a few days, call your doctor right away. Depres ivelisse is a medical condition that requires treatment. Follow-up care is a mclaughlin part of your treatment and safety. Be sure to make and go to all ap pointments, and call your doctor if you are having problems. It's also a good idea to know y our test results and keep a list of the medicines you take. How can you care for yourself at home? Be kind to yourself. Your new baby takes a lot of work, but he or she can give you a lot of pleasure too. Do not worry about housekeeping for a while. Allow your friends to bring you meals or do chores. Limit visitors to as few as you feel you can handle, or ask them not to visit for a whil e. Before they come, set a limit on how long they will stay. Sleep when your baby sleeps. Even a short nap helps. Find what triggers your stress, and avoid those things as much as you can. If you breastfeed, learn how to collect and store some breast milk so your partner or ba bysitter can feed the baby while you sleep. Eat a balanced diet so you can keep up your energy. Drink plenty of fluids throughout the day. Avoid caffeine and alcohol. Caffeine is found in coffee, tea, cola drinks, chocolate, an d other foods. Limit medicines that can make you more tired, such as tranquilizers and cold and allergy medicines. Get regular daily exercise, such as walks, to help improve your mood. Rest after you exe rcise. Be honest with yourself and those who care about you. Tell them you are stressed and tir ed. Talking to other new parents can help. Ask your doctor or child's doctor to suggest supp ort groups for new parents. Hearing that someone else is having the same experiences you are can help a lot. If you have the baby blues for more than a few days, call your doctor right away. When should you call for help? Call 911 anytime you think you may need emergency care. For example, call if: You have thoughts of hurting yourself, your baby, or another person. Call your doctor now or seek immediate medical care if: You are having trouble caring for yourself or your baby. Watch closely for changes in your health, and be sure to contact your doctor if you have an y problems. Where can you learn more? To learn more about "Stress in Parents of Infants: Care Instructions", log into your [employer] account at [email or web address]/[employer]. You can enter H142 in the "[employer]" search box. Not on [employer]? Review the MyChart section of your After Visit Summary for directions on timbo w to sign up. Current as of: January 16, 2016 Content Version: 11.2 6789-2824 [employer]. Care instructions adapted under license by [facility] & [employer] [place]. If you have questions about a medical condition or this instr uction, always ask your healthcare professional. [employer] disclaims any nino anty or liability for your use of this information. documented in this encounter Progress Notes Jeannie Argueta CNM - 12/25/2016 11:30 AM PDT Note OB History Para Term AB SAB TAB Ectopic Multiple Living 1 1 1 0 0 # Outcome Date GA Lbr Galo/2nd Weight Sex Delivery Anes PTL Lv 1 Term 11/27/16 41w3d 3.748 kg (8 lb 4.2 oz) F Vag-Spont epidural. Y Subjective Jennifer Will Reilly is a 21 y.o. who presents for a 4 week PP visit. Nursing Chi ld: No. Complaints: She reports doing excellent. She developed a fever at approximately 14 days po stpartum and was seen in the ER. She did not have confirmation of cause of fever and it reso lved by the next day. She was given a dose of Rocephin and sent home with doxycycline but th en was instructed to not take the doxycycline and therefore didn't. She had no further fever or discomforts. She is voiding and having regular bm's. She chose to stop . Sh e denies pp blues or depression. She would like paraguard IUD for pp control. Objective Filed Vitals: 12/25/2016 11:20 AM Weight: 66.2 kg (146 lb) BP: 124/84 PainSc: 0 - Zero BMI: 28.75 kg/(m^2) General: happy and no acute distress CV: regular rate and rhythm without murmurs, rubs or gallops Lungs: rales Abdomen: abdomen soft, non-tender, no rebound Perineum: sutures intact, no swelling, no erythema and healing well Extremities: no edema, warm and well-perfused and non-tender Psych: normal mood and affect Screened for depression or prior mood disorders/blues: yes Assessment: 4 weeks with normal healing and transition. Contraception: IUD/IUS: Paragard Plan: Followup in 2 weeks IUD insertion and pap. Pt had wanted to place IUD today but afte r reviewing with Dr Sanabria, she recommended waiting 2 more weeks since infection was unknown origin. Pt stated understanding. Jeannie Argueta CNM Sawyer Duran MA - 12/25/2016 11:30 AM PDT01/2016 was last pap smear ASCUS. She is formula feeding. No issues with BM or urinating Paragard IUD is her choice for control documented in this encounter Plan of Treatment Not on filedocumented as of this encounter Visit Diagnoses + + | Diagnosis | + + | care and examination - Primary | + + documented in this encounter
--- OUTSIDE RECORDS SUMMARY | ~2018-11-05 | XMS | Encounter Summary ---
Demographics + + + | Address | [address] | | | [place] [address] | + + + | Home Phone | | + + + | Preferred Language | Unknown | + + + | Marital Status | Single | + + + | Confucianism Affiliation | NON | + + + | Race | White | + + + | Ethnic Group | Not or | + + + Author + + + | Author | [facility] | + + + | Organization | [facility] | + + + | Address | Unknown | + + + | Phone | Unavailable | + + + Support + + + + + | Name | Relationship | Address | Phone | + + + + + | Dante Duenas | ECON | [address] | | | | | [place] [address] | | + + + + + | eHlena Reilly | ECON | [address] | | | | | [place] [address] | | + + + + + Care Team Providers + +------+ + | Care Lab Tester Name | Role | Phone | [...] [place] | | | | | | [address] | | | | | | [phone] | | | | | | | [...] | | Results for this | | [id number] | e | 1:24 PM | | procedure are in the | | | | PDT | | results section. | + +--------+ + + + documented in this encounter Results ORT SHOULDER 2 VIEW [id number] (03/18/2013 1:24 PM PDT) + + | [...]
--- OUTSIDE RECORDS SUMMARY | ~2018-11-05 | XMS | Encounter Summary ---
Demographics + + + | Address | [address] | | | [place] [address] | + + + | Home Phone [...] | | | | | [place] [address] | | + + + + + | Helena Hawleywil | ECON | UNK | | | | | [place] [address] | | + + + + + Care Team Providers + +------+ + | Care Financial Services Director Name | Role | Phone | [...] + + | 01/31/ | Telephone | [facility] | Jeannie Argueta, | Other (post | | 2017 | | [facility] [address] | CNM [address] | depression) | | | | [address] , [address] | | | | | [place], [place] | [place], [place] | | | | | [address] | [address] | | | | | [phone] | [phone] | | | | | | | [...]
--- OUTSIDE RECORDS SUMMARY | ~2018-11-05 | XMS | Encounter Summary ---
Demographics + + + | Address | [address] | | | [place] [address] | + + + | Home Phone [...] | | | | | [place] [address] | | + + + + + | Helena Barakatjoseph | ECON | UNK | | | | | [place] [address] | | + + + + + Care Team Providers + +------+ + | Care Optical Goods Drilling Machine Operator Name | Role | Phone [...] + + + | 08/29/ | | [place] | Harpreet Sanabria MD | | | 2017 | | [facility] [address] | [address] | | | | | [address] | [address] [place], [place] | | | | | [place], [place] | [address] | | | | | [address] | [phone] | | | | | [phone] | | | +--------+ + + + [...] the National Institutes of Health and the [employer] diatrics are concerned about the surprising number of babies that still suffer from these di seases. Your providers here at [facility] support the effort to immunize mothers and [...] strong contractions without a pattern are called Zahl-Snlel contrac tions. They are practice contractions but not the start of labor. They often stop if you fabián nge what you are doing. Call your doctor if you have regular contractions. Where can you learn more? To learn more about "Weeks 26 to 30 of Your : Care Instructions", log into your My Chart account at [email or web address]. You can enter S999 in the "Health Library" [facility] box. Not on [employer]? Review the MyChart section of your After Visit Summary for directions on ho w to sign up. Current as of: November 20, 2015 Content Version: 11.1 6228-6208 [employer]. Care instructions adapted under license by [facility] [place]. If you have questions about a medical condition or this instr uction, always ask your healthcare professional. [employer] disclaims any nino anty or liability for [...] (H) | 60 - 140 mg/dL | [facility] | | | GLUCOSE - | [...] for the diagnosis of gestational diabetes | [facility] | | only. | MEDICAL CENTER | + + + + + + + + | Performing | Address | City/State/Zipcode | Phone Number | | Organization | | | | + + + + + | [place] | And | [place] [address] | [phone] | | [facility] | Streets | | | + + [...] | [facility] | [address] [place] [address], | [place] [address] | | | [facility] | [address] | | | + + + + + documented in this encounter Visit Diagnoses + + | Diagnosis | + + | 28 weeks gestation of - Primary state, incidental | + + documented in this encounter
--- OUTSIDE RECORDS SUMMARY | ~2018-11-05 | XMS | Encounter Summary ---
Demographics + + + | Address | [address] | | | [place] [address] | + + + | Home Phone [...] | | | | | [place] [address] | | + + + + + | Helena Hawleywil | ECON | [place]K | | | | | [place] [address] | | + + + + + Care Team Providers + +------+ + | Care Documentation Specialist Name | Role | Phone | [...] | | 2016 | Encounter | at [facility] | CNM [address] | | | | | [address] | [address] | | | | | [place], [place] | [place], [place] | | | | | [address] | [address] | | | | | [phone] | [phone] | | | | | | | | | | | | Katarina Soria, | | | | | | MD[facility] [address] [facility] | | | | | | [facility] | | | | | | [place], [place] | | | | | | [address] | | | | | | [phone] | | | | | | | [...] TO CALL (AFTER 20 WEEKS): GENERAL INFO (UKRAINIAN)documented in this encounter Progress Notes Katarina Soria MD,S - 11/10/2016 9:15 PM PDTNST Interpretation: FHT - BL 150, moderate variability, +accels, no decels [place] - q1-4 SVE closed per pt. VSS [...] | + + + + + | [facility] | | [place] [address] | [phone] | | [facility] | [facility] | | | + + + + + documented in this encounter Visit Diagnoses Not on filedocumented in this encounter
--- OUTSIDE RECORDS SUMMARY | ~2018-11-05 | XMS | Encounter Summary ---
Demographics + + + | Address | [address] | | | [place] [address] | + + + | Home Phone [...] Author + + + | Author | [facility] | + + + | Organization | [facility] | + + + | Address | Unknown | + + + | Phone | Unavailable | + + + Support + + + + + | Name | Relationship | Address | Phone | + + + + + | Dante Duenas | GISSELLE | [address] | | | | | [place] [address] | | + + + + + | Helena Reilly | ECON | [place] | | | | | [place] [address] | | + + + + + Care Team Providers + +------+ + | Care Sizing Sponger Name | Role | Phone | + +------+ + | Larry Lorenzo | PCP | | + +------+ + Encounter Details +--------+------+ + + + | Date | Type | Department | Care Team | Description | +--------+------+ + + + | 08/01/ | Lab | Laboratory at | | with 24 | | 2016 | | [place] [facility] | | completed weeks | | | | [facility] [address] | | gestation | | | | [address] | | | | | | [place] | | | | | | [address] | | | | | | [phone] | | | +--------+------+ + + + [...] + + + | [place] | [place] | [place] [address] | [phone] | | [facility] | Streets | | | + + + + + documented in this encounter Visit Diagnoses + + | Diagnosis | + + | with 24 completed weeks gestation | + + documented in this encounter"
--- OUTSIDE RECORDS SUMMARY | ~2018-11-05 | XMS | Encounter Summary ---
Demographics + + + | Address | [address] | | | [place] [address] | + + + | Home Phone [...] | | | | | [place] [address] | | + + + + + | Helena Barakatjoseph | ECON | UNK | | | | | [place] [address] | | + + + + + Care Team Providers + +------+ + | Care Drop Hammer Setter Up Name | Role | Phone | + [...] | +--------+ + + + + | 08/01/ | | [place] | Jeannie Argueta, | | | 2017 | | [facility] | CNM [address] | | | | | [address] , [address] | [address] | | | | | [place], [place] | [place], [place] | | | | | [address] | [address] | | | | | [phone] | [phone] | | | | | | | [...] + + + | Blood Pressure | 112/62 | 08/01/2016 10:39 AM | | | | | PST [...] Weight | 67.1 kg (148 lb) | 08/01/2016 10:39 AM | | | | | PST | | + + + + + | Height | - | - | | + + + + + | Body Mass Index | 29.15 | 04/23/2016 2:08 PM | | | | | PDT | | + + + + + documented in this encounter Patient Instructions Patient Instructions Edwardo Peterson MA - 08/01/2016 11:00 AM PSTPrenatal Visit - Week 24 Please read chapters 7, 23 and 24 in your book. Please come 30 minutes early to y our next appointment for your 1 hour glucose test. Let s talk some more about Labor (also known as premature labor). The most impor tant message is this: if you think you re in labor, we want you to call us. So, who s at risk of having a baby prematurely? The answer is all women. Howev er, if you had a premature baby in a previous you re at a much higher risk. Wom en who smoke cigarettes also have a higher risk. The majority of time when a woman thinks she might be in premature labor, she is not. Even when we suspect that a woman might be in premature labor, most of those women go on to have their baby at term. Thus, it probably goes without saying, that the diagnosis of l abor is difficult. However, we do know this: babies born prematurely have some serious prob lems. Some actually , and others can have problems like blindness and cerebral palsy. F ortunately, there are a couple of important things that we can do that increase the chance o f a happy/healthy outcome for premature babies. So, when should you call us if you think you might be in premature labor? One problem is t hat premature labor can feel different to different women. If you re not sure, call us. Here are some suggestions: ? Painful uterine contractions, that persist beyond one hour ? Uncomfortable uterine contractions, more than 4 in one hour ? Watery vaginal discharge ? Bloody vaginal discharge ? Abdominal pain and the symptoms of infection (fever, chills, muscle aches, or the feeling that you re coming down with the flu) Try these things: 1. stop what you re doing 2. hydrate yourself (at least a couple of glasses of water); 3. empty your bladder 4. lie down 5. take a hot bath. Doing these things often stops the contractions that are NOT premature labor. Who do I call if I think I might be in premature labor? ? The clinic at [phone] ? Labor and Delivery at [phone] Your Blood Type Do you know your blood type? Do you know if you re Rh Positive or Rh Negative? Ask your doctor or sheep killer what your blood type is. If you are Rh Negative (and your baby s fathe r is Rh Positive), there s a possibility that your baby s blood is somewhat incompati ble with yours. If so, there s a small chance that you could make antibodies against y our baby s (or your next baby s) blood. Don t worry. We have a great way to prevent this. For Rh Negative mothers, we can give you an injection of antibodies that will gobble up any of your baby s blood cells that sne ak past the placenta. We need to give you these antibodies at your next visit (28 weeks). After the baby is born we may give you another of these shots (if your baby is Rh Positive). Weeks 22 to 26 of Your : Care Instructions Your Care Instructions As you enter your 7th month of at week 26, your baby's lungs are growing stronger and getting ready to breathe. You may notice that your baby responds to the sound of your o r your partner's voice. You may also notice that your baby does less turning and twisting an d more squirming or jerking. Jerking often means that your baby has the hiccups. Hiccups are perfectly normal and are only temporary. You may want to think about attending a childbirth preparation class. This is also a good t allie to start thinking about whether you want to have pain medicine during labor. Most women are tested for gestational diabetes between weeks 24 and 28. Gestationa l diabetes occurs when your blood sugar level gets too high when you're . The test i s important, because you can have gestational diabetes and not know it. But the condition ca n cause problems for your baby. Follow-up care is a mclaughlin part of your treatment and safety. Be sure to make and go to all ap pointments, and call your doctor if you are having problems. It's also a good idea to know y our test results and keep a list of the medicines you take. How can you care for yourself at home? Ease discomfort from your baby's kicking Change your position. Sometimes this will cause your baby to change position too. Take a deep breath while you raise your arm over your head. Then breathe out while you d rop your arm. Do Kegel exercises to prevent urine from leaking You can do Kegel exercises while you stand or sit. Squeeze the same muscles you would use to stop your urine. Your belly and thighs should not move. Hold the squeeze for 3 seconds, and then relax for 3 seconds. Start with 3 seconds. Then add 1 second each week until you are able to squeeze for 10 s econds. Repeat the exercise 10 to 15 times for each session. Do three or more sessions each day. Ease or reduce swelling in your feet, ankles, hands, and fingers If your fingers are puffy, take off your rings. Do not eat high-salt foods, such as potato chips. Prop up your feet on a stool or couch as much as possible. Sleep with pillows under your feet. Do not stand for long periods of time or wear tight shoes. Wear support stockings. Where can you learn more? To learn more about "Weeks 22 to 26 of Your : Care Instructions", log into your My Chart account at [email or web address]. You can enter G264 in the "Health Library" [facility] box. Not on MyChart? Review the MyChart section of your After Visit Summary for directions on timbo aquino to sign up. Current as of: November 20, 2015 Content Version: 11.1 2886-4112 [employer]. Care instructions adapted under license by [facility] & [facility]. If you have questions about a medical condition or this instr uction, always ask your healthcare professional. [employer] disclaims any nino anty or liability for your use of this information. documented in this encounter Progress Notes Jeannie Argueta CNM - 08/01/2016 11:00 AM PSTShania reports feeling well overall. Good f etal movement. She reports 2 episodes of dizziness with one of the episodes resulting in syn cope. She was standing at the stove cooking and felt dizzy, sat down and fainted. She became aware after a couple minutes and felt fine after the event. A few days later she felt dizzy in the morning but did not have syncope. No other symptoms associated with this such as hea rt rate abnormality or chest pain. She is making sure to eat something every 2-3 hours and s he drinks 2-3 liters of water each day. Encouraged her to continue to do these things. Discu ssed getting overheated in the shower, while cooking or doing dishes. Encouraged her to not stand with locked knees when cooking or doing dishes. I asked that she call if she has kennedy nued episodes and if they are associated with any other symptoms. Plan gtt at next visit. F/U 4wks Kathryn Ram MA - 08/01/2016 11:00 AM PST1 hour handout given. Pt states she has been having dizz y spells since Friday. She states it happens at random times. Edwardo Peterson CMA documented in this e ncounter Plan of Treatment Not on filedocumented as of this encounter Procedures + +--------+ + + + | Procedure Name | Priori | Date/Time | Associated Diagnosis | Comments | | | ty | | | | + +--------+ + + + | UA, DIP 4 | Routin | 08/01/2016 | with 24 [...] | CULTURE | No Growth | | [facility] | | | RESULT | | | [...] | [facility] | And | [place] [address] | [phone] | | [facility]ENTER | Streets | | | + + + + + BONI PURVIS 4 (08/01/2016 10:35 AM PST) + + + [...] + | [facility] | [address] [place] [address], | [place] [address] | | | [facility] | [address] | | | + + + + + documented in this encounter Visit Diagnoses + + | Diagnosis | + + | with 24 completed weeks gestation - Primary | + + documented in this encounter
--- OUTSIDE RECORDS SUMMARY | ~2018-11-05 | XMS | Encounter Summary ---
Demographics + + + | Address | [address] | | | [place] [address] | + + + | Home Phone [...] | | | | | [place] [address] | | + + + + + | Helena Barakatjoseph | ECON | UNK | | | | | [place] [address] | | + + + + + Care Team Providers + +------+ + | Care Cad Librarian Name | Role | Phone | + [...] + + + | 10/31/ | | [facility] | Jeannie Argueta, | care | | 2017 | | [facility] [address] | CNM [address] | | | | | [address] , [address] | [address] | | | | | [place], [place] | [place] | | | | | [address] | [address] | | | | | [phone] | [phone] | | | | | | | [...] water has broken, please go to [facility] (Labor and Delivery). Please call if you have any concerns. After hours call [facility] if you think you are in labor to let them know you are coming in. [phone]. Please read chapters 11 and 32 in [...] Your : Care Instructions", log into your MIKA Audio a ccount at [email or web address]. You can enter N257 in the "[employer] Coding Library" search box . Not on MIKA Audio? Review the MIKA Audio section of your After Visit Summary for directions on timbo aquino to sign up. Current as of: November 20, 2015 Content Version: 11.2 5945-9872 [employer]. Care instructions adapted under license by [facility] [employer]. If you have questions about a medical condition or this instr uction, always ask your healthcare professional. [employer] disclaims any nino anty or liability for [...]
--- OUTSIDE RECORDS SUMMARY | ~2018-11-05 | XMS | Encounter Summary ---
Demographics + + + | Address | [address] | | | [place] [address] | + + + | Home Phone [...] | | | | | [place] [address] | | + + + + + | Helena Barakatjoseph | ECON | UNK | | | | | [place] [address] | | + + + + + Care Team Providers + +------+ + | Care Housekeeping Director Name | Role | Phone | [...] + + + | 08/01/ | | [place] [place] | Jeannie Argueta, | | | 2017 | | [facility] [address] | CNM [address] | | | | | [address] , [address] | [address] | | | | | [place], [place] | [place], [place] | | | | | [address] | [address] | | | | | [phone] | [phone] | | | | | | | [...] in premature labor? ? The clinic at [phone] ? Labor and Delivery at [phone] Your Blood Type Do you know your blood type? Do you know if you re Rh Positive or Rh Negative? Ask your doctor or theatrical agent what your blood type is. If you [...] log into your My Chart account at [email or web address]. You can enter G264 in the "Health Library" sea [facility] box. Not on MyChart? Review the MyChart section of your After Visit Summary for directions on timbo aquino to sign up. Current as of: November 20, 2015 Content Version: 11.1 5069-0823 [employer]. Care instructions adapted under license by [facility] & [facility]. If you have questions about a medical condition or this instr uction, always ask your healthcare professional. [employer] disclaims any nino anty or liability for [...] | CULTURE | No Growth | | [facility] | | | RESULT | | [...] | [facility] | And | [place] [address] | [phone] | | MEDICAL CENTER | Streets | [...] + | [facility] | [address] [place] [address], | [place] [address] | | | [facility] | [address] | | | + + + + + documented in this encounter Visit Diagnoses + + | Diagnosis | + + | with 24 completed weeks gestation - Primary | + + documented in this encounter
--- OUTSIDE RECORDS SUMMARY | ~2018-11-05 | XMS | Encounter Summary ---
Demographics + + + | Address | [address] | | | [place] [address] | + + + | Home Phone [...] Author + + + | Author | [facility] | + + + | Organization | [facility] | + + + | Address | Unknown | + + + | Phone | Unavailable | + + + Support + + + + + | Name | Relationship | Address | Phone | + + + + + | Dante Duenas | GISSELLE | [address] | | | | | [place] [address] | | + + + + + | Helena Reilly | ECON | [place]K | | | | | [place] [address] | | + + + + + Care Team Providers + +------+ + | Care Pigskin Trimmer Name | Role | Phone | [...] + + | 09/10/ | Refill | [facility] [place] | Elizabeth Mayfield, | Refill Request | | 2019 | | [facility] [place] [address] | MD [address] , | | | | | [address] , [address] | [address] [place], [place] | | | | | [place], [place] | [address] | | | | | [address] | [phone] | | | | | [phone] | | | +--------+--------+ + + + [...]
--- OUTSIDE RECORDS SUMMARY | ~2018-11-05 | XMS | Encounter Summary ---
Demographics + + + | Address | [address] | | | [place] [address] | + + + | Home Phone [...] Author + + + | Author | [facility] | + + + | Organization | [facility] | + + + | Address | Unknown | + + + | Phone | Unavailable | + + + Support + + + + + | Name | Relationship | Address | Phone | + + + + + | Dante Duenas | ECON | [address] | | | | | [place] [address] | | + + + + + | Helena Reilly | ECON | [place]K | | | | | [place] [address] | | + + + + + Care Team Providers + +------+ + | Care Tree Fruit And Nut Crops Farmer Name | Role | Phone | + [...] [place] | | | | | | [address] | | | | | | [phone] | | | | | | | [...]
--- OUTSIDE RECORDS SUMMARY | ~2018-11-05 | XMS | Encounter Summary ---
Demographics + + + | Address | [address] | | | [place] [address] | + + + | Home Phone [...] + + + | Author | [facility] | + + + | Organization | [facility] | + + + | Address | Unknown | + + + | Phone | Unavailable | + + + Support + + + + + | Name | Relationship | Address | Phone | + + + + + | Dante Duenas | GISSELLE | [address] | | | | | [place] [address] | | + + + + + | Helena Barakatjoseph | ECON | UNK | | | | | [place] [address] | | + + + + + Care Team Providers + +------+ + | Care Soccer Coach Name | Role | Phone | + [...] + + + + | 06/12/ | | [facility] [place] | Harpreet Sanabria MD | | | 2016 | | [facility] [address] | [address] | | | | [address] | [address] [place], [place] | | | | | [place] | [address] | | | | | [address] | [phone] | | | | | [phone] | | | +--------+ + + + [...] + + + | Blood Pressure | 96/68 | 06/12/2016 11:09 AM | | | | | PST | | + + + + + | Pulse | 76 | 06/12/2016 11:09 AM | | | | | PST | | + + + + + | Temperature | 37.1 C (98.7 F) | 06/12/2016 11:09 AM | | | | | PST | | + + + + + | Respiratory Rate | - | - | | + + + + + | Oxygen Saturation | 98% | 06/12/2016 11:09 AM | | | | | PST | | + + + + + | Inhaled Oxygen | - | - | | | Concentration | | | | + + + + + | Weight | 63 kg (139 lb) | 06/12/2016 11:09 AM | | | | | PST | | + + + + + | Height | - | - | | + + + + + | Body Mass Index | 27.37 | 04/23/2016 2:08 PM | | | | | PDT | | + + + + + documented in this encounter Patient Instructions Patient Instructions Mayte Yap MA - 06/12/2016 11:30 AM PSTIt was nice to see you to day. If you develop any increased pain or bleeding please call. You got another dose of Penicillin to treat your throat infection. If you develop worsenin g pain and/or fever, please call for an appointment. documented in this encounter Progress Notes Mayte Yap MA - 06/12/2016 11:30 AM PSTFormatting of this note might be different fro m the original. Chief Complaint Patient presents with SUBJECTIVE: Jennifer Reilly is a 21 y.o. female here today after a fall. She fell on her abdomen last night after slipping on ice. She denies bruising, but feels sore all over. A couple of hours after she had a shooting pain up her abdomin. It turned into a dull pain across the top of her abdomen. She denies vaginal bleeding or cramping now. She has not ye t felt movement. She was recently treated for strep throat & has not noticed any improvement in her throat. She is on day 7 of Ampicillin ( treatment for both strep & UTI) Current Medications: Current Outpatient Prescriptions Medication Sig ampicillin 250 mg oral capsule ampicillin 500 mg oral capsule Take 1 capsule by mouth every eight hours for 10 days. A dminister on an empty stomach famotidine 20 mg oral tablet Take 1 tablet by mouth two times daily. ipratropium 17 mcg/actuation inhalation HFA aerosol inhaler Inhale 2 puffs by mouth fou r times daily as needed for dyspnea/SOB. penicillin G benzathine 1,200,000 unit/2 mL intramuscular syringe Inject 2 mL into the muscle (IM) once for 1 dose. vitamins, with calcium, iron-folic acid 27 mg iron- 1 mg oral tablet Take 1 ta blet by mouth once daily. No current facility-administered medications for this visit. Allergies/Adverse Drug Reactions: No Known Allergies OBJECTIVE: Vital Signs: BP 96/68 | Pulse 76 | Temp 37.1 C (98.7 F) | Wt 63 kg (139 lb) | SpO2 98% | BMI 27.37 k g/(m^2) Exam: Abdomen: Midline tender Throat: No white exudate. ASSESSMENT: Jennifer Reilly is a 21 y.o. Female here after a fall. PLAN: Follow up at next OB visit. She will call if she develops any increased pain or bleed ing. Penicillin Injection given today since she has seen no improvement in her sore throat/ strep. IMayte MA, am functioning as a scribe for Harpreet Sanabria MD. Edwardo Ram MA - 06/12/2016 11:30 AM PSTPt c/o a dull pain in her stomach below her belly button.No bleeding or cramping. Edwardo Peterson CMA documented in this e ncounter Plan of Treatment Not on filedocumented as of this encounter Procedures + +--------+ + + + | Procedure Name | Priori | Date/Time | Associated Diagnosis | Comments | | | ty | | | | + +--------+ + + + | BONI PURVIS 4 | Routin | 06/12/2016 | 17 weeks gestation | Results for this | | | e | 11:03 AM | of | procedure are in the | | | | PST | | results section. | + +--------+ + + + documented in this encounter Results BONI PURVIS 4 (06/12/2016 11:03 AM PST) + + + + + [...] + | [facility] | [address] [place] [address], | [place] [address] | | | [facility] | [address] | | | + + + + + documented in this encounter Visit Diagnoses + + | Diagnosis | + + | 17 weeks gestation of - Primary state, incidental | + + documented in this encounter Administered Medications + +--------+ +------+------+---------+ | Medication Order | MAR | Action | Dose | Rate | Site | | | Action | Date | | | | + +--------+ +------+------+---------+ | Penicillin G Benzathine | Given | 06/12/20 | 2 mL | | Right | | Intramuscular | | 16 12:44 | | | Buttock | | | | PDT | | | | + +--------+ +------+------+---------+ +---+---+ | | | +---+---+ documented in this encounter"
--- OUTSIDE RECORDS SUMMARY | ~2018-11-05 | XMS | Encounter Summary ---
Demographics + + + | Address | [address] | | | [place] [address] | + + + | Home Phone [...] | | | | | [place] [address] | | + + + + + | Helena Reilly | ECON | [place]K | | | | | [place] [address] | | + + + + + Care Team Providers + +------+ + | Care Narrow Gauge Brakeman Name | Role | Phone | + [...] | +--------+ + + + + | 05/27/ | Telephone | [facility] | Gr[place], | Lab Results | | 2015 | | [facility] [address] | MD [address] | | | | | [address] , [address] | | | | | | [place], [place] | [place], [place] | | | | | [address] | [address] | | | | | [phone] | [phone] | | | | | | | [...]
--- OUTSIDE RECORDS SUMMARY | ~2018-11-05 | XMS | Encounter Summary ---
Demographics + + + | Address | [address] | | | [place] [address] | + + + | Home Phone [...] | | | | | [place] [address] | | + + + + + | Helena Reilly | ECON | [place]K | | | | | [place] [address] | | + + + + + Care Team Providers + +------+ + | Care Brand Leader Name | Role | Phone | + [...] + + | 09/02/ | Telephone | [place] | Harpreet Sanabria MD | Lab Results | | 2017 | | [facility] [place] [address] | [address] | | | | [address] | [address] [place], [place] | | | | | [place], [place] | [address] | | | | | [address] | [phone] | | | | | [phone] | | | +--------+ + + + [...]
--- OUTSIDE RECORDS SUMMARY | ~2018-11-05 | XMS | Encounter Summary ---
Demographics + + + | Address | [address] | | | [place] [address] | + + + | Home Phone [...] | | | | | [place] [address] | | + + + + + | Helena Barakatjoseph | ECON | UNK | | | | | [place] [address] | | + + + + + Care Team Providers + +------+ + | Care Leasing Specialist Name | Role | Phone | [...] | +--------+ + + + + | 07/05/ | | [facility] | Jeannie Argueta, | | | 2017 | | [facility] | CNM [address] | | | | | [address] , [address] | [address] | | | | | [place], [place] | [place], [place] | | | | | [address] | [address] | | | | | [phone] | [phone] | | | | | | | [...] + + + | Blood Pressure | 100/60 | 07/05/2016 11:46 AM | | | | | PST [...] + + + + | Weight | 65 kg (143 lb 6.4 | 07/05/2016 11:46 AM | | | | oz) | PST | | + + + + + | Height | - | - | | + + + + + | Body Mass Index | 28.24 | 04/23/2016 2:08 PM | | | | | PDT | | + + + + + documented in this encounter Patient Instructions Patient Instructions Hellen Littlejohn MA - 07/05/2016 11:45 AM PSTPrenatal Visit - Week 20 You ve arrived at the skilled nursing point in your . You re probably feeling your ba by move. Your body is changing, and will change even more dramatically in the weeks to come . Please read chapters 6 and 22 in your book. Premature Labor Your baby still needs to live inside you. S/he is much too young to be able to live outsid e you. We want to raise the issue of labor with you. 12% of women deliver their ba bies prematurely (before 37 weeks). These babies have a higher chance of health problems in their infancy, and some may not survive. Premature labor is difficult to diagnose accurate ly and difficult to treat. If you suspect you might be in premature labor, call us. Here are some signs and symptoms that are sometimes seen in premature labor (and, unfortuna tely, these can all occur in a healthy, normal ): ? Painful, uterine contractions ? A bloody vaginal discharge ? A watery vaginal discharge ? Lower abdominal pain ? Fever, chills, muscle aches Nutrition Today s Nutritional Jeane: Let s get serious about good nutrition. You ll be glad y ou did! We re keeping it simple .remember? Three high-quality meals and three high-angy lity snacks. Foods like chips, sodas, and pastries should be only a small part of a h ealthy diet. Surround yourself with good food choices. Bring on the hard-boiled eggs. Alecia ng on the zucchini and carrot sticks (dip them in some hummus). Bring on the string cheese sticks. Have a glass of milk. Have a grilled cheese sandwich (on a whole-grain bread!). Dental Care That beautiful smile also needs attention during your so it s important to keep up with your regular teeth cleanings. Bleeding gums are a common problem for wome n and keeping your teeth clean and flossed regularly can help keep your gums healthy. Don t put off seeing your dentist if you have tooth pain or need dental work done to prevent an y kind of infection. You can safely get treatment in including the use of local a nesthetic (numbing medicine), antibiotics and x-rays if they are necessary for treatment. Travel Travel within the [place] during a healthy is OK .even flying in commercial jets. If you are having problems with your and need to travel, call us first. If you c an, don t plan to travel in the last month of . can increase the risk of blood clots forming in your legs. Don t sit for more than 2 hours without getting up and moving your legs. Keep yourself well-hydrated! And because of that, pee frequently. Don t hold your urine . If you have to go .go! Travel outside of the country is not advised for a variety of reasons. If you must travel outside the country, read this first from the Centers for Disease Control (CDC): http://wwwnc.cdc.gov/travel/yellowbook/2014/frtughd-0-iqyuoxjz-uvjgosjjn-tgqy-ugwqyuex-need s/-travelers Or do a Google search for: CDC travel yellow book chapter 8 Screening for Gestational Diabetes is a diabetogenic event. What does that mean? It means that the changes in your body that promote also increase your body s resistance to insulin. Insulin is a hormone that moves your blood sugar into the cells, where it provides energy for that cell . Something about makes that harder to do. That raises your blood sugar levels. If the blood sugar gets too high we call it Diabetes. has its own form of diabet es, which we call Gestational Diabetes. About 10% of women will have blood sugars that are too high. We want to identify these women as soon as possible. 80% of the time it s possible to control Gestational Diabetes with some tweaks to your diet. However, some women actually will need some medication, like insulin. Between 24 and 28 weeks we do a glucose screening test on ALL women. We ll talk about this at your next visit. Weeks 18 to 22 of Your : Care Instructions Your Care Instructions Your baby is continuing to develop quickly. At this stage, babies can now suck their thumbs , supervisor mending firmly with their hands, and open and close their eyelids. Sometime between 18 and 22 weeks, you will start to feel your baby move. At first, these sm all movements feel like fluttering or "butterflies." Some women say that they feel lik e gas bubbles. As the baby grows, these movements will become stronger. You may also notice that your baby kicks and hiccups. During this time, you may find that your nausea and fatigue are gone. Overall, you may feel better and have more energy than you did in your first trimester. But you may also have new discomforts now, such as sleep problems or leg cramps. This care sheet can help you ease th tracie discomforts. Follow-up care is a mclaughlin part of your treatment and safety. Be sure to make and go to all ap pointments, and call your doctor if you are having problems. It's also a good idea to know y our test results and keep a list of the medicines you take. How can you care for yourself at home? Ease sleep problems Avoid caffeine in drinks or chocolate late in the day. Get some exercise every day. Take a warm shower or bath before bed. Have a light snack or glass of milk at bedtime. Do relaxation exercises in bed to calm your mind and body. Support your legs and back with extra pillows. Try a pillow between your legs if you sle ep on your side. Do not use sleeping pills or alcohol. They could harm your baby. Ease leg cramps Do not massage your calf during the cramp. Sit on a firm bed or chair. Straighten your leg, and bend your foot (flex your ankle) sl owly upward, toward your knee. Bend your toes up and down. Stand on a cool, flat surface. Stretch your toes upward, and take small steps walking on your heels. Use a heating pad or hot water bottle to help with muscle ache. Prevent leg cramps Be sure to get enough calcium. If you are worried that you are not getting enough, talk to your doctor. Exercise every day, and stretch your legs before bed. Take a warm bath before bed, and try leg warmers at night. Where can you learn more? To learn more about "Weeks 18 to 22 of Your : Care Instructions", log into your My Chart account at [email or web address]. You can enter W603 in the "Health Library" [facility] box. Not on Cibandot? Review the MyChart section of your After Visit Summary for directions on timbo aquino to sign up. Current as of: November 20, 2015 Content Version: 11.20055078-0394 Applika. Care instructions adapted under license by [facility] [place]. If you have questions about a medical condition or this instr uction, always ask your healthcare professional. Healthwise, Incorporated disclaims any nino anty or liability for your use of this information. documented in this encounter Progress Notes Jeannie Argueta CNM - 07/05/2016 11:45 AM PSTShe reports feeling well overall. She isn't sure if she is feeling movement yet. She does get a kicking feeling that she suspects is th e baby. Her anatomy scan got moved to next week since clinic was closed on the day it was or iginally scheduled. She states she fell again this week. She was walking and fell forward on to the front of her body. She fell into a snow bank. She states she didn't have any abdomina l pain, bruising, evidence of trauma, vagina bleeding or leaking. She reports that her laryngitis resolved. She has noted since childhood that her hearing is not as good as she thinks it should be equally. She reports frequent ear infections growing up and being around loud cars without proper ear protection. She will be having a hearing e price with Dr Caicedo. Precautions given for when to return for evaluation due to fall: abdominal pain, evidence o f trauma to abdomen, bleeding or leaking of fluid vaginally. F/U for anatomy scan as scheduled and then ROBIN in 4w Hellen Oliveira MA - 07/05/2016 11:45 AM PSTPt states she fe ll again yesterday face forward. She thinks she has felt the baby move but is not sure the m ovements are the baby. She says she didn't hurt after she fell. Hellen Littlejohn MA Electronical ly signed by Hellen Littlejohn MA at 07/05/2016 12:12 PM PSTdocumented in this encounter Plan of Treatment Not on filedocumented as of this encounter Procedures + +--------+ + + + | Procedure Name | Priori | Date/Time | Associated Diagnosis | Comments | | | ty | | | | + +--------+ + + + | YANIV DIP 4 | Routin | 07/05/2016 | 20 weeks gestation | Results for this | | | e | 11:41 AM | of | procedure are in the | | | | PST | | results section. | + +--------+ + + + documented in this encounter Results BONI PURVIS 4 (07/05/2016 11:41 AM PST) + + + + + [...] + | [facility] | [address], | [place] [address] | | | [facility] | [address] | | | + + + + + documented in this encounter Visit Diagnoses + + | Diagnosis | + + | 20 weeks gestation of - Primary state, incidental | + + documented in this encounter
--- OUTSIDE RECORDS SUMMARY | ~2018-11-05 | XMS | Encounter Summary ---
Demographics + + + | Address | [address] | | | [place] [address] | + + + | Home Phone [...] | | | | | [place] [address] | | + + + + + | Helena Reilly | ECON | UNK | | | | | [place] [address] | | + + + + + Care Team Providers + +------+ + | Care Supervisor Claims Name | Role | Phone | + +------+ + | Larry Lroenzo | PCP | | + +------+ + Reason for Visit + + + | Reason | Comments | + + + | IUD - Removal of | | | intrauterine device | | + + + Encounter Details +--------+---------+ + + + | Date | Type | Department | Care Team | Description | +--------+---------+ + + + | 06/30/ | Office | [facility] | Elizabeth Mayfield, | IUD check up | | 2018 | Visit | [facility] | [address] , | (Primary Dx); Missed | | | | [address] , [address] | [address] [place], [place] | period; Encounter | | | | [place], [place] | [address] | for IUD removal | | | | [address] | [phone] | | | | | [phone] | | | +--------+---------+ + + + [...] "IUD Removal: Care Instructions", log into your PathoQuest account at [email or web address] :[email or web address]. You can enter [id number] in the "Phantom Pay Library" search box. Not on PathoQuest? Review the Arbor Plastic Technologiest section of your After Visit Summary for directions on timbo aquino to sign up. Current as of: September 05, 2016 Content Version: 11.5 8790-9931 Procarta Biosystems. Care instructions adapted under license by [facility] [place]. If you have questions about a medical condition or this instr uction, always ask your healthcare professional. [employer] disclaims any nino anty or liability for your use of this information. documented in this encounter Progress Notes Elizabeth Mayfield MD - 06/30/2017 11:00 AM PSTFormatting of this note might be different fro tessie the original. RETURN DIRECTOR TARGETED MARKETING EXAM Jennifer Reilly is a 22 y.o. [...] Patient's last menstrual period was 05/16/2017. PAST MEDICAL/SURGICAL/DIRECTOR TARGETED MARKETING/OB/FAMILY HISTORY: Reviewed in [facility] and confirmed with patient. SOCIAL HISTORY: Social [...] initiate another method Orders Placed This Encounter HI REMOVE IUD [43562] HCG URINE (MANUAL), POC Elizabeth Mayfield MD [facility] [place] Karen Titus MA - 06/30/2017 11:00 [...] | + +--------+ + + + | HI REMOVE | Routin | 06/30/2017 | Encounter [...] [address], | [place] [address] | | | [facility] | [address] [...]
--- OUTSIDE RECORDS SUMMARY | ~2018-11-05 | XMS | Encounter Summary ---
Demographics + + + | Address | [address] | | | [place] [address] | + + + | Home Phone [...] | | | | | [place] [address] | | + + + + + | Helena Hawleywil | ECON | UNK | | | | | [place] [address] | | + + + + + Care Team Providers + +------+ + | Care Supervisor Inspecting Name | Role | Phone | + +------+ + | Larry Lorenzo | PCP | | + +------+ + Encounter Details +--------+ + + + + | Date | Type | Department | Care Team | Description | +--------+ + + + + | 01/05/ | [facility] | [facility] [address] | Kush Peña MD | History & Physical | | 2011 | ibed | E The | [facility] | | | | | [place], [place] | SPECIALISTS [address] | | | | | [address] | [facility] THE | | | | | | [place] [address] | | | | | | [phone] | | | | | | | [...]
--- OUTSIDE RECORDS SUMMARY | ~2018-11-05 | XMS | Encounter Summary ---
Demographics + + + | Address | [address] | | | [place] [address] | + + + | Home Phone | | + + + | Preferred Language | Unknown | + + + | Marital Status | Single | + + + | Jehovah'S Witness Affiliation | NON | + + + [...] | | | | | [place] [address] | | + + + + + | Helena Reilly | ECON | UNK | | | | | [place] [address] | | + + + + + Care Team Providers + +------+ + | Care Internet Marketing Coordinator Name | Role | Phone [...] + + | 09/10/ | Refill | [facility] | Elizabeth Mayfield, | Refill Request | | 2019 | | [facility] [address] | MD [address] , | | | | | [address] , [address] | [address] [place], [place] | | | | | [place], [place] | [address] | | | | | [address] | [phone] | | | | | [phone] | | | +--------+--------+ + + + [...]
--- OUTSIDE RECORDS SUMMARY | ~2018-11-05 | XMS | Encounter Summary ---
Demographics + + + | Address | [address] | | | [place] [address] | + + + | Home Phone [...] | | | | | [place] [address] | | + + + + + | Helena Reilly | ECON | UNK | | | | | [place] [address] | | + + + + + Care Team Providers + +------+ + | Care Process Control Programmer Name | Role | Phone | + [...] | 05/27/ | Telephone | [facility] | Grisel, | Lab Results | | 2015 | | [facility] [address] | MD [address] | | | | | [address] , [address] | | | | | | [place], [place] | [place], [place] | | | | | [address] | [address] | | | | | [phone] | [phone] | | | | | | | [...]
--- OUTSIDE RECORDS SUMMARY | ~2018-11-05 | XMS | Encounter Summary ---
Demographics + + + | Address | [address] | | | [place] [address] | + + + | Home Phone | | + + + | Preferred Language | Unknown | + + + | Marital Status | Single | + + + | Restorationism Affiliation | NON | + + + [...] | | | | | [place] [address] | | + + + + + | Helena Hawleywil | ECON | UNK | | | | | [place] [address] | | + + + + + Care Team Providers + +------+ + | Care Distribution Center Supervisor Name | Role | Phone | + +------+ + | Larry Lorenzo | PCP | | + +------+ + Encounter Details +--------+ + + + + | Date | Type | Department | Care Team | Description | +--------+ + + + + | 05/20/ | Hospital | Diagnostic Imaging | | | | 2015 | Encounter | at [facility] | | | | | | [address] [place] [address] | | | | | | [place], [place] | | | | | | [address] | | | | | | [phone] | | | +--------+ + + + [...] | + + + | [address] [place] [address] | [facility] | | [place], [place] [id number] [place] [address] | | [phone] | RADIOLOGY | | Name: QUANG REILLY Phys: FLOR BAHENA | | | : 1995 Sex: F CSN: | | | [id number] MR# [id number] Exam Date: | | | 05/20/2016 EXAM: [...] Transcribed Date/Time: 05/20/2016 13:22 | | | Printing Plate Maker: [email or web address] | | + + + + + | Procedure Note | + + | Interface, Radiology Results - 05/20/2016 1:26 PM PST [address] | | [address] [place] [address] | | Name: ZOËMariuszQUANG Phys: FLOR BAHENA : 1995 Sex: F | | CSN: [id number] MR# [id number] Exam Date: 05/20/2016 EXAM:X-RAY CHEST 2 | [...] | | |Transcribed Date/Time: 05/20/2016 13:22 | |Printing Plate Maker: [email or web address] | | | | | | [...]
--- OUTSIDE RECORDS SUMMARY | ~2018-11-05 | XMS | Encounter Summary ---
Demographics + + + | Address | [address] | | | [place] [address] | + + + | Home Phone [...] | | | | | [place] [address] | | + + + + + | Helena Barakatjoseph | ECON | UNK | | | | | [place] [address] | | + + + + + Care Team Providers + +------+ + | Care Clerical And Administrative Workers Name | Role | Phone | + [...] + + + | 12/25/ | | [facility] | Jeannie Argueta, | | | 2017 | | [facility] [address] | CNM [address] | | | | | [address] , [address] | [address] | | | | | [place], [place] | [place] | | | | | [address] | [address] | | | | | [phone] | [phone] | | | | | | | [...] leg. 7. Repeat 8 to 12 times. Gmwl-ph-egjac stretch 1. Lie on your back with [...] about "After : Exercises", log into your Green Dot [employer] account at [email or web address]. You can enter [id number] in the "Health Library" search box. Not on [employer]? Review the Bonfire.comhart section of your After Visit Summary for directions on timbo aquino to sign up. Current as of: November 20, 2015 Content Version: 11.2 0507-8824 Optovue. Care instructions adapted under license by [facility] & [facility]. If you have questions about a medical condition or this instr uction, always ask your healthcare professional. Optovue disclaims any nino anty or liability for [...] of Infants: Care Instructions", log into your Medcurrent account at [email or web address]. You can enter [id number] in the "Aria Glassworks" search box. Not on [employer]? Review the MyChart section of your After Visit Summary for directions on timbo w to sign up. Current as of: January 16, 2016 Content Version: 11.2 0089-1838 Optovue. Care instructions adapted under license by [facility] & [facility] [place]. If you have questions about a medical condition or this instr uction, always ask your healthcare professional. Optovue disclaims any nino anty or liability for [...]
--- OUTSIDE RECORDS SUMMARY | ~2018-11-05 | XMS | Encounter Summary ---
Demographics + + + | Address | [address] | | | [place] [address] | + + + | Home Phone [...] | | | | | [place] [address] | | + + + + + | Helena Reilly | ECON | UNK | | | | | [place] [address] | | + + + + + Care Team Providers + +------+ + | Care Loft Worker Head Name | Role | Phone | + +------+ + | No Pcp Per Patient | PCP | Unavailable | + +------+ + Encounter Details +--------+------+ + + + | Date | Type | Department | Care Team | Description | +--------+------+ + + + | 05/10/ | Lab | Laboratory at | | Encounter for | | 2015 | | [facility] | | supervision of | | | | [facility] | | normal first | | | | E The | | in first | | | | [place], [place] | | trimester | | | | [address] | | | | | | [phone] | | | +--------+------+ + + + [...] + | SERUM INTEGRATED | Routin | 05/10/2016 | Encounter for | Results for this | | SCREEN #1 | e | 12:03 PM | supervision of | procedure are in the | | | | PST | normal first | results section. | | | | | in first | | | | | | trimester | | + +--------+ + + + | CF CARRIER SCREEN | Routin | 05/10/2016 | Encounter for | Results for this | | | e | 12:03 PM | supervision of | procedure are in the | | | | PST | normal first | results section. | | | | | in first | | | | | | trimester | | + +--------+ + + + documented in this encounter Results CFPLUS (97 MUTATIONS) (05/10/2016 12:03 PM PST) + + + + + + | Component | Value | Ref Range | Performed | Pathologist | | | | | At | Signature | + + + + + + | CF CARRIER | Please see scanned | | [facility] | | | SCREEN | report for result. | | REFERENCE | | | | | | LAB | | + + + + + + + + | Specimen | + + | Blood | + + + + + | Narrative | Performed At | + + + | | [facility] | | Test performed by: | REFERENCE LAB | | [facility] | | | [address] | | | [place] [address] | | + + + + + + + + | Performing | Address | City/State/Zipcode | Phone Number | | Organization | | | | + + + + + | [facility] | | | | + + + + + | [facility] | See below | | | + + + + + SERUM INTEGRATED SCREEN #1 (05/10/2016 12:03 PM PST) + + + + + + | Component | Value | Ref Range | Performed | Pathologist | | | | | At | Signature | + + + + + + | SERUM | Please see results | | [facility] | | | INTEGRATED | reported with second | | REFERENCE | | | SCREEN #1 | screening test. | | LAB | | + + + + + + + + | Specimen | + + | Blood | + + + + + | Narrative | Performed At | + + + | Test performed by: [facility] | [facility] | | [place], [place] [address] | REFERENCE LAB | + + + + + + [...] Encounter for supervision of normal first in first trimester Supervision of | | normal first | + + documented in this encounter"
--- OUTSIDE RECORDS SUMMARY | ~2018-11-05 | XMS | Encounter Summary ---
Demographics + + + | Address | [address] | | | [place] [address] | + + + | Home Phone | | + + + | Preferred Language | Unknown | + + + | Marital Status | Single | + + + | Church Affiliation | NON | + + + [...] | + + + + + | Dnate Duenas | GISSELLE | [address] | | | | | [place] [address] | | + + + + + | Helena Barakatjoseph | ECON | UNK | | | | | [place] [address] | | + + + + + Care Team Providers + +------+ + | Care Supervisor Furnace Room Name | Role | Phone | + [...] | | Obstetrics & | Diagnoses | [facility] | | | | | Gynecology | Post-term | [facility] | [place], | | | | | | [address] | MD [address] | | | | | Procedures | [address] | [address] | | | | | [place] | [place], | [address] | | | | | [place], | [place] | [place], | | | | | UTERUS,F/U,T | [address] | [place] [address] | | | | | RANSABD MARK ANTHONY | Phone: | Phone: | | | | | | [phone] | [phone] | | | | | | Fax: | Fax: | | | | | | [phone] | [phone] | +--------+--------+ + + + + Encounter Details +--------+ + + + + | Date | Type | Department | Care Team | Description | +--------+ + + + + | 11/22/ | | [facility] | Pentopoulos, | | | 2017 | | [facility] [place] [facility] | MD [address] | | | | | [address] | | | | | [place], [place] | [place], [place] | | | | | [address] | [address] | | | | | [phone] | | | | | | | [...] water has broken, please go to [facility] sions (Labor and Delivery). Please call if you have any concerns. After hours call First pressions if you think you are in labor to let them know you are coming in. [phone]. documented in this encounter Progress Notes Caterina [...] + +--------+ + + + | CT US, | Routin | 11/22/2016 | Post-term | Results for this | | UTERUS,LIMITED, | e | | , 40-42 | procedure are in the | | FETUSES | | | weeks of gestation | results section. | + +--------+ + + + documented in this encounter Results CT US, UTERUS,LIMITED, /> FETUSES (11/22/2016) + + [...]
--- OUTSIDE RECORDS SUMMARY | ~2018-11-05 | XMS | Encounter Summary ---
Demographics + + + | Address | [address] | | | [place] [address] | + + + | Home Phone [...] | | | | | [place] [address] | | + + + + + | Helena Reilly | ECON | UNK | | | | | [place] [address] | | + + + + + Care Team Providers + +------+ + | Care Motorized Squad Sergeant Name | Role | Phone | + [...] [place] | | | | | | [address] | | | | | | [phone] | | | +--------+ + + + [...]
--- OUTSIDE RECORDS SUMMARY | ~2018-11-05 | XMS | Encounter Summary ---
Demographics + + + | Address | [address] | | | [place] [address] | + + + | Home Phone [...] | | | | | [place] [address] | | + + + + + | Helena Hawleywil | ECON | UNK | | | | | [place] [address] | | + + + + + Care Team Providers + +------+ + | Care Technology Support Analyst Name | Role | Phone | [...] E | | | | | | [place] | | | | | | [place], [place] | | | | | | [address] | | | +--------+ + + + [...]
--- OUTSIDE RECORDS SUMMARY | ~2018-11-05 | XMS | Encounter Summary ---
Demographics + + + | Address | [address] | | | [place] [address] | + + + | Home Phone | | + + + | Preferred Language | Unknown | + + + | Marital Status | Single | + + + | Gnosticist Affiliation | NON | + + + [...] | | | | | [place] [address] | | + + + + + | Hel[place] Hawleywil | ECON | UNK | | | | | [place] [address] | | + + + + + Care Team Providers + +------+ + | Care Inclinometer Tester Name | Role | Phone | [...] [address] | | | | | [address] | [facility] THE | | | | | | [place] [address] | | | | | | [phone] | | | | | | | [...]
--- OUTSIDE RECORDS SUMMARY | ~2018-11-05 | XMS | Encounter Summary ---
Demographics + + + | Address | [address] | | | [place] [address] | + + + | Home Phone [...] | | | | | [place] [address] | | + + + + + | Helena Reilly | ECON | UNK | | | | | [place] [address] | | + + + + + Care Team Providers + +------+ + | Care Kiln Repairer Name | Role | Phone | [...] + + | 06/28/ | Telephone | [facility] | Jeannie Argueta, | Referral To Ent / | | 2016 | | [facility] | [address] | General | | | | [address] , [address] | | | | | [place], [place] | [place], [place] | | | | | [address] | [address] | | | | | [phone] | | | | | | | [...]
--- OUTSIDE RECORDS SUMMARY | ~2018-11-05 | XMS | Encounter Summary ---
Demographics + + + | Address | [address] | | | [place] [address] | + + + | Home Phone [...] | | | | | [place] [address] | | + + + + + | Helena Hawleywil | ECON | UNK | | | | | [place] [address] | | + + + + + Care Team Providers + +------+ + | Care Pipe Installer Name | Role | Phone | + +------+ + | Larry Lorenzo | PCP | | + +------+ + Encounter Details +--------+ + + + + | Date | Type | Department | Care Team | Description | +--------+ + + + + | 06/25/ | Orders Only | [place] | Jeannie Argueta, | Encounter for | | 2017 | | [facility] [address] | CNM [address] | screening | | | | [address] | [address] | of mother (Primary | | | | [place], [place] | [place], [place] | Dx) | | | | [address] | [address] | | | | | [phone] | | | | | | | [...]
--- OUTSIDE RECORDS SUMMARY | ~2018-11-05 | XMS | Encounter Summary ---
Demographics + + + | Address | [address] | | | [place] [address] | + + + | Home Phone [...] | | | | | [place] [address] | | + + + + + | Helena Hawleywil | ECON | UNK | | | | | [place] [address] | | + + + + + Care Team Providers + +------+ + | Care Police Specialist Name | Role | Phone | + +------+ + | Larry Lorenzo | PCP | | + +------+ + Encounter Details +--------+ + + + + | Date | Type | Department | Care Team | Description | +--------+ + + + + | 10/11/ | Hospital | Maternity Services | Grisel, | | | 2017 | Encounter | at [facility] | MD Jostin [address] | | | | | [address] | [address] | | | | | [place], [place] | [place], [place] | | | | | [address] | [address] | | | | | [phone] | | | | | | | | | | | | Jeannie Argueta, | | | | | | CN [address] | | | | | | [address] THE | | | | | | [place], [place] | | | | | | [address] | | | | | | [phone] | | | | | | | [...] + + + | Blood Pressure | 128/81 | 10/11/2016 7:20 PM | | | | | PDT | | + + + + + | Pulse | 89 | 10/11/2016 7:20 PM | | | | | PDT | | + + + + + | Temperature | 36.9 C (98.5 F) | 10/11/2016 7:20 PM | | | | | PDT | | + + + + + | Respiratory Rate | 18 | 10/11/2016 7:20 PM | | | | | PDT | | + + + + + | Oxygen Saturation | 98% | 10/11/2016 7:20 PM | | | | | PDT [...] + documented in this encounter Progress Notes Bhavna Cruz RN - 10/11/2016 7:47 PM PDTPt presented with complaint of painful contracti ons for 30 minutes. States she is not having them since she pulled into the parking lot. Pt is gladis but states not feeling them, palpate mild. PO hydrated and given 20 of nifed ipine, contractions spaced out but still there. SVE long and closed, no change on 2nd check greater than 2 hours later. Patient comfortable going home with SO. entopoulJostin dillon MD - 10/11/2016 7:25 PM PD TOB Triage Note On 10/11/2016, patient presented to [facility] for contractions. NST reactive. Vital signs within normal limits Uterine contractions every 2-4 minute Cervical exam was unchanged over 2 hours. Patient had a negative FFN1 week ago. Patient discharged in stable condition. Jostin Recinos MD documented in th is encounter Plan of Treatment Not on filedocumented as of this encounter Visit Diagnoses Not on filedocumented in this encounter Administered Medications + +--------+ +-------+------+------+ | Medication Order | MAR | Action | Dose | Rate | Site | | | Action | Date | | | | + +--------+ +-------+------+------+ | NIFEdipine (PROCARDIA) capsule | Given | 10/12/19 | 20 mg | | | | 20 mg 20 mg, oral, ONCE, 1 dose, | | 17 5:42 | | | | | 10/11/16 at 1745 | | PM PDT | | | | + +--------+ +-------+------+------+ +---+---+ | | | +---+---+ documented in this encounter"
--- OUTSIDE RECORDS SUMMARY | ~2018-11-05 | XMS | Encounter Summary ---
Demographics + + + | Address | [address] | | | [place] [address] | + + + | Home Phone [...] | | | | | [place] [address] | | + + + + + | Helena Hawleywil | ECON | UNK | | | | | [place] [address] | | + + + + + Care Team Providers + +------+ + | Care Family Law Paralegal Name | Role | Phone | + +------+ + | Larry Lorenzo | PCP | | + +------+ + Encounter Details +--------+ + + + + | Date | Type | Department | Care Team | Description | +--------+ + + + + | 04/30/ | Document-Sc | [facility] | Erickulos, | | | 2016 | anned | [facility] [address] | MD Jostin [address] | | | | | E , | | | | | | [place], [place] | [place], [place] | | | | | [address] | [address] | | | | | [phone] | | | | | | | [...]
--- OUTSIDE RECORDS SUMMARY | ~2018-11-05 | XMS | Encounter Summary ---
Demographics + + + | Address | [address] | | | [place] [address] | + + + | Home Phone [...] | | | | | [place] [address] | | + + + + + | Helena Hawleywil | ECON | UNK | | | | | [place] [address] | | + + + + + Care Team Providers + +------+ + | Care Mold Operator Name | Role | Phone | + +------+ + | Larry Lorenzo | PCP | | + +------+ + Reason for Visit + + + | Reason | Comments | + + + | Vomiting; | Has been feeling ill since Friday, began to have contractions and | | | went in Friday for monitoring and fluids. Has continued to feel | | | poorly since then and states she began vomiting this morning. | | | States she feels like she is "still having contractions but they | | | feel more dull now". Called [facility] and they told her to | | | come to ER for Fluids. | + + + Encounter Details +--------+ + + + + | Date | Type | Department | Care Team | Description | +--------+ + + + + | 08/15/ | Emergency | Emergency | | | | 2016 | | Department at [facility] | | | | | | [facility] [address] | | [address] The | | | | | | [place] | | | | | | [address] | | | | | | [phone] | | | +--------+ + + + [...] + + + | Blood Pressure | 116/73 | 08/15/2016 11:05 AM | | | | | PST | | + + + + + | Pulse | 75 | 08/15/2016 11:05 AM | | | | | PST | | + + + + + | Temperature | 36.9 C (98.4 F) | 08/15/2016 11:05 AM | | | | | PST | | + + + + + | Respiratory Rate | 12 | 08/15/2016 11:05 AM | | | | | PST | | + + + + + | Oxygen Saturation | 99% | 08/15/2016 11:05 AM | | | | | PST [...] + + + documented in this encounter Plan of Treatment Not on filedocumented as of this encounter Visit Diagnoses Not on filedocumented in this encounter
--- OUTSIDE RECORDS SUMMARY | ~2018-11-05 | XMS | Encounter Summary ---
Demographics + + + | Address | [address] | | | [place] [address] | + + + | Home Phone [...] | | | | | [place] [address] | | + + + + + | Helena Barakatjoseph | ECON | UNK | | | | | [place] [address] | | + + + + + Care Team Providers + +------+ + | Care Changer Fixer Name | Role | Phone | + [...] + + + | 06/12/ | | [place] | Harpreet Sanabria MD | | | 2016 | | [facility] [address] | [address] | | | | | [address] | [address] [place], [place] | | | | | [place], [place] | [address] | | | | | [address] | [phone] | | | | | [phone] | | | +--------+ + + + [...] + | [facility] | [address] [place] [address], | [place] [address] | | | [facility] | [address] [...]
--- OUTSIDE RECORDS SUMMARY | ~2018-11-05 | XMS | Encounter Summary ---
Demographics + + + | Address | [address] | | | [place] [address] | + + + | Home Phone [...] | | | | | [place] [address] | | + + + + + | Helena Barakatjoseph | ECON | UNK | | | | | [place] [address] | | + + + + + Care Team Providers + +------+ + | Care Humanities Division Chair Name | Role | Phone | + [...] + + | 05/20/ | Telephone | [facility] | Samantha Sanjuanita, | X-ray (chest ) | | 2015 | | [facility] | Blanca, NOZZLE AND SLEEVE WORKER [address] | | | | | [address] , [address] | [address] [place] [address] | | | | | [place], [place] | [address] [place], [place] | | | | | [address] | [address] | | | | | [phone] | | | | | | | [...]
--- OUTSIDE RECORDS SUMMARY | ~2018-11-05 | XMS | Encounter Summary ---
Demographics + + + | Address | [address] | | | [place] [address] | + + + | Home Phone [...] | | | | | [place] [address] | | + + + + + | Helena Hawleywil | ECON | UNK | | | | | [place] [address] | | + + + + + Care Team Providers + +------+ + | Care International Logistics Coordinator Name | Role | Phone | [...] + + | 08/29/ | Telephone | [employer] | Harpreet Sanabria MD | Abnormal Glucose | | 2017 | | [facility] [address] | [address] | Tolerance Test (1 | | | | [address] | [address] [place], [place] | hour GTT) | | | | [place], [place] | [address] | | | | | [address] | [phone] | | | | | [phone] | | | +--------+ + + + [...]
--- OUTSIDE RECORDS SUMMARY | ~2018-11-05 | XMS | Encounter Summary ---
Demographics + + + | Address | [address] | | | [place] [address] | + + + | Home Phone [...] | | | | | [place] [address] | | + + + + + | Helena Reilly | ECON | UNK | | | | | [place] [address] | | + + + + + Care Team Providers + +------+ + | Care Manager Of Regulatory Affairs Name | Role | Phone | + [...] + + | 05/31/ | Telephone | [employer] | Jeannie Argueta, | Lab Results (Rapid | | 2015 | | [facility] | CNM [address] | strep) | | | | [address] , [address] | [address] | | | | | [place], [place] | [place], [place] | | | | | [address] | [address] | | | | | [phone] | | | | | | | [...]
--- OUTSIDE RECORDS SUMMARY | ~2018-11-05 | XMS | Encounter Summary ---
Demographics + + + | Address | [address] | | | [place] [address] | + + + | Home Phone [...] | | | | | [place] [address] | | + + + + + | Helena Reilly | ECON | UNK | | | | | [place] [address] | | + + + + + Care Team Providers + +------+ + | Care Flat Locker Name | Role | Phone | + +------+ + | Larry Lorenzo | PCP | | + +------+ + Encounter Details +--------+------+ + + + | Date | Type | Department | Care Team | Description | +--------+------+ + + + | 10/08/ | Lab | Laboratory at | | 34 weeks gestation | | 2016 | | [facility] | | of | | | | [facility] [address] | | | | | | E The | | | | | | [place] | | | | | | [address] | | | | | | [phone] | | | +--------+------+ + + + [...] [address], | [place] [address] | | | [facility] | [address] | | | + + + + + documented in this encounter Visit Diagnoses + + | Diagnosis | + + | 34 weeks gestation of state, incidental | + + documented in this encounter"
--- OUTSIDE RECORDS SUMMARY | ~2018-11-05 | XMS | Encounter Summary ---
Demographics + + + | Address | [address] | | | [place] [address] | + + + | Home Phone [...] | | | | | [place] [address] | | + + + + + | Helena Hawleywil | ECON | UNK | | | | | [place] [address] | | + + + + + Care Team Providers + +------+ + | Care Cross Tie Cutter Name | Role | Phone | + [...] + + | 12/11/ | Telephone | [facility] [facility] | Jeannie Argueta, | Fever | | 2017 | | [facility] [address] | CNM [address] | | | | | [address] , [address] | [address] | | | | | [place], [place] | [place], [place] | | | | | [address] | [address] | | | | | [phone] | | | | | | | [...]
--- OUTSIDE RECORDS SUMMARY | ~2018-11-05 | XMS | Encounter Summary ---
Demographics + + + | Address | [address] | | | [place] [address] | + + + | Home Phone | | + + + | Preferred Language | Unknown | + + + | Marital Status | Single | + + + | Anabaptist Affiliation | NON | + + + [...] | | | | | [place] [address] | | + + + + + | [place] Hawleywil | ECON | UNK | | | | | [place] [address] | | + + + + + Care Team Providers + +------+ + | Care Manager Security Name | Role | Phone | + [...] | | feel more dull now". Called [facility] and they told her to | | | come to ER for Fluids. | + + + Encounter Details +--------+ + + + + | Date | Type | Department | Care Team | Description | +--------+ + + + + | 08/15/ | Emergency | Emergency | | | | 2016 | | Department at [facility] | | | | | | [facility] [address] | | | | | [address] The | | | | | | [place] | | | | | | [address] | | | | | | [phone] | | | +--------+ + + + [...]
--- OUTSIDE RECORDS SUMMARY | ~2018-11-05 | XMS | Encounter Summary ---
Demographics + + + | Address | [address] | | | [place] [address] | + + + | Home Phone [...] | | | | | [place] [address] | | + + + + + | Helena Barakatjoseph | ECON | UNK | | | | | [place] [address] | | + + + + + Care Team Providers + +------+ + | Care Decorating Equipment Setter Name | Role | Phone | [...] + + | 06/12/ | Telephone | [employer] | Jeannie Argueta, | Fall (, | | 2015 | | [facility] | CNM [address] | 17w3d) | | | | [address] , [address] | [address] | | | | | [place], [place] | [place], [place] | | | | | [address] | [address] | | | | | [phone] | [phone] | | | | | | | [...]
--- OUTSIDE RECORDS SUMMARY | ~2018-11-05 | XMS | Clinical Summary ---
Demographics + + + | Address | [address] | | | [place], [place] [address] | + + + | Home Phone [...] | | | | | [place] [address] | | + + + + + | Helena Garrett Melba | ECON | UNK | | | | | [place] [address] | | + + + + + Care Team Providers + +------+ + | Care Nursing Clerk Name | Role | Phone | + +------+ + | Larry Lorenzo | PP | | + +------+ + Source Comments KELLY is fully live on both [facility] and [facility] InPatient.[facility] Allergies No Known Allergies Medications + + [...] Pap: Last pap 02/2016 ASCUS. Done at [facility] | | [facility].[X] Urine Cx: 05/31/16[ ] Birthing | | classesFIRST[X] Genetic Screening: [X] CF-negative [X] | | SIS-negative [ ] NIPT [ ] AFP 1st SIS drawn 05/10; 2nd drawn | | [id number][ ] Ultrasound 18-20 weeks:[ ] Follow up [...] | + +--------+ +--------+ + +--------+ | PLASTIC SURGERY TECHNICIAN MEDICAID | PLASTIC SURGERY TECHNICIAN | xxxxxxxx | | | | Medica | | | [place]ASTER | | 017-Pr | | | id | | | [place] | | esent | | | | + +--------+ +--------+ + +--------+ | [employer] | BCBS | xxxxxxxxxxx | 07/24/19 | [phone] | [address] | PPO | | | [place] | x | 16-Pre | [address] | [address] | | | | SENIOR INSTRUCTOR | | sent | | [place] | | | | | | | | [address] | | + +--------+ +--------+ + +--------+ | PLASTIC SURGERY TECHNICIAN MEDICAID | PLASTIC SURGERY TECHNICIAN | xxxxxxxx | | | | Medica [...] | 1994 | [phone] | [place] [address] | | | radha | | | 8 (Home) | | + +--------+ +--------+ + + | Jennifer Reilly | Person | Self | [birth year] | | [address] | | [place] | al/Fam | | 1994 | [phone] | [place] [address] | | | radha | | | [...]
--- OUTSIDE RECORDS SUMMARY | ~2018-11-05 | XMS | Encounter Summary ---
Demographics + + + | Address | [address] | | | [place] [address] | + + + | Home Phone [...] | | | | | [place] [address] | | + + + + + | Helena Hawleywil | ECON | UNK | | | | | [place] [address] | | + + + + + Care Team Providers + +------+ + | Care Agriculture Consultant Name | Role | Phone | + +------+ + | Larry Lorenzo | PCP | | + +------+ + Encounter Details +--------+ + + + + | Date | Type | Department | Care Team | Description | +--------+ + + + + | 10/11/ | Hospital | Maternity Services | Grisel, | | | 2017 | Encounter | at [facility] | MD Jostin [address] | | | | | [address] | [address] | | | | | [place], [place] | [place], [place] | | | | | [address] | [address] | | | | | [phone] | [phone] | | | | | | | | | | | | Jeannie Argueta, | | | | | | CN [address] | | | | | | [address] | | | | | | [place], [place] | | | | | | [address] | | | | | | [phone] | | | | | | | [...]
--- OUTSIDE RECORDS SUMMARY | ~2018-11-05 | XMS | Encounter Summary ---
Demographics + + + | Address | [address] | | | [place] [address] | + + + | Home Phone [...] | | | | | [place] [address] | | + + + + + | Helena Hawleywil | ECON | UNK | | | | | [place] [address] | | + + + + + Care Team Providers + +------+ + | Care Technical Support Assistant Name | Role | Phone | + +------+ + | Larry Lorenzo | PCP | | + +------+ + Encounter Details +--------+---------+ + + + | Date | Type | Department | Care Team | Description | +--------+---------+ + + + | 05/20/ | Office | [facility] | Samantha Gann, | Shortness of breath | | 2016 | Visit | [facility] | [address] | (Primary Dx) | | | | [address] | [address] | | | | | [place], [place] | [address] [place], [place] | | | | | [address] | [address] | | | | | [phone] | [phone] | | | | | | | [...] documented as of this encounter Progress Notes Flor Subramanian, STEVE - 05/20/2016 10:45 AM PSTFormatting of this note might be diffe rent from the original. Quang Reilly is a 21 y.o. female here today. No chief complaint on file. S: She comes in because of shortness of breath. She has been sick with what seemed like a cold since about 2 weeks ago. On Friday (2 d ago) she started coughing. She was told by the local provider that she had pneumonia, but that she shouldn't take antibiotics unless sh e felt a lot worse. She feels short of breath with exertion, and she gets pain in the front of her chest with coughing. She is coughing up yellow and green stuff. She has not had a fever in the past few days, although she did a week ago. There are no other symptoms at thi s time, including nasal congestion, ear pain, facial pain, chills or fever. She is about 14 weeks with her first baby. Current Medications: Current Outpatient Prescriptions Medication Sig famotidine 20 mg oral tablet Take 1 tablet by mouth two times daily. vitamins, with calcium, iron-folic acid 27 mg iron- 1 mg oral tablet Take 1 ta blet by mouth once daily. No current facility-administered medications for this visit. Allergies/Adverse Drug Reactions: No Known Allergies O: She appears well, comfortable, not short of breath with talking. We took a couple of la ps around the office and she felt fine and kept her O2sat at 98%. Her lungs are clear to au scultation in all field, resonant to percussion. HEENT exam is normal. Vital Signs: There were no vitals taken for this visit. A: Questionable pneumonia in 14 weeks patient P: Discussed with Dr. Sanabria. Chest X ray today. Follow up will depend on results. See Orders. Addendum: The chest X ray was negative for pneumonia. I advised Quang to see her OB doct or within the week, and use an ipratropium inhaler as needed if she feels short of breath. If that doesn't help, shortness of breath that persists or gets worse should prompt an ER vi sit. documented in this encounter Plan of Treatment Not on filedocumented as of this encounter Results X-RAY CHEST 2 VIEW (05/20/2016 11:24 AM PST) + + | Specimen | + + | | + + + + + | Narrative | Performed At | + + + | [address] | [facility] | | [place] [address] | [facility] | | [phone] | RADIOLOGY | | Name: QUANG REILLY Phys: FLOR GANN | | | : 1995 Sex: F CSN: | | | [id number] MR# [id number] Exam Date: | | | 05/20/2016 EXAM: [...] Transcribed Date/Time: 05/20/2016 13:22 | | | Clinical Research Spec: ORQUIDEA | | + + + + + | Procedure Note | + + | Interface, Radiology Results - 05/20/2016 1:26 PM PST [address] | | [address] [place] [address] | | Name: QUANG REILLY Phys: FLOR GANN : 1995 Sex: F | | CSN: [id number] MR# [id number] Exam Date: 05/20/2016 EXAM:X-RAY CHEST 2 | [...] | | |Transcribed Date/Time: 05/20/2016 13:22 | |Clinical Research Spec: FLUENCY | | | | | | [...] | + + | Shortness of breath - Primary | + + documented in this encounter"
--- OUTSIDE RECORDS SUMMARY | ~2018-11-05 | XMS | Encounter Summary ---
Demographics + + + | Address | [address] | | | [place] [address] | + + + | Home Phone [...] | | | | | [place] [address] | | + + + + + | Helena Hawleywil | ECON | UNK | | | | | [place] [address] | | + + + + + Care Team Providers + +------+ + | Care Fitting Room Supervisor Name | Role | Phone | [...] + + + | 05/20/ | | [facility] | Samantha Sanjuanita, | Breathing problem | | 2016 | | [facility] | STEVE [address]ios [address] | | | | | [address] | E | | | | | [place], [place] | [address] [place], [place] | | | | | [address] | [address] | | | | | [phone] | [phone] | | | | | | | [...] jaylyn she went to her PA in [place] and was told she had pneumonia, she [...]
--- OUTSIDE RECORDS SUMMARY | ~2018-11-05 | XMS | Encounter Summary ---
Demographics + + + | Address | [address] | | | [place] [address] | + + + | Home Phone [...] | | | | | [place] [address] | | + + + + + | Helena Hawleywil | ECON | UNK | | | | | [place] [address] | | + + + + + Care Team Providers + +------+ + | Care Securities Dealer Name | Role | Phone | + +------+ + | Larry Lorenzo | PCP | | + +------+ + Encounter Details +--------+---------+ + + + | Date | Type | Department | Care Team | Description | +--------+---------+ + + + | 05/20/ | Office | [facility] | Samantha Gann, | Shortness of breath | | 2016 | Visit | [facility] | [address] | (Primary Dx) | | | | [address] | [address] | | | | | [place], [place] | [address] [place], [place] | | | | | [address] | [address] | | | | | [phone] | | | | | | | [...] | + + + | [address] | [facility] | | [place] [address] | [facility] | | [phone] | RADIOLOGY | | Name: QUANG REILLY Phys: FLOR GANN | | | : 1995 Sex: F CSN: | | | [id number] MR# [id number] Exam Date: | | | 05/20/2016 EXAM: [...] Transcribed Date/Time: 05/20/2016 13:22 | | | Fish Worm Grower: ORQUIDEA | | + + + + + | Procedure Note | + + | Interface, Radiology Results - 05/20/2016 1:26 PM PST [address] | | [address] [place] [address] | | Name: QUANG REILLY Phys: FLOR GANN : 1995 Sex: F | | CSN: [id number] MR# [id number] Exam Date: 05/20/2016 EXAM:X-RAY CHEST 2 | [...] | | |Transcribed Date/Time: 05/20/2016 13:22 | |Fish Worm Grower: FLUENCY | | | | | | [...]
--- OUTSIDE RECORDS SUMMARY | ~2018-11-05 | XMS | Encounter Summary ---
Demographics + + + | Address | [address] | | | [place] [address] | + + + | Home Phone | | + + + | Preferred Language | Unknown | + + + | Marital Status | Single | + + + | Zoroastrianism Affiliation | NON | + + + [...] | | | | | [place] [address] | | + + + + + | Helena Reilly | ECON | UNK | | | | | [place] [address] | | + + + + + Care Team Providers + +------+ + | Care Measurement Psychologist Name | Role | Phone | + +------+ + | No Pcp Per Patient | PCP | Unavailable | + +------+ + Encounter Details +--------+------+ + + + | Date | Type | Department | Care Team | Description | +--------+------+ + + + | 04/23/ | Lab | Laboratory at | | Normal first | | 2016 | | [facility] | | confirmed, | | | | [facility] [address] | | antepartum | | | | [address] | | | | | | [place], [place] | | | | | | [address] | | | | | | [phone] | | | +--------+------+ + + + [...] [facility] | | | | | | [address] | | | | | | Way | | | | | | S | | | | | | [place] | | | | | | [address] | | | | + + + [...] | [facility] | And | [place] [address] | [phone] | | [facility]ICAL [facility]ENTER | Streets | [...] apply to this test. | [facility] | | | [facility] | + + + + + + + + | Performing | Address | City/State/Zipcode | Phone Number | | Organization | | | | + + + + + | [facility] | And | [place] [address] | [phone] | | [facility] | Streets | | | + [...] BANK | and | [place] [address] | | | | Streets | | [...] BANK | and | [place] [address] | | | | Streets | | [...] used interchangeably with the values obtained with [facility] | | manufacturers' assay methods. | | + + + + + + + + | Performing | Address | City/State/Zipcode | Phone Number | | Organization | | | | + + + + + | [facility] | | [place] [address] | [phone] | | [facility] | Streets | | | + [...] | | | Index | | - [place] | | | | Explanation of | [...] + + + | Test performed at [facility] | [facility] | | [address] | [facility]AGNOSTICS - | | HOPE | [place] | | [place] | | | [address] Lab | | | Director VASQUEZ IRENE MD | | + + + + + + + + | Performing | Address | City/State/Zipcode | Phone Number | | Organization | | | | + + + + + | [facility] | [address] | [place] [address] | | | - [place] | [address] [...] | [facility] | [address] | [place] [address] | [phone] | | MEDICAL CENTER | Streets | | | + + + + + RUBELLA IGG AB, SERUM (04/23/2016 2:40 PM PDT) + +-------+ + + + | Component | Value | Ref Range | Performed | Pathologist | | | | | At | Signature | + +-------+ + + + | RUBELLA IGG | 54 | IU/mL | [facility] | | | AB | | | A MEDICAL | | | | | | CENTER | | + +-------+ + + + + + | Specimen | + + | Blood | + + + + + | Narrative | Performed At | + + + | Interpretation: <10 IU/mL | [facility] | | Non-Reactive/Non-Immune >=10-<15IU/mL EQUIVOCAL | [facility] | | >=15 IU/mL Reactive Immune [...] | [facility] | And | [place] [address] | [phone] | | MEDICAL CENTER | Streets | [...] | + + + + + | [facility] | [address] | [place] [address] | [phone] | | [facility] | Streets | | | + [...] AG | HIV-1/HIV-2 antibodies | | - [place] | | | SCREEN | were notdetected. [...] refer | | | | | | [email or web address] | | | | | | [email or web address] [email or web address] | | | | | | 06(This [...] + + | [facility] | [address] | [place] [address] | | | - [place] | [address] | | | + + + + + HEPATITIS B SURFACE ANTIGEN (04/23/2016 2:40 PM PDT) + + + + + + | Component | Value | Ref Range | Performed | Pathologist | | | | | At | Signature | + + + + + + | HEP B | Non-reactive | Non-reactive | [facility] | | | SURFACE [...] Elecsys HBsAg immunoassay may not be | [facility] | | used interchangeably with the values obtained with different [facility] | | manufacturers' assay methods. | | + + + + + + + + | Performing | Address | City/State/Zipcode | Phone Number | | Organization | | | | + + + + + | [facility] | And | [place] [address] | [phone] | | [facility] | Streets | | | + + + + + documented in this encounter Visit Diagnoses + + | Diagnosis | + + | Normal first confirmed, antepartum | + + documented in this encounter"
--- OUTSIDE RECORDS SUMMARY | ~2018-11-05 | XMS | Encounter Summary ---
Demographics + + + | Address | [address] | | | [place] [address] | + + + | Home Phone [...] Author + + + | Author | [facility] | + + + | Organization | [facility] | + + + | Address | Unknown | + + + | Phone | Unavailable | + + + Support + + + + + | Name | Relationship | Address | Phone | + + + + + | Dante Duenas | GISSELLE | [address] | | | | | [place] [address] | | + + + + + | Helena Hawleywil | ECON | [place] | | | | | [place] [address] | | + + + + + Care Team Providers + +------+ + | Care Implant Polisher Name | Role | Phone | + +------+ + | Larry Lorenzo | PCP | | + +------+ + Encounter Details +--------+ + + + + | Date | Type | Department | Care Team | Description | +--------+ + + + + | 07/11/ | [facility] | [place] | [place], | Encounter for | | 2017 | | [facility] [address] | MD [address] | screening | | | | [address] , [address] | of mother (Primary | | | | [place], [place] | [place], [place] | Dx) | | | | [address] | [address] | | | | | [phone] | [phone] | | | | | | | [...]
--- OUTSIDE RECORDS SUMMARY | ~2018-11-05 | XMS | Encounter Summary ---
Demographics + + + | Address | [address] | | | [place] [address] | + + + | Home Phone [...] | | | | | [place] [address] | | + + + + + | Helena Barakatjoseph | ECON | [place] | | | | | [place] [address] | | + + + + + Care Team Providers + +------+ + | Care Produce Production Team Member Name | Role | Phone | [...] + + | 03/13/ | Telephone | [facility] | Harpreet Sanabria MD | UTI - Urinary tract | | 2017 | | [facility] [place] [address] | [address] | infection | | | | [address] | [address] [place], [place] | | | | | [place], [place] | [address] | | | | | [address] | [phone] | | | | | [phone] | | | +--------+ + + + [...]
--- OUTSIDE RECORDS SUMMARY | ~2018-11-05 | XMS | Encounter Summary ---
Demographics + + + | Address | [address] | | | [place] [address] | + + + | Home Phone | | + + + | Preferred Language | Unknown | + + + | Marital Status | Single | + + + | Congregation Affiliation | NON | + + + | Race | White | + + + | Ethnic Group | Not or | + + + Author + + + | Author | [facility] | + + + | Organization | [facility] | + + + | Address | Unknown | + + + | Phone | Unavailable | + + + Support + + + + + | Name | Relationship | Address | Phone | + + + + + | Dante Duenas | GISSELLE | [address] | | | | | [place] [address] | | + + + + + | Helena Reilly | ECON | [address] | | | | | [place] [address] | | + + + + + Care Team Providers + +------+ + | Care Office Machine Installer Name | Role | Phone | + +------+ + | No Pcp Per Patient | PCP | Unavailable | + +------+ + Reason for Visit + + + | Reason | Comments | + + + | | Initial exam | + + + | Ultrasound | 1st tri sono | + + + Encounter Details +--------+ + + + + | Date | Type | Department | Care Team | Description | +--------+ + + + + | 05/10/ | | [facility] | Pentopoulos, | (Initial | | 2015 | | [facility] [address] | MD [address] | exam); Ultrasound | | | | [address] , [address] | ( tri sono) | | | | [place], [place] | [place], [place] | | | | | [address] | [address] | | | | | [phone] | [phone] | | | | | | | [...] + + + | Blood Pressure | 102/62 | 05/10/2016 11:21 AM | | | | | PST [...] Weight | 61.2 kg (135 lb) | 05/10/2016 11:21 AM | | | | | PST | | + + + + + | Height | - | - | | + + + + + | Body Mass Index | 26.59 | 04/23/2016 2:08 PM | | | | | PDT | | + + + + + documented in this encounter Patient Instructions Patient Instructions Sawyer Alex MA - 05/10/2016 11:15 AM PSTFormatting of this note mi angelest be different from the original. Initial Visit Welcome to [facility]! This is the first of several messages that will be a part of your After Visit Summary (AVS) . It s a long one, so take your time. We re so happy you ve chosen us to guide you t hrough your . Please read chapters 3 and 25 in your book. How do I reach my provider? Have you signed up for Yecuris ? It s the best way to communicate with us for your non-urgent needs. Head to this address to sign up: [email or web address] You will need the activation code you were given at your first visit, your medical record n umber, and your date of . The activation codes after 45 days. If you need a new one please ask any of our front end java developer staff or give us a call and we can provide over the renuka ne! We ll try hard to answer your messages within 2-3 business days. Our main phone numbe linette is [phone]. The phone lines operate from 8:00am-5:00pm. If [...] take a second look at our Plate; [employer] Blue Print that you received at your [...] such as orange juice, cereals, and breads. [place]-3 Fatty Acids Polyunsaturated fatty acids of the [...] protein. Get a healthy cookie or cracker (Loft Worker Apprentice Lj kyle has a denice snap [...] easy to carry with you in a thermo s bottle: Buy a denice root at [...] elastic bracelet that utilizes acupressure theory from [facility] . These bracelets have an acupressure button that compresses th e Subhash , or P6 , acupressure spot. * [...] have you talk to one of our [facility] Counselors. Some women are at a [...] or present disease s, in particular- rubella (swedish measles), varicella (chicken pox), syphilis, HIV, and [...] Urine tests, for infection and kidney function. Ready chapters 4 and 17 in your book. Exercise Don t stop moving now! If you have a regular exercise routine, keep at it. If you don t exercise regularly we want you to start we recommend an accumulated amount of mod erate intensity exercise for 30 minutes most, if not all, days of the week. A brisk walk is a good way to start. Regular exercise may be especially important for obese women, and may actually help prevent gestational diabetes. There are always exceptions to rules, so if you think you have a special health concern dis cuss this with your doctor or customer account manager. There are also some extreme variations of exercise that you might want to avoid, such as: ? extreme exertion above 6,000 feet ? contact sports (ice hockey, soccer, basketball) ? potential for falls (gymnastics, horseback riding, downhill skiing, some racquet sports) ? scuba diving Weight gain All women (and their babies!) will benefit from a weight gain within the goals see n below. These guidelines are tailored to a woman s Body Mass Index (the BMI), a formula that accounts for height and weight. BMI Recommended Weight Gain (lbs) <18.5 28-40 18-24.9 25-35 25-29.9 15-25 30-34.9 11-20 >35 0-9 Last 1 Encounter BMI Readings: Date BMI 05/10/2016 26.59 kg/m2 Women who are underweight (low BMI) may need to gain relatively more weight to ensure optim al health. Women who are overweight (higher BMI) may not need to gain much, if any, additio nal weight during . Ask your doctor or customer account manager how you re doing and what strateg y might be best for you. Consuming too many calories, and especially too many empty calories (high-calorie reno ds with little nutritional value), can be a problem. Not only is that weight difficult to l ose after your , but the additional calories may increase your risk for gestational diabetes, caesarean section, large baby, high blood pressure, delivery and poor wou nd healing. Try replacing empty calorie foods with these: * vegetable sticks, seasoned with a little ranch dressing * hard-boiled eggs * string cheese sticks or individual-sized cheddar cheese * an apple and peanut butter * a handful of nuts Miscarriage Lastly, a word about miscarriage. Unfortunately, miscarriages are very common. We know th at approximately 20% of pregnancies end in miscarriage. However, another 20% of healthy pre gnancies have bleeding in early . Not all uterine cramping or vaginal bleeding res ults in miscarriage. A small spot of vaginal blood in your underwear or on the toilet paper is usually nothing to worry about. Also, the occasional cramp in your uterus is probably n ot an indication of a miscarriage. However, if you experience continuous cramping and have bleeding more like a period, please let us know. The good news is if you saw a little heartb eat at your visit today your chances of miscarriage have just dropped dramatically! Weeks 6 to 10 of Your : Care Instructions Your Care Instructions Congratulations on your . This is an exciting and important time for you. During the first 6 to 10 weeks of your , your body goes through many changes. Your baby grows very fast, even though you cannot feel it yet. You may start to notice that you feel different, both in your body and your emotions. Because each woman's is uniqu e, there is no right way to feel. You may feel the healthiest you have ever been, or you may feel tired or sick to your stomach ("morning sickness"). These early weeks are a time to make healthy choices and to eat the best foods for you and your baby. This care sheet will give you some ideas. This is also a good time to think about defects testing. These are tests done during to look for possible problems with the baby. First trimester tests for defec ts can be done between 10 and 13 weeks of , depending on the test. Talk with your d octor about what kinds of tests are available. Follow-up care is a mclaughlin part of your treatment and safety. Be sure to make and go to all ap pointments, and call your doctor if you are having problems. It's also a good idea to know y our test results and keep a list of the medicines you take. How can you care for yourself at home? Eat well Eat at least 3 meals and 2 healthy snacks every day. Eat fresh, whole foods, includin or more servings of bread, tortillas, cereal, rice, pasta, or oatmeal. 3 or more servings of vegetables, especially leafy green vegetables. 2 or more servings of fruits. 3 or more servings of milk, yogurt, or cheese. 2 or more servings of meat, turkey, chicken, fish, eggs, or dried beans. Drink plenty of fluids, especially water. Avoid sodas and other sweetened drinks. Choose foods that have important vitamins for your baby, such as calcium, iron, and nelson te. Dairy products, tofu, canned fish with bones, almonds, broccoli, dark leafy greens, corn tortillas, and fortified orange juice are good sources of calcium. Beef, poultry, liver, spinach, lentils, dried beans, fortified cereals, and dried fruits are rich in iron. Dark leafy greens, broccoli, asparagus, liver, fortified cereals, orange juice, peanuts, and almonds are good sources of folate. Avoid foods that could harm your baby. Do not eat raw or undercooked meat, chicken, or fish (such as sushi or raw oysters). Do not eat raw eggs or foods that contain raw eggs, such as Caesar dressing. Do not eat soft cheeses and unpasteurized dairy foods, such as Brie, feta, or blue chees e. Do not eat fish that contains a lot of mercury, such as shark, swordfish, tilefish, or k ing mackerel. Do not eat more than 6 ounces of tuna each week. Do not eat raw sprouts, especially alfalfa sprouts. Cut down on caffeine, such as coffee, tea, and cola. Protect yourself and your baby Do not touch shaheen litter or cat feces. They can cause an infection that could harm your baby. High body temperature can be harmful to your baby. So if you want to use a sauna or hot tub, be sure to talk to your doctor about how to use it safely. Lamar with morning sickness Sip small amounts of water, juices, or shakes. Try drinking between meals, not with meal s. Eat 5 or 6 small meals a day. Try dry toast or crackers when you first get up, and eat b reakfast a little later. Avoid spicy, greasy, and fatty foods. When you feel sick, open your windows or go for a short walk to get fresh air. Try nausea wristbands. These help some women. Tell your doctor if you think your vitamins make you sick. Where can you learn more? To learn more about "Weeks 6 to 10 of Your : Care Instructions", log into your [employer] account at [email or web address]. You can enter G112 in the [employer]" se arch box. Not on Yecuris? Review the Yecuris section of your After Visit Summary for directions on ho w to sign up. [phone] [employer]. Care instructions adapted under license by [facility]. This care instruction is for use with your licensed healthVoxound professional. If you have questions about a medical condition or this instruction, always ask your healthcare professional. [employer] disclaims any warranty or liabili ty for your use of this information. Content Version: 11.0.101399; Current as of: November 20, 2015 Weeks 10 to 14 of Your : Care Instructions Your Care Instructions By weeks 10 to 14 of your , the placenta has formed inside your uterus. It is poss ible to hear your baby's heartbeat with a special ultrasound device. Your baby's eyes can an d do move. The arms and legs can bend. This is a good time to think about testing for defects. There are two types of tests: screening and diagnostic. Screening tests show the chance that a baby has a certain d efect. They can't tell you for sure that your baby has a problem. Diagnostic tests show if a baby has a certain defect. It's your choice whether to have these tests. You and your partner can talk to your doctor or customer account manager about defects tests. Follow-up care is a mclaughlin part of your treatment and safety. Be sure to make and go to all ap pointments, and call your doctor if you are having problems. It's also a good idea to know y our test results and keep a list of the medicines you take. How can you care for yourself at home? Decide about tests You can have screening tests and diagnostic tests to check for defects. The decisi on to have a test for defects is personal. Think about your age, your chance of passin g on a family disease, your need to know about any problems, and what you might do after you have the test results. Triple or quadruple (quad) blood tests. These screening tests can be done between 15 and 20 weeks of . They check the amounts of three or four substances in your blood. e doctor looks at these test results, along with your age and other factors, to find out the chance that your baby may have certain problems. Amniocentesis. This diagnostic test is used to look for chromosomal problems in the baby 's cells. It can be done between 15 and 20 weeks of , usually around week 16. Nuchal translucency test. This test uses ultrasound to measure the thickness of the area at the back of the baby's neck. An increase in the thickness can be an early sign of Down s yndrome. Chorionic villus sampling (CVS). This is a test that looks for certain genetic problems with your baby. The same genes that are in your baby are in the placenta. A small piece of t he placenta is taken out and tested. This test is done when you are 10 to 13 weeks . Ease discomfort Slow down and take naps when you feel tired. If your emotions swing, talk to someone. Crying, anxiety, and concentration problems are common. If your gums bleed, try a softer toothbrush. If your gums are puffy and bleed a lot, see your dentist. If you feel dizzy: Get up slowly after sitting or lying down. Drink plenty of fluids. Eat small snacks to keep your blood sugar stable. Put your head between your legs as though you were tying your shoelaces. Lie down with your legs higher than your head. Use pillows to prop up your feet. If you have a headache: Lie down. Ask your partner or a good friend for a neck massage. Try cool cloths over your forehead or across the back of your neck. Use acetaminophen (Tylenol) for pain relief. Do not use nonsteroidal anti-inflammatory d rugs (NSAIDs), such as ibuprofen (Advil, Motrin) or naproxen (Aleve), unless your doctor say s it is okay. If you have a nosebleed, pinch your nose gently, and hold it for a short while. To preve nt nosebleeds, try massaging a small dab of petroleum jelly, such as Vaseline, in your nostr ils. If your nose is stuffed up, try saline (saltwater) nose sprays. Do not use decongestant sprays. Care for your breasts Wear a bra that gives you good support. Know that changes in your breasts are normal. Your breasts may get larger and more tender. Tenderness usually gets better by 12 weeks. Your nipples may get darker and larger, and small bumps around your nipples may show mor e. The veins in your chest and breasts may show more. Don't worry about "toughening'" your nipples. will naturally do this. Where can you learn more? To learn more about "Weeks 10 to 14 of Your : Care Instructions", log into your My Chart account at [email or web address] You can enter E090 in the [employer] Library" s earch box. Not on [employer] Software[employer]? Review the MyChart section of your After Visit Summary for directions on ho w to sign up. [id number] [employer]. Care instructions adapted under license by [facility] [employer]. This care instruction is for use with your licensed healthcar e professional. If you have questions about a medical condition or this instruction, always ask your healthcare professional. [employer] disclaims any warranty or liabili ty for your use of this information. Content Version: 11.0.003781; Current as of: November 20, 2015 documented in this encounter Progress Notes Jostin Recinos MD - 05/10/2016 11:15 AM PSTFormatting of this note might be differen t from the original. History: 21 y.o. at 12w5d by LMP with first presenting for a first trimester OB ultrasound. Viable gray with CRL measuring 72.0mm, consistent with 13 weeks 3 days. FHR: present bpm Placenta: Anterior Uterus: normal Right Ovary: normal Left Ovary: normal Impression: 21 y.o. at 12w5d weeks gestation. Ultrasound consistent with menstrual da ting. Recommendations: I reviewed the findings of today's ultrasound with Jennifer Reilly I recommend a follow up ultrasound for complete anatomy 18-22 weeks gestation. Completed and reviewed by Jostin Recinos MD. OB Initial Note Patient Information Jennifer Reilly is a 21 y.o. female T0 P0 SAB0 TAB0 L0 Mult0 Ect0 at 12w5d by LMP. Social Note: She lives with her boyfriend. Review of Systems: General: No fevers, fatigue, chills, weight loss or sweats. Eyes: No changes in vision loss, double vision, blurred vision or light sensitivity. Ears, Nose and Throat: No nosebleeds, nasal congestion, difficulty swallowing, hoarseness o r sore throat. Respiratory: No shortness of breath, cough, chest discomfort or wheezing. Musculoskeletal: No joint pain, back pain, muscle aches Cardiovascular: No chest pain, skipping beats, lightheadedness, difficulty breathing, fati donavon, palpitations Gastrointestinal: No loss of appetite, vomiting, nausea, constipation, abdominal pain, alessandra rrhea Genitourinary: No urinary frequency, blood in urine, painful urination, incontinence, urin yari urgency, or vaginal bleeding. Neurologic: No headaches, numbness, tingling. Skin: No itching, rash, or suspicious lesions Psychological: No abnormal anxiety, depression, thoughts of suicide or hallucinations. Heme/Lymphatic: No skin discoloration, abnormal bleeding Endrocrine: No heat intolerance, cold intolerance Allergic: No seasonal allergies, hives or rash HistoryPregnancy History: T0 P0 SAB0 TAB0 L0 Mult0 Ect0 OB History Para Term AB SAB TAB Ectopic Multiple Living 1 # Outcome Date GA Lbr Galo/2nd Weight Sex Delivery Anes PTL Lv 1 Current Patient Active Problem List Diagnosis Date Noted Normal first confirmed, antepartum 04/23/2016 Overview Note: FOB: Second Parent Name: Jaya Duenas Dating Criteria: [ ] LMP or U/S @ [ ] Weeks : [ ] Labs: drawn 04/23/16 [ ] Rh: No results found for: ABO, RH [ ] Antibody screen: [ ] GC: No results found for: CHLAMPROBE, GCPROBE [ ] HgbA1C: No results found for: A1C [ ] Pap: Last pap 02/2016 ASCUS. Done at [facility]. [ ] Urine Cx: [ ] Birthing classes FIRST [ ] Genetic Screening: [ ] CF [ ] SIS [ ] NIPT [ ] AFP SECOND [ ] Ultrasound 18-20 weeks: [ ] Follow up U/S: Indication: [ ] Gender: [ ] 1hr gtt at 24-28wks: [ ] 3hr gtt: [ ] CBC: [ ] Repeat surgical booking? THIRD [ ] Follow-up U/S: Growth or KALEY Indication: [ ] Flu Shot (Feb-May): [ ] Tdap (27-36 wks): [ ] Rhogam (28 wks) [ ] GBS at 35wks: [ ] MOD: [ ] : [ ] ppBCM: Asthma 04/23/2016 Overview Note: 04/23/16: pt states this is exercise induced. She uses an inhaler as needed. sjk Family History Problem Relation Diabetes Maternal Grandfather Diabetes Maternal Uncle Diabetes Maternal Uncle Diabetes Maternal Cousin three cousins Breast Cancer Sister Cancer Sister cervical/uterine Breast Cancer Maternal Aunt Bleeding disorder Maternal Grandmother excessive clotting Seizure Disorder Mother as child Past Medical History Diagnosis Date Asthma History Smoking Status Never Smoker Smokeless Tobacco Never Used History Alcohol Use No Comment: not while History Drug Use No Current Outpatient Prescriptions Medication Sig famotidine 20 mg oral tablet Take 1 tablet by mouth two times daily. vitamins, with calcium, iron-folic acid 27 mg iron- 1 mg oral tablet Take 1 ta blet by mouth once daily. No current facility-administered medications for this visit. Allergies: Review of patient's allergies indicates no known allergies. Additional Comments: BP 102/62 | Wt 61.2 kg (135 lb) | BMI 26.59 kg/(m^2) GENERAL PHYSICAL EXAM: General: This is a well appearing, non Obese, white female in no apparent distress. Skin: Warm, dry and no rashes or lesions. HEENT: Normocephalic. Extraocular muscles intact. Neck: Supple. Trachea midline. No thyromegaly. No cervical or supraclavicular lymphadenop athy. Breasts: Symmetric. No skin changes. No nipple discharge. Heart: Regular rate and rhythm. No murmur appreciated Lungs: Clear to auscultation bilaterally. Abdomen: Soft. Non-tender. No Rebound. No mass. Musculoskeletal: Normal. Extremities: No edema. Non-tender. Neurological: Normal Assessment: Jennifer Reilly is a 21 y.o. female T0 P0 SAB0 TAB0 L0 Mult0 Ect0 at 12w5d by LMP with uncomplicated first . Plan: labs done Ultrasound scheduled done today Discussed genetic screening & pt is doing it today. & Childbirth Book provided Edwardo Ram MA - 05/10/2016 11:15 AM PSTNo concerns today. Last pap was in 01/2016. It was ASCUS. Pt is undecided about gentic screening. Edwardo Peterson CMA documented in this e ncounter Plan of Treatment Not on filedocumented as of this encounter Procedures + +--------+ + + + | Procedure Name | Priori | Date/Time | Associated Diagnosis | Comments | | | ty | | | | + +--------+ + + + | UA, DIP 4 | Routin | 05/10/2016 | with 12 | Results for this | | | e | 11:17 AM | completed weeks | procedure are in the | | | | PST | gestation | results section. | + +--------+ + + + | TN US, PREG | Routin | 05/10/2016 | with 12 | Results for this | | UTER, & MAT,1ST | e | | completed weeks | procedure are in the | | TRIMEST | | | gestation | results section. | + +--------+ + + + | PATHOLOGY | | 01/25/2016 | | Results for this | | | | 12:00 AM | | procedure are in the [...] [address] | | | [place] [address] | | + + + + + [...] + + + | Test performed by: [facility] [address] | [place] | | [place] [address] | REFERENCE LAB | + + + [...] + + + + BONI PURVIS 4 (05/10/2016 11:17 AM PST) + + + + + [...] + + + + | NITRITES | Positive (A) | Negative | [facility] | [facility] | [address] [place] [address], | [place] [address] | | | [facility] | [address] | | | + + + + + TN US, PREG UTER, & MAT,1ST TRIMEST (05/10/2016) + + + | Impressions | Performed At | + + + | History: 21 y.o. at 12w5d by LMP with first | | | presenting for a first trimester OB ultrasound. Viable gray | | | with CRL measuring 72.0mm, consistent with 13 weeks 3 days. | | | FHR: present bpm Placenta: Anterior Uterus: normal Right | | | Ovary: normal Left Ovary: normal Impression: 21 y.o. at | | | 12w5d weeks gestation. Ultrasound consistent with menstrual dating. | | | Recommendations: I reviewed the findings of today's ultrasound | | | with Jennifer Reilly I recommend a follow up ultrasound for | | | complete anatomy 18-22 weeks gestation. Completed and reviewed by | | | Jostin Recinos MD. | | + + + PATHOLOGY (01/25/2016 12:00 AM PDT) + + + | Narrative | Performed At | + + + | | | + + + documented in this encounter Visit Diagnoses + + | Diagnosis | + + | with 12 completed weeks gestation - Primary | + + | Encounter for supervision of normal first in first trimester Supervision of | | normal first | + + documented in this encounter
--- OUTSIDE RECORDS SUMMARY | ~2018-11-05 | XMS | Encounter Summary ---
Demographics + + + | Address | [address] | | | [place] [address] | + + + | Home Phone [...] | | | | | [place] [address] | | + + + + + | Helena Reilly | ECON | UNK | | | | | [place] [address] | | + + + + + Care Team Providers + +------+ + | Care Logging Equipment Operator Name | Role | Phone | [...] + + + | 04/23/ | | [place] | Jaime Ricci, | | | 2016 | Initial | [facility] | RN [address] | | | | | [address] | [place], [place] | | | | | [place], [place] | [address] | | | | | [address] | | | | | | [phone] | | | +--------+ + + + [...] 1:34 PM PDT Initial Visit Welcome to [facility]! This is the first of several messages that will be a part of your After Visit Summary (AVS) . It s a long one, so take your time. We re so happy you ve chosen us to guide you t hrough your . Please read chapters 3 and 25 in your book. How do I reach my provider? Have you signed up for [employer] ? It s the best way to communicate with us for your non-urgent needs. Head to this address to sign up: [email or web address] You will need the activation code you were given at your first visit, your medical record n umber, and your date of . The activation codes after 45 days. If you need a new one please ask any of our front desk officer staff or give us a call and we can provide over the renuka ne! We ll try hard to answer your messages within 2-3 business days. Our main phone som sue is [phone]. The phone lines operate from 8:00am-5:00pm. If [...] take a second look at our Plate; [employer] Software Blue Print that you received at your [...] such as orange juice, cereals, and breads. Wildrose-3 Fatty Acids Polyunsaturated fatty acids of the [...] protein. Get a healthy cookie or cracker (Director Of Distance Learning Lj kyle has a denice snap cooki [...] easy to carry with you in a Q-Bot s bottle: Buy a denice root at [...] elastic bracelet that utilizes acupressure theory from [facility] [employer] . These bracelets have an acupressure [...] have you talk to one of our [facility] Counselors. Some women are at a higher [...] or present disease s, in particular- rubella (uzbek measles), varicella (chicken pox), syphilis, HIV, and [...] 9w6d weeks by LMP and here to [facility] care. Pt had an early dating ultrasound in [place]. Requesting report. Will update when ultrasound obtained. [...] Ultrasound scheduled at same time. 3. Sent [facility] referral, pt declines Healthy [facility] referral documented [...] | the APTIMA COMBO2 | | - [place] | | | | Assay([employer] | | | | | | [...] + + | [facility] | [address] [facility] | [place] [address] | | | - [place] | 200 | | | + + + + + CULTURE, URINE (05/31/2016 11:37 AM PST) + + + + + + | Component | Value | Ref Range | Performed | Pathologist | | | | | At | Signature | + + + + + + | CULTURE | 100,000 cfu/mL | | [facility] | | | RESULT | Escherichia coli; [...] + + + | [facility] | And [place] | [place] [address] | [phone] | | MEDICAL CENTER | Streets | [...] | REFERRAL | Test performed | | [facility] | | | LAB NAME | by: | | A MEDICAL | | | | [facility] | | CENTER | | | | [employer] | | | | | | [id number] | | | | | | Way | | | | | | S | | | | | | [place] | | | | | | [address] | | | | + + + [...] + + | [facility] | And | [place] [address] | [phone] | | MEDICAL CENTER | Streets | | | + + + + + HEPATITIS C ANTIBODY (04/23/2016 2:40 PM PDT) + + + + + + | Component | Value | Ref Range | Performed | Pathologist | | | | | At | Signature | + + + + + + | HEP C | Non-reactive | Non-reactive | [facility] | | | ANTIBODY | | | A MEDICAL | | | | | | CENTER | | + + + + + + + + | Specimen | + + | Blood | + + + + + | Narrative | Performed At | + + + | Results obtained wi the Elecsys Anti-HCV immunoassay may not be | [facility] | | used interchangeably with the values obtained with different | [facility] | | manufacturers' assay methods. | | + + + + + + + + | Performing | Address | City/State/Zipcode | Phone Number | | Organization | | | | + + + + + | [facility] | And | [place] [address] | [phone] | | [facility] [place] | Streets | | | + + [...] + + + | Test performed at [facility] | [facility] | | [address] [facility] | [facility] | [place] | [place] | | [place] | | | [address] Lab | | | Director VASQUEZ IRENE MD | | + + + + + + + + | Performing | Address | City/State/Zipcode | Phone Number | | Organization | | | | + + + + + | [facility] | [address] [facility] | [place] [address] | | | - [place] | [address] | | | + + [...] + + + + | [facility] | And | [place] [address] | [phone] | | [facility] | Streets | | | + + + + + RUBELLA IGG AB, SERUM (04/23/2016 2:40 PM PDT) + +-------+ + + + | Component | Value | Ref Range | Performed | Pathologist | | | | | At | Signature | + +-------+ + + + | RUBELLA IGG | 54 | IU/mL | [facility] | | | AB | | | A MEDICAL | | | | | | CENTER | | + +-------+ + + + + + | Specimen | + + | Blood | + + + + + | Narrative | Performed At | + + + | Interpretation: <10 IU/mL | [facility] | | Non-Reactive/Non-Immune >=10-<15IU/mL EQUIVOCAL | [facility] | | >=15 IU/mL Reactive Immune The [...] + + | [facility] | And | [place] [address] | [phone] | | MEDICAL CENTER | Streets | | | + + + + + RPR SERUM (04/23/2016 2:40 PM PDT) + + + + + + | Component | Value | Ref Range | Performed | Pathologist | | | | | At | Signature | + + + + + + | RPR | Nonreactive | Nonreactive | [facility] | | | | | | A [...] + + + + | [facility] | And | [place] [address] | [phone] | | MEDICAL CENTER | [facility] | | | + + [...] [email or web address] | | | | | | [email or web address] | | | | | | 06(This [...] + + | [facility] | [address] | [place] [address] | | | - [place] | [address] | | | + + [...] immunoassay may not be | [facility] | | used interchangeably with the values obtained with different | [facility] | | manufacturers' assay methods. | | + + + + + + + + | Performing | Address | City/State/Zipcode | Phone Number | | Organization | | | | + + + + + | [facility] | | [place] [address] | [phone] | | [facility] | Streets | | | + + + + + documented in this encounter Visit Diagnoses + + | Diagnosis | + + | Normal first confirmed, antepartum - Primary | + + documented in this encounter
--- OUTSIDE RECORDS SUMMARY | ~2018-11-05 | XMS | Encounter Summary ---
Demographics + + + | Address | [address] | | | [place] [address] | + + + | Home Phone [...] | | | | | [place] [address] | | + + + + + | Helena Barakatjoseph | ECON | UNK | | | | | [place] [address] | | + + + + + Care Team Providers + +------+ + | Care Financial Analysis Manager Name | Role | Phone | [...] + + + | 11/19/ | | [place] | Jeannie Argueta, | | | 2017 | | [facility] | CNM [address] | | | | | E , [address] | [address] THE | | | | | [place], [place] | [place], [place] | | | | | [address] | [address] | | | | | [phone] | [phone] | | | | | | | [...] let them know you are coming in. [phone]. Week 40 of Your : Care Instructions [...] Your : Care Instructions", log into your Lanx a ccount at [email or web address]. You can enter [id number] in the "Vaccinogen" search box . Not on Lanx? Review the Lanx section of your After Visit Summary for directions on timbo aquino to sign up. Current as of: November 20, 2015 Content Version: 11.2 2347-5797 Jellycoaster. Care instructions adapted under license by [facility] & Science [place]. If you have questions about a medical condition or this instr uction, always ask your healthcare professional. Jelly[employer]aster disclaims any nino anty or liability for [...]
--- OUTSIDE RECORDS SUMMARY | ~2018-11-05 | XMS | Encounter Summary ---
Demographics + + + | Address | [address] | | | [place] [address] | + + + | Home Phone [...] | | | | | [place] [address] | | + + + + + | Helena Hawleywil | ECON | [place]K | | | | | [place] [address] | | + + + + + Care Team Providers + +------+ + | Care Fuller Brush Man Name | Role | Phone | + [...] | | 2017 | Encounter | at [facility] | CNM [address] | | | | | [address] | [address] THE | | | | | [place], [place] | [place] | | | | | [address] | [address] | | | | | [phone] | [phone] | | | | | | | | | | | | Katarina Soria, | | | | | | MDS [address] [facility] | | | | | | [facility] | | | | | | [place], [place] | | | | | | [address] | | | | | | [phone] | | | | | | | [...] sent through Care Everywhere.NAUSEA AND VOMI TING ([place]ISH)documented in this encounter Progress Notes Benny Thompson RN - 08/15/2016 3:14 PM [id number]: FHR reactive, SVE closed, FFN negative; latonya [...] 140, moderate sanya, rare mild variable decels [place] - irregular cxn patter SVE - closed [...] | + + + + + | [facility] | And | [place] [address] | [phone] | | MEDICAL CENTER | Streets | [...] | [facility] | And | [place] [address] | [phone] | | [facility] | [facility] | | | + + + + + documented in this encounter Visit Diagnoses Not on filedocumented in this encounter"
--- OUTSIDE RECORDS SUMMARY | ~2018-11-05 | XMS | Encounter Summary ---
Demographics + + + | Address | [address] | | | [place] [address] | + + + | Home Phone [...] Author + + + | Author | [facility] | + + + | Organization | [facility] | + + + | Address | Unknown | + + + | Phone | Unavailable | + + + Support + + + + + | Name | Relationship | Address | Phone | + + + + + | Dante Duenas | ECON | [address] | | | | | [place] [address] | | + + + + + | Helena Reilly | ECON | [place] | | | | | [place] [address] | | + + + + + Care Team Providers + +------+ + | Care Head Track Coach Name | Role | Phone | [...] [place], [place] | | | | | [address] | [address] | | | | | [phone] | [phone] | | | | | | | [...] Performed At | + + + | [facility] | [facility] | | University OBSTETRICAL | RADIOLOGY OB US | | ULTRASOUND REPORT | | | | | | Pat. Name: QUANG REILLY | | | No: [id number] Study Date: 07/17/2016 2:18pm , | | | Age: 10 1995, 21 Pregnancies: 1, Para 0000 | | | LMP: Unknown GA by US: 22w4d GA | | | Selected: 22w3d (Outside Scan) KATHARINE: 11/17/2016 | | | Referring MD: PAWEL HERNANDEZ Equipment Application Specialist: James Crow | | | CPT4: 86906 Hist/Ind: 2nd trimester anatomy | | | scan. | | | | | | MEASUREMENTS & AGE GROWTH | | | EVALUATION Measurement GA Range Srce %for GA | | | Ratios ----- ---- ------- | | | BPD 5.7 cm 23w2d (89y8g-52v5f) Hadl BPD | | | 74% FL/BPD 0.72 HC 20.6 cm 22w5d (32j5s-30d7u) Hadl HC 60% | | | FL/AC 0.23 (0.20 - 0.24) AC 17.3 cm 22w2d (72z5c-89r0k) Hadl | | | AC 48% HC/AC 1.19 (1.04 - 1.23) FL 4.1 cm 23w1d | | | (40h2a-93d3b) Hadl FL 69% CI 0.79 (0.70 - 0.86) HL 3.9 | | | cm 23w6d (22p5o-45s1v) Will HL 75% GA for sonogram 22w4d | | | (49z7i-37z3k) Weight Estimate: based on (BPD,HC,AC,FL) | | | Hadlock Weight: 526 gm (449-603) Hadlock | | | | | | : 1lbs, 2oz | | | | | | Normal: 507 gm (339-947) [facility] | | | | | | Wt% [...] | | | ask for the perinatologist communication professor. [phone] or [phone] | | | BLOSSOM HUGHES MD <Electronic [...] - 07/17/2016 4:32 PM PST | | [facility] OBSTETRICAL ULTRASOUND | | REPORT Pat. Name: | | QUANG REILLY. No: [id number] Date: 07/17/2016 2:18pmDOB, Age: | | 1995, 21Pregnancies: 1, Para 0000LMP: UnknownGA by US: | | 76r8gXW Selected: 22w3d (Outside Scan)KATHARINE: 11/17/2016Referring MD: DAVID, | | MANDELYNNSonographer: Flaco Crow4: [id number]/Ind: 2nd trimester | | anatomy scan. | | MEASUREMENTS & | | AGE GROWTH EVALUATIONMeasurement GA Range Srce %for | | GA Ratios ----- ---- ------- BPD 5.7 | | cm 23w2d (17t6j-30c2n) Hadl BPD 74% FL/BPD 0.72HC 20.6 cm 22w5d (24n1d-44p2z) Hadl HC | | 60% FL/AC 0.23 (0.20 - 0.24)AC 17.3 cm 22w2d (99t3y-26r4v) Hadl AC 48% HC/AC 1.19 | | (1.04 - 1.23)FL 4.1 cm 23w1d (98r3x-83s6e) Hadl FL 69% CI 0.79 (0.70 - 0.86)HL | | 3.9 cm 23w6d (34v1j-47w9u) Will SANCHEZ 75%GA for sonogram 22w4d (39q8w-28c7l) Weight | | Estimate:based on (BPD,HC,AC,FL) Hadlock Weight: 526 gm (449-603) Hadlock | | : 1lbs, 2oz | | Normal: 507 gm (339-947) Jose Rafael Wt% 52% for | | 93i2iXqtjydb for Chromosomal Abnormality:NF 3.7 mmFetal Heart Rate: [...] any time and ask for the perinatologist communication professor. [phone] or [phone], | | MD BLOSSOM <Electronic Signature> 07/17/2016 [...] ask for the perinatologist on | |call. [phone] or [phone] | |BLOSSOM HUGHES MD | | | [...]
--- OUTSIDE RECORDS SUMMARY | ~2018-11-05 | XMS | Encounter Summary ---
Demographics + + + | Address | [address] | | | [place] [address] | + + + | Home Phone [...] | | | | | [place] [address] | | + + + + + | Helena Barakatjoseph | ECON | [place]K | | | | | [place] [address] | | + + + + + Care Team Providers + +------+ + | Care Sleeve Setter Safety Stitch Name | Role | Phone | + [...] + + + | 07/05/ | | [place] | Jeannie Argueta, | | | 2017 | | [facility] [address] | CNM [address] | | | | | E , [address] | [address] THE | | | | | [place], [place] | [place], [place] | | | | | [address] | [address] | | | | | [phone] | [phone] | | | | | | | [...] food choices. Bring on the hard-boiled eggs. Alecai ng on the zucchini and carrot sticks [...] from the Centers for Disease Control (CDC): http://wwwnc.cdc.gov/travel/yellowbook/2014/zzmsulp-1-hvftsflk-gytddxgvm-hvdc-eebsxskh-need s/-travelers Or do a Google search for: [...] babies can now suck their thumbs , qualitative field project manager firmly with their hands, and open and [...] log into your My Chart account at [email or web address]. You can enter W603 in the "Health Library" [facility] box. Not on HealthCentralt? Review the MyChart section of your After Visit Summary for directions on timbo aquino to sign up. Current as of: November 20, 2015 Content Version: [id number] Truevision. Care instructions adapted under license by [facility] & Science Vendor. If you have questions about a medical [...] [address], | [place] [address] | | | W[facility]ENTER | [address] | | | + + + + + documented in this encounter Visit Diagnoses + + | Diagnosis | + + | 20 weeks gestation of - Primary state, incidental | + + documented in this encounter
--- OUTSIDE RECORDS SUMMARY | ~2018-11-05 | XMS | Encounter Summary ---
Demographics + + + | Address | [address] | | | [place] [address] | + + + | Home Phone [...] | | | | | [place] [address] | | + + + + + | Helena Reilly | ECON | [place] | | | | | [place] [address] | | + + + + + Care Team Providers + +------+ + | Care Hospital Food Service Worker Name | Role | Phone | + +------+ + | No Pcp Per Patient | PCP | Unavailable | + +------+ + Encounter Details +--------+------+ + + + | Date | Type | Department | Care Team | Description | +--------+------+ + + + | 05/10/ | Lab | Laboratory at | | Encounter for | | 2015 | | [place] | | supervision of | | | | [facility] | | normal first | | | | E The | | in first | | | | [place], [place] | | trimester | | | | [address] | | | | | | [phone] | | | +--------+------+ + + + [...] [address] | | | [place] [address] | | + + + + + [...] + + + | Test performed by: [facility] | [facility] | | [place], [place] [address] | REFERENCE LAB | + + + [...]
--- OUTSIDE RECORDS SUMMARY | ~2018-11-05 | XMS | Encounter Summary ---
Demographics + + + | Address | [address] | | | [place] [address] | + + + | Home Phone | | + + + | Preferred Language | Unknown | + + + | Marital Status | Single | + + + | Roman Catholic Affiliation | NON | + + [...] | | | | | [place] [address] | | + + + + + | Helena Reilly | ECON | [place] | | | | | [place] [address] | | + + + + + Care Team Providers + +------+ + | Care Medication Specialist Name | Role | Phone | [...] [place] | | | | | | [address] | | | | | | [phone] | | | +--------+------+ + + + [...] | [facility] | And | [place] [address] | [phone] | | MEDICAL CENTER | Streets | [...] | [facility] | And | [place] [address] | [phone] | | MEDICAL CENTER | Streets | | | + + + + + documented in this encounter Visit Diagnoses + + | Diagnosis | + + | Dysuria | + + documented in this encounter"
--- OUTSIDE RECORDS SUMMARY | ~2018-11-05 | XMS | Encounter Summary ---
Demographics + + + | Address | [address] | | | [place] [address] | + + + | Home Phone | | + + + | Preferred Language | Unknown | + + + | Marital Status | Single | + + + | Anabaptism Affiliation | NON | + + + [...] | | | | | [place] [address] | | + + + + + | Helena Barakatjoseph | ECON | [place]K | | | | | [place] [address] | | + + + + + Care Team Providers + +------+ + | Care Wood Tile Installer Name | Role | Phone | [...] + + + | 09/12/ | | [place] | Jeannie Argueta, | | | 2017 | | [facility] [address] | CNM [address] | | | | | E , [address] | [address] THE | | | | | [place], [place] | [place], [place] | | | | | [address] | [address] | | | | | [phone] | [phone] | | | | | | | [...] safe nursery, and find quality early childhood special educator if needed. Doing these things in advance will allow you to focus on caring for and enjoying your new baby. You may also want to have a tour of your hospital 's labor and delivery unit to get a better idea of what to expect while you are in the [facility]. During these last months, it is very [...] log into your My Chart account at [email or web address]. You can enter X471 in the "Health Library" [facility] box. Not on Edventurest? Review the MyChart section of your After Visit Summary for directions on timbo aquino to sign up. Current as of: November 20, 2015 Content Version: [id number] Equigerminal. Care instructions adapted under license by [facility] & Science Sh[place]oh. If you have questions about a medical condition or this instr uction, always ask your healthcare professional. Equigerminal disclaims any nino anty or liability for your use of this information. documented in this encounter Progress Notes Jeannie Argueta CNM - 09/12/2016 10:30 AM PDTFeeling well, no concerns. Discussed Tdap recommendations, recommended family members also get vaccine if not current. She is undecided about vaccine and will think about it She may travel to [place] by plane in a couple weeks, grandfather [...] [address], | [place] [address] | | | WOM[facility]ENTER | Suite [...]
--- OUTSIDE RECORDS SUMMARY | ~2018-11-05 | XMS | Encounter Summary ---
Demographics + + + | Address | [address] | | | [place] [address] | + + + | Home Phone [...] | | | | | [place] [address] | | + + + + + | Helena Reilly | ECON | UNK | | | | | [place] [address] | | + + + + + Care Team Providers + +------+ + | Care Java Manager Name | Role | Phone | [...] + + + | 05/10/ | | [place] | [place], | (Initial | | 2015 | | [facility] [address] | MD [address] | exam); Ultrasound | | | | E , [address] | ( tri sono) | | | | [place], [place] | [place], [place] | | | | | [address] | [phone] | | | | | [phone] | [phone] | | | | | | | [...] from the original. Initial Visit Welcome to [facility] [place]! This is the first of several messages that will be a part of your After Visit Summary (AVS) . It s a long one, so take your time. We re so happy you ve chosen us to guide you t hrough your . Please read chapters 3 and 25 in your book. How do I reach my provider? Have you signed up for CampusTap ? It s the best way to communicate with us for your non-urgent needs. Head to this address to sign up: [email or web address] You will need the activation code [...] days. Our main phone numbe linette is [phone]. The phone lines operate from 8:00am-5:00pm. If [...] take a second look at our Plate; PurpleTeal Blue Print that you received at your [...] such as orange juice, cereals, and breads. [place]-3 Fatty Acids Polyunsaturated fatty acids of the [...] protein. Get a healthy cookie or cracker (Security Associate Lj kyle has a denice snap cooki [...] elastic bracelet that utilizes acupressure theory from [facility] [employer] . These bracelets have an acupressure [...] have you talk to one of our [facility] Counselors. Some women are at a higher [...] or present disease s, in particular- rubella (bengali measles), varicella (chicken pox), syphilis, HIV, and [...] dis cuss this with your doctor or joint sealer. There are also some extreme variations of [...] weight during . Ask your doctor or joint sealer how you re doing and what strateg [...] doctor about how to use it safely. [place] with morning sickness Sip small amounts of [...] Your : Care Instructions", log into your Caringo account at [email or web address]. You can enter G112 in the INCIDE" se arch box. Not on CampusTap? Review the CampusTap section of your After Visit Summary for directions on ho w to sign up. [phone] Lit Building Directory. Care instructions adapted under license by Replaced by [facility]. This care instruction is for use with your licensed healthJibbigo professional. If you have questions about a medical condition or this instruction, always ask your healthcare professional. [employer] disclaims any warranty or liabili ty for your use of this information. Content Version: 11.0.132036; Current as of: November 20, 2015 Weeks [...] partner can talk to your doctor or joint sealer about defects tests. Follow-up care is a [...] log into your My Chart account at [email or web address]. You can enter E090 in the Parkt Library" s earch box. Not on ClearTaxhart? Review the MyChart section of your After Visit Summary for directions on ho w to sign up. 3363-3431 [employer] Directory. Care instructions adapted under license by Replaced by [facility] [place]. This care instruction is for use with your licensed healthcar e professional. If you have questions about a medical condition or this instruction, always ask your healthcare professional. [employer] disclaims any warranty or liabili ty for your use of this information. Content Version: 11.0.265114; Current as of: November 20, 2015 documented [...] Overview Note: FOB: Second Parent Name: Jaya Duensa Dating Criteria: [ ] LMP or U/S @ [ ] Weeks : [ ] Labs: drawn 04/23/16 [ ] Rh: No results found for: ABO, RH [ ] Antibody screen: [ ] GC: No results found for: CHLAMPROBE, GCPROBE [ ] HgbA1C: No results found for: A1C [ ] Pap: Last pap 02/2016 ASCUS. Done at [facility]. [ ] Urine Cx: [ ] Birthing [...] | + +--------+ + + + | [place] US, PREG | Routin | 05/10/2016 | [...] [address] | | | [place] [address] | | + + + + + [...] + + + | Test performed by: [facility] [address] | [place] | | [place] [address] | REFERENCE LAB | + + + [...] + | [place] | [address] [place] [address], | [place] [address] | | | [facility] | [address] | | | + + + + + [place] US, PREG UTER, & MAT,1ST TRIMEST (05/10/2016) [...]
[2018-11-05] MEDS ORDERED: AUGMENTIN 875-1 EACH PO (20:12)
[2018-11-05] MEDS ORDERED: NORCO 5-325 TA1 EACH PO (20:12)
== END 2018-11-05 20:33 | disposition home or self-care (01) ==
LOC: ED 17:45
DX: J03.90 Acute tonsillitis, unspecified (principal); M54.2 Cervicalgia
CPT/HCPCS: 70491; 80053; 85025; 86308; 87880; 96361; 99284-25; J1170; J1885; J2405; J7040

== ENCOUNTER 2021-05-11 00:09 | Inpatient (IN) | payer BC, OTHER ==
[~2021-05-11] VITALS: Ht 149.9 cm; Wt 86.2 kg
--- NOTE | ~2021-05-11 | OR ---
[facility] [address] [place], [place] [address] Draft DATE OF OPERATION: 05/12/2021 SURGEON: Semaj Ram DO PREOPERATIVE DIAGNOSES: 1. Intrauterine at 38 and 0 weeks gestation. 2. intolerance of labor. 3. Gestational diabetes, poorly controlled with insulin. 4. Failure to progress. POSTOPERATIVE DIAGNOSES: 1. Intrauterine at 38 and 0 weeks gestation. 2. intolerance of labor. 3. Gestational diabetes, poorly controlled with insulin. 4. Failure to progress. PROCEDURES PERFORMED: Primary low transverse delivery. ANESTHESIA: Epidural. EDITOR MAP: Larry Glover MD COMPLICATIONS: None. ESTIMATED BLOOD LOSS: 600 mL. DRAINS: Gonzales catheter to dependent drainage. FINDINGS: Viable male , 6 pounds 15 ounces, born in the LOT position via primary low-transverse section. No nuchal cord. Apgars 9 and 9. Preoperative glucose 102. Normal uterus, tubes, and ovaries. INDICATIONS: PATIENT NAME: QUANG REILLY OPERATIVE REPORT DATE OF : 95 REPORT #: [id number] PHYSICIAN: SEMAJ RAM DO PCP: NO PRIMARY CARE PHYSICIAN REPORT IS CONFIDENTIAL AND NOT TO BE RELEASED WITHOUT AUTHORIZATION [facility] [address] [place] [address] [place] Ms. Reilly is a pleasant 26-year-old G2, P1, white female with intrauterine at 38 weeks and 0 days gestation, who presented for medical induction of labor due to poorly controlled gestational diabetes requiring insulin. She received cervical ripening and when cervix was ripe, artificial rupture of membranes was performed. The patient made slow cervical change. An intrauterine pressure catheter was inserted and Pitocin augmentation was started. After several hours of adequate contractions, elevated baseline with recurrent late decelerations were noted that did not improve with intrauterine resuscitation. Glucose levels were well-controlled throughout labor. Cervix remained 3 cm dilated. Given remote status delivery and intolerance of labor, decision was made to recommend primary low-transverse delivery. Risks, benefits, and alternatives were discussed in detail with the patient. The patient understands and wishes to proceed with the procedure. TECHNIQUE: The patient was taken to the operating room where a time-out was performed to confirm correct patient and correct procedure. Epidural anesthesia had previously been placed by Anesthesia and was diminished. The patient was then prepped in the supine position with a bump under the right hip. A Gonzales catheter had previously been inserted. The patient received Ancef 2 g and azithromycin 500 mg preoperatively and no heparin was indicated. Once epidural was confirmed to be adequate, a Pfannenstiel skin incision was made, carried down to the fascia. The fascia was nicked in midline and fascial incision was extended bilaterally using curved Nuno scissors. Fascia was grasped with Daysi's, elevated, and the underlying rectus muscles dissected off bluntly and sharply. The rectus muscles were divided in the midline and peritoneum was grasped with hemostats, elevated, and entered sharply. Peritoneal incision was extended bilaterally using blunt dissection. No intrauterine or pelvic adhesions were noted. An Phani self retractor was placed. The lower uterine segment was identified and incised using a surgical scalpel. Hysterotomy was extended using blunt dissection. Clear fluid was noted. The surgeon's hand was placed in the uterine cavity. The head elevated and delivered in LOT position with the assistance of fundal pressure. No nuchal cord was identified. The was vigorous on delivery. The cord was doubly clamped and cut and the handed to the waiting pediatric team for further care. Cord gases were obtained and cord blood was obtained for routine analysis. The placenta was expressed intact with a centrally inserted three-vessel cord. Bleeding was minimal and resolved quickly with Pitocin per protocol. The hysterotomy was then repaired using 0 Monocryl in two layers, the 1st first being a running locked layer and the second being an imbricating layer in the vertical manner. A small amount of oozing was noted in the midline. This was made hemostatic with additional sutures of 0 Monocryl. The pelvis was irrigated and found to be hemostatic. Normal tubes and ovaries bilaterally were appreciated as well as normal uterus. The Phani self retractor was removed and ACell sheet was applied to the lower uterine segment after confirming hemostasis. The peritoneum was then reapproximated using 2-0 Vicryl in a running nonlocked mass. The rectus muscles were PATIENT NAME: QUANG REILLY OPERATIVE REPORT DATE OF : 95 REPORT #: [id number] PHYSICIAN: SEMAJ RAM DO PCP: NO PRIMARY CARE PHYSICIAN REPORT IS CONFIDENTIAL AND NOT TO BE RELEASED WITHOUT AUTHORIZATION [facility] [address] [place] [address] Draft then evaluated and made hemostatic with judicious use of Bovie electrocautery. The rectus sheath was then plicated in the midline loosely with several interrupted sutures of 0 Vicryl. Fascia was then reapproximated using 0 Vicryl in a running nonlocked manner. Subcu was made hemostatic with judicious use of Bovie electrocautery, irrigated and found to be hemostatic and then closed with Vicryl in a running nonlocked manner. Skin was reapproximated using surgical toña. The uterus was Crede'd for scant amount of blood. The patient was taken to PACU in good and stable condition. Sponge, needle, and instrument counts correct x2 at the end of the procedure. Dr. Glover was present and participated in all portions of procedure. After the procedure, the patient received a TAP block per Anesthesia. Semaj Ram DO JDW/MODL /[id number] Copies: ~ PATIENT NAME: QUANG REILLY OPERATIVE REPORT DATE OF : 95 REPORT #: [id number] PHYSICIAN: SEMAJ RAM DO PCP: NO PRIMARY CARE PHYSICIAN REPORT IS CONFIDENTIAL AND NOT TO BE RELEASED WITHOUT AUTHORIZATION
[~2021-05-11 00:09] MED LIST: AUGMENTIN 875-1 EACH PO; NORCO 5-325 TA1 EACH PO
--- NOTE | 2021-05-11 12:16 | PR ---
[facility] [address] [place], [place] [address] Signed Progress Notes IP Datetime Report Generated by CPN: 05/11/2021 12:16 PROGRESS NOTES: [id number] Impression: Reassuring Heart Rate Other Impressions: Uterine irritability Procedures: Sterile Vag Exam Plan: Continue Present Management; Cervical Ripening VITAL SIGNS: [id number] Vital Signs: Reviewed; Within Normal Limits EXAM: [id number] Dilatation: 1.0 Effacement: 25 Station: -3 Contractions: Irritability; pt "barely sensing them" MEMBRANES: [id number] Comments: Bedside evaluation. Cervix firm and fingertip. Tocometer tracing uterine irritability but denies painful contractions and only very mild cramping. Reviewed unable to place balloon for mechanical dilation and discussed risks/benefits of continued prostaglandins including tachystim / distress. Given mild nature of cramping recommend continued prostaglandins, and pt and understand and agree. FETUS A: [id number] FHR Baseline: 145 Variability: Moderate 6-25bpm Accelerations: 15X15 Decelerations: None FHR Category: Category I Presentation: Vertex Comments on Fetus A: No evidence of metabolic acidosis FETUS B: [id number] Signing Physician: Semaj Ram DO Copies: ~ *Electronically Signed* 05/11/21 1216 SEMAJ RAM DO PATIENT NAME: QUANG OTTO PROGRESS NOTE DATE OF : 95 PHYSICIAN: SEMAJ RAM DO RPT #: [id number] REPORT IS CONFIDENTIAL AND NOT TO BE RELEASED WITHOUT AUTHORIZATION
--- NOTE | 2021-05-11 19:05 | PR ---
[facility] [address] [place], [place] [address] Signed Progress Notes IP Datetime Report Generated by CPN: 05/11/2021 19:05 PROGRESS NOTES: [id number] Impression: Normal Progression of Labor; Reassuring Heart Rate Other Impressions: Uterine irritability Procedures: Artificial ROM; Sterile Vag Exam Plan: Continue Present Management VITAL SIGNS: [id number] Vital Signs: Reviewed; Within Normal Limits EXAM: [id number] Dilatation: 2.0 Effacement: 60 Station: -3 Contractions: Irritability; pt "barely sensing them" MEMBRANES: [id number] Comments: Pt seen and examined. Doing well. More uncomfortable w/ contractions. Glucose well controlled today. Cervix ripe and discussed AROM. Verbal consent obtained and vertex noted to be well applied. AROM performed without difficulty for moderate amount clear fluid. Variable decelerations noted and resolved w/ positional changes. Discussed anticipated course of labor including intrapartum management of GDM. Epidural on request. Anticipate . All questions answered. FETUS A: [id number] FHR Baseline: 145 Variability: Moderate 6-25bpm Accelerations: 15X15 Decelerations: None FHR Category: Category I Presentation: Vertex Comments on Fetus A: No evidence of metabolic acidosis FETUS B: [id number] Signing Physician: Semaj Ram DO Copies: ~ *Electronically Signed* 05/11/21 5450 SEMAJ RAM DO PATIENT NAME: QUANG OTTO PROGRESS NOTE DATE OF : 95 PHYSICIAN: SEMAJ RAM DO RPT #: [id number] REPORT IS CONFIDENTIAL AND NOT TO BE RELEASED WITHOUT AUTHORIZATION
--- NOTE | 2021-05-12 04:17 | PR ---
[facility] [address] [place], [place] [address] Signed Progress Notes IP Datetime Report Generated by CPN: 05/12/2021 04:16 PROGRESS NOTES: [id number] Impression: Normal Progression of Labor; Reassuring Heart Rate Other Impressions: Uterine irritability Procedures: Intrauterine Pressure Catheter; Scalp Electrode Plan: Augmentation VITAL SIGNS: [id number] Vital Signs: Reviewed; Within Normal Limits EXAM: [id number] Dilatation: 2.0 Effacement: 90 Station: -2 Contractions: Irritability; pt "barely sensing them" MEMBRANES: [id number] Membranes Status: Ruptured Comments: Risks, benefits, and alternatives to internal monitors discussed with pt. She denied questions/ concerns and elected to proceed. IUPC and FSE placed without difficulty. Continue augmentation with low-dose pitocin, glucose management per prior orders. FETUS A: [id number] FHR Baseline: 145 Variability: Moderate 6-25bpm Accelerations: 15X15 Decelerations: None FHR Category: Category I Presentation: Vertex Comments on Fetus A: No evidence of metabolic acidosis FETUS B: [id number] Signing Physician: Tawanda Vance DO Copies: ~ *Electronically Signed* 05/12/21 0416 TAWANDA VANCE DO PATIENT NAME: QUANG OTTO PROGRESS NOTE DATE OF : 95 PHYSICIAN: TAWANDA VANCE DO RPT #: [id number] REPORT IS CONFIDENTIAL AND NOT TO BE RELEASED WITHOUT AUTHORIZATION
--- NOTE | 2021-05-12 06:43 | PR ---
[facility] [address] [place], [place] [address] Signed Progress Notes IP Datetime Report Generated by DANITA: 05/12/2021 06:43 PROGRESS NOTES: [id number] Impression: Arrest of Dilatation/Descent; Non-reassuring Heart Rate Other Impressions: Uterine irritability Procedures: Sterile Vag Exam Plan: Deliver- Section Informed Consent Obtain: Section Delivery VITAL SIGNS: [id number] Vital Signs: Reviewed; Within Normal Limits EXAM: [id number] Dilatation: 2.0 Effacement: 90 Station: -2 Contractions: Irritability; pt "barely sensing them" MEMBRANES: [id number] Membranes Status: Ruptured Comments: Pt seen and examined. Comfortable w/ epidural. Glucose well controlled. tachycardia w/ recurrent late decelerations noted with minimal / moderate variability. Afebrile. Pitocin was d/c'd and intrauterine rescussitation performed. Discussed remote to delivery with above FHT changes and recommended primary LTCS. Pt and understand and agree. Will proceed with C/S; ancef 2 g, Azithromycin 500mg ordered. OR crew and Dr. Glover notified and en route. Terbutaline subq administered. Reviewed C/S in detail incluiding risks benefits and alternatives and consents signed. FETUS A: [id number] FHR Baseline: 145 Variability: Moderate 6-25bpm Accelerations: 15X15 Decelerations: None FHR Category: Category I Presentation: Vertex Comments on Fetus A: No evidence of metabolic acidosis FETUS B: [id number] Signing Physician: Tawanda Vance DO Copies: *Electronically Signed* 05/12/21 0643 TAWANDA VANCE DO PATIENT NAME: QUANG OTTO PROGRESS NOTE DATE OF : 95 PHYSICIAN: TAWANDA VANCE DO RPT #: [id number] REPORT IS CONFIDENTIAL AND NOT TO BE RELEASED WITHOUT AUTHORIZATION [address] [address] Signed ~ *Electronically Signed* 05/12/21 0643 TAWANDA VANCE DO PATIENT NAME: QUANG OTTO PROGRESS NOTE DATE OF : 95 PHYSICIAN: TAWNADA VANCE DO RPT #: [id number] REPORT IS CONFIDENTIAL AND NOT TO BE RELEASED WITHOUT AUTHORIZATION
--- NOTE | 2021-05-12 08:52 | NUR ---
05/12/21 0852 Kendra Xavier 0818 PT TO ROOM WITH AT BEDSIDE HOLDING BABY. PT REPROT NAUSEA AND DECREASED BP NOTED. HOB DECREASED. 0823 NAUSEA MEDICATION GIVEN PER EMAR. 0845 PLAN OF CARE DISCUSSED AND ALL QUESTIONS ANSWERED. PT REPORTS NAUSEA IS BETTER AND HOB REMAINS LOW, EDUCATION GIVEN. VSS. 0850 REPORT TO FBC RN. VSS. PT DENIES PAIN AND NAUSEA.
--- NOTE | 2021-05-13 17:18 | PR ---
[facility] [address] [facility] [place] [address] Signed PP Progress Notes Datetime Report Generated by CPN: 05/13/2021 17:18 SUBJECTIVE: [id number] Pain: Within Normal Limits Bowel Movement: No Vital Signs: [id number] Vital Signs: Within Normal Limits EXAM: Ongoing Cardiovascular: Normal Respiratory: Normal Abdomen/Uterus: Normal Lochia: Normal CVA Tenderness: Normal Extremities: Normal Incision: Normal Progress: Normal Exam Comments: Fundus firm U-2 nontender. Incision healing well IMPRESSION/PLAN/PROCEDURES: [id number] Impression: Normal Progression Plan: Continue Present Management Progress Notes: Pt doing well. No concerns. Anticipate d/c home tomorrow. Signing Physician: Semaj Ram DO Copies: ~ *Electronically Signed* 05/13/21 1718 SEMAJ RAM DO PATIENT NAME: QUANG OTTO PROGRESS NOTE DATE OF : 95 PHYSICIAN: SEMAJ RAM DO RPT #: [id number] REPORT IS CONFIDENTIAL AND NOT TO BE RELEASED WITHOUT AUTHORIZATION
[2021-05-13] MEDS ORDERED: PRENATAL VITAM1 EACH PO (22:26)
[2021-05-13] MEDS ORDERED: NOVOLIN N100 UNIT/2 SQ (22:31)
[2021-05-13] MEDS ORDERED: NOVOLOG100 UNIT/1 SUB-Q (22:32)
--- NOTE | 2021-05-14 07:49 | PR ---
[facility] [address] [facility] [place] [address] Signed PP Progress Notes Datetime Report Generated by CPN: 05/14/2021 07:48 SUBJECTIVE: [id number] Pain: Within Normal Limits Nausea/Vomiting: Denies Flatus: Yes Bowel Movement: No Vital Signs: [id number] Vital Signs: Reviewed EXAM: Ongoing Cardiovascular: Normal Respiratory: Normal Abdomen/Uterus: Normal Lochia: Normal CVA Tenderness: Normal Extremities: Normal Incision: Normal Progress: Normal Exam Comments: Fundus firm U-2 nontender. Incision healing well IMPRESSION/PLAN/PROCEDURES: [id number] Impression: Normal Progression Plan: Remove [place]; Discharge Progress Notes: Pt seen and examined. Doing well. Ambulating, voiding, and tolerating full diet. Pain and lochia minimal. well. No fevers/chills or other concerns. Reviewed Hgb 8.2 (acute blood loss anemia postoperatively) and iron therapy. Pt denies lightheadedness. DC instructions reviewed in detail and pt planning OCPs pp Signing Physician: Semaj Ram DO Copies: ~ *Electronically Signed* 05/14/21 0748 SEMAJ RAM DO PATIENT NAME: QUANG OTTO PROGRESS NOTE DATE OF : 95 PHYSICIAN: SEMAJ RAM DO RPT #: [id number] REPORT IS CONFIDENTIAL AND NOT TO BE RELEASED WITHOUT AUTHORIZATION
== END 2021-05-14 11:10 | disposition home or self-care (01) | DRG 787 ==
LOC: FBC 00:09
PROVIDERS: ADMIT Obstetrics & Gynecology; ATTEND Obstetrics & Gynecology
PROC: 3E0P7VZ Introduction of Hormone into Female Reproductive, Via Natural or Artificial Opening (ICD-10-PCS; 2021-05-12)
PROC: 10907ZC Drainage of Amniotic Fluid, Therapeutic from Products of Conception, Via Natural or Artificial Opening (ICD-10-PCS; 2021-05-12)
PROC: 00HU33Z Insertion of Infusion Device into Spinal Canal, Percutaneous Approach (ICD-10-PCS; 2021-05-12)
PROC: 3E0R3BZ Introduction of Anesthetic Agent into Spinal Canal, Percutaneous Approach (ICD-10-PCS; 2021-05-12)
PROC: 3E0R3NZ Introduction of Analgesics, Hypnotics, Sedatives into Spinal Canal, Percutaneous Approach (ICD-10-PCS; 2021-05-12)
PROC: 10H07YZ Insertion of Other Device into Products of Conception, Via Natural or Artificial Opening (ICD-10-PCS; 2021-05-12)
PROC: 10D00Z1 Extraction of Products of Conception, Low, Open Approach (ICD-10-PCS; principal; 2021-05-12 07:11)
DX: O24.424 Gestational diabetes mellitus in childbirth, insulin controlled (principal); D62 Acute posthemorrhagic anemia; Z20.822 Contact with and (suspected) exposure to COVID-19; Z3A.38 38 weeks gestation of pregnancy; Z37.0 Single live birth; O99.03 Anemia complicating the puerperium; O76 Abnormality in fetal heart rate and rhythm complicating labor and delivery
CPT/HCPCS: 01961; 76942; 82803; 85027; A9270; C9803; J0456; J0690; J1100; J1650; J1885; J2274; J2370; J2405; J2590; J2795; J3010; J7060; J7121; U0003

== ENCOUNTER 2022-05-25 22:47 | Emergency (ER) | payer BC, OTHER ==
[~2022-05-25] VITALS: Ht 152.4 cm; Wt 66.8 kg
[~2022-05-25 22:47] MED LIST changes: +NOVOLIN N100 UNIT/2 SQ; +NOVOLOG100 UNIT/1 SUB-Q; +PRENATAL VITAM1 EACH PO
[2022-05-26] MEDS ORDERED: ONDANSETRON ODT8 MG PO (00:51)
== END 2022-05-26 01:29 | disposition home or self-care (01) ==
LOC: ED 22:47
DX: K52.9 Noninfective gastroenteritis and colitis, unspecified (principal)
CPT/HCPCS: 36415; 74177; 80053; 81003; 83690; 83735; 84703; 85025; 96361; 96375; 99283-25; A9270; J1170; J2405; J7030; Q9967

== ENCOUNTER 2023-12-29 10:20 | Inpatient (IN) | payer OTHER ==
[~2023-12-29] VITALS: Ht 149.9 cm; Wt 78.0 kg
--- NOTE | ~2023-12-29 | OR ---
[id number] [place], [place] [address] Draft DATE OF OPERATION: 12/30/2023 SURGEON: Semaj Ram DO PREOPERATIVE DIAGNOSES: 1. Intrauterine at 37 weeks. 2. Gestational diabetes, poorly controlled with insulin. 3. History of prior . POSTOPERATIVE DIAGNOSES: 1. Intrauterine at 37 weeks. 2. Gestational diabetes, poorly controlled with insulin. 3. History of prior . PROCEDURE PERFORMED: Repeat low transverse delivery. SAP BASIS CONSULTANT: None. ANESTHESIA: Spinal with postoperative TAP blocks. ESTIMATED BLOOD LOSS: 500 mL. DRAINS: Gonzales to gravity. SPECIMENS: None. FINDINGS: Delivery of viable male with Apgars of 8 and 9, weighing 6 pounds 12 ounces, born in the LOT position with clear amniotic fluid and no nuchal cord. Normal uterus, tubes, and ovaries. INDICATIONS: Ms. Reilly is a very pleasant 28-year-old G3, P2 with IUP in the 37th week, who presented for scheduled repeat low transverse delivery. complicated PATIENT NAME: QUANG REILLY OPERATIVE REPORT DATE OF : [birth year] REPORT #: [id number] PHYSICIAN: SEMAJ RAM) PCP: LIEN ALVAREZ MD REPORT IS CONFIDENTIAL AND NOT TO BE RELEASED WITHOUT AUTHORIZATION [address] [address] Draft by gestational diabetes is very poorly controlled with insulin. Risks, benefits, and alternatives were discussed in detail with the patient. The patient understands and wished to proceed with the procedure. DESCRIPTION OF PROCEDURE: The patient was taken to the OR where a time-out was performed to confirm correct and correct procedure. Spinal anesthesia was adequately established. The patient was prepped and draped in supine position with a bump under the right hip. Gonzales catheter was inserted. The patient received Ancef 2 g preoperatively. Heparin was not indicated. Once anesthesia was noted to be adequate, a Pfannenstiel skin incision was made through the prior Pfannenstiel scar and carried down to the fascia. Fascia was nicked in the midline and fascial incision was extended bilaterally using curved Nuno scissors. The fascia was grasped with Daysi's, elevated, and the underlying rectus divided off bluntly and sharply. Peritoneum was entered bluntly and peritoneal incision was extended cephalad and caudad using blunt and sharp dissection. Phani self retractor was placed and the lower uterine segment identified. Hysterotomy was performed using surgical scalpel and hysterotomy was extended bilaterally using blunt dissection. Amnion was ruptured for clear fluid. The surgeon's hand was placed in the uterine cavity and the head elevated in the abdomen with the assistance of fundal pressure in the LOT position. was delivered without difficulty and was vigorous, cried. Cord was doubly clamped, cut, and handed to the waiting pediatric team for the care. Cord blood was obtained for routine analysis. Placenta was expressed, intact with a centrally inserted three-vessel cord. The uterine cavity was cleared of any remaining products of conception or clot and was hemostatic. Pitocin was administered per protocol. The hysterotomy was closed in two layers of Monocryl. The 1st being a running locked layer and the 2nd being an imbricating nonlocked layer in the vertical manner. The pelvis was irrigated and superficial bleeding was made hemostatic with Bovie electrocautery. The right edge of the hysterotomy was noted to have some oozing. This was made hemostatic with a [id number] of 0 Monocryl. After excellent hemostasis was appreciated, the pelvis was again irrigated and the Phani retractor was removed. Peritoneum was reapproximated using 2-0 Vicryl in a running nonlocked manner. Rectus was irrigated made hemostatic with judicious use of Bovie electrocautery and two interrupted sutures of oh Vicryl, one in the rectus sheath on the right and one on the inferior edge of the fascial incision. Rectus was then plicated loosely in the midline with three interrupted sutures of 0 Vicryl. The fascia was reapproximated using 0 Vicryl in a running nonlocked manner. Subcu was irrigated, made hemostatic with judicious use of Bovie electrocautery and plicated with 3-0 Vicryl. The skin was reapproximated using surgical toña. The uterus was Crede'd for a scant amount of blood. The patient remained in the OR for postoperative TAP blocks. Sponge, needle, and instrument counts was correct x3 at the end of procedure. PATIENT NAME: QUANG REILLY OPERATIVE REPORT DATE OF : 95 REPORT #: [id number] PHYSICIAN: SEMAJ RAM (IRENE) DO PCP: LIEN ALVAREZ MD REPORT IS CONFIDENTIAL AND NOT TO BE RELEASED WITHOUT AUTHORIZATION [facility] [address] [place] [id number] [place] Semaj Ram DO JButchW/MODL /[id number] Copies: ~ PATIENT NAME: QUANG REILLY OPERATIVE REPORT DATE OF : 95 REPORT #: [id number] PHYSICIAN: SEAMJ RAM DO (JD) PCP: LIEN ALVAREZ MD REPORT IS CONFIDENTIAL AND NOT TO BE RELEASED WITHOUT AUTHORIZATION
--- OUTSIDE RECORDS SUMMARY | ~2023-12-29 | XMS | Continuity of Care Document ---
Demographics + + + | Address | [address] | | | [place] [address] | + + + | Preferred Language | Unknown | + + + | Marital Status | Unknown | + + + | Catholic Affiliation | Unknown | + + + | Race | White | + + + | Ethnic Group | Not or | + + + Author + + + | Author | [facility] | + + + | Organization | [facility] | + + + | Address | [address] | | | [place] [address] | + + + | Phone | | + + + Care Team Providers + + + + | Care Respiratory Assistant Name | Role | Phone | + + + + Unavailable | Unavailable | + + + + Allergies No information. Encounters No information. Functional Status No information. Immunizations No information. Medications No information. Problems + + + + | date | description | facility | + + + + | (no date) | Pain in unspecified joint | [facility] | | | | [place] | + + + + | (no date) | Elevated C-reactive | [facility] | | | protein (CRP) | [place] | + + + + Procedures No information. Results/Labs No information. Social History +--------+ + + | date | description | facility | +--------+ + + Vital Signs No information."
[~2023-12-29 10:20] MED LIST changes: +ONDANSETRON ODT8 MG PO
[2023-12-30] MEDS ORDERED: LACTATED RINGER'S 1,000 ML IV SCH ×2 (05:00→08:40)
[2023-12-30] MEDS ORDERED: LACTATED RINGER'S 2,000 ML IV PRN (05:00)
[2023-12-30] MEDS ORDERED: LIDOCAINE 2% VISCOUS 6 ML SYR TOP ONE (05:30)
[2023-12-30 05:50] VITALS: BP 115/67
[2023-12-30 05:57] LABS: HEMATOCRIT 31.8 % (35.0-50.0); HEMOGLOBIN 10.7 g/dL (12.0-18.0); MCH 26.5 (27-36); MCHC 33.6 g/dl (30-36); RBC 4.03 M/ul (4.3-5.7); RDW 14.1 (10.5-15.0)
[2023-12-30 06:43] LABS: ABO A; ANTIBODY SCREEN NEGATIVE; RH POSITIVE
[2023-12-30 06:55] LABS: AMPHETAMINES, URINE NEGATIVE (NEGATIVE); BARBITURATES, URINE NEGATIVE (NEGATIVE); BENZODIAZEPINE, URINE NEGATIVE (NEGATIVE); BUPRENORPHINE, URINE NEGATIVE (NEGATIVE); CANNABINOID, URINE NEGATIVE (NEGATIVE); COCAINE, URINE NEGATIVE (NEGATIVE); ECSTASY, URINE NEGATIVE (NEGATIVE); FENTANYL, URINE NEGATIVE (NEGATIVE); METHADONE, URINE NEGATIVE (NEGATIVE); OPIATES, URINE NEGATIVE (NEGATIVE); OXYCODONE, URINE NEGATIVE (NEGATIVE); PHENCYCLIDINE, URINE NEGATIVE (NEGATIVE)
[2023-12-30] MEDS ORDERED: SOD+POT BICARB/CITRIC ACID 2 EA TABLET.EFF PO SCH (07:00)
[2023-12-30] MEDS ORDERED: CEFAZOLIN SODIUM 2 GM/20 ML SYR IV SCH (07:00)
[2023-12-30] MEDS ORDERED: fentaNYL citrate 100 MCG/2 ML VIAL ONE (07:10)
[2023-12-30] MEDS ORDERED: BUPIVACAINE 0.75% IN DEXTROSE 2 ML AMP ONE (07:10)
[2023-12-30] MEDS ORDERED: ondansetron HCL 4 MG/2 ML VIAL ONE (07:10)
[2023-12-30] MEDS ORDERED: LIDOCAINE HCL 2% 5 ML SDV ONE (07:10)
[2023-12-30] MEDS ORDERED: MORPHINE SULFATE 1 MG/ML VIAL ONE (07:12)
[2023-12-30] MEDS ORDERED: PHENYLEPHRINE HCL 10 MG/ML VIAL ONE (07:35)
[2023-12-30] MEDS ORDERED: SODIUM CHLORIDE 0.9% 20 ML IV ONE ×3 (07:35→08:19)
[2023-12-30] MEDS ORDERED: OXYTOCIN 10 UNITS/ML VIAL ONE (07:47)
[2023-12-30] MEDS ORDERED: fentaNYL citrate 50 MCG/ML SDV IV PRN (08:00)
[2023-12-30] MEDS ORDERED: ondansetron HCL 4 MG/2 ML VIAL IV PRN ×2 (08:00→08:15)
[2023-12-30] MEDS ORDERED: IBLOOD GLUCOSE TEST STRIP 1 EA TEST VI PRN (08:00)
[2023-12-30] MEDS ORDERED: NALOXONE HCL 0.4 MG SYR IV PRN ×2 (08:00→08:15)
[2023-12-30] MEDS ORDERED: diphenhydrAMINE HCL 50 MG/ML VIAL IV PRN ×2 (08:00→08:15)
[2023-12-30] MEDS ORDERED: KETOROLAC TROMETHAMINE 30 MG/ML VIAL IV PRN (08:00)
[2023-12-30] MEDS ORDERED: HYDROmorphone HCL 1 MG/ML SYR IV PRN (08:15)
[2023-12-30] MEDS ORDERED: dexmedeTOMIDine HCl 200 MCG/2 ML VIAL ONE (08:17)
[2023-12-30] MEDS ORDERED: Ropivacaine HCl 0.5% 30 ML VIAL ONE (08:17)
[2023-12-30] MEDS ORDERED: DEXAMETHASONE SOD PHOS 4 MG/ML VIAL ONE (08:17)
[2023-12-30] MEDS ORDERED: PROCHLORPERAZINE EDISYLATE 10 MG/2 ML VIAL IV PRN (08:45)
[2023-12-30] MEDS ORDERED: OXYCODONE/APAP 5/325 TAB PO PRN (08:45)
[2023-12-30] MEDS ORDERED: METOCLOPRAMIDE HCL 10 MG/2 ML SDV IV PRN (08:45)
[2023-12-30] MEDS ORDERED: PROMETHAZINE HCL 25 MG SUPP PR PRN (08:45)
[2023-12-30] MEDS ORDERED: bisacodyL 10 MG SUPP PR PRN (08:45)
[2023-12-30] MEDS ORDERED: PROMETHAZINE HCL 25 MG TAB PO PRN (08:45)
[2023-12-30] MEDS ORDERED: HYDROCODONE/ACETA 5/325 TAB PO PRN (08:45)
[2023-12-30] MEDS ORDERED: OXYTOCIN/0.9 % SODIUM CHLORIDE 500 ML IV SCH (08:45)
--- NOTE | 2023-12-30 08:56 | NUR ---
12/30/23 0856 Sheets,Kendra 0822 PT RESTING IN BED WITH NO CONCERNS, PT DENIES PAIN AND REPORTS 1/10 PAIN WITH FUNDAL CHECKS. IV IN LEFT HAND AND WNL AND INFUSING LR WITH 30 PIT. VSS. SPINAL LEVEL T-7.
[2023-12-30] MEDS ORDERED: ENOXAPARIN SODIUM 40 MG/0.4 ML SYR SUB-Q SCH (09:00)
[2023-12-30] MEDS ORDERED: SENNOSIDES/DOCUSATE 1 EA TAB PO SCH (09:00)
[2023-12-30 09:13] VITALS: BP 102/62
[2023-12-30] MEDS ORDERED: SIMETHICONE 125 MG TABLET CHEWABLE PO SCH (11:00)
[2023-12-30] MEDS ORDERED: KETOROLAC TROMETHAMINE 30 MG/ML VIAL IV SCH (14:00)
[2023-12-31 05:46] LABS: HEMOGLOBIN 9.4 g/dL (12.0-18.0); MCH 26.6 (27-36); MCHC 33.4 g/dl (30-36); MCV 79.7 fl (81-99); RBC 3.52 M/ul (4.3-5.7); RDW 14.5 (10.5-15.0)
[2023-12-31] MEDS ORDERED: ondansetron HCL 4 MG/2 ML VIAL IV PRN (08:15)
[2023-12-31] MEDS ORDERED: IBUPROFEN 600 MG TAB PO SCH (14:00)
--- NOTE | 2023-12-31 18:30 | PR ---
[facility] [address] [facility] [place], [place] [address] Signed PP Progress Notes Datetime Report Generated by CPN: 12/31/2023 18:29 SUBJECTIVE: [id number] Pain: Within Normal Limits Nausea/Vomiting: Denies Flatus: Yes Bowel Movement: No Vital Signs: [id number] Vital Signs: Reviewed; Within Normal Limits EXAM: Ongoing Cardiovascular: Normal Respiratory: Normal Abdomen/Uterus: Normal Lochia: Normal Vulva/Perineum: Not Done Breasts: Not Done CVA Tenderness: Normal Extremities: Normal Incision: Normal Progress: Normal Exam Comments: Fundus firm U-1 nontender. Incision healing well IMPRESSION/PLAN/PROCEDURES: [id number] Impression: Normal Progression Plan: Continue Present Management Progress Notes: Pt seen and examined. Doing well. Ambulating voiding, and tolerating full diet. Pain and lochia minimal. well. No concerns. Anticipate D/C home in the AM Signing Physician: Semaj Ram DO Copies: ~ *Electronically Signed* 12/31/23 3992 SEMAJ RAM (IRENE) DO PATIENT NAME: QUANG OTTO PROGRESS NOTE DATE OF : 95 PHYSICIAN: SEMAJ RAM) DO RPT #: [id number] REPORT IS CONFIDENTIAL AND NOT TO BE RELEASED WITHOUT AUTHORIZATION
--- NOTE | 2024-01-01 09:48 | PR ---
[facility] [address] [facility] [place], [place] [address] Signed PP Progress Notes Datetime Report Generated by CPN: 01/01/2024 09:48 SUBJECTIVE: [id number] Pain: Within Normal Limits Nausea/Vomiting: Denies Flatus: Yes Bowel Movement: No Vital Signs: [id number] Vital Signs: Reviewed; Within Normal Limits EXAM: Ongoing Cardiovascular: Normal Respiratory: Normal Abdomen/Uterus: Normal Lochia: Normal Vulva/Perineum: Normal Breasts: Not Done CVA Tenderness: Not Done Extremities: Normal Incision: Normal Progress: Normal Exam Comments: Fundus firm U-2 nontender. Incision healing well IMPRESSION/PLAN/PROCEDURES: [id number] Impression: Normal Progression Plan: Discharge Progress Notes: Pt seen and examined. Doing well. Ambulating, voiding, and tolerating full diet. No concerns. Desires d/c today. Reviewed d/c instructions / medications. F/U for staple removal in 2-3 days Signing Physician: Semaj Ram DO Copies: ~ *Electronically Signed* 01/01/24 0948 SEMAJ RAM (IRENE) DO PATIENT NAME: QUANG OTTO PROGRESS NOTE DATE OF : 95 PHYSICIAN: SMEAJ RAM (IRENE) DO RPT #: [id number] REPORT IS CONFIDENTIAL AND NOT TO BE RELEASED WITHOUT AUTHORIZATION
== END 2024-01-01 12:00 | disposition home or self-care (01) | DRG 788 ==
LOC: FBC 12-30 05:13
PROVIDERS: ADMIT Obstetrics & Gynecology; ATTEND Obstetrics & Gynecology
PROC: 10D00Z1 Extraction of Products of Conception, Low, Open Approach (ICD-10-PCS; principal; 2023-12-30 07:30)
DX: O34.211 Maternal care for low transverse scar from previous cesarean delivery (principal); O24.424 Gestational diabetes mellitus in childbirth, insulin controlled; Z3A.37 37 weeks gestation of pregnancy; Z37.0 Single live birth
CPT/HCPCS: 01961; 36415; 80307; 85027; 86850; 86900; 86901; A9270; J0690; J1100; J1650; J1885; J2001; J2274; J2371; J2405; J2590; J2795; J3010; J7121

== ENCOUNTER 2024-07-26 07:34 | Emergency (ER) | payer OTHER ==
[~2024-07-26] VITALS: Ht 152.4 cm; Wt 76.2 kg
[2024-07-26] MEDS ORDERED: DEXAMETHASONE SOD PHOS 10 MG/ML VIAL PO ONE (08:00)
[2024-07-26] MEDS ORDERED: ALBUTEROL/IPRATROPIUM 3 ML NEB INH ONE (08:00)
[2024-07-26] MEDS ORDERED: AMOXICILLIN/CLAVULANATE K 875 MG TAB PO ONE (08:00)
[2024-07-26] MEDS ORDERED: AMOX TR-K CLV1 EAC1 PO (08:02)
[2024-07-26] MEDS ORDERED: VENTOLIN HFA18 GM INH (08:02)
[2024-07-26 08:10] VITALS: BP 124/84
== END 2024-07-26 08:11 | disposition home or self-care (01) ==
LOC: ED 07:34
DX: O99.891 Other specified diseases and conditions complicating pregnancy (principal); H60.91 Unspecified otitis externa, right ear; O99.512 Diseases of the respiratory system complicating pregnancy, second trimester; J06.9 Acute upper respiratory infection, unspecified; Z3A.00 Weeks of gestation of pregnancy not specified
CPT/HCPCS: 94640; 99283; J1100

== ENCOUNTER 2024-11-24 09:11 | Inpatient (IN) | payer OTHER ==
[~2024-11-24 09:11] MED LIST changes: +AMOX TR-K CLV1 EAC1 PO; +VENTOLIN HFA18 GM INH
[2024-11-25] MEDS ORDERED: LACTATED RINGER'S 2,000 ML IV PRN (16:15)
[2024-11-25] MEDS ORDERED: LACTATED RINGER'S 1,000 ML IV SCH (16:15)
[2024-11-26] MEDS ORDERED: SOD+POT BICARB/CITRIC ACID 2 EA TABLET.EFF PO SCH (07:00)
[2024-11-26] MEDS ORDERED: CEFAZOLIN SODIUM 2 GM/20 ML SYR IV SCH (07:00)
[2024-11-26] MEDS ORDERED: SOD+POT BICARB/CITRIC ACID 2 EA TABLET.EFF PO ONE (09:00)
[2024-11-26 09:20] LABS: HEMATOCRIT 30.9 % (34.1-44.9); HEMOGLOBIN 9.8 g/dL (11.2-15.7); MCHC 31.7 g/dL (32.2-35.5); MCV 75.7 fL (79.4-94.8); RBC 4.08 M/uL (3.93-5.22)
[2024-11-26 09:21] VITALS: BP 129/75
[2024-11-26 09:24] LABS: AMPHETAMINES, URINE NEGATIVE (NEGATIVE); BENZODIAZEPINE, URINE NEGATIVE (NEGATIVE); BUPRENORPHINE, URINE NEGATIVE (NEGATIVE); CANNABINOID, URINE NEGATIVE (NEGATIVE); COCAINE, URINE NEGATIVE (NEGATIVE); ECSTASY, URINE NEGATIVE (NEGATIVE); FENTANYL, URINE NEGATIVE (NEGATIVE); METHADONE, URINE NEGATIVE (NEGATIVE); OPIATES, URINE NEGATIVE (NEGATIVE); OXYCODONE, URINE NEGATIVE (NEGATIVE); PHENCYCLIDINE, URINE NEGATIVE (NEGATIVE)
[2024-11-26] MEDS ORDERED: TRANEXAMIC ACID IN NACL,ISO-OS 0 ML IV ONE (11:03)
[2024-11-26] MEDS ORDERED: fentaNYL citrate 100 MCG/2 ML VIAL ONE (11:51)
[2024-11-26] MEDS ORDERED: MORPHINE SULFATE 1 MG/ML VIAL ONE (11:51)
[2024-11-26] MEDS ORDERED: BUPIVACAINE 0.75% IN DEXTROSE 2 ML AMP ONE (11:52)
[2024-11-26] MEDS ORDERED: ondansetron HCL 4 MG/2 ML VIAL ONE (11:52)
[2024-11-26] MEDS ORDERED: LIDOCAINE HCL 2% 5 ML SDV ONE (11:52)
[2024-11-26] MEDS ORDERED: OXYTOCIN 10 UNITS/ML VIAL ONE (11:52)
[2024-11-26] MEDS ORDERED: SODIUM CHLORIDE 0.9% 0 ML IV ONE (12:04)
[2024-11-26] MEDS ORDERED: dexmedeTOMIDine HCl 200 MCG/2 ML VIAL ONE (12:04)
[2024-11-26] MEDS ORDERED: Ropivacaine HCl 0.5% 30 ML VIAL ONE (12:04)
[2024-11-26] MEDS ORDERED: DEXAMETHASONE SOD PHOS 4 MG/ML VIAL ONE (12:04)
[2024-11-26 13:37] LABS: ABO A; RH POSITIVE
[2024-11-26 13:38] LABS: ANTIBODY SCREEN POSITIVE
[2024-11-26 13:39] LABS: ABO A; ANTIBODY SCREEN POSITIVE; RH POSITIVE
[2024-11-27 13:41] LABS: ANTIBODY IDENTIFICATION Anti-c
== END 2024-11-26 13:25 | disposition home or self-care (01) | DRG 833 ==
LOC: FBC 11-26 08:30
PROVIDERS: ADMIT Obstetrics & Gynecology; ATTEND Obstetrics & Gynecology
DX: O34.211 Maternal care for low transverse scar from previous cesarean delivery (principal); Z3A.39 39 weeks gestation of pregnancy; Z37.0 Single live birth
CPT/HCPCS: 36415; 80307; 85027; 86850; 86870; 86900; 86901; J1100; J2003; J2274; J2405; J2590; J2795; J3010; J7121

== ENCOUNTER 2024-11-30 05:09 | Inpatient (IN) | payer OTHER ==
[~2024-11-30] VITALS: Ht 149.9 cm; Wt 88.5 kg
--- NOTE | ~2024-11-30 | OR ---
[facility] [address] [place], [place] [address] Draft DATE OF OPERATION: 11/30/2024 SURGEON: Semaj Ram DO PREOPERATIVE DIAGNOSES: 1. Term at 38 weeks gestation. 2. Gestational diabetes mellitus, poor control. 3. History of prior section. 4. Anemia. 5. Maternal antibody screen positive. POSTOPERATIVE DIAGNOSES: 1. Term at 38 weeks gestation. 2. Gestational diabetes mellitus, poor control. 3. History of prior section. 4. Anemia. 5. Maternal antibody screen positive. PROCEDURE PERFORMED: Repeat low transverse section. ANESTHESIA: Spinal with postoperative TAP blocks. QUANTITATED BLOOD LOSS: 432 mL. DRAINS: Gonzales to gravity. COMPLICATIONS: None. SPECIMENS: Cord blood for routine analysis. FINDINGS: Delivery of viable female , 7 pounds 11 ounces with Apgars of 9 and 9 born in the ARTHUR position via low transverse section. Normal uterus, tubes, and ovaries. No nuchal cord. Clear amniotic fluid noted. No significant pelvic or abdominal PATIENT NAME: QUANG REILLY OPERATIVE REPORT DATE OF : 95 REPORT #: [id number] PHYSICIAN: SEMAJ RAM) PCP: NO PRIMARY CARE PHYSICIAN REPORT IS CONFIDENTIAL AND NOT TO BE RELEASED WITHOUT AUTHORIZATION [address] [address] Draft adhesions. INDICATIONS: Ms. Reilly is a very pleasant 29-year-old, G4, P3, female with intrauterine at 38 weeks gestation with complicated by history of prior and poorly controlled gestational diabetes. She was originally scheduled for last week, but this was delayed due to new anti-C maternal autoantibody. She also had significant anemia and decision was made to delay the until typed and cross blood could be at hand. The patient presented for repeat today where procedure was reviewed and all questions were answered. The patient understands and wished to proceed with procedure. DESCRIPTION OF PROCEDURE: The patient was taken the OR. A time-out was performed to confirm correct patient, correct procedure. Spinal anesthesia was established. The patient was prepped and draped in the supine position. A bump on the right hip. Gonzales catheter was inserted. The patient received Ancef 2 g preoperatively per SCIP protocol. No heparin was indicated. Once spinal was noted to be adequate, a Pfannenstiel skin incision was made through the prior Pfannenstiel scar and carried down to the fascia. The fascia was nicked in the midline and fascial incision was extended bilaterally using curved Nuno scissors. The fascia was grasped with Daysi's, elevated, and the underlying rectus dissected off bluntly and sharply. The rectus was divided bluntly in the midline. The peritoneum was entered bluntly. Peritoneal incision was extended cephalad caudad using sharp and blunt dissection. Phani self retractor was placed. The lower uterine segment was identified and noted to be normal in appearance. Hysterotomy was performed using a surgical scalpel and amnion was ruptured without difficulty for a large amount of clear fluid. Hysterotomy was extended bilaterally using blunt dissection. The surgeon's hand was placed in the uterine cavity. The vertex elevated and delivered with the assistance of fundal pressure in the ARTHUR position. No nuchal cord and clear fluid was noted. The was vigorous and cried upon delivery. Cord was doubly clamped and cut and the handed to waiting pediatric team for further care. Cord blood was obtained for routine analysis. The placenta was expressed intact with centrally inserted three-vessel cord. The uterus was cleared of any remaining products of conception or clot. Pitocin was administered per protocol. Bleeding was minimal. Hysterotomy was repaired in two layers of 0 Monocryl. The first being a running locked layer and the second being a running imbricating layer in a vertical manner with excellent hemostasis and reapproximation. Normal uterus, tubes, and ovaries were appreciated and again no pelvic or abdominal adhesions. Once hemostasis was appreciated. The uterus was returned to the abdomen. Phani self retractor was removed and the peritoneum was reapproximated using 2-0 Vicryl in a running nonlocked manner. Rectus was made hemostatic with judicious use of Bovie electrocautery and was loosely plicated in the midline with three interrupted sutures of 0 Vicryl. Fascia was PATIENT NAME: QUANG REILLY OPERATIVE REPORT DATE OF : 95 REPORT #: [id number] PHYSICIAN: SEMAJ RAM (IRENE) DO PCP: NO PRIMARY CARE PHYSICIAN REPORT IS CONFIDENTIAL AND NOT TO BE RELEASED WITHOUT AUTHORIZATION [facility] [address] [place] [id number] Draft reapproximated using 0 Vicryl in a running nonlocked manner. Subcu was made hemostatic with judicious use of Bovie electrocautery and reapproximated using 3-0 Vicryl. Skin was reapproximated using subcuticular dissolvable toña and skin edges were brought together using 4-0 Vicryl. The uterus was Crede'd for scant amount of blood. The patient remained in the PACU for postoperative TAP block per Anesthesia. Sponge, needle and instrument counts were correct x2 at the end of the procedure. Semaj Ram DO JVENU/MODL /[id number] Copies: ~ PATIENT NAME: QUANG REILLY OPERATIVE REPORT DATE OF : 95 REPORT #: [id number] PHYSICIAN: SEMAJ RAM DO (JD) PCP: NO PRIMARY CARE PHYSICIAN REPORT IS CONFIDENTIAL AND NOT TO BE RELEASED WITHOUT AUTHORIZATION
[2024-11-30] MEDS ORDERED: SOD+POT BICARB/CITRIC ACID 2 EA TABLET.EFF PO ONE (05:30)
[2024-11-30] MEDS ORDERED: LACTATED RINGER'S 1,000 ML IV PRN (05:30)
[2024-11-30 05:42] VITALS: BP 112/80
[2024-11-30 06:08] LABS: HEMATOCRIT 30.2 % (34.1-44.9); HEMOGLOBIN 9.4 g/dL (11.2-15.7); MCH 23.4 PG (25.6-32.2); MCHC 31.1 g/dL (32.2-35.5); MCV 75.1 fL (79.4-94.8); RBC 4.02 M/uL (3.93-5.22)
[2024-11-30 06:20] LABS: AMPHETAMINES, URINE NEGATIVE (NEGATIVE); BENZODIAZEPINE, URINE NEGATIVE (NEGATIVE); BUPRENORPHINE, URINE NEGATIVE (NEGATIVE); CANNABINOID, URINE NEGATIVE (NEGATIVE); COCAINE, URINE NEGATIVE (NEGATIVE); ECSTASY, URINE NEGATIVE (NEGATIVE); FENTANYL, URINE NEGATIVE (NEGATIVE); METHADONE, URINE NEGATIVE (NEGATIVE); OPIATES, URINE NEGATIVE (NEGATIVE); OXYCODONE, URINE NEGATIVE (NEGATIVE); PHENCYCLIDINE, URINE NEGATIVE (NEGATIVE)
[2024-11-30] MEDS ORDERED: CEFAZOLIN SODIUM 2 GM/20 ML SYR IV SCH (07:00)
[2024-11-30] MEDS ORDERED: MORPHINE SULFATE 1 MG/ML VIAL ONE (07:04)
[2024-11-30] MEDS ORDERED: fentaNYL citrate 100 MCG/2 ML VIAL ONE (07:04)
[2024-11-30] MEDS ORDERED: BUPIVACAINE 0.75% IN DEXTROSE 2 ML AMP ONE (07:07)
[2024-11-30] MEDS ORDERED: LIDOCAINE HCL 2% 5 ML SDV ONE (07:07)
[2024-11-30] MEDS ORDERED: SODIUM CHLORIDE 0.9% 20 ML IV ONE (07:07)
[2024-11-30] MEDS ORDERED: ondansetron HCL 4 MG/2 ML VIAL ONE (07:07)
[2024-11-30] MEDS ORDERED: DEXAMETHASONE SOD PHOS 4 MG/ML VIAL ONE (07:07)
[2024-11-30] MEDS ORDERED: dexmedeTOMIDine HCl 200 MCG/2 ML VIAL ONE (07:07)
[2024-11-30] MEDS ORDERED: Ropivacaine HCl 0.5% 30 ML VIAL ONE (07:07)
[2024-11-30] MEDS ORDERED: OXYTOCIN 10 UNITS/ML VIAL ONE (07:07)
[2024-11-30 07:34] LABS: ABO A; ANTIBODY SCREEN POSITIVE; RH POSITIVE
[2024-11-30 07:36] LABS: ANTIBODY IDENTIFICATION ANTI-c
[2024-11-30] MEDS ORDERED: ondansetron HCL 4 MG/2 ML VIAL IV PRN ×2 (08:00→08:15)
[2024-11-30] MEDS ORDERED: KETOROLAC TROMETHAMINE 30 MG/ML VIAL IV PRN ×2 (08:00→08:15)
[2024-11-30] MEDS ORDERED: fentaNYL citrate 50 MCG/ML SDV IV PRN (08:00)
[2024-11-30] MEDS ORDERED: NALOXONE HCL 0.4 MG SYR IV PRN ×2 (08:00→08:15)
[2024-11-30] MEDS ORDERED: IBLOOD GLUCOSE TEST STRIP 1 EA TEST VI PRN (08:00)
[2024-11-30] MEDS ORDERED: diphenhydrAMINE HCL 25 MG CAP PO PRN (08:15)
[2024-11-30] MEDS ORDERED: HYDROmorphone HCL 1 MG/ML SYR IV PRN (08:15)
[2024-11-30] MEDS ORDERED: diphenhydrAMINE HCL 50 MG/ML VIAL IV PRN (08:15)
[2024-11-30] MEDS ORDERED: PHENYLEPHRINE HCL 10 MG/ML VIAL ONE (08:39)
[2024-11-30] MEDS ORDERED: PROCHLORPERAZINE EDISYLATE 10 MG/2 ML VIAL IV PRN (09:00)
[2024-11-30] MEDS ORDERED: HYDROCODONE/ACETA 5/325 TAB PO PRN (09:00)
[2024-11-30] MEDS ORDERED: PROMETHAZINE HCL 25 MG TAB PO PRN (09:00)
[2024-11-30] MEDS ORDERED: SENNOSIDES/DOCUSATE 1 EA TAB PO SCH (09:00)
[2024-11-30] MEDS ORDERED: bisacodyL 10 MG SUPP PR PRN (09:00)
[2024-11-30] MEDS ORDERED: PROMETHAZINE HCL 25 MG SUPP PR PRN (09:00)
[2024-11-30] MEDS ORDERED: OXYTOCIN/0.9 % SODIUM CHLORIDE 500 ML IV SCH (09:00)
[2024-11-30] MEDS ORDERED: OXYCODONE HCL 5 MG TAB PO PRN (09:00)
[2024-11-30] MEDS ORDERED: METOCLOPRAMIDE HCL 10 MG/2 ML SDV IV PRN (09:00)
[2024-11-30] MEDS ORDERED: OXYCODONE/APAP 5/325 TAB PO PRN (09:00)
[2024-11-30] MEDS ORDERED: LACTATED RINGER'S 1,000 ML IV SCH (09:05)
--- NOTE | 2024-11-30 09:11 | NUR ---
11/30/24 0911 Jenni Cannon 0900-PATIENT ARRIVED TO ROOM 104 FBC FOR RECOVERY. PATIENT AWAKE DENIES PAIN OR NAUSEA. BABY TO LEFT BREAST. IV TO LEFT HAND CDI INFUSING LR WITH 20 PITCOING. RIGHT HAND IV SALINE LOCKED CDI. FUNDUS FIRM TO RIGHT SIDE SIMON CATHETER DRAINING YELLOW URINE. ENRIKE FBC ASSESSED FUNDUS AND NOW MIDLINE AT UMBULILCUS LIGHT RUBRA DRAINAGE TO ROZINA PAD. ROZINA PAD CHANGED. SPINAL LEVEL T6. AT BEDSIDE. 0911-PATIENT AWAKE DENIES PAIN OR NAUSEA. RA 97% RR EVEN. MOM FEEDING BABY TO RIGHT BREAST ENRIKE FBC RN ASSISTING
[2024-11-30 09:31] VITALS: BP 107/62
[2024-11-30] MEDS ORDERED: SIMETHICONE 80 MG CHEW PO SCH (11:00)
[2024-11-30] MEDS ORDERED: KETOROLAC TROMETHAMINE 30 MG/ML VIAL IV SCH (14:00)
[2024-11-30 14:32] LABS: AHG CROSSMATCH COMPATIBLE
[2024-11-30] MEDS ORDERED: ENOXAPARIN SODIUM 40 MG/0.4 ML SYR SUB-Q SCH (17:00)
[2024-11-30] MEDS ORDERED: FERROUS SULFATE 325 MG TAB PO SCH (17:00)
[2024-12-01] MEDS ORDERED: LACTATED RINGER'S 1,000 ML IV SCH (05:00)
[2024-12-01 05:29] LABS: HEMATOCRIT 23.3 % (34.1-44.9); HEMOGLOBIN 7.3 g/dL (11.2-15.7); MCH 23.7 PG (25.6-32.2); MCHC 31.3 g/dL (32.2-35.5); MCV 75.6 fL (79.4-94.8); RBC 3.08 M/uL (3.93-5.22)
[2024-12-01] MEDS ORDERED: ondansetron HCL 4 MG/2 ML VIAL IV PRN (08:15)
--- NOTE | 2024-12-01 08:50 | PR ---
[facility] [address] [facility] [place], [place] [address] Signed PP Progress Notes Datetime Report Generated by CPN: 12/01/2024 08:50 SUBJECTIVE: [id number] Pain: Within Normal Limits Nausea/Vomiting: Denies Flatus: Yes Bowel Movement: No Vital Signs: [id number] Vital Signs: Reviewed; Within Normal Limits EXAM: Ongoing Cardiovascular: Normal Respiratory: Normal Abdomen/Uterus: Normal Lochia: Normal Vulva/Perineum: Not Done Breasts: Not Done CVA Tenderness: Normal Extremities: Normal Incision: Normal Exam Comments: Fundus firm U-2 nontender. Incision clean / dry IMPRESSION/PLAN/PROCEDURES: [id number] Impression: Normal Progression Other Impression: acute blood loss anemia superimposed on anemia of Plan: Continue Present Management Progress Notes: Pt seen and examined. Doing well. Ambulating, voiding, tolerating full diet. Pain and lochia minimal. . No fevers/chills. No lightheaded / dizziness. Hgb 7.3 down from 9.5 at admission. Will monitor progress and consider iron infusion. Signing Physician: Semaj Ram DO Copies: ~ *Electronically Signed* 12/01/24 0844 SEMAJ RAM (IRENE) DO PATIENT NAME: QUANG OTTO PROGRESS NOTE DATE OF : 95 PHYSICIAN: SEMAJ RAM (JD) DO RPT #: [id number] REPORT IS CONFIDENTIAL AND NOT TO BE RELEASED WITHOUT AUTHORIZATION
[2024-12-01] MEDS ORDERED: ACETAMINOPHEN 325 MG TAB PO PRN (09:00)
[2024-12-01] MEDS ORDERED: IBUPROFEN 600 MG TAB PO SCH (14:00)
[2024-12-02 05:43] LABS: HEMATOCRIT 26.1 % (34.1-44.9); HEMOGLOBIN 8.2 g/dL (11.2-15.7); MCHC 31.4 g/dL (32.2-35.5); MCV 76.3 fL (79.4-94.8); RBC 3.42 M/uL (3.93-5.22)
--- NOTE | 2024-12-02 07:06 | PR ---
[facility] [address] [place], [place] [address] Signed PP Progress Notes Datetime Report Generated by CPN: 12/02/2024 07:06 SUBJECTIVE: [id number] Pain: Within Normal Limits Nausea/Vomiting: Denies Flatus: Yes Bowel Movement: Yes Vital Signs: [id number] Vital Signs: Reviewed; Within Normal Limits EXAM: Ongoing Cardiovascular: Normal Respiratory: Normal Abdomen/Uterus: Normal Lochia: Normal Vulva/Perineum: Not Done Breasts: Not Done CVA Tenderness: Normal Extremities: Normal Incision: Normal Progress: Normal Exam Comments: Fundus firm U-2 nontender. Incision well healing. IMPRESSION/PLAN/PROCEDURES: [id number] Impression: Normal Progression Other Impression: acute blood loss anemia superimposed on anemia of Plan: Discharge Progress Notes: Pt seen and examined. Doing well. Ambulating, voiding, and tolerating full diet. Pain and lochia minimal. well. No fevers/chills/lightheadedness. Hgb improved this am. Desires d/c home this AM. Undecided on pp contracption. Reviewed d/c instructions and medications. F/U in 2 wks in office. Discussed plan for 6 wk pp glucose screening. Signing Physician: Semaj Ram DO Copies: ~ *Electronically Signed* 12/02/24 0706 SEMAJ RAM (IRENE) DO PATIENT NAME: QUANG OTTO PROGRESS NOTE DATE OF : 95 PHYSICIAN: SEMAJ RAM (JD) DO RPT #: [id number] REPORT IS CONFIDENTIAL AND NOT TO BE RELEASED WITHOUT AUTHORIZATION
== END 2024-12-02 11:42 | disposition home or self-care (01) | DRG 787 ==
LOC: FBC 05:09
PROVIDERS: ADMIT Obstetrics & Gynecology; ATTEND Obstetrics & Gynecology
PROC: 10907ZC Drainage of Amniotic Fluid, Therapeutic from Products of Conception, Via Natural or Artificial Opening (ICD-10-PCS; 2024-11-30)
PROC: 10D00Z1 Extraction of Products of Conception, Low, Open Approach (ICD-10-PCS; principal; 2024-11-30 07:30)
DX: O24.424 Gestational diabetes mellitus in childbirth, insulin controlled (principal); D62 Acute posthemorrhagic anemia; Z3A.38 38 weeks gestation of pregnancy; Z37.0 Single live birth; O99.02 Anemia complicating childbirth; O34.211 Maternal care for low transverse scar from previous cesarean delivery; Z90.89 Acquired absence of other organs; J45.909 Unspecified asthma, uncomplicated; O99.52 Diseases of the respiratory system complicating childbirth; Z90.49 Acquired absence of other specified parts of digestive tract; Z79.85 Long-term (current) use of injectable non-insulin antidiabetic drugs; Z79.51 Long term (current) use of inhaled steroids; Z79.899 Other long term (current) drug therapy
CPT/HCPCS: 01961; 36415; 76942; 80307; 85027; 86850; 86870; 86900; 86901; 86922; A9270; J0690; J1100; J1650; J1885; J2003; J2274; J2371; J2405; J2590; J2795; J3010